=== PATIENT | male | born 1960 | race Caucasian/White ===

== ENCOUNTER 2022-10-29 22:42 | Inpatient (IN) | payer MEDICARE, OTHER ==
[2022-10-29] MEDS ORDERED: ACETAMINOPHEN TAB 325 MG TAB PO PRN (22:46)
[2022-10-29] MEDS ORDERED: NALOXONE 0.4 MG/ML 1 ML VIAL IV PRN (22:46)
--- NOTE | 2022-10-29 22:58 | ED ---
General Adult HPI - General Stated complaint: SOB Time Seen by Provider: 10/29/22 22:45 Source: patient, EMS, RN notes reviewed, old records reviewed Limitations: no limitations - History of Present Illness Initial comments: 62-year-old male presenting as transfer from [facility] for evaluation of weight loss, failure to thrive, suspected malignancy. The patient had initially presented for evaluation of weight loss and right-sided lower abdominal pain. He is a current smoker. He also was found to be hypoxic and required supplemental oxygen. Workup at outside hospital did reveal a large loculated right lower lobe effusion and atelectasis. The patient had a normal white blood cell count hemoglobin of 12. He had mild hyponatremia 132. Normal electrolytes otherwise. His albumin was 2.0. Normal kidney function. Patient states his pain is improved at the time my evaluation. He was sent with request for evaluation by both pulmonology and oncology. Vital signs stable during transport. Review of Systems ROS Statement: Those systems with pertinent positive or pertinent negative responses have been documented in the HPI. ROS Other: All systems not noted in ROS Statement are negative. General Exam General appearance: alert, cachectic Head exam: Present: atraumatic, normocephalic Eye exam: Present: normal appearance ENT exam: Present: mucous membranes dry Neck exam: Present: normal inspection Respiratory exam: Present: decreased breath sounds. Absent: respiratory distress Cardiovascular Exam: Present: regular rate, normal rhythm GI/Abdominal exam: Present: soft, tenderness (Mild right lower quadrant tenderness). Absent: distended Extremities exam: Present: normal inspection, normal capillary refill Neurological exam: Present: alert, oriented X3, CN II-XII intact. Absent: motor sensory deficit Skin exam: Present: warm Course - Reevaluation(s) Reevaluation #1: 10/29/22 22:54 CT imaging and chest x-ray will be loaded. Laboratory studies will be repeated including CBC, CMP and magnesium. Reevaluation #2: 10/29/22 22:54 Patient did state he had a PET scan performed, attempt will be made to obtain these results. Medical Decision Making - Medical Decision Making Was pt. sent in by a medical professional or institution (, PA, APPLIANCE FIXER, urgent care, hospital, or chcf...) When possible be specific @ -No Did you speak to anyone other than the patient for history (EMS, parent, family, police, friend...)? What history was obtained from this source @ -No Did you review nursing and triage notes (agree or disagree)? Why? @ -I reviewed and agree with nursing and triage notes Were old charts reviewed (outside hosp., previous admission, EMS record, old EKG, old radiological studies, urgent care reports/EKG's, chcf records)? Report findings @ -No old charts were reviewed Differential Diagnosis (chest pain, altered mental status, abdominal pain women, abdominal pain men, vaginal bleeding, weakness, fever, dyspnea, syncope, headache, dizziness, GI bleed, back pain, seizure, CVA, palpatations, mental health, musculoskeletal)? @ -Differential Weakness: Hypoglycemia, shock, sepsis, hyponatremia, anemia, infection, OH, ETOH, adverse medicine reaction, overdose, stroke, this is not meant to be an all- inclusive list. EKG interpreted by me (3pts min.). @ -As above X-rays interpreted by me (1pt min.). @ -Images will be loaded for chest x-ray. CT interpreted by me (1pt min.). @ Images will be loaded for CT chest and pelvis and attempts currently being made to obtain PET scan results U/S interpreted by me (1pt. min.). @ -None done What testing was considered but not performed or refused? (CT, X-rays, U/S, labs)? Why? @ -None What meds were considered but not given or refused? Why? @ -None Did you discuss the management of the patient with other professionals (professionals i.e. , PA, APPLIANCE FIXER, lab, RT, psych nurse, secondary social studies teacher, lead javascript developer, teacher, ordnance corps officer, case operator)? Give summary @ -No Was smoking cessation discussed for >3mins.? @ -No Was critical care preformed (if so, how long)? @ -No Were there social determinants of health that impacted care today? How? (Homel essness, low income, unemployed, alcoholism, drug addiction, transportation, low edu. Level, literacy, decrease access to med. care, chcf, rehab)? @ -No Was there de-escalation of care discussed even if they declined (Discuss DNR or withdrawal of care, Hospice)? DNR status @ -No What co-morbidities impacted this encounter? (DM, HTN, Smoking, COPD, CAD, Cancer, CVA, ARF, Chemo, Hep., AIDS, mental health diagnosis, sleep apnea, morbid obesity)? @ -Tobacco use, COPD Was patient admitted / discharged? Hospital course, mention meds given and route, prescriptions, significant lab abnormalities, going to OR and other pertinent info. @ 62-year-old male transferred from outside hospital for weight loss, pleural effusion, and failure to thrive. Patient will be admitted to internal medicine with consults placed to pulmonology and oncology. Undiagnosed new problem with uncertain prognosis? @ -No Drug Therapy requiring intensive monitoring for toxicity (Heparin, Nitro, Insulin, Cardizem)? @ -No Were any procedures done? @ -No Diagnosis/symptom? @ -[Failure to thrive, weight loss, hypoalbuminemia, pleural effusion Acute, or Chronic, or Acute on Chronic? @ -Acute Uncomplicated (without systemic symptoms) or Complicated (systemic symptoms)? @ -[Complicated Side effects of treatment? @ -No Exacerbation, Progression, or Severe Exacerbation? @ -No Poses a threat to life or bodily function? How? (Chest pain, [place], OH, pneumonia, PE, COPD, DKA, ARF, appy, cholecystitis, CVA, Diverticulitis, Homicidal, Suicidal, threat to staff... and all critical care pts) @ -[Yes, malignancy, pleural effusion Disposition Clinical Impression: Failure to thrive, Hypoalbuminemia, Pleural effusion, right, Weight loss, non- intentional Disposition: ADMITTED IP TO THIS [facility] Condition: Stable Is patient prescribed a controlled substance at d/c from ED?: No Referrals: Anushka Sabillon MD [Primary Care Provider] - 1-2 days Time of Disposition: 22:55
[2022-10-29 23:49] LABS: Anisocytosis Slight; Basophils % (A) 0 %; Eosinophils % (A) 0 %; HCT 34.7 % (39.0-53.0); Hypochromasia Slight; Lymphocytes # (A) 0.7 k/uL (1.0-4.8); Lymphocytes % (A) 8 %; MCHC 31.6 g/dL (31.0-37.0); MCV 82.3 fL (80.0-100.0); Mean Platelet Volume 7.2; Monocytes # (A) 0.5 k/uL (0-1.0); Monocytes % (A) 6 %; Neutrophils % (A) 84 %; Platelet Count 358 k/uL (150-450); RBC 4.21 m/uL (4.30-5.90); RDW 16.2 % (11.5-15.5); WBC 8.3 k/uL (3.8-10.6)
[2022-10-29] MEDS: SODIUM CHLORIDE 0.9% 1,000 ML IV SCH (23:53)
[2022-10-30 00:12] LABS: ALT 22 U/L (4-49); AST 22 U/L (17-59); African American GFR (CKD) >90 (>60 ml/min/1.73 sqM); Albumin 2.7 g/dL (3.5-5.0); Alkaline Phosphatase 118 U/L (38-126); Anion Gap 10 mmol/L; Blood Urea Nitrogen 13 mg/dL (9-20); Carbon Dioxide 23 mmol/L (22-30); Chloride 98 mmol/L (98-107); Glucose 104 mg/dL (74-99); Non-African American GFR(CKD) >90 (>60 ml/min/1.73 sqM); Potassium 3.7 mmol/L (3.5-5.1); Sodium 131 mmol/L (137-145); Total Bilirubin 0.9 mg/dL (0.2-1.3); Total Protein 5.9 g/dL (6.3-8.2)
--- NOTE | 2022-10-30 00:43 | P.HPIM ---
History of Present Illness H&P Date: 10/29/22 The patient is a 61-year-old male with a PMH of tobacco abuse who was transferred from [facility] where he had presented earlier today with complaints of weight loss and abdominal pain. The patient states that over the past several months, he has lost as much as 60 pounds of weight. He also r eports a right-sided abdominal discomfort, intermittent, 8 out of 10 on maximal intensity, occurring over the past few weeks, with no alleviating or exacerbating features. She reports experiencing nausea with vomiting during this time, which has led to a significant weight loss. He reports being unable to tolerate most foods. The patient reports that he quit smoking 5 days ago but was previously smoking a pack of cigarettes a day for most of his life. The documentation from [facility] was reviewed. CT chest/abdomen/pelvis revealed a large loculated right-sided pleural effusion with atelectasis with advanced COPD. There was also small pericardial effusion as well as a small amount of free pelvic fluid with splenomegaly. In [place] emergency room, the patient underwent an extensive evaluation with laboratory evaluation showing WBC count 8.3, hemoglobin 11.0, sodium 131, g lucose 104, lactic acid 1.3, calcium 8.0, with albumin 2.7. ED documentation reviewed and case discussed with ED provider. Review of systems: Pertinent positives and negatives as discussed in HPI, a complete review of systems was performed and all other systems are negative. Physical examination: Vital signs reviewed General: Somewhat ill-appearing frail male, no distress, appears at stated age Derm: no unusual rashes/lesions, warm Head: atraumatic, normocephalic, symmetric Eyes: EOMI, no lid lag, anicteric sclera, pupils equal round reactive to light ENT: Nose and ears atraumatic Neck: No cervical lymphadenopathy, trachea midline, supple Mouth: no lip lesion, mucus membranes moist Cardiovascular: S1S2 reg, no murmur, positive dorsalis pedis pulse bilateral, no edema Lungs: Decreased breath sounds at the right lung base, no rales, no accessory muscle use Abdominal: soft, nontender to palpation, no guarding Ext: muscle strength 4 out of 5 in all 4 extremities grossly, no gross muscle atrophy, no contractures, Neuro: CN II-XI grossly intact, no gross focal neuro deficits Psych: Alert, oriented, appropriate affect Assessment: Loculated right-sided pleural effusion with atelectasis, suspected malignancy Hyponatremia Plan: Pulmonary consult for thoracentesis and possible biopsy IV fluids with NS 75 mL/hr Pain control DVT prophylaxis: Lovenox The patient is admitted with an anticipated greater than 2 midnight stay for evaluation of malignancy CODE STATUS: Full Code Discussed with: Patient Anticipated discharge place: Home Past Medical History Past Medical History: Asthma, COPD, Hypertension History of Any Multi-Drug Resistant Organisms: None Reported Past Surgical History: Orthopedic Surgery Past Psychological History: No Psychological Hx Reported Smoking Status: Former smoker Past Alcohol Use History: None Reported Past Drug Use History: None Reported - Past Family History Father Family Medical History: COPD Medications and Allergies Allergies Allergy/AdvReac Type Severity Reaction Status Date / Time No Known Allergies Allergy Verified 10/29/22 23:27 Physical Exam Vitals: Vital Signs Pulse Resp BP Pulse Ox 10/29/22 23:22 67 22 126/71 91 L Intake and Output 10/29/22 10/29/22 10/30/22 14:59 22:59 06:59 Other: Weight 77.111 kg Results CBC & Chem 7: 10/29/22 23:30 10/29/22 23:30 Labs: Abnormal Lab Results - Last 24 Hours (Table) 10/29/22 10/29/22 Range/Units 23:30 23:30 RBC 4.21 L (4.30-5.90) m/uL Hgb 11.0 L (13.0-17.5) gm/dL Hct 34.7 L (39.0-53.0) % RDW 16.2 H (11.5-15.5) % Lymphocytes # 0.7 L (1.0-4.8) k/uL Sodium 131 L (137-145) mmol/L Creatinine 0.61 L (0.66-1.25) mg/dL Glucose 104 H (74-99) mg/dL Calcium 8.0 L (8.4-10.2) mg/dL Total Protein 5.9 L (6.3-8.2) g/dL Albumin 2.7 L (3.5-5.0) g/dL
[2022-10-30] MEDS: MORPHINE SULFATE 4 MG/ML SYRINGE IV PRN ×5 (01:27→22:45)
--- NOTE | 2022-10-30 06:44 | XR ---
EXAMINATION TYPE: XR chest 2V DATE OF EXAM: 10/30/2022 COMPARISON: Outside chest x-ray and CT from yesterday HISTORY: Pleural effusion. TECHNIQUE: Frontal and lateral views of the chest are obtained. FINDINGS: Background chronic emphysematous and parenchymal fibrotic changes redemonstrated with post erior opacity corresponding to nonsimple right-sided pleural fluid collection. The cardiac silhouett e size is upper limits of normal. The osseous structures are demineralized. IMPRESSION: As above. No significant change from one day earlier.
--- NOTE | 2022-10-30 08:51 | US ---
EXAMINATION TYPE: US chest DATE OF EXAM: 10/30/2022 COMPARISON: Chest x-ray earlier today CLINICAL INDICATION: Male, 62 years old with history of Right pleural effusion; rt pleural effusion TECHNIQUE: Targeted ultrasound of the posterior lower right hemithorax EXAM MEASUREMENTS: Right Pleural Effusion pocket size: 13.3 cm Right skin surface to fluid distance: 3.3 cm right fluid collection appears complex with internal debris Right side marked for possible thoracentesis outside the dept. Pulmonologists are able to review the images in the patient?s EMR. At least moderate size nonsimple right-sided pleural fluid collection correlates with recent x-ray an d CT. Possible empyema. IMPRESSIONS: As above.
[2022-10-30] MEDS ORDERED: RX INFO: IV CONTRAST WAS GIVEN 1 EACH MISC MISCELLANE PRN (08:57)
[2022-10-30] MEDS: ENOXAPARIN 40 MG/0.4 ML SYRINGE SQ SCH (08:58)
[2022-10-30 10:00] LABS: Appearance,Urine Clear (Clear); Bilirubin,Urine 1+ (Negative); Blood,Urine Negative (Negative); Color,Urine Yellow; Glucose,Urine (UA) Negative (Negative); Ketones,Urine Negative (Negative); Leukocyte Esterase,Urine Negative (Negative); Mucus,Urine Rare /hpf; Nitrite,Urine Negative (Negative); PH, Urine 6.5 (5.0-8.0); Protein,Urine 1+ (Negative); RBC,Urine 7 /hpf (0-5); Specific Gravity,Urine >1.050 (1.001-1.035); Urobilinogen,Urine >12.0 mg/dL (<2.0); WBC,Urine 1 /hpf (0-5)
[2022-10-30 10:19] LABS: INR 1.9 (<1.2); Prothrombin Time 18.9 sec (9.0-12.0)
[2022-10-30] MEDS: SODIUM CHLORIDE 0.9% 1,000 ML IV SCH (13:19)
[2022-10-30] MEDS ORDERED: VANCOMYCIN IV PER PHARMACY 1 EACH MISC MISCELLANE PRN (13:38)
[2022-10-30] MEDS ORDERED: VANCOMYCIN 1,000 MG in SODIUM CHLORIDE 0.9% 250 ML IVPB STA (13:40)
[2022-10-30] MEDS ORDERED: ALBUTEROL NEBULIZED 2.5 MG/3 ML INHALATION PRN (14:22)
--- NOTE | 2022-10-30 14:25 | P.PN ---
Subjective Progress Note Date: 10/30/22 Hospital Course: 61-year-old male with a PMH of tobacco abuse who was transferred from [facility] where he had presented earlier today with complaints of weight loss and abdominal pain. In [place] emergency room, the patient underwent an extensive evaluation with laboratory evaluation showing WBC count 8.3, hemoglobin 11.0, sodium 131, glucose 104, lactic acid 1.3, calcium 8.0, with albumin 2.7. Subjective: Seen and examined at bedside. No acute events overnight. He claims that abdominal pain is persistent. Denies any significant shortness of breath. Pertinent positives and negatives as discussed above, a complete review of systems was performed and all other systems are negative. Vitals Signs Reviewed. General: Somewhat ill-appearing frail male, no distress, appears at stated age Derm: no unusual rashes/lesions, warm Head: atraumatic, normocephalic, symmetric Eyes: EOMI, no lid lag, anicteric sclera, pupils equal round reactive to light ENT: Nose and ears atraumatic Neck: No cervical lymphadenopathy, trachea midline, supple Mouth: no lip lesion, mucus membranes moist Cardiovascular: S1S2 reg, no murmur, positive dorsalis pedis pulse bilateral, no edema Lungs: Decreased breath sounds at the right lung base, no rales, no accessory muscle use Abdominal: soft, nontender to palpation, no guarding Ext: muscle strength 4 out of 5 in all 4 extremities grossly, no gross muscle atrophy, no contractures, Neuro: CN II-XI grossly intact, no gross focal neuro deficits Psych: Alert, oriented, appropriate affect Data Reviewed Today: Pertinent Labs: INR 1.9, urinalysis shows negative nitrites and negative leukocyte esterase. Imaging: Chest ultrasound shows moderate side non-simple right-sided pleural effusion, possible empyema Assessment and Plan: Active: Loculated right-sided pleural effusion with atelectasis Hyponatremia -Pulmonology consulted, started on vancomycin and cefepime -Pending thoracentesis -Microbiology pending -CT chest with contrast pending -Patient appears euvolemic, repeat BMP tomorrow DVT ppx: Lovenox Code status: Full Code Anticipated discharge place: pending clinical course Anticipated discharge time: pending the course Objective - Vital Signs Vital signs: Vital Signs Temp 98.3 F 10/30/22 13:22 Pulse 84 10/30/22 13:22 Resp 18 10/30/22 13:22 BP 134/81 10/30/22 13:22 Pulse Ox 91 L 10/30/22 13:22 FiO2 Intake & Output 10/29/22 10/30/22 10/30/22 18:59 06:59 18:59 Intake Total 360 Balance 360 Weight 77.111 kg Intake: Intake, IV Titration 0 Amount Sodium Chloride 0.9% 1, 0 000 ml @ 75 mls/hr IV . [id number] [facility] Rx#:[id number] Oral 360 Other: # Voids 1 - Labs CBC & Chem 7: 10/29/22 23:30 10/29/22 23:30 Labs: Abnormal Lab Results - Last 24 Hours (Table) 10/29/22 10/29/22 10/30/22 Range/Units 23:30 23:30 09:46 RBC 4.21 L (4.30-5.90) m/uL Hgb 11.0 L (13.0-17.5) gm/dL Hct 34.7 L (39.0-53.0) % RDW 16.2 H (11.5-15.5) % Lymphocytes # 0.7 L (1.0-4.8) k/uL PT (9.0-12.0) sec INR (<1.2) Sodium 131 L (137-145) mmol/L Creatinine 0.61 L (0.66-1.25) mg/dL Glucose 104 H (74-99) mg/dL Calcium 8.0 L (8.4-10.2) mg/dL Total Protein 5.9 L (6.3-8.2) g/dL Albumin 2.7 L (3.5-5.0) g/dL Ur Specific [place] >1.050 H (1.001-1.035) Urine Protein 1+ H (Negative) Urine Bilirubin 1+ H (Negative) Urine RBC 7 H (0-5) /hpf Urine Mucus Rare H (None) /hpf 10/30/22 Range/Units 09:58 RBC (4.30-5.90) m/uL Hgb (13.0-17.5) gm/dL Hct (39.0-53.0) % RDW (11.5-15.5) % Lymphocytes # (1.0-4.8) k/uL PT 18.9 H (9.0-12.0) sec INR 1.9 H (<1.2) Sodium (137-145) mmol/L Creatinine (0.66-1.25) mg/dL Glucose (74-99) mg/dL Calcium (8.4-10.2) mg/dL Total Protein (6.3-8.2) g/dL Albumin (3.5-5.0) g/dL Ur Specific [place] (1.001-1.035) Urine Protein (Negative) Urine Bilirubin (Negative) Urine RBC (0-5) /hpf Urine Mucus (None) /hpf
--- NOTE | 2022-10-30 14:26 | P.CNPUL ---
History of Present Illness Consult date: 10/30/22 Requesting physician: Carlos Quijano Reason for consult: dyspnea, cough, COPD, pneumonia, pleural effusion, abnormal CXR/CT Chief complaint: Shortness of breath, failure to thrive, weight loss. History of present illness: Pulmonary consult dated 10/30/2022. 62-year-old male transferred from an outside hospital, with shortness of breath, a 65 pound weight loss recently, failure to thrive, and concerns about malignancy. The patient apparently presented to Hospital up in the [place] area. He was at the outside hospital for some time. The patient is not a particularly good historian. The patient really is not able to give any definitive history. The patient is a heavy smoker, and a chest x-ray, apparently showed a abnormal fluid collection and/or mass in the right chest. I asked him what he was diagnosed with the outside hospital, but he was unable to tell me. He apparently also has cough, some phlegm production. No fever or chills. No chest pain or chest discomfort. He likely has underlying COPD from heavy tobacco use. Currently, the patient's on 3 L of oxygen, but without any IV fluids. We will order the computed tomography scan of the chest, and we asked interventional radiology to consider doing a thoracentesis, and/or pigtail catheter placement. His chest x-ray showed a right-sided pleural effusion. The ultrasound was subsequently ordered. We will follow back from interventional radiology team, that the material removed from the chest, was purulent, and loo ked like pus. In addition, 1250 mL of fluid was removed from the right we added vancomycin and cefepime. White count 8.3, hemoglobin 11, hematocrit 34.7, and platelet count normal. INR was 1.9. Sodium 131, potassium 3.7, chlorides 98, CO2 23, normal anion gap, BUN 13, and the creatinine 0.61. Glucose 104. Albumin 2.7. Chest x-ray showed some chronic emphysematous changes, parenchymal fibrotic changes, and a non-simple right-sided pleural effusion. The ultrasound showed a relatively larger fluid pocket on the right side, measuring 13.3 cm. There was complex internal debris within the right chest. Hence, interventional radiology was asked to the procedure. Computed tomography scan is currently pending. Review of Systems REVIEW OF SYSTEMS: CONSTITUTIONAL: Decreased appetite, and 65 pound weight loss. NEUROLOGIC: [ Negative.] HEENT: [ Negative.] CARDIAC: [Negative.] PULMONARY: Shortness of breath, and cough. GI: Decreased appetite and weight loss. : [Negative.] RHEUMATOLOGIC: [ Negative.] IMMUNOLOGIC: [ Negative.] ENDOCRINE: [Negative. ] DERMATOLOGIC: [Negative.] Past Medical History Past Medical History: Asthma, COPD, Hypertension History of Any Multi-Drug Resistant Organisms: None Reported Past Surgical History: Orthopedic Surgery Past Anesthesia/Blood Transfusion Reactions: No Reported Reaction Past Psychological History: No Psychological Hx Reported Smoking Status: Former smoker Past Alcohol Use History: None Reported Past Drug Use History: None Reported - Past Family History Father Family Medical History: COPD Medications and Allergies Home Medications Medication Instructions Recorded Confirmed Type Albuterol Sulfate [Albuterol 2 puff PO RT-Q4H PRN 10/30/22 10/30/22 History Sulfate Hfa] Benztropine Mesylate [Cogentin] 0.5 mg PO BID 10/30/22 10/30/22 History Gabapentin 600 mg PO TID PRN 10/30/22 10/30/22 History HYDROcodone/APAP 10-325MG [Mcgill 1 tab PO Q6HR PRN 10/30/22 10/30/22 History 10-325] Ibuprofen [Motrin] 600 mg PO Q6HR PRN 10/30/22 10/30/22 History Labetalol [Trandate] 200 mg PO BID 10/30/22 10/30/22 History Ondansetron Odt [Zofran Odt] 4 mg PO Q8HR PRN 10/30/22 10/30/22 History Pantoprazole Sodium [Protonix] 40 mg PO BID 10/30/22 10/30/22 History Sertraline [Zoloft] 100 mg PO BID 10/30/22 10/30/22 History Tamsulosin [Flomax] 0.4 mg PO DAILY 10/30/22 10/30/22 History tiZANidine [Zanaflex] 2 mg PO DAILY 10/30/22 10/30/22 History Allergies Allergy/AdvReac Type Severity Reaction Status Date / Time No Known Allergies Allergy Verified 10/30/22 07:14 Physical Exam Osteopathic Statement: *. No significant issues noted on an osteopathic structural exam other than those noted in the History and Physical/Consult. Vitals: Vital Signs Temp Pulse Pulse Resp BP BP Pulse Ox 10/30/22 13:22 98.3 F 84 18 134/81 91 L 10/30/22 12:40 91 18 126/72 95 10/30/22 12:10 79 18 123/64 100 10/30/22 11:25 83 16 138/82 100 10/30/22 06:51 97.5 F L 84 18 105/66 99 10/30/22 02:00 98.4 F 65 20 122/61 98 10/30/22 01:09 62 20 116/81 96 10/29/22 23:22 67 22 126/71 91 L Intake and Output 10/29/22 10/30/22 10/30/22 22:59 06:59 14:59 Intake Total 360 Balance 360 Intake: Intake, IV Titration 0 Amount Sodium Chloride 0.9% 1, 0 000 ml @ 75 mls/hr IV . [id number] [facility] Rx#:[id number] Oral 360 Other: # Voids 1 Weight 77.111 kg No acute distress, oriented, but a poor historian, looks chronically ill, currently on 3 L of oxygen. HEENT examination is grossly unremarkable. Neck supple. Full range of motion. No adenopathy thyromegaly or neck vein distention. Cardiovascular examination reveals regular rhythm rate. S1-S2 normal. No S3 or S4. No discernible murmur noted. Heart rate 84 bpm. Lungs reveal mostly clear breath sounds. Scattered rhonchi. No wheezes or crackles. Saturations are 100% on 3 L. Room air saturation is 95%. Abdomen soft bowel sounds are heard. No masses or tenderness. Extremities are intact. No cyanosis clubbing or edema. Skin is without rash or lesion. Neurologic examination is brief but nonfocal. Results - Laboratory Findings CBC and BMP: 10/29/22 23:30 10/29/22 23:30 PT/INR, D-dimer PT 18.9 sec (9.0-12.0) H 10/30/22 09:58 INR 1.9 (<1.2) H 10/30/22 09:58 Abnormal lab findings: Abnormal Labs 10/29/22 10/29/22 10/30/22 23:30 23:30 09:46 RBC 4.21 L Hgb 11.0 L Hct 34.7 L RDW 16.2 H Lymphocytes # 0.7 L PT INR Sodium 131 L Creatinine 0.61 L Glucose 104 H Calcium 8.0 L Total Protein 5.9 L Albumin 2.7 L Ur Specific [place] >1.050 H Urine Protein 1+ H Urine Bilirubin 1+ H Urine RBC 7 H Urine Mucus Rare H 10/30/22 09:58 RBC Hgb Hct RDW Lymphocytes # PT 18.9 H INR 1.9 H Sodium Creatinine Glucose Calcium Total Protein Albumin Ur Specific [place] Urine Protein Urine Bilirubin Urine RBC Urine Mucus - Diagnostic Findings Chest x-ray: image reviewed CT scan - chest: image reviewed Assessment and Plan Assessment: Chronic shortness of breath, anorexia, significant 65 pound weight loss, and an abnormal chest x-ray, suggesting either chronic infection/lung abscess, with empyema, or malignancy. History of heavy tobacco use, with probable underlying COPD. History of hypertension. Vague history of asthma. Plan: Plan dated 10/30/2022. The patient had a thoracentesis performed by interventional radiology. Apparently the material removed, looked purulent, and we started the patient on vancomycin and cefepime. An ultrasound of the chest was ordered, as well as a CAT scan. The ultrasound showed a complex fluid collection on the right side, therefore interventional radiology did the procedure. The patient has had a significant weight loss, over the last couple of months of about 65 pounds we are concerned about chronic infection/empyema/lung abscess, versus malignancy additional recommendations and suggestions are forthcoming. We will check a pro-calcitonin level. Time with Patient: Greater than 30
[2022-10-30] MEDS ORDERED: IPRATROPIUM-ALBUTEROL 3 ML NEB INHALATION PRN (14:27)
--- NOTE | 2022-10-30 15:04 | CT ---
EXAMINATION TYPE: CT chest w con DATE OF EXAM: 10/30/2022 COMPARISON: Chest radiograph 10/30/[address] 10/29/2012 HISTORY: 62-year-old male right lung mass Right lung mass. TECHNIQUE: Contiguous axial scanning of the chest after the administration of 100ml mL of Isovue 300. Coronal/sagittal reconstructions performed. CT DLP: 542.6mGycm. Automatic exposure control utilized for a dose reduction. FINDINGS: Heart is normal size with small anterior pericardial effusion measuring 1.3 cm thick. Three-vessel co ronary artery calcifications are present. 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 Mild to moderate atherosclerotic arch calc ifications with bovine configuration to the aortic arch. Ectatic upper descending thoracic aorta 3.9 cm Large caliber to the main right and left pulmonary arteries measuring up to 3.5 cm suggesting underly ing pulmonary arterial hypertension. Moderate to advanced interlobular and paraseptal emphysema throughout the lungs. There is a residual moderate to large sized pleural fluid collection posteriorly and along the right base. It this extends anteriorly along the right middle lobe measuring up to 19.1 cm AP by 12.4 cm wi de by over 18 cm craniocaudal but the posterior costophrenic angle outside the field of view. (The co llection previously measured 20.1 cm x 13.8 cm by over 23 cm craniocaudal.) The collection shows per ipheral smooth thickened enhancing pleura. Some inflammatory fat stranding in the adjacent pericardia c fat. Small amount of air nondependently located within the pleural space inadvertently introduced d uring thoracentesis. There is a masslike area of consolidation with heterogeneous enhancement predominantly within the rig ht middle lobe measuring up to 6.9 cm. Pneumonia is suspected. Necrotic mass not entirely excluded at this time. Combination of volume loss and consolidation of the entire basilar right lower lobe. Trac e left pleural effusion is present now. The pleural fluid collection is mass effect depressing the right hemidiaphragm. Bones: Osseous destructive process. Mild multilevel degenerative disc disease. IMPRESSION: 1. Residual moderate to large pleural fluid collection on the right with thickened, smooth peripheral enhancement and some inflammatory fat stranding within the adjacent pericardiac fat. Empyema is favo red. A small amount of air is now present in the fluid collection inadvertently introduced during tho racentesis where 1,250 mL of red purulent appearing fluid was removed. 2. Masslike area of heterogeneous enhancement in the right middle lobe measuring 6.9 cm. Possible foc al pneumonia. Necrotic mass not entirely excluded at this time. 3. Combination of collapse and consolidation of the basilar right lower lobe. Mass effect causing lia nward deviation of the right hemidiaphragm. 4. Back drop of moderate to severe emphysema. Pulmonary arterial hypertension. 5. 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
--- NOTE | 2022-10-30 15:16 | US ---
EXAMINATION TYPE: US thoracentesis DATE OF EXAM: 10/30/2022 COMPARISON: Correlation CT 10/29/2022 HISTORY: 62-year-old male with right-sided mass, pleural effusion. [employer]ER: Dr. Bunch PROCEDURE: The procedure was discussed with the patient. The risks, complications, benefits, and alte rnatives were discussed and any questions were answered. Informed consent was obtained. Preprocedure preliminary imaging demonstrated a large right-sided pleural effusion. Maximal barrier technique was utilized. Ultrasound was utilized to determine the precise skin entry s ite; the skin overlying a suitable pocket of fluid of the posterior lower right chest was localized a nd the overlying skin prepped and draped. Lidocaine was used for local anesthesia. Utilizing trocar technique with sterile technique, a 5 Portuguese thoracentesis/paracentesis catheter was advanced into the pleural fluid. Aspiration yielded right tinged, purulent appearing fluid. After in itial aspiration of a couple 100 mL, the fluid became too thick for further aspiration. Due to concern for empyema, we attempted to convert to pigtail pleural drainage catheter placement bu t the patient refused. We replaced the 5 Portuguese catheter with a larger 8 Portuguese catheter and were able to remove a total of 1250 mL fluid. Fluid was labeled and sent for laboratory analysis. Catheter was withdrawn and hemostasis achieved. A sterile bandage was applied. Patient to have post p rocedure CT. IMPRESSION: 1. Status post ultrasound-guided right-sided thoracentesis of thick, red tinged purulent appearing fl uid raising concern for empyema. We attempted to convert to pigtail pleural drainage catheter placeme nt but the patient refused. We were only able to remove a total of 1250 mL after upsizing to an 8 Fr thoracentesis catheter. Significant residual fluid remains. 2. Follow-up CT pending.
[2022-10-30] MEDS: VANCOMYCIN 1,500 MG in SODIUM CHLORIDE 0.9% 500 ML 500 ML IVPB SCH ×2 (15:32→22:05)
[2022-10-30] MEDS: CEFEPIME 2 GM in SODIUM CHLORIDE 0.9% 100 ML IVPB SCH (15:49)
[2022-10-30] MEDS: IPRATROPIUM-ALBUTEROL 3 ML NEB INHALATION SCH ×2 (15:54→21:24)
[2022-10-30] MEDS ORDERED: PANTOPRAZOLE 40 MG TABLET PO STA (15:56)
[2022-10-30] MEDS: SYMBICORT 160-4.5 MCG INHALER INHALATION SCH (21:24)
[2022-10-30] MEDS: SERTRALINE 100 MG TAB PO SCH (22:04)
[2022-10-30] MEDS: PANTOPRAZOLE 40 MG TABLET PO SCH (22:04)
[2022-10-30] MEDS: LABETALOL 200 MG TAB PO SCH (22:05)
[2022-10-30] MEDS: BENZTROPINE MESYLATE 0.5 MG TAB PO SCH (22:05)
[2022-10-31] MEDS: CEFEPIME 2 GM in SODIUM CHLORIDE 0.9% 100 ML IVPB SCH ×4 (01:34→23:33)
[2022-10-31 02:19] LABS: T. Protein, Body Fluid Source Pleural Fluid; Total Protein, Body Fluid 2470 mg/dL
[2022-10-31 04:23] LABS: Appearance,BF Turbid
[2022-10-31 04:33] LABS: Amylase, Fluid Source Pleural Fluid; Amylase,Body Fluid <3 U/L; Glucose, BF Source Pleural Fluid; Glucose, Body Fluid <2 mg/dL; LDH, Body Fluid Source Pleural Fluid
[2022-10-31 06:15] LABS: African American GFR (CKD) >90 (>60 ml/min/1.73 sqM); Non-African American GFR(CKD) >90 (>60 ml/min/1.73 sqM)
[2022-10-31] MEDS: VANCOMYCIN 1,500 MG in SODIUM CHLORIDE 0.9% 500 ML 500 ML IVPB SCH ×3 (06:28→23:18)
[2022-10-31] MEDS: MORPHINE SULFATE 4 MG/ML SYRINGE IV PRN ×4 (07:45→21:37)
[2022-10-31] MEDS: SODIUM CHLORIDE 0.9% 1,000 ML IV SCH ×2 (07:47→15:58)
[2022-10-31] MEDS: SYMBICORT 160-4.5 MCG INHALER INHALATION SCH ×2 (08:06→20:46)
[2022-10-31] MEDS: IPRATROPIUM-ALBUTEROL 3 ML NEB INHALATION SCH ×4 (08:10→20:46)
[2022-10-31 08:53] LABS: African American GFR (CKD) >90 (>60 ml/min/1.73 sqM); Anion Gap 4 mmol/L; Blood Urea Nitrogen 11 mg/dL (9-20); Calcium 7.7 mg/dL (8.4-10.2); Carbon Dioxide 25 mmol/L (22-30); Chloride 104 mmol/L (98-107); Glucose 91 mg/dL (74-99); Non-African American GFR(CKD) >90 (>60 ml/min/1.73 sqM); Potassium 3.9 mmol/L (3.5-5.1); Sodium 133 mmol/L (137-145)
[2022-10-31] MEDS: LABETALOL 200 MG TAB PO SCH ×2 (09:15→20:31)
[2022-10-31] MEDS: ENOXAPARIN 40 MG/0.4 ML SYRINGE SQ SCH (09:15)
[2022-10-31] MEDS: BENZTROPINE MESYLATE 0.5 MG TAB PO SCH ×2 (09:16→20:31)
[2022-10-31] MEDS: PANTOPRAZOLE 40 MG TABLET PO SCH ×2 (09:16→20:31)
[2022-10-31] MEDS: TAMSULOSIN 0.4 MG CAP.ER.24H PO SCH (09:16)
[2022-10-31] MEDS: SERTRALINE 100 MG TAB PO SCH ×2 (09:16→20:31)
--- NOTE | 2022-10-31 11:52 | P.PN ---
Subjective Progress Note Date: 10/31/22 62-year-old male transferred from an outside hospital, with shortness of breath, a 65 pound weight loss recently, failure to thrive, and concerns about malignancy. The patient apparently presented to Hospital up in the [place] area. He was at the outside hospital for some time. The patient is not a pa rticularly good historian. The patient really is not able to give any definitive history. The patient is a heavy smoker, and a chest x-ray, apparently showed a abnormal fluid collection and/or mass in the right chest. I asked him what he was diagnosed with the outside hospital, but he was unable to tell me. He apparently also has cough, some phlegm production. No fever or chills. No chest pain or chest discomfort. He likely has underlying COPD from heavy tobacco use. Currently, the patient's on 3 L of oxygen, but without any IV fluids. We will order the computed tomography scan of the chest, and we asked interventional radiology to consider doing a thoracentesis, and/or pigtail catheter placement. His chest x-ray showed a right-sided pleural effusion. The ultrasound was subsequently ordered. We will follow back from interventional radiology team, that the material removed from the chest, was purulent, and looked like pus. In addition, 1250 mL of fluid was removed from the right we added vancomycin and cefepime. White count 8.3, hemoglobin 11, hematocrit 34.7, and platelet count normal. INR was 1.9. Sodium 131, potassium 3.7, chlorides 98, CO2 23, normal anion gap, BUN 13, and the creatinine 0.61. Glucose 104. Albumin 2.7. Chest x-ray showed some chronic emphysematous changes, parenchymal fibrotic changes, and a non-simple right-sided pleural effusion. The ultrasound showed a relatively larger fluid pocket on the right side, measuring 13.3 cm. There was complex internal debris within the right chest. Hence, interventional radiology was asked to the procedure. Computed tomography scan is currently pending. The patient is seen today 10/31/2022 in follow-up on the regular medical floor. He is currently resting comfortably in bed. Awake and alert in no acute distress. He did undergo a right-sided thoracentesis by interventional radiology yesterday. The fluid was significantly dyspneic and pertinent and suspicious for empyema. The were planning to place a pigtail catheter however the patient refused to have it done. A total of 1250 ML's was drained. Fluid analysis reveals turbid appearance with greater than 500,000 WBCs. Total protein 2.4. LDH greater than 2500. He was initiated on vancomycin and cefepime yesterday. Continued on DuoNeb inhalations, Symbicort. Sodium 133. Potassium 3.9. Bicarb 25. BUN 11. Creatinine 0.60. Objective - Vital Signs Vital signs: Vital Signs Temp 98.1 F 10/31/22 07:37 Pulse 80 10/31/22 11:41 Resp 18 10/31/22 07:37 BP 136/68 10/31/22 07:37 Pulse Ox 96 10/31/22 07:37 FiO2 Intake & Output 10/30/22 10/31/22 10/31/22 18:59 06:59 18:59 Other: # Voids 2 1 - Exam GENERAL EXAM: Alert, pleasant 62-year-old male, appears older than stated age, resting in bed, on room air, fairly comfortable in no apparent distress. HEAD: Normocephalic. EYES: Normal reaction of pupils, equal size. NOSE: Clear with pink turbinates. THROAT: No erythema or exudates. NECK: No masses, no JVD. CHEST: No chest wall deformity. LUNGS: Equal air entry with bilateral scattered rhonchi more so on the right, diminished in the bases. CVS: S1 and S2 normal with no audible murmur, regular rhythm. ABDOMEN: No hepatosplenomegaly, normal bowel sounds, no guarding or rigidity. SPINE: No scoliosis or deformity SKIN: No rashes CENTRAL NERVOUS SYSTEM: No focal deficits, tone is normal in all 4 extremities. EXTREMITIES: There is no peripheral edema. No clubbing, no cyanosis. Peripheral pulses are intact. - Labs CBC & Chem 7: 10/29/22 23:30 10/31/22 08:21 Labs: Abnormal Lab Results - Last 24 Hours (Table) 10/30/22 10/31/22 10/31/22 Range/Units 09:58 05:28 08:21 Sodium 133 L (137-145) mmol/L Creatinine 0.57 L 0.60 L (0.66-1.25) mg/dL Calcium 7.7 L (8.4-10.2) mg/dL Procalcitonin 0.16 H (0.02-0.09) ng/mL Assessment and Plan Assessment: Chronic shortness of breath, anorexia, significant 65 pound weight loss, and an abnormal chest x-ray. Status post right-sided thoracentesis by interventional radiology in the fluid was suspicious for empyema. Initiated on vancomycin and cefepime. The patient declined to have a pigtail catheter placed which would have benefited him History of heavy tobacco use, with probable underlying COPD History of hypertension Vague history of asthma Plan: The patient was seen and evaluated Pleural fluid analysis reviewed Initiated on vancomycin and cefepime yesterday Cytology pending The patient declined pigtail catheter placement Follow-up chest x-ray in a.m. Currently stable and on room air We will continue to follow I have personally seen and examined the patient, performed the documentation and the assessment and plan as written. Number of minutes spent on the visit: 10.
--- NOTE | 2022-10-31 12:48 | P.PN ---
Subjective Progress Note Date: 10/31/22 Hospital Course: 61-year-old male with a PMH of tobacco abuse who was transferred from [facility] where he had presented earlier today with complaints of weight loss and abdominal pain. In [place] emergency room, the patient underwent an extensive evaluation with laboratory evaluation showing WBC count 8.3, hemoglobin 11.0, sodium 131, glucose 104, lactic acid 1.3, calcium 8.0, with albumin 2.7. Patient evaluated by pulmonology. Thoracentesis done. Has significant empyema. Patient also started on vancomycin and cefepime. Pending culture, and cytology. Subjective: Seen and examined at bedside. No acute events overnight. Denies any significant shortness of breath or chest pain, or cough. Pertinent positives and negatives as discussed above, a complete review of syst ems was performed and all other systems are negative. Vitals Signs Reviewed. General: Somewhat ill-appearing frail male, no distress, appears at stated age Derm: no unusual rashes/lesions, warm Head: atraumatic, normocephalic, symmetric Eyes: EOMI, no lid lag, anicteric sclera, pupils equal round reactive to light ENT: Nose and ears atraumatic Neck: No cervical lymphadenopathy, trachea midline, supple Mouth: no lip lesion, mucus membranes moist Cardiovascular: S1S2 reg, no murmur, positive dorsalis pedis pulse bilateral, no edema Lungs: Decreased breath sounds at the right lung base, no rales, no accessory muscle use Abdominal: soft, nontender to palpation, no guarding Ext: muscle strength 4 out of 5 in all 4 extremities grossly, no gross muscle atrophy, no contractures, Neuro: CN II-XI grossly intact, no gross focal neuro deficits Psych: Alert, oriented, appropriate affect Data Reviewed Today: Pertinent Labs: Sodium 133, creatinine 0.6, pleural fluid with 500K WBCs Imaging: Chest CT shows large pleural fluid collection on the right, likely empyema masslike area of heterogenous enhancement in the right middle lobe measuring 6.9 cm, possible focal pneumonia or necrotic mass, severe emphysema, pulmonary arterial hypertension, 5.2 cm aneurysmal aortic root, 4.1 cm aneurysm al ascending aorta Assessment and Plan: Active: Empyema Masslike enhancement in the right middle lobe Emphysema Hyponatremia, improving Aneurysmal aortic root and ascending aorta -Pulmonology note reviewed, continue vancomycin and cefepime, monitor for renal toxicity, repeat BMP tomorrow -Microbiology and cytology pending -Continue bronchodilators -CT chest with contrast pending -Patient appears euvolemic -Outpatient follow-up for aneurysm aorta Chronic: Hypertension GERD DVT ppx: Lovenox Code status: Full Code Anticipated discharge place: pending clinical course Anticipated discharge time: pending the course Objective - Vital Signs Vital signs: Vital Signs Temp 98.1 F 10/31/22 07:37 Pulse 82 10/31/22 11:54 Resp 18 10/31/22 09:20 BP 136/68 10/31/22 07:37 Pulse Ox 96 10/31/22 07:37 FiO2 Intake & Output 10/30/22 10/31/22 10/31/22 18:59 06:59 18:59 Other: # Voids 2 1 - Labs CBC & Chem 7: 10/29/22 23:30 10/31/22 08:21 Labs: Abnormal Lab Results - Last 24 Hours (Table) 10/30/22 10/31/22 10/31/22 Range/Units 09:58 05:28 08:21 Sodium 133 L (137-145) mmol/L Creatinine 0.57 L 0.60 L (0.66-1.25) mg/dL Calcium 7.7 L (8.4-10.2) mg/dL Procalcitonin 0.16 H (0.02-0.09) ng/mL
[2022-10-31] MEDS ORDERED: VANCOMYCIN TROUGH DUE 1 EACH MISC MISCELLANE ONE (13:00)
[2022-10-31] MEDS: GABAPENTIN 300 MG CAP PO PRN (20:31)
[2022-11-01] MEDS: MORPHINE SULFATE 4 MG/ML SYRINGE IV PRN ×6 (03:31→23:42)
[2022-11-01] MEDS: SODIUM CHLORIDE 0.9% 1,000 ML IV SCH ×2 (04:12→20:10)
[2022-11-01 04:18] LABS: African American GFR (CKD) >90 (>60 ml/min/1.73 sqM); Anion Gap 6 mmol/L; Blood Urea Nitrogen 9 mg/dL (9-20); Calcium 7.6 mg/dL (8.4-10.2); Carbon Dioxide 21 mmol/L (22-30); Chloride 106 mmol/L (98-107); Glucose 89 mg/dL (74-99); Non-African American GFR(CKD) >90 (>60 ml/min/1.73 sqM); Potassium 3.2 mmol/L (3.5-5.1); Sodium 133 mmol/L (137-145)
[2022-11-01 04:33] LABS: Anisocytosis Slight; Basophils % (A) 0 %; Eosinophils # (A) 0.1 k/uL (0-0.7); Eosinophils % (A) 1 %; HCT 32.7 % (39.0-53.0); Hypochromasia Moderate; Lymphocytes # (A) 0.6 k/uL (1.0-4.8); Lymphocytes % (A) 13 %; MCH 25.4 pg (25.0-35.0); MCHC 30.4 g/dL (31.0-37.0); MCV 83.6 fL (80.0-100.0); Mean Platelet Volume 7.4; Monocytes # (A) 0.2 k/uL (0-1.0); Monocytes % (A) 5 %; Neutrophils # (A) 3.5 k/uL (1.3-7.7); Neutrophils % (A) 78 %; Platelet Count 287 k/uL (150-450); RBC 3.91 m/uL (4.30-5.90); RDW 16.3 % (11.5-15.5); WBC 4.5 k/uL (3.8-10.6)
[2022-11-01] MEDS: VANCOMYCIN 1,500 MG in SODIUM CHLORIDE 0.9% 500 ML 500 ML IVPB SCH ×3 (06:23→23:42)
--- NOTE | 2022-11-01 07:35 | XR ---
EXAMINATION TYPE: XR chest 1V portable DATE OF EXAM: 11/01/2022 5:59 AM COMPARISON: Chest radiographs from 10/30/2022, CT 10/30/2022 TECHNIQUE: XR chest 1V portable Frontal view of the chest. CLINICAL INDICATION:Male, 62 years old with history of Right lung infiltrate; FINDINGS: Lungs/Pleura: Similar right airspace opacities. No evidence of pneumothorax or pleural effusion. Para septal emphysema on the right giving a pseudopneumothorax appearance. Pulmonary vascularity: Unremarkable. Heart/mediastinum: Cardiomediastinal silhouette is unremarkable. Musculoskeletal: No acute osseous pathology. Other findings: None Lines/Tubes: IMPRESSION: Similar right airspace opacities. Superimposed paraseptal emphysema as seen on CT chest 10/30/2022
[2022-11-01] MEDS ORDERED: POTASSIUM CHLORIDE ER 20 MEQ TAB.ER PO STA (08:01)
[2022-11-01] MEDS: IPRATROPIUM-ALBUTEROL 3 ML NEB INHALATION SCH ×4 (08:04→20:22)
[2022-11-01] MEDS: SYMBICORT 160-4.5 MCG INHALER INHALATION SCH ×3 (08:05→20:22)
[2022-11-01] MEDS: LABETALOL 200 MG TAB PO SCH ×2 (08:34→20:13)
[2022-11-01] MEDS: ENOXAPARIN 40 MG/0.4 ML SYRINGE SQ SCH (08:34)
[2022-11-01] MEDS: TAMSULOSIN 0.4 MG CAP.ER.24H PO SCH (08:35)
[2022-11-01] MEDS: CEFEPIME 2 GM in SODIUM CHLORIDE 0.9% 100 ML IVPB SCH ×3 (08:35→23:42)
[2022-11-01] MEDS: SERTRALINE 100 MG TAB PO SCH ×2 (08:35→20:13)
[2022-11-01] MEDS: PANTOPRAZOLE 40 MG TABLET PO SCH ×2 (08:35→20:13)
[2022-11-01] MEDS: BENZTROPINE MESYLATE 0.5 MG TAB PO SCH ×2 (08:35→20:13)
--- NOTE | 2022-11-01 10:36 | P.PN ---
Subjective Progress Note Date: 11/01/22 62-year-old male transferred from an outside hospital, with shortness of breath, a 65 pound weight loss recently, failure to thrive, and concerns about malignancy. The patient apparently presented to Hospital up in the [place] area. He was at the outside hospital for some time. The patient is not a pa rticularly good historian. The patient really is not able to give any definitive history. The patient is a heavy smoker, and a chest x-ray, apparently showed a abnormal fluid collection and/or mass in the right chest. I asked him what he was diagnosed with the outside hospital, but he was unable to tell me. He apparently also has cough, some phlegm production. No fever or chills. No chest pain or chest discomfort. He likely has underlying COPD from heavy tobacco use. Currently, the patient's on 3 L of oxygen, but without any IV fluids. We will order the computed tomography scan of the chest, and we asked interventional radiology to consider doing a thoracentesis, and/or pigtail catheter placement. His chest x-ray showed a right-sided pleural effusion. The ultrasound was subsequently ordered. We will follow back from interventional radiology team, that the material removed from the chest, was purulent, and looked like pus. In addition, 1250 mL of fluid was removed from the right we added vancomycin and cefepime. White count 8.3, hemoglobin 11, hematocrit 34.7, and platelet count normal. INR was 1.9. Sodium 131, potassium 3.7, chlorides 98, CO2 23, normal anion gap, BUN 13, and the creatinine 0.61. Glucose 104. Albumin 2.7. Chest x-ray showed some chronic emphysematous changes, parenchymal fibrotic changes, and a non-simple right-sided pleural effusion. The ultrasound showed a relatively larger fluid pocket on the right side, measuring 13.3 cm. There was complex internal debris within the right chest. Hence, interventional radiology was asked to the procedure. Computed tomography scan is currently pending. The patient is seen today 10/31/2022 in follow-up on the regular medical floor. He is currently resting comfortably in bed. Awake and alert in no acute distress. He did undergo a right-sided thoracentesis by interventional radiology yesterday. The fluid was significantly dyspneic and pertinent and suspicious for empyema. The were planning to place a pigtail catheter however the patient refused to have it done. A total of 1250 ML's was drained. Fluid analysis reveals turbid appearance with greater than 500,000 WBCs. Total protein 2.4. LDH greater than 2500. He was initiated on vancomycin and cefepime yesterday. Continued on DuoNeb inhalations, Symbicort. Sodium 133. Potassium 3.9. Bicarb 25. BUN 11. Creatinine 0.60. The patient is seen today 11/01/2022 in follow-up on the regular medical floor. He is currently resting in bed. Awake and alert in no acute distress. Maintaining good O2 saturations in the 90s on room air. He is feeling weak and fatigued. He continues to decline the offer of a chest tube placement to help drain the suspected abscess in the right chest. He is continued on vancomycin and cefepime. Continue on Symbicort and DuoNeb inhalations. Lovenox for DVT prophylaxis. Chest x-ray shows similar right airspace opacities. Superimposed emphysema. Preliminary pleural fluid Gram stain showing alpha hemolytic streptococcus. White count 4.5. Hemoglobin 10.0. Platelets 287. Sodium 133. Potassium 3.2. Bicarb 21. BUN 9. Creatinine 0.58. Objective - Vital Signs Vital signs: Vital Signs Temp 98.3 F 11/01/22 07:00 Pulse 68 11/01/22 08:17 Resp 18 11/01/22 07:30 BP 118/59 11/01/22 07:00 Pulse Ox 94 L 11/01/22 08:18 FiO2 Intake & Output 10/31/22 11/01/22 11/01/22 18:59 06:59 18:59 Intake Total 1050 118 Output Total 750 700 Balance -750 350 118 Intake: Intake, IV Titration 1050 Amount Cefepime 2 gm In Sodium 100 Chloride 0.9% 100 ml @ 25 mls/hr IVPB Q8HR [facility] Rx# :[id number] Sodium Chloride 0.9% 1, 450 000 ml @ 75 mls/hr IV . [id number] [facility] Rx#:[id number] Vancomycin 1,500 mg In 500 Sodium Chloride 0.9% 500 ml 500 ml @ 167 mls/hr IVPB Q8H [facility] Rx#: [id number] Oral 118 Output: Urine 750 600 Emesis 100 Other: Voiding Method Urinal - Exam GENERAL EXAM: Alert, 62-year-old male, appears older than stated age, on room air, fairly comfortable in no apparent distress. HEAD: Normocephalic. EYES: Normal reaction of pupils, equal size. NOSE: Clear with pink turbinates. THROAT: No erythema or exudates. NECK: No masses, no JVD. CHEST: No chest wall deformity. LUNGS: Equal air entry with bilateral scattered rhonchi more so on the right, diminished in the bases. CVS: S1 and S2 normal with no audible murmur, regular rhythm. ABDOMEN: No hepatosplenomegaly, normal bowel sounds, no guarding or rigidity. SPINE: No scoliosis or deformity SKIN: No rashes CENTRAL NERVOUS SYSTEM: No focal deficits, tone is normal in all 4 extremities. EXTREMITIES: There is no peripheral edema. No clubbing, no cyanosis. Peripheral pulses are intact. - Labs CBC & Chem 7: 11/01/22 03:57 11/01/22 03:57 Labs: Abnormal Lab Results - Last 24 Hours (Table) 11/01/22 11/01/22 Range/Units 03:57 03:57 RBC 3.91 L (4.30-5.90) m/uL Hgb 10.0 L (13.0-17.5) gm/dL Hct 32.7 L (39.0-53.0) % MCHC 30.4 L (31.0-37.0) g/dL RDW 16.3 H (11.5-15.5) % Lymphocytes # 0.6 L (1.0-4.8) k/uL Sodium 133 L (137-145) mmol/L Potassium 3.2 L (3.5-5.1) mmol/L Carbon Dioxide 21 L (22-30) mmol/L Creatinine 0.58 L (0.66-1.25) mg/dL Calcium 7.6 L (8.4-10.2) mg/dL Microbiology - Last 24 Hours (Table) 10/30/22 12:30 Gram Stain - Preliminary Pleural Fluid Body Fluid Culture - Preliminary Alpha Hemolytic Streptococcus 10/30/22 12:30 Anaerobic Culture - Preliminary Pleural Fluid Assessment and Plan Assessment: Chronic shortness of breath, anorexia, significant 65 pound weight loss, and an abnormal chest x-ray. Status post right-sided thoracentesis by interventional radiology in the fluid was suspicious for empyema. Initiated on vancomycin and cefepime. The patient continues to decline to have a pigtail catheter placed which would benefit him. Preliminary pleural fluid findings revealing alphahemolytic streptococcus History of heavy tobacco use, with probable underlying COPD History of hypertension Vague history of asthma Plan: The patient was seen and evaluated Medications and labs reviewed, chest x-ray reviewed Pleural fluid analysis reviewed Continue vancomycin and cefepime The patient continues to decline pigtail catheter placement Currently stable and on room air We will continue to follow I have personally seen and examined the patient, performed the documentation and the assessment and plan as written. Number of minutes spent on the visit: 10.
--- NOTE | 2022-11-01 12:30 | P.PN ---
Subjective Progress Note Date: 11/01/22 Hospital Course: 61-year-old male with a PMH of tobacco abuse who was transferred from [facility] where he had presented earlier today with complaints of weight loss and abdominal pain. In [place] emergency room, the patient underwent an extensive evaluation with laboratory evaluation showing WBC count 8.3, hemoglobin 11.0, sodium 131, glucose 104, lactic acid 1.3, calcium 8.0, with albumin 2.7. Patient evaluated by pulmonology. Thoracentesis done. Has significant empyema. Patient also started on vancomycin and cefepime. Culture showing alphahemolytic streptococcus. ID consulted Subjective: Seen and examined at bedside. No acute events overnight. Denies any si gnificant shortness of breath or chest pain, or cough. Pertinent positives and negatives as discussed above, a complete review of systems was performed and all other systems are negative. Vitals Signs Reviewed. General: Somewhat ill-appearing frail male, no distress, appears at stated age Derm: no unusual rashes/lesions, warm Head: atraumatic, normocephalic, symmetric Eyes: EOMI, no lid lag, anicteric sclera, pupils equal round reactive to light ENT: Nose and ears atraumatic Neck: No cervical lymphadenopathy, trachea midline, supple Mouth: no lip lesion, mucus membranes moist Cardiovascular: S1S2 reg, no murmur, positive dorsalis pedis pulse bilateral, no edema Lungs: Decreased breath sounds at the right lung base, no rales, no accessory muscle use Abdominal: soft, nontender to palpation, no guarding Ext: muscle strength 4 out of 5 in all 4 extremities grossly, no gross muscle at rophy, no contractures, Neuro: CN II-XI grossly intact, no gross focal neuro deficits Psych: Alert, oriented, appropriate affect Data Reviewed Today: Pertinent Labs: WBC 4.5, hemoglobin 10, sodium 133, potassium 3.2, creatinine 0.58 Imaging: Chest x-ray independently interpreted, right sided airspace opacity Assessment and Plan: Active: Empyema Masslike enhancement in the right middle lobe Emphysema Hyponatremia, improving Hypokalemia Aneurysmal aortic root and ascending aorta -Pulmonology note reviewed, continue vancomycin and cefepime, monitor for renal toxicity, repeat BMP tomorrow -Growing alphahemolytic streptococcus -ID consulted -Patient is considering pigtail catheter -Continue bronchodilators -Patient appears euvolemic -Potassium chloride 40 mEq ordered -Outpatient follow-up for aneurysm aorta Chronic: Hypertension GERD DVT ppx: Lovenox Code status: Full Code Anticipated discharge place: pending clinical course Anticipated discharge time: pending clinical course Objective - Vital Signs Vital signs: Vital Signs Temp 98.3 F 11/01/22 07:00 Pulse 68 11/01/22 12:05 Resp 18 11/01/22 07:30 BP 118/59 11/01/22 07:00 Pulse Ox 94 L 11/01/22 08:18 FiO2 Intake & Output 10/31/22 11/01/22 11/01/22 18:59 06:59 18:59 Intake Total 1050 118 Output Total 750 700 Balance -750 350 118 Intake: Intake, IV Titration 1050 Amount Cefepime 2 gm In Sodium 100 Chloride 0.9% 100 ml @ 25 mls/hr IVPB Q8HR [facility] Rx# :[id number] Sodium Chloride 0.9% 1, 450 000 ml @ 75 mls/hr IV . [id number] [facility] Rx#:[id number] Vancomycin 1,500 mg In 500 Sodium Chloride 0.9% 500 ml 500 ml @ 167 mls/hr IVPB Q8H [facility] Rx#: [id number] Oral 118 Output: Urine 750 600 Emesis 100 Other: Voiding Method Urinal - Labs CBC & Chem 7: 11/01/22 03:57 11/01/22 03:57 Labs: Abnormal Lab Results - Last 24 Hours (Table) 11/01/22 11/01/22 Range/Units 03:57 03:57 RBC 3.91 L (4.30-5.90) m/uL Hgb 10.0 L (13.0-17.5) gm/dL Hct 32.7 L (39.0-53.0) % MCHC 30.4 L (31.0-37.0) g/dL RDW 16.3 H (11.5-15.5) % Lymphocytes # 0.6 L (1.0-4.8) k/uL Sodium 133 L (137-145) mmol/L Potassium 3.2 L (3.5-5.1) mmol/L Carbon Dioxide 21 L (22-30) mmol/L Creatinine 0.58 L (0.66-1.25) mg/dL Calcium 7.6 L (8.4-10.2) mg/dL Microbiology - Last 24 Hours (Table) 10/30/22 12:30 Gram Stain - Preliminary Pleural Fluid Body Fluid Culture - Preliminary Alpha Hemolytic Streptococcus 10/30/22 12:30 Anaerobic Culture - Preliminary Pleural Fluid
[2022-11-02] MEDS: MORPHINE SULFATE 4 MG/ML SYRINGE IV PRN ×4 (03:31→18:20)
[2022-11-02] MEDS: SODIUM CHLORIDE 0.9% 1,000 ML IV SCH ×2 (06:30→21:02)
[2022-11-02 06:57] LABS: African American GFR (CKD) >90 (>60 ml/min/1.73 sqM); Anion Gap 5 mmol/L; Blood Urea Nitrogen 6 mg/dL (9-20); Calcium 7.3 mg/dL (8.4-10.2); Carbon Dioxide 19 mmol/L (22-30); Chloride 108 mmol/L (98-107); Glucose 83 mg/dL (74-99); Magnesium 1.9 mg/dL (1.6-2.3); Non-African American GFR(CKD) >90 (>60 ml/min/1.73 sqM); Potassium 3.8 mmol/L (3.5-5.1); Sodium 132 mmol/L (137-145)
[2022-11-02] MEDS: PANTOPRAZOLE 40 MG TABLET PO SCH ×2 (08:02→20:27)
[2022-11-02] MEDS: CEFEPIME 2 GM in SODIUM CHLORIDE 0.9% 100 ML IVPB SCH (08:02)
[2022-11-02] MEDS: ENOXAPARIN 40 MG/0.4 ML SYRINGE SQ SCH (08:02)
[2022-11-02] MEDS: LABETALOL 200 MG TAB PO SCH ×2 (08:02→20:27)
[2022-11-02] MEDS: VANCOMYCIN 1,500 MG in SODIUM CHLORIDE 0.9% 500 ML 500 ML IVPB SCH (08:02)
[2022-11-02] MEDS: TAMSULOSIN 0.4 MG CAP.ER.24H PO SCH (08:02)
[2022-11-02] MEDS: BENZTROPINE MESYLATE 0.5 MG TAB PO SCH ×2 (08:03→20:27)
[2022-11-02] MEDS: SERTRALINE 100 MG TAB PO SCH ×2 (08:03→20:28)
[2022-11-02] MEDS: IPRATROPIUM-ALBUTEROL 3 ML NEB INHALATION SCH ×4 (08:40→21:54)
[2022-11-02] MEDS: SYMBICORT 160-4.5 MCG INHALER INHALATION SCH ×2 (08:40→21:54)
[2022-11-02 09:38] LABS: Basophils # (A) 0.02 X 10*3/uL (0.00-0.10); Basophils % (A) 0.3 %; Eosinophils # (A) 0.07 X 10*3/uL (0.04-0.35); Eosinophils % (A) 1.2 %; HGB 9.2 g/dL (13.0-17.0); Immature Grans, Automated 0.7 %; Lymphocytes # (A) 0.68 X 10*3/uL (0.90-5.00); Lymphocytes % (A) 11.7 %; MCH 25.9 pg (27.0-32.0); MCHC 30.7 g/dL (32.0-37.0); MCV 84.5 fL (80.0-97.0); Mean Platelet Volume 9.5 fL (9.5-12.2); Monocytes # (A) 0.57 X 10*3/uL (0.20-1.00); Monocytes % (A) 9.8 %; NRBC Per 100 WBC 0 /100 WBCS (0.0-0.0); Neutrophils # (A) 4.44 X 10*3/uL (1.80-7.70); Neutrophils % (A) 76.3 %; Platelet Count 285 X 10*3/uL (140-440); RBC 3.55 X 10*6/uL (4.40-5.60); RDW 16.4 % (11.5-14.5); WBC 5.82 X 10*3/uL (4.50-10.00)
--- NOTE | 2022-11-02 11:15 | P.PN ---
Subjective Progress Note Date: 11/02/22 Hospital Course: 61-year-old male with a PMH of tobacco abuse who was transferred from [facility] where he had presented earlier today with complaints of weight loss and abdominal pain. In [place] emergency room, the patient underwent an extensive evaluation with laboratory evaluation showing WBC count 8.3, hemoglobin 11.0, sodium 131, glucose 104, lactic acid 1.3, calcium 8.0, with albumin 2.7. Patient evaluated by pulmonology. Thoracentesis done. Has significant empyema. Patient also started on vancomycin and cefepime. Culture showing alphahemolytic streptococcus. ID consulted. Subjective: Seen and examined at bedside. No acute events overnight. Denies any significa nt shortness of breath or chest pain, or cough. Pertinent positives and negatives as discussed above, a complete review of systems was performed and all other systems are negative. Vitals Signs Reviewed. General: Somewhat ill-appearing frail male, no distress, appears at stated age Derm: no unusual rashes/lesions, warm Head: atraumatic, normocephalic, symmetric Eyes: EOMI, no lid lag, anicteric sclera, pupils equal round reactive to light ENT: Nose and ears atraumatic Neck: No cervical lymphadenopathy, trachea midline, supple Mouth: no lip lesion, mucus membranes moist Cardiovascular: S1S2 reg, no murmur, positive dorsalis pedis pulse bilateral, no edema Lungs: Decreased breath sounds at the right lung base, no rales, no accessory muscle use Abdominal: soft, nontender to palpation, no guarding Ext: muscle strength 4 out of 5 in all 4 extremities grossly, no gross muscle atrophy, no contractures, Neuro: CN II-XI grossly intact, no gross focal neuro deficits Psych: Alert, oriented, appropriate affect Data Reviewed Today: Pertinent Labs: WBC 5.82, hemoglobin 9.2, sodium 132, potassium 3.8, creatinine 0.51, magnesium 1.9 Imaging: No new imaging today Assessment and Plan: Active: Empyema Masslike enhancement in the right middle lobe Emphysema Hyponatremia, euvolemic, stable Hypokalemia, resolved Normocytic anemia Aneurysmal aortic root and ascending aorta -Pulmonology following, continue vancomycin and cefepime, monitor for renal toxicity, repeat BMP tomorrow -Growing alphahemolytic streptococcus -ID consulted -Patient is considering pigtail catheter -Continue bronchodilators -Patient appears euvolemic -No active bleeding, repeat CBC tomorrow -Outpatient follow-up for aneurysm aorta Chronic: Hypertension GERD DVT ppx: Lovenox Code status: Full Code Anticipated discharge place: pending clinical course Anticipated discharge time: pending clinical course Objective - Vital Signs Vital signs: Vital Signs Temp 98.4 F 11/02/22 06:58 Pulse 57 L 11/02/22 06:58 Resp 18 11/02/22 06:58 BP 162/82 11/02/22 06:58 Pulse Ox 96 11/02/22 06:58 FiO2 Intake & Output 11/01/22 11/02/22 11/02/22 18:59 06:59 18:59 Intake Total 118 1680 Output Total 500 490 Balance -382 1190 Intake: Intake, IV Titration 1200 Amount Cefepime 2 gm In Sodium 100 Chloride 0.9% 100 ml @ 25 mls/hr IVPB Q8HR [facility] Rx# :[id number] Sodium Chloride 0.9% 1, 600 000 ml @ 75 mls/hr IV . [id number] [facility] Rx#:[id number] Vancomycin 1,500 mg In 500 Sodium Chloride 0.9% 500 ml 500 ml @ 167 mls/hr IVPB Q8HR [facility] Rx#: [id number] Oral 118 480 Output: Urine 500 490 Other: Voiding Method Urinal # Voids 3 # Bowel Movements 1 - Labs CBC & Chem 7: 11/02/22 05:53 11/02/22 05:53 Labs: Abnormal Lab Results - Last 24 Hours (Table) 11/02/22 11/02/22 Range/Units 05:53 05:53 RBC 3.55 L (4.40-5.60) X 10*6/uL Hgb 9.2 L (13.0-17.0) g/dL Hct 30.0 L (39.6-50.0) % MCH 25.9 L (27.0-32.0) pg MCHC 30.7 L (32.0-37.0) g/dL RDW 16.4 H (11.5-14.5) % Lymphocytes # 0.68 L (0.90-5.00) X 10*3/uL Sodium 132 L (137-145) mmol/L Chloride 108 H (98-107) mmol/L Carbon Dioxide 19 L (22-30) mmol/L BUN 6 L (9-20) mg/dL Creatinine 0.51 L (0.66-1.25) mg/dL Calcium 7.3 L (8.4-10.2) mg/dL Microbiology - Last 24 Hours (Table) 10/30/22 12:30 Gram Stain - Preliminary Pleural Fluid Body Fluid Culture - Preliminary Alpha Hemolytic Streptococcus
--- NOTE | 2022-11-02 12:11 | P.PN ---
Subjective Progress Note Date: 11/02/22 62-year-old male transferred from an outside hospital, with shortness of breath, a 65 pound weight loss recently, failure to thrive, and concerns about malignancy. The patient apparently presented to Hospital up in the [place] area. He was at the outside hospital for some time. The patient is not a pa rticularly good historian. The patient really is not able to give any definitive history. The patient is a heavy smoker, and a chest x-ray, apparently showed a abnormal fluid collection and/or mass in the right chest. I asked him what he was diagnosed with the outside hospital, but he was unable to tell me. He apparently also has cough, some phlegm production. No fever or chills. No chest pain or chest discomfort. He likely has underlying COPD from heavy tobacco use. Currently, the patient's on 3 L of oxygen, but without any IV fluids. We will order the computed tomography scan of the chest, and we asked interventional radiology to consider doing a thoracentesis, and/or pigtail catheter placement. His chest x-ray showed a right-sided pleural effusion. The ultrasound was subsequently ordered. We will follow back from interventional radiology team, that the material removed from the chest, was purulent, and looked like pus. In addition, 1250 mL of fluid was removed from the right we added vancomycin and cefepime. White count 8.3, hemoglobin 11, hematocrit 34.7, and platelet count normal. INR was 1.9. Sodium 131, potassium 3.7, chlorides 98, CO2 23, normal anion gap, BUN 13, and the creatinine 0.61. Glucose 104. Albumin 2.7. Chest x-ray showed some chronic emphysematous changes, parenchymal fibrotic changes, and a non-simple right-sided pleural effusion. The ultrasound showed a relatively larger fluid pocket on the right side, measuring 13.3 cm. There was complex internal debris within the right chest. Hence, interventional radiology was asked to the procedure. Computed tomography scan is currently pending. The patient is seen today 10/31/2022 in follow-up on the regular medical floor. He is currently resting comfortably in bed. Awake and alert in no acute distress. He did undergo a right-sided thoracentesis by interventional radiology yesterday. The fluid was significantly dyspneic and pertinent and suspicious for empyema. The were planning to place a pigtail catheter however the patient refused to have it done. A total of 1250 ML's was drained. Fluid analysis reveals turbid appearance with greater than 500,000 WBCs. Total protein 2.4. LDH greater than 2500. He was initiated on vancomycin and cefepime yesterday. Continued on DuoNeb inhalations, Symbicort. Sodium 133. Potassium 3.9. Bicarb 25. BUN 11. Creatinine 0.60. The patient is seen today 11/01/2022 in follow-up on the regular medical floor. He is currently resting in bed. Awake and alert in no acute distress. Maintaining good O2 saturations in the 90s on room air. He is feeling weak and fatigued. He continues to decline the offer of a chest tube placement to help drain the suspected abscess in the right chest. He is continued on vancomycin and cefepime. Continue on Symbicort and DuoNeb inhalations. Lovenox for DVT prophylaxis. Chest x-ray shows similar right airspace opacities. Superimposed emphysema. Preliminary pleural fluid Gram stain showing alpha hemolytic streptococcus. White count 4.5. Hemoglobin 10.0. Platelets 287. Sodium 133. Potassium 3.2. Bicarb 21. BUN 9. Creatinine 0.58. The patient is seen today 11/02/2022 in follow-up on the regular medical floor. He is awake and alert in no acute distress. Still not feeling much better today compared to yesterday. Still weak and fatigued. Maintaining good O2 saturations in the 90s on room air. He is continued on vancomycin and cefepime. Pleural fluid culture is positive for alphahemolytic streptococcus. White count 5.8. Hemoglobin 9.2. Platelets 285. Sodium 132. Potassium 3.8. Bicarb 19. BUN 6. Creatinine 0.51. Glucose 83. Objective - Vital Signs Vital signs: Vital Signs Temp 98.4 F 11/02/22 06:58 Pulse 57 L 11/02/22 08:01 Resp 18 11/02/22 08:01 BP 162/82 11/02/22 06:58 Pulse Ox 96 11/02/22 06:58 FiO2 Intake & Output 11/01/22 11/02/22 11/02/22 18:59 06:59 18:59 Intake Total 118 1680 Output Total 500 490 Balance -382 1190 Intake: Intake, IV Titration 1200 Amount Cefepime 2 gm In Sodium 100 Chloride 0.9% 100 ml @ 25 mls/hr IVPB Q8HR [facility] Rx# :[id number] Sodium Chloride 0.9% 1, 600 000 ml @ 75 mls/hr IV . [id number] [facility] Rx#:[id number] Vancomycin 1,500 mg In 500 Sodium Chloride 0.9% 500 ml 500 ml @ 167 mls/hr IVPB Q8HR [facility] Rx#: [id number] Oral 118 480 Output: Urine 500 490 Other: Voiding Method Urinal Urinal # Voids 3 # Bowel Movements 1 - Exam GENERAL EXAM: Alert, pleasant 62-year-old male, on room air, fairly comfortable in no apparent distress. HEAD: Normocephalic. EYES: Normal reaction of pupils, equal size. NOSE: Clear with pink turbinates. THROAT: No erythema or exudates. NECK: No masses, no JVD. CHEST: No chest wall deformity. LUNGS: Equal air entry with bilateral scattered rhonchi more so on the right, diminished in the bases. CVS: S1 and S2 normal with no audible murmur, regular rhythm. ABDOMEN: No hepatosplenomegaly, normal bowel sounds, no guarding or rigidity. SPINE: No scoliosis or deformity SKIN: No rashes CENTRAL NERVOUS SYSTEM: No focal deficits, tone is normal in all 4 extremities. EXTREMITIES: There is no peripheral edema. No clubbing, no cyanosis. Peripheral pulses are intact. - Labs CBC & Chem 7: 11/02/22 05:53 11/02/22 05:53 Labs: Abnormal Lab Results - Last 24 Hours (Table) 11/02/22 11/02/22 Range/Units 05:53 05:53 RBC 3.55 L (4.40-5.60) X 10*6/uL Hgb 9.2 L (13.0-17.0) g/dL Hct 30.0 L (39.6-50.0) % MCH 25.9 L (27.0-32.0) pg MCHC 30.7 L (32.0-37.0) g/dL RDW 16.4 H (11.5-14.5) % Lymphocytes # 0.68 L (0.90-5.00) X 10*3/uL Sodium 132 L (137-145) mmol/L Chloride 108 H (98-107) mmol/L Carbon Dioxide 19 L (22-30) mmol/L BUN 6 L (9-20) mg/dL Creatinine 0.51 L (0.66-1.25) mg/dL Calcium 7.3 L (8.4-10.2) mg/dL Microbiology - Last 24 Hours (Table) 10/30/22 12:30 Gram Stain - Preliminary Pleural Fluid Body Fluid Culture - Preliminary Alpha Hemolytic Streptococcus Assessment and Plan Assessment: Chronic shortness of breath, anorexia, significant 65 pound weight loss, and an abnormal chest x-ray. Status post right-sided thoracentesis by interventional radiology in the fluid was suspicious for empyema. Initiated on vancomycin and cefepime. Preliminary pleural fluid findings revealing alphahemolytic streptococcus. The patient initially declined to have a pigtail catheter placed which would benefit him. Today he is agreeable. Consult to IR placed. History of heavy tobacco use, with probable underlying COPD History of hypertension Vague history of asthma Plan: The patient was seen and evaluated Medications and labs reviewed Pleural fluid analysis reviewed Continue vancomycin and cefepime The patient is now willing to have pigtail catheter placement Consult placed to interventional radiology PICC line has been ordered as well We will continue to follow I have personally seen and examined the patient, performed the documentation and the assessment and plan as written. Number of minutes spent on the visit: 10.
[2022-11-02] MEDS: KETOROLAC 15 MG/ML 1 ML VIAL IVP PRN (16:53)
[2022-11-02] MEDS: AMPICILLIN-SULBACTAM 3 GM in SODIUM CHLORIDE 0.9% 100 ML IVPB SCH ×2 (18:20→23:57)
--- NOTE | 2022-11-02 19:54 | P.CONS ---
History of Present Illness - Reason for Consult Consult date: 11/02/22 Empyema Requesting physician: Douglas Olivarez - Chief Complaint Shortness of breath and cough x days - History of Present Illness Patient is a 62-year-old male presenting to the hospital 4 days ago on 10/29/2022 for evaluation of weight loss failure to thrive and suspected malignancy patient also complaining of some right lower chest pain in this patient's symptom has been going on for few days before presentation to hospital patient apparently did have work-up in the outside facility with the patient was noted to have large loculated right lower lobe effusion and atelectasis for the patient was transferred to [facility] for further evaluation and treatment on presentation to the hospital the patient has been afebrile and no fever has been recorded subsequently patient did have a normal white count creatinine has been normal procalcitonin 0.16 urine was negative patient did have a thoracocentesis 10/30/2022 with a white count of [id number] cultures currently growing alphahemolytic Streptococcus patient did have a chest x-ray background chronic emphysematous and parenchymal fibrotic changes right-sided effusion CT of the chest residual moderate to large sized effusion patient has been offered a chest tube with the patient seem to have been refusing culture today, infectious was consulted for further management of antibiotic therapy/empyema Review of Systems Positive point and negatives has been mentioned in the HPI, complete review of systems was performed and all other systems are negative Past Medical History Past Medical History: Asthma, COPD, Hypertension History of Any Multi-Drug Resistant Organisms: None Reported Past Surgical History: Orthopedic Surgery Past Anesthesia/Blood Transfusion Reactions: No Reported Reaction Past Psychological History: No Psychological Hx Reported Smoking Status: Former smoker Past Alcohol Use History: None Reported Past Drug Use History: None Reported - Past Family History Father Family Medical History: COPD Medications and Allergies Home Medications Medication Instructions Recorded Confirmed Type Albuterol Sulfate [Albuterol 2 puff PO RT-Q4H PRN 10/30/22 10/30/22 History Sulfate Hfa] Benztropine Mesylate [Cogentin] 0.5 mg PO BID 10/30/22 10/30/22 History Labetalol [Trandate] 200 mg PO BID 10/30/22 10/30/22 History Pantoprazole Sodium [Protonix] 40 mg PO BID 10/30/22 10/30/22 History Sertraline [Zoloft] 100 mg PO BID 10/30/22 10/30/22 History Tamsulosin [Flomax] 0.4 mg PO DAILY 10/30/22 10/30/22 History tiZANidine [Zanaflex] 2 mg PO DAILY 10/30/22 10/30/22 History Ampicillin-Sulbactam [Unasyn 3 gm 3 gm IVPB Q6HR 14 Days #14 each 11/18/22 Rx vial] Benzonatate [Tessalon Perles] 200 mg PO TID PRN cap 11/18/22 Rx Budesonide-Formot 160-4.5 Mcg 2 puff INHALATION RT-BID each 11/18/22 Rx [Symbicort 160-4.5 Mcg Inhaler] Gabapentin 600 mg PO TID #0 11/18/22 10/30/22 Rx Loperamide [Imodium] 2 mg PO QID PRN cap 11/18/22 Rx traMADol HCl [Ultram] 50 mg PO TID PRN tab 11/18/22 Rx Allergies Allergy/AdvReac Type Severity Reaction Status Date / Time No Known Allergies Allergy Verified 10/30/22 07:14 Physical Exam Vitals: Vital Signs Temp Pulse Pulse Resp BP Pulse Ox 11/02/22 08:01 57 L 18 11/02/22 06:58 98.4 F 57 L 18 162/82 96 11/02/22 02:00 97.9 F 74 114/66 91 L 11/01/22 19:02 97.8 F 73 18 99/54 94 L 11/01/22 16:00 64 11/01/22 15:50 64 11/01/22 12:23 98.1 F 65 19 134/74 99 11/01/22 12:05 68 11/01/22 11:57 68 Intake and Output 11/01/22 11/02/22 11/02/22 22:59 06:59 14:59 Intake Total 1680 Output Total 500 490 Balance -500 1190 Intake: Intake, IV Titration 1200 Amount Cefepime 2 gm In Sodium 100 Chloride 0.9% 100 ml @ 25 mls/hr IVPB Q8HR [facility] Rx# :[id number] Sodium Chloride 0.9% 1, 600 000 ml @ 75 mls/hr IV . [id number] [facility] Rx#:[id number] Vancomycin 1,500 mg In 500 Sodium Chloride 0.9% 500 ml 500 ml @ 167 mls/hr IVPB Q8HR [facility] Rx#: [id number] Oral 480 Output: Urine 500 490 Other: Voiding Method Urinal # Voids 3 # Bowel Movements 1 GENERAL DESCRIPTION: Middle-aged male lying in bed, no distress. No tachypnea or accessory muscle of respiration use. HEENT: Shows Pallor , no scleral icterus. Oral mucous membrane is dry. No pharyngeal erythema or thrush NECK: Trachea central, no thyromegaly. LUNGS: Unlabored breathing. Decreased breath sound at the base HEART: S1, S2, regular rate and rhythm. No loud murmur ABDOMEN: Soft, no tenderness , guarding or rigidity, no organomegaly EXTREMITIES: No edema of feet. SKIN: No rash, no masses palpable. NEUROLOGICAL: The patient is awake, alert, oriented x3, mood and affect normal. Results CBC & Chem 7: 11/16/22 08:04 11/16/22 08:04 Labs: Abnormal Lab Results - Last 24 Hours (Table) 11/02/22 11/02/22 Range/Units 05:53 05:53 RBC 3.55 L (4.40-5.60) X 10*6/uL Hgb 9.2 L (13.0-17.0) g/dL Hct 30.0 L (39.6-50.0) % MCH 25.9 L (27.0-32.0) pg MCHC 30.7 L (32.0-37.0) g/dL RDW 16.4 H (11.5-14.5) % Lymphocytes # 0.68 L (0.90-5.00) X 10*3/uL Sodium 132 L (137-145) mmol/L Chloride 108 H (98-107) mmol/L Carbon Dioxide 19 L (22-30) mmol/L BUN 6 L (9-20) mg/dL Creatinine 0.51 L (0.66-1.25) mg/dL Calcium 7.3 L (8.4-10.2) mg/dL Microbiology - Last 24 Hours (Table) 10/30/22 12:30 Gram Stain - Preliminary Pleural Fluid Body Fluid Culture - Preliminary Alpha Hemolytic Streptococcus Assessment and Plan (1) Empyema Status: Acute Code(s): J86.9 - PYOTHORAX WITHOUT FISTULA SNOMED Code(s): 127566855 Plan: 1patient presented hospital with right-sided chest pain shortness of breath and cough in this patient with evidence of large right-sided effusion status post thoracocentesis with significant normality of the fluid culture growing alphah emolytic Streptococcus concerning for empyema with underlying malignancy not entirely excluded in view of his overall clinical condition 2-patient initially refused chest tube placement seem to have agreed to it now and will help the patient to clear up this infection 3-discontinue vancomycin and cefepime 4-start the patient on Unasyn 3 g every 6 hours 5-we will likely need PICC line and outpatient antibiotics were discussed with the family service caseworker We will follow on clinical condition and cultures to further adjust medication if needed Thank you for this consultation we will follow the patient along with you Time with Patient: Greater than 30
[2022-11-03] MEDS: ONDANSETRON 4 MG/2 ML VIAL IVP PRN ×2 (00:05→10:01)
[2022-11-03] MEDS: MORPHINE SULFATE 4 MG/ML SYRINGE IV PRN ×4 (01:03→18:10)
[2022-11-03] MEDS: AMPICILLIN-SULBACTAM 3 GM in SODIUM CHLORIDE 0.9% 100 ML IVPB SCH ×4 (05:10→23:25)
[2022-11-03] MEDS ORDERED: VANCOMYCIN TROUGH DUE 1 EACH MISC MISCELLANE ONE (07:00)
[2022-11-03] MEDS: IPRATROPIUM-ALBUTEROL 3 ML NEB INHALATION SCH ×4 (07:36→20:05)
[2022-11-03] MEDS: SYMBICORT 160-4.5 MCG INHALER INHALATION SCH ×2 (07:39→20:05)
[2022-11-03] MEDS: KETOROLAC 15 MG/ML 1 ML VIAL IVP PRN ×2 (07:50→20:53)
[2022-11-03] MEDS: LABETALOL 200 MG TAB PO SCH ×2 (08:00→20:53)
[2022-11-03] MEDS: TAMSULOSIN 0.4 MG CAP.ER.24H PO SCH (08:00)
[2022-11-03] MEDS: BENZTROPINE MESYLATE 0.5 MG TAB PO SCH ×2 (08:00→20:53)
[2022-11-03] MEDS: SERTRALINE 100 MG TAB PO SCH ×2 (08:00→20:53)
[2022-11-03] MEDS: PANTOPRAZOLE 40 MG TABLET PO SCH ×2 (08:00→20:53)
[2022-11-03] MEDS: SODIUM CHLORIDE 0.9% 1,000 ML IV SCH ×2 (08:01→23:25)
[2022-11-03] MEDS: ENOXAPARIN 40 MG/0.4 ML SYRINGE SQ SCH (08:01)
--- NOTE | 2022-11-03 10:40 | P.PN ---
Subjective Progress Note Date: 11/03/22 No new copmlaints today. Pt is anxious regarding his chest tube tomorrow, but is amenable. Gen: awake, alert HEENT: normocephalic, atraumatic, good hearing acuity, moist mucous membranes Resp: good air exchange, breathing comfortably with no accessory muscle use CVS: good distal perfusion x 4, GI: soft, NTTP, ND : no SPT, no CVAT, schultz catheter not present MSK: no pitting edema, no clubbing Neuro: non-focal, moving all extremities Psych: cooperative, euthymic mood Hospital course: 61-year-old male with a PMH of tobacco abuse who was transferred from [facility] where he had presented earlier today with complaints of weight loss and abdominal pain. In [place] emergency room, the patient underwent an extensive evaluation with laboratory evaluation showing WBC count 8.3, hemoglobin 11.0, sodium 131, glucose 104, lactic acid 1.3, calcium 8.0, with albumin 2.7. Patient evaluated by pulmonology. Thoracentesis done. Has significant empyema. Patient also started on vancomycin and cefepime. Culture showing alphahemolytic streptococcus. ID consulted. Assessment: Empyema Masslike enhancement in the right middle lobe COPD with Emphysema without exacerbation Hyponatremia, euvolemic, stable Hypokalemia, resolved Normocytic anemia Aneurysmal aortic root and ascending aorta Plan: Today, patient is afebrile, 154/81, heart rate 69, 96% on 2 L of nasal cannula Ordered CBC, basic metabolic panel, magnesium for tomorrow Continue Unasyn 3 g every 6 hours Continue Symbicort twice a day Continue scheduled DuoNeb's every 6 hours Patient is full code Objective - Vital Signs Vital signs: Vital Signs Temp 97.9 F 11/03/22 07:40 Pulse 80 11/03/22 07:58 Resp 17 11/03/22 07:40 BP 154/81 11/03/22 07:40 Pulse Ox 96 11/03/22 07:40 FiO2 21 11/03/22 07:39 Intake & Output 11/02/22 11/03/22 11/03/22 18:59 06:59 18:59 Intake Total 1600 950 Output Total 700 Balance 1600 250 Intake: Intake, IV Titration 1600 950 Amount Ampicillin-Sulbactam 3 gm 100 200 In Sodium Chloride 0.9% 100 ml @ 200 mls/hr IVPB Q6HR ON LICENSE OF [facility] Rx#:[id number] Cefepime 2 gm In Sodium 100 Chloride 0.9% 100 ml @ 25 mls/hr IVPB Q8HR ON LICENSE OF [facility] Rx# :[id number] Sodium Chloride 0.9% 1, 900 750 000 ml @ 75 mls/hr IV . [id number] ON LICENSE OF [facility] Rx#:[id number] Vancomycin 1,500 mg In 500 Sodium Chloride 0.9% 500 ml 500 ml @ 167 mls/hr IVPB Q8HR ON LICENSE OF [facility] Rx#: [id number] Output: Urine 700 Other: Voiding Method Urinal - Labs CBC & Chem 7: 11/02/22 05:53 11/02/22 05:53 Labs: Microbiology - Last 24 Hours (Table) 10/30/22 12:30 Anaerobic Culture - Preliminary Pleural Fluid
[2022-11-03 10:53] LABS: Basophils # (A) 0.02 X 10*3/uL (0.00-0.10); Basophils % (A) 0.3 %; Eosinophils # (A) 0.03 X 10*3/uL (0.04-0.35); Eosinophils % (A) 0.5 %; HCT 34.3 % (39.6-50.0); HGB 10.3 g/dL (13.0-17.0); Immature Grans, Automated 0.8 %; Lymphocytes # (A) 0.44 X 10*3/uL (0.90-5.00); Lymphocytes % (A) 6.9 %; MCH 25.6 pg (27.0-32.0); MCV 85.3 fL (80.0-97.0); Monocytes # (A) 0.36 X 10*3/uL (0.20-1.00); Monocytes % (A) 5.6 %; NRBC Per 100 WBC 0 /100 WBCS (0.0-0.0); Neutrophils # (A) 5.52 X 10*3/uL (1.80-7.70); Neutrophils % (A) 85.9 %; Platelet Count 316 X 10*3/uL (140-440); RBC 4.02 X 10*6/uL (4.40-5.60); RDW 16.4 % (11.5-14.5); WBC 6.42 X 10*3/uL (4.50-10.00)
[2022-11-03 11:13] LABS: African American GFR (CKD) 133.7 (60.0-200.0); Anion Gap 10.4 mmol/L (10.00-18.00); BUN/Creat Ratio 10.4 Ratio (12.00-20.00); Blood Urea Nitrogen 5.2 mg/dL (9.0-27.0); Calcium 7.8 mg/dL (8.7-10.3); Carbon Dioxide 20.6 mmol/L (20.0-27.5); Non-African American GFR(CKD) 115.3 (60.0-200.0); Potassium 3.7 mmol/L (3.5-5.5)
[2022-11-03 12:58] LABS: INR 1.9 (<1.2); Prothrombin Time 19.2 sec (9.0-12.0)
--- NOTE | 2022-11-03 13:02 | P.PN ---
Subjective Progress Note Date: 11/03/22 Principal diagnosis: empyema Patient is a 62-year-old male presenting to the hospital 4 days ago on 10/29/2022 for evaluation of weight loss failure to thrive and suspected malignancy patient also complaining of some right lower chest pain , patient was noticed to have a right-sided effusion status post thoracocentesis significantly positive culture did grew Streptococcus patient initially refused pigtail catheter placement however seemed to have agreed to it though. On today's evaluation that is 11/03/2022, the patient remains to be afebrile, the patient is breathing comfortably on room air, the patient seemed to be slightly anxious about the chest tube placement denies any nausea no vomiting no abdominal pain and no diarrhea Objective - Vital Signs Vital signs: Vital Signs Temp 97.9 F 11/03/22 07:40 Pulse 76 11/03/22 11:12 Resp 17 11/03/22 07:40 BP 154/81 11/03/22 07:40 Pulse Ox 96 11/03/22 07:40 FiO2 21 11/03/22 07:39 Intake & Output 11/02/22 11/03/22 11/03/22 18:59 06:59 18:59 Intake Total 1600 950 Output Total 700 Balance 1600 250 Intake: Intake, IV Titration 1600 950 Amount Ampicillin-Sulbactam 3 gm 100 200 In Sodium Chloride 0.9% 100 ml @ 200 mls/hr IVPB Q6HR [facility] Rx#:[id number] Cefepime 2 gm In Sodium 100 Chloride 0.9% 100 ml @ 25 mls/hr IVPB Q8HR [facility] Rx# :[id number] Sodium Chloride 0.9% 1, 900 750 000 ml @ 75 mls/hr IV . [id number] [facility] Rx#:[id number] Vancomycin 1,500 mg In 500 Sodium Chloride 0.9% 500 ml 500 ml @ 167 mls/hr IVPB Q8HR [facility] Rx#: [id number] Output: Urine 700 Other: Voiding Method Urinal - Exam GENERAL DESCRIPTION: Middle-aged male lying in bed in no distress RESPIRATORY SYSTEM: Unlabored breathing , decreased breath sounds at bases HEART: S1 S2 regular rate and rhythm , ABDOMEN: Soft , no tenderness EXTREMITIES: No edema feet - Labs CBC & Chem 7: 11/03/22 07:11 11/03/22 07:11 Labs: Abnormal Lab Results - Last 24 Hours (Table) 11/03/22 11/03/22 Range/Units 07:11 07:11 RBC 4.02 L (4.40-5.60) X 10*6/uL Hgb 10.3 L (13.0-17.0) g/dL Hct 34.3 L (39.6-50.0) % MCH 25.6 L (27.0-32.0) pg MCHC 30.0 L (32.0-37.0) g/dL RDW 16.4 H (11.5-14.5) % Immature Gran # 0.05 H (0.00-0.04) X 10*3/uL Lymphocytes # 0.44 L (0.90-5.00) X 10*3/uL Eosinophils # 0.03 L (0.04-0.35) X 10*3/uL Sodium 134 L (135-145) mmol/L BUN 5.2 L (9.0-27.0) mg/dL Creatinine 0.5 L (0.6-1.5) mg/dL BUN/Creatinine Ratio 10.40 L (12.00-20.00) Ratio Calcium 7.8 L (8.7-10.3) mg/dL Microbiology - Last 24 Hours (Table) 10/30/22 12:30 Gram Stain - Final Pleural Fluid Body Fluid Culture - Final Alpha Hemolytic Streptococcus 10/30/22 12:30 Anaerobic Culture - Preliminary Pleural Fluid Assessment and Plan (1) Empyema Current Visit: Yes Status: Acute Code(s): J86.9 - PYOTHORAX WITHOUT FISTULA SNOMED Code(s): 943671170 Plan: 1patient presented hospital with right-sided chest pain shortness of breath and cough in this patient with evidence of large right-sided effusion status post thoracocentesis with significant normality of the fluid culture growing alphahemolytic Streptococcus concerning for empyema with underlying malignancy not entirely excluded in view of his overall clinical condition 2-patient initially refused chest tube placement seem to have agreed to it now and will help the patient to clear up this infection 3Patient to continue with Unasyn 3 g every 6 hours and monitor clinical course closely Time with Patient: Less than 30
--- NOTE | 2022-11-03 13:44 | P.PN ---
Subjective Progress Note Date: 11/03/22 62-year-old male transferred from an outside hospital, with shortness of breath, a 65 pound weight loss recently, failure to thrive, and concerns about malignancy. The patient apparently presented to Hospital up in the [place] area. He was at the outside hospital for some time. The patient is not a p articularly good historian. The patient really is not able to give any definitive history. The patient is a heavy smoker, and a chest x-ray, apparently showed a abnormal fluid collection and/or mass in the right chest. I asked him what he was diagnosed with the outside hospital, but he was unable to tell me. He apparently also has cough, some phlegm production. No fever or chills. No chest pain or chest discomfort. He likely has underlying COPD from heavy tobacco use. Currently, the patient's on 3 L of oxygen, but without any IV fluids. We will order the computed tomography scan of the chest, and we asked interventional radiology to consider doing a thoracentesis, and/or pigtail catheter placement. His chest x-ray showed a right-sided pleural effusion. The ultrasound was subsequently ordered. We will follow back from interventional radiology team, that the material removed from the chest, was purulent, and looked like pus. In addition, 1250 mL of fluid was removed from the right we added vancomycin and cefepime. White count 8.3, hemoglobin 11, hematocrit 34.7, and platelet count normal. INR was 1.9. Sodium 131, potassium 3.7, chlorides 98, CO2 23, normal anion gap, BUN 13, and the creatinine 0.61. Glucose 104. Albumin 2.7. Chest x-ray showed some chronic emphysematous changes, parenchymal fibrotic changes, and a non-simple right-sided pleural effusion. The ultrasound showed a relatively larger fluid pocket on the right side, measuring 13.3 cm. There was complex internal debris within the right chest. Hence, interventional radiology was asked to the procedure. Computed tomography scan is currently pending. The patient is seen today 10/31/2022 in follow-up on the regular medical floor. He is currently resting comfortably in bed. Awake and alert in no acute distress. He did undergo a right-sided thoracentesis by interventional radiology yesterday. The fluid was significantly dyspneic and pertinent and suspicious for empyema. The were planning to place a pigtail catheter however the patient refused to have it done. A total of 1250 ML's was drained. Fluid analysis reveals turbid appearance with greater than 500,000 WBCs. Total protein 2.4. LDH greater than 2500. He was initiated on vancomycin and cefepime yesterday. Continued on DuoNeb inhalations, Symbicort. Sodium 133. Potassium 3.9. Bicarb 25. BUN 11. Creatinine 0.60. The patient is seen today 11/01/2022 in follow-up on the regular medical floor. He is currently resting in bed. Awake and alert in no acute distress. Maintaining good O2 saturations in the 90s on room air. He is feeling weak and fatigued. He continues to decline the offer of a chest tube placement to help drain the suspected abscess in the right chest. He is continued on vancomycin and cefepime. Continue on Symbicort and DuoNeb inhalations. Lovenox for DVT prophylaxis. Chest x-ray shows similar right airspace opacities. Superimposed emphysema. Preliminary pleural fluid Gram stain showing alpha hemolytic streptococcus. White count 4.5. Hemoglobin 10.0. Platelets 287. Sodium 133. Potassium 3.2. Bicarb 21. BUN 9. Creatinine 0.58. The patient is seen today 11/02/2022 in follow-up on the regular medical floor. He is awake and alert in no acute distress. Still not feeling much better today compared to yesterday. Still weak and fatigued. Maintaining good O2 saturations in the 90s on room air. He is continued on vancomycin and cefepime. Pleural fluid culture is positive for alphahemolytic streptococcus. White count 5.8. Hemoglobin 9.2. Platelets 285. Sodium 132. Potassium 3.8. Bicarb 19. BUN 6. Creatinine 0.51. Glucose 83. On today's evaluation of 11/03/2022, the patient has no specific complaints. The patient will have a pigtail catheter insertion today for an underlying empyema. Noted the patient underwent a thoracentesis and the fluid cultures came back positive for alpha hemolytic strep. The patient will have a pigtail catheter inserted today. He does have a masslike consolidation of the right middle lobe in addition to right-sided pleural effusion that was drained earlier. He is known to have COPD. He is currently on 2 L of Oxymizer nasal cannula with a pulse ox of 96%. Hemodynamically stable. He remains on accommodation of cefepime and vancomycin. Also, vancomycin, clinically hemoglobin of 10.3 and a platelet count of 316. The BUN is at 5.2 with a creatinine of 0.5 and a sodium level is at 134. The vancomycin trough is at 19.6. The most recent chest x-rays from 11/01/2022 that showed a air space disease involving the right lung, and the CAT scan of the chest that was done on 10/30/2022 showed a moderate to large pleural fluid collection involving the right lung with thickening borders and a small peripheral enhancement and some inflammatory fat stranding within the adjacent pericolic fat. This is consistent with empyema. There is also a some atelectatic changes in the right lung base. There is back on moderate to severe emphysema. The patient's aortic root was measuring 5.2 cm in size and the ascending aorta was measuring 4.1 cm. Objective - Vital Signs Vital signs: Vital Signs Temp 97.9 F 11/03/22 07:40 Pulse 76 11/03/22 11:12 Resp 17 11/03/22 07:40 BP 154/81 11/03/22 07:40 Pulse Ox 96 11/03/22 07:40 FiO2 21 11/03/22 07:39 Intake & Output 11/02/22 11/03/22 11/03/22 18:59 06:59 18:59 Intake Total 1600 950 Output Total 700 Balance 1600 250 Intake: Intake, IV Titration 1600 950 Amount Ampicillin-Sulbactam 3 gm 100 200 In Sodium Chloride 0.9% 100 ml @ 200 mls/hr IVPB Q6HR [facility] Rx#:[id number] Cefepime 2 gm In Sodium 100 Chloride 0.9% 100 ml @ 25 mls/hr IVPB Q8HR [facility] Rx# :[id number] Sodium Chloride 0.9% 1, 900 750 000 ml @ 75 mls/hr IV . [id number] [facility] Rx#:[id number] Vancomycin 1,500 mg In 500 Sodium Chloride 0.9% 500 ml 500 ml @ 167 mls/hr IVPB Q8HR [facility] Rx#: [id number] Output: Urine 700 Other: Voiding Method Urinal - Exam GENERAL EXAM: Alert, pleasant 62-year-old male, on room air, fairly comfortable in no apparent distress. The patient is currently on 2 L of oxygen by nasal cannula HEAD: Normocephalic. EYES: Normal reaction of pupils, equal size. NOSE: Clear with pink turbinates. THROAT: No erythema or exudates. NECK: No masses, no JVD. CHEST: No chest wall deformity. LUNGS: Equal air entry with bilateral scattered rhonchi more so on the right, diminished in the bases. CVS: S1 and S2 normal with no audible murmur, regular rhythm. ABDOMEN: No hepatosplenomegaly, normal bowel sounds, no guarding or rigidity. SPINE: No scoliosis or deformity SKIN: No rashes CENTRAL NERVOUS SYSTEM: No focal deficits, tone is normal in all 4 extremities. EXTREMITIES: There is no peripheral edema. No clubbing, no cyanosis. Peripheral pulses are intact. - Labs CBC & Chem 7: 11/03/22 07:11 11/03/22 07:11 Labs: Abnormal Lab Results - Last 24 Hours (Table) 11/03/22 11/03/22 Range/Units 07:11 07:11 RBC 4.02 L (4.40-5.60) X 10*6/uL Hgb 10.3 L (13.0-17.0) g/dL Hct 34.3 L (39.6-50.0) % MCH 25.6 L (27.0-32.0) pg MCHC 30.0 L (32.0-37.0) g/dL RDW 16.4 H (11.5-14.5) % Immature Gran # 0.05 H (0.00-0.04) X 10*3/uL Lymphocytes # 0.44 L (0.90-5.00) X 10*3/uL Eosinophils # 0.03 L (0.04-0.35) X 10*3/uL Sodium 134 L (135-145) mmol/L BUN 5.2 L (9.0-27.0) mg/dL Creatinine 0.5 L (0.6-1.5) mg/dL BUN/Creatinine Ratio 10.40 L (12.00-20.00) Ratio Calcium 7.8 L (8.7-10.3) mg/dL Microbiology - Last 24 Hours (Table) 10/30/22 12:30 Gram Stain - Final Pleural Fluid Body Fluid Culture - Final Alpha Hemolytic Streptococcus 10/30/22 12:30 Anaerobic Culture - Preliminary Pleural Fluid Assessment and Plan Plan: Right lung empyema with antibiotic strep. The patient has a moderate to large pleural fluid collection on the right side posteriorly with previous thoracentesis showing fluid consistent with possible/empyema. Cultures positive for a vitamin intake strep. Chronic shortness of breath, anorexia, significant 65 pound weight loss, and an abnormal chest x-ray. Status post right-sided thoracentesis by interventional radiology in the fluid was suspicious for empyema. Currently on vancomycin and cefepime. History of heavy tobacco use, with probable underlying COPD History of hypertension Vague history of asthma Plan: A catheterization for empyema Cardiothoracic surgery consultation Continue vancomycin and cefepime We will continue to follow
--- NOTE | 2022-11-03 15:11 | US ---
Ultrasound-guided right chest tube insertion. DATE OF EXAM: 11/03/2022 CLINICAL HISTORY: Right lung empyema The procedure was discussed with the patient. The risks, complications, benefits, and alternatives we re discussed and any questions were answered. Informed consent was obtained. The patient was placed supine on the ultrasound table and prepped and draped in the usual sterile fas hion. All elements of maximal barrier and sterile technique were utilized. Under ultrasound guidance, access into the right pleural space was obtained, via the thoracentesis ca theter system and direct ultrasound guidance. An 8.5 Syriac drainage catheter was inserted into the r ight pleural space. Approximately 25 cc of pus was immediately aspirated. Repeat ultrasound demonstra ciara ideal placement of the drainage catheter. The patient was stable throughout the procedure and remained stable upon discharge from Department of Radiology. All elements of maximal barrier and sterile technique were utilized. IMPRESSION: 1. Successful ultrasound-guided right chest tube insertion.
[2022-11-03] MEDS: GABAPENTIN 300 MG CAP PO PRN (20:53)
[2022-11-04] MEDS: MORPHINE SULFATE 4 MG/ML SYRINGE IV PRN ×4 (02:18→17:38)
[2022-11-04] MEDS: KETOROLAC 15 MG/ML 1 ML VIAL IVP PRN ×2 (05:55→20:04)
[2022-11-04] MEDS: AMPICILLIN-SULBACTAM 3 GM in SODIUM CHLORIDE 0.9% 100 ML IVPB SCH ×4 (05:55→23:33)
[2022-11-04] MEDS: IPRATROPIUM-ALBUTEROL 3 ML NEB INHALATION SCH ×4 (07:24→20:00)
[2022-11-04] MEDS: SYMBICORT 160-4.5 MCG INHALER INHALATION SCH ×2 (07:24→20:00)
[2022-11-04] MEDS: PANTOPRAZOLE 40 MG TABLET PO SCH ×2 (08:16→19:55)
[2022-11-04] MEDS: TAMSULOSIN 0.4 MG CAP.ER.24H PO SCH (08:16)
[2022-11-04] MEDS: SERTRALINE 100 MG TAB PO SCH ×2 (08:16→19:55)
[2022-11-04] MEDS: LABETALOL 200 MG TAB PO SCH ×2 (08:17→19:55)
[2022-11-04] MEDS: ENOXAPARIN 40 MG/0.4 ML SYRINGE SQ SCH (08:17)
[2022-11-04] MEDS: BENZTROPINE MESYLATE 0.5 MG TAB PO SCH ×2 (08:17→19:55)
[2022-11-04] MEDS: SODIUM CHLORIDE 0.9% 1,000 ML IV SCH (08:21)
--- NOTE | 2022-11-04 10:15 | P.PN ---
Subjective Progress Note Date: 11/04/22 Patient reports feeling generally weak today, but feels he is overall improving. Had chest tube placed, appears to have pustular output Gen: awake, alert HEENT: normocephalic, atraumatic, good hearing acuity, moist mucous membranes Resp: good air exchange, breathing comfortably with no accessory muscle use CVS: good distal perfusion x 4, GI: soft, NTTP, ND : no SPT, no CVAT, schultz catheter not present MSK: no pitting edema, no clubbing Neuro: non-focal, moving all extremities Psych: cooperative, euthymic mood Hospital course: 61-year-old male with a PMH of tobacco abuse who was transferred from [facility] where he had presented earlier today with complaints of weight loss and abdominal pain. In [place] emergency room, the patient underwent an extensive evaluation with laboratory evaluation showing WBC count 8.3, hemoglobin 11.0, sodium 131, glucose 104, lactic acid 1.3, calcium 8.0, with albumin 2.7. Patient evaluated by pulmonology. Thoracentesis done. Has significant empyema. Patient also started on vancomycin and cefepime. Culture showing alphahemolytic streptococcus. ID consulted. Assessment: Empyema Masslike enhancement in the right middle lobe COPD with Emphysema without exacerbation Hyponatremia, euvolemic, stable Hypokalemia, resolved Normocytic anemia Aneurysmal aortic root and ascending aorta Plan: Today, patient is afebrile, 138/74, heart rate 55, 100% on 2 L nasal cannula Ordered CBC, basic metabolic panel, magnesium for tomorrow Continue Unasyn 3 g every 6 hours Continue Symbicort twice a day Continue scheduled DuoNeb's every 6 hours Patient is full code Objective - Vital Signs Vital signs: Vital Signs Temp 97.6 F 11/04/22 07:35 Pulse 72 11/04/22 07:38 Resp 18 11/04/22 07:35 BP 138/74 11/04/22 07:35 Pulse Ox 100 11/04/22 07:35 FiO2 2 11/04/22 07:24 Intake & Output 11/03/22 11/04/22 11/04/22 18:59 06:59 18:59 Output Total 560 730 Balance -560 -730 Output: Chest Tube Drainage 210 30 Thora-Vent Right Lower 210 30 Posterior Chest Urine 350 700 Other: Voiding Method Urinal # Bowel Movements 0 - Labs CBC & Chem 7: 11/03/22 07:11 11/03/22 07:11 Labs: Abnormal Lab Results - Last 24 Hours (Table) 11/03/22 11/03/22 11/03/22 Range/Units 07:11 07:11 12:39 RBC 4.02 L (4.40-5.60) X 10*6/uL Hgb 10.3 L (13.0-17.0) g/dL Hct 34.3 L (39.6-50.0) % MCH 25.6 L (27.0-32.0) pg MCHC 30.0 L (32.0-37.0) g/dL RDW 16.4 H (11.5-14.5) % Immature Gran # 0.05 H (0.00-0.04) X 10*3/uL Lymphocytes # 0.44 L (0.90-5.00) X 10*3/uL Eosinophils # 0.03 L (0.04-0.35) X 10*3/uL PT 19.2 H (9.0-12.0) sec INR 1.9 H (<1.2) Sodium 134 L (135-145) mmol/L BUN 5.2 L (9.0-27.0) mg/dL Creatinine 0.5 L (0.6-1.5) mg/dL BUN/Creatinine Ratio 10.40 L (12.00-20.00) Ratio Calcium 7.8 L (8.7-10.3) mg/dL Microbiology - Last 24 Hours (Table) 10/30/22 12:30 Gram Stain - Final Pleural Fluid Body Fluid Culture - Final Alpha Hemolytic Streptococcus
--- NOTE | 2022-11-04 12:20 | XR ---
EXAMINATION TYPE: XR chest 2V DATE OF EXAM: 11/04/2022 COMPARISON: 11/01/2022 HISTORY: 62-year-old male with chest tube TECHNIQUE: Frontal and lateral views FINDINGS: Right-sided basilar pigtail pleural catheter is present. Moderate right pleural effusion remains with patchy right mid and lower lung opacity. Background COPD. Right heart margin is obscured. There smal l amount of fluid may be a small amount of air within the right pleural space at the periphery of the base. IMPRESSION: Moderate right pleural effusion remains with adjacent atelectasis and/or consolidation. Minimally imp roved from 10/24/2022. Basilar right-sided pleural catheter demonstrated.
--- NOTE | 2022-11-04 12:47 | P.GSCN ---
History of Present Illness Consult date: 11/04/22 Reason for Consult: Empyema Requesting physician: Alberto Lopez History of present illness: This is a 62-year-old gentleman who follows outpatient with Dr. Anushka Sabillon for primary care. He has a previous medical history of long-term heavy tobacco use with recent cessation, COPD, asthma, hypertension. He presented to [facility] emergency room from an outside hospital with complaints of shortness of breath, 65 pound weight loss, cough with phlegm production, and concern for malignancy. Apparently he was found to be hypoxic, CT of the chest completed at outside facility demonstrated pleural effusion with possible mass in the right chest. He was initiated on IV antibiotics and transferred to [facility], he was admitted with consultation placed to pulmonology. Ultrasound the chest demonstrated 13.3 cm right-sided pleural effusion which was marked with thoracentesis, right sided thoracentesis was completed by interventional radiology removal of 1250 mL thick purulent drainage which was sent for culture and cytology. At the time interventional radiology did want to place a pigtail catheter, however the patient refused. Pleural fluid culture grew alpha hemolytic strep and infectious disease was consulted, patient was placed on Unasyn IV. CT of the chest revealed moderate to large right-sided pleural fluid collection consistent with empyema as well as moderate to severe emphysema, masslike area of heterogeneous enhancement in the right middle lobe measuring 6.9 cm, as well as combination of collapse and consolidation of the basilar right lower lobe. The patient consented to right-sided pigtail catheter placement which was completed yesterday, and consultation was placed to cardiothoracic surgery for recommendations. Review of Systems Review of systems was completed and was negative except as noted - Constitutional Reports weight loss - Respiratory Reports cough with sputum, Reports dyspnea Past Medical History Past Medical History: Asthma, COPD, Hypertension History of Any Multi-Drug Resistant Organisms: None Reported Past Surgical History: Orthopedic Surgery Past Anesthesia/Blood Transfusion Reactions: No Reported Reaction Past Psychological History: No Psychological Hx Reported Smoking Status: Former smoker Past Alcohol Use History: None Reported Past Drug Use History: None Reported - Past Family History Father Family Medical History: COPD Medications and Allergies Home Medications Medication Instructions Recorded Confirmed Type Albuterol Sulfate [Albuterol 2 puff PO RT-Q4H PRN 10/30/22 10/30/22 History Sulfate Hfa] Benztropine Mesylate [Cogentin] 0.5 mg PO BID 10/30/22 10/30/22 History Gabapentin 600 mg PO TID PRN 10/30/22 10/30/22 History HYDROcodone/APAP 10-325MG [[place] 1 tab PO Q6HR PRN 10/30/22 10/30/22 History 10-325] Ibuprofen [Motrin] 600 mg PO Q6HR PRN 10/30/22 10/30/22 History Labetalol [Trandate] 200 mg PO BID 10/30/22 10/30/22 History Ondansetron Odt [Zofran Odt] 4 mg PO Q8HR PRN 10/30/22 10/30/22 History Pantoprazole Sodium [Protonix] 40 mg PO BID 10/30/22 10/30/22 History Sertraline [Zoloft] 100 mg PO BID 10/30/22 10/30/22 History Tamsulosin [Flomax] 0.4 mg PO DAILY 10/30/22 10/30/22 History tiZANidine [Zanaflex] 2 mg PO DAILY 10/30/22 10/30/22 History Allergies Allergy/AdvReac Type Severity Reaction Status Date / Time No Known Allergies Allergy Verified 10/30/22 07:14 Surgical - Exam Vital Signs Pulse Resp BP Pulse Ox 67 22 126/71 91 L 10/29/22 23:22 10/29/22 23:22 10/29/22 23:22 10/29/22 23:22 CONSTITUTIONAL: Awake and alert, appears comfortable, cooperative, no pain, no acute distress EYES: Pupils equal, round, reactive to light, normal ocular movement ENT: Moist mucous membranes without oral lesions present NECK: No masses, no bruits, trachea midline RESPIRATORY: Lungs sounds diminished bilaterally, right greater than left. Respirations even, nonlabored. Currently on room air with oxygen saturation 100%. Strong cough. CARDIOVASCULAR: S1, S2 present. Regular rate and rhythm. Palpable peripheral pulses bilaterally. No edema present. No calf pain or tenderness noted. GASTROINTESTINAL: Abdomen soft, nontender, nondistended without masses or org anomegaly noted. There is no rebound or guarding present. Active bowel sounds present 4 quadrants. GENITOURINARY: Deferred INTEGUMENTARY: Skin is warm and dry NEUROLOGIC: Cranial nerves II through XII intact, normal coordination, no obvious motor or sensory deficits, speech is normal MUSKULOSKELETAL: Able to move all extremities, strength equal bilaterally, normal posture PSYCHIATRIC: Alert and oriented to person and place, appropriate affect Results - Labs 11/05/22 06:26 11/05/22 06:26 Abnormal Lab Results - Last 24 Hours (Table) 11/03/22 Range/Units 12:39 PT 19.2 H (9.0-12.0) sec INR 1.9 H (<1.2) Microbiology - Last 24 Hours (Table) 10/30/22 12:30 Gram Stain - Final Pleural Fluid Body Fluid Culture - Final Alpha Hemolytic Streptococcus - Imaging Chest x-ray: report reviewed, image reviewed CT scan - chest: report reviewed, image reviewed Assessment and Plan Assessment: Right-sided effusion, empyema with pleural fluid positive for alpha hemolytic strep, status post right-sided thoracentesis with subsequent pigtail catheter placement Masslike area of heterogeneous enhancement in the right middle lobe measuring 6.9 cm Combination of collapse and consolidation of the basilar right lower lobe Acute hypoxic respiratory failure Progressive shortness of breath, cough with sputum production Recent 65 pound weight loss Long-term heavy tobacco use with recent cessation COPD Asthma Hypertension Plan: The patient was seen and examined with Dr. Frederick. Chart/diagnostics were reviewed. There is already 750 mL thick purulent drainage in the patient's right-sided pleural atrium. Patient remains afebrile, breathing stable on room air, WBC normal. Our recommendation is to continue to allow to drain from the 24 hours, may start to instill lytics tomorrow if necessary. Continue ant ibiotics per infectious disease recommendations. No surgical intervention currently, however if patient does not continue to improve may consider surgical thoracoscopy with washout. Medical management of other comorbidities per internal medicine, pulmonology, infectious disease. More recommendations to follow. I have personally seen and examined the patient, performed the documentation and the assessment and plan as written. Number of minutes spent on the visit: 30. SUJATHA Spencer Attending addendum: Pt seen and evaluated with CURRENCY COUNTER above. Agree with her assessment and plan. This is a 62 y/o M with severe COPD who presents with R sided empyema s/p IR pigtail placement. We will begin lytic therapy and repeat CT in a few days. Unfortunately he is not really a surgical candidate for decortication given severe emphysema. I spent 35 minutes reviewing the data and discussing findings with the patient. Time with Patient: Greater than 30
[2022-11-04] MEDS: GABAPENTIN 300 MG CAP PO PRN (12:49)
[2022-11-04 13:59] LABS: Basophils # (A) 0.02 X 10*3/uL (0.00-0.10); Basophils % (A) 0.2 %; Eosinophils # (A) 0.05 X 10*3/uL (0.04-0.35); Eosinophils % (A) 0.6 %; HCT 33.6 % (39.6-50.0); HGB 10.3 g/dL (13.0-17.0); Immature Grans, Automated 0.9 %; Lymphocytes # (A) 0.72 X 10*3/uL (0.90-5.00); Lymphocytes % (A) 8.8 %; MCH 26.2 pg (27.0-32.0); MCHC 30.7 g/dL (32.0-37.0); MCV 85.5 fL (80.0-97.0); Mean Platelet Volume 9.1 fL (9.5-12.2); Monocytes # (A) 0.56 X 10*3/uL (0.20-1.00); Monocytes % (A) 6.8 %; NRBC Per 100 WBC 0 /100 WBCS (0.0-0.0); Neutrophils % (A) 82.7 %; Platelet Count 258 X 10*3/uL (140-440); RBC 3.93 X 10*6/uL (4.40-5.60); RDW 16.5 % (11.5-14.5); WBC 8.22 X 10*3/uL (4.50-10.00)
--- NOTE | 2022-11-04 14:25 | P.PN ---
Subjective Progress Note Date: 11/04/22 Principal diagnosis: empyema Patient is a 62-year-old male presenting to the hospital 4 days ago on 10/29/2022 for evaluation of weight loss failure to thrive and suspected malignancy patient also complaining of some right lower chest pain , patient was noticed to have a right-sided effusion status post thoracocentesis significantly positive culture did grew Streptococcus patient initially refused pigtail catheter placement however seemed to have agreed to it though. Patient is status post left-sided chest tube placement by interventional radiology on 11/03/2022 On today's evaluation that is 11/04/2022, the patient continues to be afebrile, the patient is breathing comfortably on room air, the patient left-sided chest pain is currently controlled denies any nausea no vomiting no abdominal pain and no diarrhea Objective - Vital Signs Vital signs: Vital Signs Temp 97.6 F 11/04/22 07:35 Pulse 68 11/04/22 11:23 Resp 18 11/04/22 07:35 BP 138/74 11/04/22 07:35 Pulse Ox 100 11/04/22 07:35 FiO2 2 11/04/22 07:24 Intake & Output 11/03/22 11/04/22 11/04/22 18:59 06:59 18:59 Output Total 560 730 Balance -560 -730 Output: Chest Tube Drainage 210 30 Thora-Vent Right Lower 210 30 Posterior Chest Urine 350 700 Other: Voiding Method Urinal Urinal # Bowel Movements 0 - Exam GENERAL DESCRIPTION: Middle-aged male lying in bed in no distress RESPIRATORY SYSTEM: Unlabored breathing , decreased breath sounds at bases HEART: S1 S2 regular rate and rhythm , ABDOMEN: Soft , no tenderness EXTREMITIES: No edema feet - Labs CBC & Chem 7: 11/04/22 07:06 11/03/22 07:11 Labs: Abnormal Lab Results - Last 24 Hours (Table) 11/03/22 Range/Units 12:39 PT 19.2 H (9.0-12.0) sec INR 1.9 H (<1.2) Microbiology - Last 24 Hours (Table) 10/30/22 12:30 Anaerobic Culture - Final Pleural Fluid 10/30/22 12:30 Gram Stain - Final Pleural Fluid Body Fluid Culture - Final Alpha Hemolytic Streptococcus Assessment and Plan (1) Empyema Current Visit: Yes Status: Acute Code(s): J86.9 - PYOTHORAX WITHOUT FISTULA SNOMED Code(s): 417470613 Plan: 1patient presented hospital with right-sided chest pain shortness of breath and cough in this patient with evidence of large right-sided effusion status post thoracocentesis with significant normality of the fluid culture growing alphahemolytic Streptococcus concerning for empyema with underlying malignancy not entirely excluded in view of his overall clinical condition 2-patient is status post chest tube placement on the left side draining some purulent fluid 3Patient to continue with Unasyn 3 g every 6 hours and monitor clinical course closely
--- NOTE | 2022-11-04 14:30 | P.PN ---
Subjective Progress Note Date: 11/04/22 62-year-old male transferred from an outside hospital, with shortness of breath, a 65 pound weight loss recently, failure to thrive, and concerns about malignancy. The patient apparently presented to Hospital up in the [place] area. He was at the outside hospital for some time. The patient is not a p articularly good historian. The patient really is not able to give any definitive history. The patient is a heavy smoker, and a chest x-ray, apparently showed a abnormal fluid collection and/or mass in the right chest. I asked him what he was diagnosed with the outside hospital, but he was unable to tell me. He apparently also has cough, some phlegm production. No fever or chills. No chest pain or chest discomfort. He likely has underlying COPD from heavy tobacco use. Currently, the patient's on 3 L of oxygen, but without any IV fluids. We will order the computed tomography scan of the chest, and we asked interventional radiology to consider doing a thoracentesis, and/or pigtail catheter placement. His chest x-ray showed a right-sided pleural effusion. The ultrasound was subsequently ordered. We will follow back from interventional radiology team, that the material removed from the chest, was purulent, and looked like pus. In addition, 1250 mL of fluid was removed from the right we added vancomycin and cefepime. White count 8.3, hemoglobin 11, hematocrit 34.7, and platelet count normal. INR was 1.9. Sodium 131, potassium 3.7, chlorides 98, CO2 23, normal anion gap, BUN 13, and the creatinine 0.61. Glucose 104. Albumin 2.7. Chest x-ray showed some chronic emphysematous changes, parenchymal fibrotic changes, and a non-simple right-sided pleural effusion. The ultrasound showed a relatively larger fluid pocket on the right side, measuring 13.3 cm. There was complex internal debris within the right chest. Hence, interventional radiology was asked to the procedure. Computed tomography scan is currently pending. The patient is seen today 10/31/2022 in follow-up on the regular medical floor. He is currently resting comfortably in bed. Awake and alert in no acute distress. He did undergo a right-sided thoracentesis by interventional radiology yesterday. The fluid was significantly dyspneic and pertinent and suspicious for empyema. The were planning to place a pigtail catheter however the patient refused to have it done. A total of 1250 ML's was drained. Fluid analysis reveals turbid appearance with greater than 500,000 WBCs. Total protein 2.4. LDH greater than 2500. He was initiated on vancomycin and cefepime yesterday. Continued on DuoNeb inhalations, Symbicort. Sodium 133. Potassium 3.9. Bicarb 25. BUN 11. Creatinine 0.60. The patient is seen today 11/01/2022 in follow-up on the regular medical floor. He is currently resting in bed. Awake and alert in no acute distress. Maintaining good O2 saturations in the 90s on room air. He is feeling weak and fatigued. He continues to decline the offer of a chest tube placement to help drain the suspected abscess in the right chest. He is continued on vancomycin and cefepime. Continue on Symbicort and DuoNeb inhalations. Lovenox for DVT prophylaxis. Chest x-ray shows similar right airspace opacities. Superimposed emphysema. Preliminary pleural fluid Gram stain showing alpha hemolytic streptococcus. White count 4.5. Hemoglobin 10.0. Platelets 287. Sodium 133. Potassium 3.2. Bicarb 21. BUN 9. Creatinine 0.58. The patient is seen today 11/02/2022 in follow-up on the regular medical floor. He is awake and alert in no acute distress. Still not feeling much better today compared to yesterday. Still weak and fatigued. Maintaining good O2 saturations in the 90s on room air. He is continued on vancomycin and cefepime. Pleural fluid culture is positive for alphahemolytic streptococcus. White count 5.8. Hemoglobin 9.2. Platelets 285. Sodium 132. Potassium 3.8. Bicarb 19. BUN 6. Creatinine 0.51. Glucose 83. On today's evaluation of 11/03/2022, the patient has no specific complaints. The patient will have a pigtail catheter insertion today for an underlying empyema. Noted the patient underwent a thoracentesis and the fluid cultures came back positive for alpha hemolytic strep. The patient will have a pigtail catheter inserted today. He does have a masslike consolidation of the right middle lobe in addition to right-sided pleural effusion that was drained earlier. He is known to have COPD. He is currently on 2 L of Oxymizer nasal cannula with a pulse ox of 96%. Hemodynamically stable. He remains on accommodation of cefepime and vancomycin. Also, vancomycin, clinically hemoglobin of 10.3 and a platelet count of 316. The BUN is at 5.2 with a creatinine of 0.5 and a sodium level is at 134. The vancomycin trough is at 19.6. The most recent chest x-rays from 11/01/2022 that showed a air space disease involving the right lung, and the CAT scan of the chest that was done on 10/30/2022 showed a moderate to large pleural fluid collection involving the right lung with thickening borders and a small peripheral enhancement and some inflammatory fat stranding within the adjacent pericolic fat. This is consistent with empyema. There is also a some atelectatic changes in the right lung base. There is back on moderate to severe emphysema. The patient's aortic root was measuring 5.2 cm in size and the ascending aorta was measuring 4.1 cm. On 11/04/2022, the patient is being seen for a follow-up. The patient is an empyema of the right lung. The pigtail catheter was inserted yesterday and a total of 600 mL of purulent material was aspirated from the right lung and the [facility] is collecting in the pleural VAC. The repeat chest x-ray shows no major improvement and there is significant opacification of the right lower lobe. Based on that, the patient is going to receive an alteplase treatment to enhance drainage of the empyema. The patient remains hemodynamically stable. He remains on2 L of oxygen by nasal cannula with a pulse ox of 97%. The blood work today shows a WBC count of 8.2 with a hemoglobin of 10.3. Electrolytes from yesterday were all within normal limits. The patient also had has been on IV Unasyn. The patient on DuoNeb about treatments [id number]. He is on Lovenox portably prophylaxis. Objective - Vital Signs Vital signs: Vital Signs Temp 99.1 F 11/04/22 12:40 Pulse 68 11/04/22 12:40 Resp 18 11/04/22 12:40 BP 139/69 11/04/22 12:40 Pulse Ox 97 11/04/22 12:40 FiO2 2 11/04/22 07:24 Intake & Output 11/03/22 11/04/22 11/04/22 18:59 06:59 18:59 Output Total 560 730 Balance -560 -730 Output: Chest Tube Drainage 210 30 Thora-Vent Right Lower 210 30 Posterior Chest Urine 350 700 Other: Voiding Method Urinal Urinal # Voids 2 # Bowel Movements 0 - Exam GENERAL EXAM: Alert, pleasant 62-year-old male, on room air, fairly comfortable in no apparent distress. The patient is currently on 2 L of oxygen by nasal cannula HEAD: Normocephalic. EYES: Normal reaction of pupils, equal size. NOSE: Clear with pink turbinates. THROAT: No erythema or exudates. NECK: No masses, no JVD. CHEST: No chest wall deformity. LUNGS: Equal air entry with bilateral scattered rhonchi more so on the right, diminished in the bases. The patient is a pigtail catheter going into the right hemithorax posteriorly. The pigtail catheter attached the pleural VAC. CVS: S1 and S2 normal with no audible murmur, regular rhythm. ABDOMEN: No hepatosplenomegaly, normal bowel sounds, no guarding or rigidity. SPINE: No scoliosis or deformity SKIN: No rashes CENTRAL NERVOUS SYSTEM: No focal deficits, tone is normal in all 4 extremities. EXTREMITIES: There is no peripheral edema. No clubbing, no cyanosis. Peripheral pulses are intact. - Labs CBC & Chem 7: 11/04/22 07:06 11/03/22 07:11 Labs: Abnormal Lab Results - Last 24 Hours (Table) 11/04/22 Range/Units 07:06 RBC 3.93 L (4.40-5.60) X 10*6/uL Hgb 10.3 L (13.0-17.0) g/dL Hct 33.6 L (39.6-50.0) % MCH 26.2 L (27.0-32.0) pg MCHC 30.7 L (32.0-37.0) g/dL RDW 16.5 H (11.5-14.5) % MPV 9.1 L (9.5-12.2) fL Immature Gran # 0.07 H (0.00-0.04) X 10*3/uL Lymphocytes # 0.72 L (0.90-5.00) X 10*3/uL Microbiology - Last 24 Hours (Table) 10/30/22 12:30 Anaerobic Culture - Final Pleural Fluid 10/30/22 12:30 Gram Stain - Final Pleural Fluid Body Fluid Culture - Final Alpha Hemolytic Streptococcus Assessment and Plan Plan: Right lung empyema with alphahemolytic strep. The patient has a moderate to large pleural fluid collection on the right side posteriorly with previous thoracentesis showing fluid consistent with empyema. Cultures positive Streptococcus and the patient was given a pigtail catheter for further drainage. 600cc of purulent material was aspirated from the right lung since catheter insertion. The patient is going to receive alteplase. The patient is currently on IV Unasyn. Chronic shortness of breath, anorexia, significant 65 pound weight loss, and an abnormal chest x-ray. Status post right-sided thoracentesis by interventional radiology in the fluid was suspicious for empyema. Currently IV Unasyn Acute hypoxic respiratory failure currently on 2 L of Oxymizer nasal cannula History of heavy tobacco use, with probable underlying COPD History of hypertension Vague history of asthma Plan: Pigtail catheter was inserted We'll proceed with alteplase administrations of the right hemithorax to enhance drainage Keep the IV Unasyn for now Cardiothoracic surgery consultation has been obtained Incentive spirometer Daily chest x-rays We will continue to follow
[2022-11-04 14:49] LABS: Anion Gap 14.7 mmol/L (10.00-18.00); BUN/Creat Ratio 7.67 Ratio (12.00-20.00); Blood Urea Nitrogen 4.6 mg/dL (9.0-27.0); Carbon Dioxide 19.3 mmol/L (20.0-27.5); Magnesium 2.1 mg/dL (1.5-2.4)
[2022-11-04 15:19] VITALS: BMI 21.2
[2022-11-05] MEDS: MORPHINE SULFATE 4 MG/ML SYRINGE IV PRN ×5 (02:11→22:58)
[2022-11-05] MEDS: SODIUM CHLORIDE 0.9% 1,000 ML IV SCH ×4 (05:44→22:58)
[2022-11-05] MEDS: AMPICILLIN-SULBACTAM 3 GM in SODIUM CHLORIDE 0.9% 100 ML IVPB SCH ×4 (05:48→22:57)
--- NOTE | 2022-11-05 07:13 | XR ---
EXAMINATION TYPE: XR chest 1V portable DATE OF EXAM: 11/05/2022 6:44 AM COMPARISON: Chest radiograph from one day prior. TECHNIQUE: XR chest 1V portable Frontal view of the chest. CLINICAL INDICATION:Male, 62 years old with history of empyema; FINDINGS: Lungs/Pleura: Blunting of right costophrenic angle with thoracotomy tube in place. Basilar atelectasi s. There is no evidence of focal consolidation, or pneumothorax. Pulmonary vascularity: Unremarkable. Heart/mediastinum: Cardiomediastinal silhouette is partially obscured due to overlying and adjacent o pacities. Musculoskeletal: No acute osseous pathology. Other findings: None Lines/Tubes: Right thoracotomy tube is present without evidence of pneumothorax. There remains small right pleural effusion. IMPRESSION: Right thoracotomy tube with persistent right effusion and associated atelectasis. No evidence of pneu mothorax.
[2022-11-05] MEDS: IPRATROPIUM-ALBUTEROL 3 ML NEB INHALATION SCH ×4 (07:55→19:53)
[2022-11-05] MEDS: SYMBICORT 160-4.5 MCG INHALER INHALATION SCH ×2 (07:55→19:53)
[2022-11-05] MEDS: ENOXAPARIN 40 MG/0.4 ML SYRINGE SQ SCH (08:07)
[2022-11-05] MEDS: GABAPENTIN 300 MG CAP PO PRN ×2 (08:09→20:24)
[2022-11-05] MEDS: SERTRALINE 100 MG TAB PO SCH ×2 (08:10→20:21)
[2022-11-05] MEDS: BENZTROPINE MESYLATE 0.5 MG TAB PO SCH ×2 (08:10→20:24)
[2022-11-05] MEDS: LABETALOL 200 MG TAB PO SCH ×2 (08:10→20:24)
[2022-11-05] MEDS: PANTOPRAZOLE 40 MG TABLET PO SCH ×2 (08:10→20:21)
[2022-11-05] MEDS: TAMSULOSIN 0.4 MG CAP.ER.24H PO SCH (08:10)
--- NOTE | 2022-11-05 08:27 | P.PN ---
Subjective Progress Note Date: 11/05/22 Principal diagnosis: Right-sided effusion, empyema with pleural fluid positive for alpha hemolytic strep, status post right-sided thoracentesis with subsequent pigtail catheter placement, masslike area of heterogeneous enhancement in the right middle lobe, combination of collapse and consolidation of the basilar right lower lobe, acute hypoxic respiratory failure, progressive shortness of breath, cough with sputum production. History of recent 65 pound weight loss, long-term heavy tobacco use with recent cessation, COPD, asthma, hypertension The patient was seen and examined sitting up in bed on the medical oncology unit in no acute distress. He denies pain but does continue to complain of some shortness of breath as well as generalized weakness. Right pigtail catheter remains present with total 1 L purulent fluid in his atrium. Remains on 2 L nasal cannula, remains afebrile, remains on IV Unasyn per infectious disease. Pleural fluid cytology negative for malignant cells. No other new concerns. Objective - Vital Signs Vital signs: Vital Signs Temp 98.3 F 11/05/22 07:20 Pulse 64 11/05/22 08:11 Resp 18 11/05/22 07:20 BP 146/74 11/05/22 07:20 Pulse Ox 96 11/05/22 07:57 FiO2 2 11/04/22 07:24 Intake & Output 11/04/22 11/05/22 11/05/22 18:59 06:59 18:59 Intake Total 200 1100 Output Total 850 810 Balance -650 290 Weight 77.111 kg Intake: Intake, IV Titration 200 1100 Amount Ampicillin-Sulbactam 3 gm 200 200 In Sodium Chloride 0.9% 100 ml @ 200 mls/hr IVPB Q6HR [facility] Rx#:[id number] Sodium Chloride 0.9% 1, 900 000 ml @ 75 mls/hr IV . [id number] [facility] Rx#:[id number] Output: Drainage 150 210 Right Chest 150 210 Urine 700 600 Other: Voiding Method Urinal Urinal # Voids 2 - Exam CONSTITUTIONAL: Appears comfortable, cooperative, no acute distress RESPIRATORY: Lungs sounds diminished bilaterally. Respirations even, nonlabored. Currently on 2 L nasal cannula with oxygen saturation 92%. Strong cough. CARDIOVASCULAR: S1, S2 present. Regular rate and rhythm. Palpable peripheral pulses bilaterally. No edema present. No calf pain or tenderness noted. SCDs present. GASTROINTESTINAL: Abdomen soft, nontender, nondistended. Active bowel sounds present 4 quadrants. Tolerating minimal diet GENITOURINARY: Continues to void INTEGUMENTARY: Skin is warm and dry NEUROLOGIC: Cranial nerves II through XII intact MUSKULOSKELETAL: Able to move all extremities, strength equal bilaterally, gait normal PSYCHIATRIC: Alert and oriented to person place and time, flat affect INVASIVE LINES AND TUBES: Right-sided pigtail catheter present, 30 mL purulent drainage overnight, 300 mL since consultation yesterday, total 1 L in atrium - Allied health notes Allied health notes reviewed: nursing - Labs CBC & Chem 7: 11/04/22 07:06 11/04/22 07:06 Labs: Abnormal Lab Results - Last 24 Hours (Table) 11/04/22 11/04/22 Range/Units 07:06 07:06 RBC 3.93 L (4.40-5.60) X 10*6/uL Hgb 10.3 L (13.0-17.0) g/dL Hct 33.6 L (39.6-50.0) % MCH 26.2 L (27.0-32.0) pg MCHC 30.7 L (32.0-37.0) g/dL RDW 16.5 H (11.5-14.5) % MPV 9.1 L (9.5-12.2) fL Immature Gran # 0.07 H (0.00-0.04) X 10*3/uL Lymphocytes # 0.72 L (0.90-5.00) X 10*3/uL Carbon Dioxide 19.3 L (20.0-27.5) mmol/L BUN 4.6 L (9.0-27.0) mg/dL BUN/Creatinine Ratio 7.67 L (12.00-20.00) Ratio Calcium 8.0 L (8.7-10.3) mg/dL Microbiology - Last 24 Hours (Table) 10/30/22 12:30 Anaerobic Culture - Final Pleural Fluid - Imaging and Cardiology Chest x-ray: image reviewed Assessment and Plan Assessment: Right-sided effusion, empyema with pleural fluid positive for alpha hemolytic strep, status post right-sided thoracentesis with subsequent pigtail catheter placement Masslike area of heterogeneous enhancement in the right middle lobe measuring 6.9 cm, right pleural fluid cytology negative for malignant cells Combination of collapse and consolidation of the basilar right lower lobe Acute hypoxic respiratory failure Progressive shortness of breath, cough with sputum production Recent 65 pound weight loss Long-term heavy tobacco use with recent cessation COPD Asthma Hypertension Plan: We will instill lytics today Monitor drainage from pigtail catheter Continue antibiotics per infectious disease recommendations No surgical intervention currently, however if patient does not improve may c onsider surgical thoracoscopy with washout Medical management of other comorbidities per internal medicine, pulmonology, infectious disease More recommendations to follow
[2022-11-05] MEDS: KETOROLAC 15 MG/ML 1 ML VIAL IVP PRN ×2 (09:32→16:07)
[2022-11-05] MEDS ORDERED: DORNASE ALFA 5 MG in SODIUM CHLORIDE 0.9% 50 ML IRRIGATION ONE (10:00)
[2022-11-05] MEDS ORDERED: ALTEPLASE 10 MG in SODIUM CHLORIDE 0.9% 50 ML IRRIGATION ONE (10:00)
[2022-11-05 10:51] LABS: Basophils # (A) 0.01 X 10*3/uL (0.00-0.10); Basophils % (A) 0.2 %; Eosinophils # (A) 0.08 X 10*3/uL (0.04-0.35); Eosinophils % (A) 1.4 %; HCT 30.9 % (39.6-50.0); HGB 9.3 g/dL (13.0-17.0); Immature Grans, Automated 1.1 %; Lymphocytes # (A) 0.69 X 10*3/uL (0.90-5.00); Lymphocytes % (A) 12.5 %; MCH 25.8 pg (27.0-32.0); MCHC 30.1 g/dL (32.0-37.0); MCV 85.6 fL (80.0-97.0); Mean Platelet Volume 10.4 fL (9.5-12.2); Monocytes # (A) 0.39 X 10*3/uL (0.20-1.00); Monocytes % (A) 7.1 %; NRBC Per 100 WBC 0 /100 WBCS (0.0-0.0); Neutrophils % (A) 77.7 %; Platelet Count 250 X 10*3/uL (140-440); RBC 3.61 X 10*6/uL (4.40-5.60); RDW 16.9 % (11.5-14.5); WBC 5.53 X 10*3/uL (4.50-10.00)
[2022-11-05 11:09] LABS: Anion Gap 9.8 mmol/L (10.00-18.00); BUN/Creat Ratio 6.83 Ratio (12.00-20.00); Blood Urea Nitrogen 4.1 mg/dL (9.0-27.0); Calcium 7.8 mg/dL (8.7-10.3); Carbon Dioxide 25.2 mmol/L (20.0-27.5); Magnesium 1.8 mg/dL (1.5-2.4); Potassium 3.4 mmol/L (3.5-5.5)
--- NOTE | 2022-11-05 14:30 | P.PN ---
Subjective Progress Note Date: 11/05/22 Principal diagnosis: empyema Patient is a 62-year-old male presenting to the hospital 4 days ago on 10/29/2022 for evaluation of weight loss failure to thrive and suspected malignancy patient also complaining of some right lower chest pain , patient was noticed to have a right-sided effusion status post thoracocentesis significantly positive culture did grew Streptococcus patient initially refused pigtail catheter placement however seemed to have agreed to it though. Patient is status post left-sided chest tube placement by interventional radiology on 11/03/2022 On today's evaluation that is 11/05/2022, the patient remains to be afebrile, the patient is breathing comfortably on room air, the patient right chest pain has decreased in intensity, the patient denies any nausea no vomiting no abdominal pain and no diarrhea Objective - Vital Signs Vital signs: Vital Signs Temp 98.2 F 11/05/22 11:47 Pulse 64 11/05/22 11:47 Resp 18 11/05/22 11:47 BP 139/76 11/05/22 11:47 Pulse Ox 93 L 11/05/22 11:47 FiO2 2 11/04/22 07:24 Intake & Output 11/04/22 11/05/22 11/05/22 18:59 06:59 18:59 Intake Total 200 1100 Output Total 850 810 Balance -650 290 Weight 77.111 kg Intake: Intake, IV Titration 200 1100 Amount Ampicillin-Sulbactam 3 gm 200 200 In Sodium Chloride 0.9% 100 ml @ 200 mls/hr IVPB Q6HR [facility] Rx#:[id number] Sodium Chloride 0.9% 1, 900 000 ml @ 75 mls/hr IV . [id number] [facility] Rx#:[id number] Output: Drainage 150 210 Right Chest 150 210 Urine 700 600 Other: Voiding Method Urinal Urinal Urinal # Voids 2 1 # Bowel Movements 1 - Exam GENERAL DESCRIPTION: Middle-aged male lying in bed in no distress RESPIRATORY SYSTEM: Unlabored breathing , decreased breath sounds at bases HEART: S1 S2 regular rate and rhythm , ABDOMEN: Soft , no tenderness EXTREMITIES: No edema feet - Labs CBC & Chem 7: 11/05/22 06:26 11/05/22 06:26 Labs: Abnormal Lab Results - Last 24 Hours (Table) 11/04/22 11/04/22 11/05/22 Range/Units 07:06 07:06 06:26 RBC 3.93 L 3.61 L (4.40-5.60) X 10*6/uL Hgb 10.3 L 9.3 L (13.0-17.0) g/dL Hct 33.6 L 30.9 L (39.6-50.0) % MCH 26.2 L 25.8 L (27.0-32.0) pg MCHC 30.7 L 30.1 L (32.0-37.0) g/dL RDW 16.5 H 16.9 H (11.5-14.5) % MPV 9.1 L (9.5-12.2) fL Immature Gran # 0.07 H 0.06 H (0.00-0.04) X 10*3/uL Lymphocytes # 0.72 L 0.69 L (0.90-5.00) X 10*3/uL Potassium (3.5-5.5) mmol/L Carbon Dioxide 19.3 L (20.0-27.5) mmol/L Anion Gap (10.00-18.00) mmol/L BUN 4.6 L (9.0-27.0) mg/dL BUN/Creatinine Ratio 7.67 L (12.00-20.00) Ratio Calcium 8.0 L (8.7-10.3) mg/dL 11/05/22 Range/Units 06:26 RBC (4.40-5.60) X 10*6/uL Hgb (13.0-17.0) g/dL Hct (39.6-50.0) % MCH (27.0-32.0) pg MCHC (32.0-37.0) g/dL RDW (11.5-14.5) % MPV (9.5-12.2) fL Immature Gran # (0.00-0.04) X 10*3/uL Lymphocytes # (0.90-5.00) X 10*3/uL Potassium 3.4 L (3.5-5.5) mmol/L Carbon Dioxide (20.0-27.5) mmol/L Anion Gap 9.80 L (10.00-18.00) mmol/L BUN 4.1 L (9.0-27.0) mg/dL BUN/Creatinine Ratio 6.83 L (12.00-20.00) Ratio Calcium 7.8 L (8.7-10.3) mg/dL Microbiology - Last 24 Hours (Table) 10/30/22 12:30 Anaerobic Culture - Final Pleural Fluid Assessment and Plan (1) Empyema Current Visit: Yes Status: Acute Code(s): J86.9 - PYOTHORAX WITHOUT FISTULA SNOMED Code(s): 676858737 Plan: 1patient presented hospital with right-sided chest pain shortness of breath and cough in this patient with evidence of large right-sided effusion status post thoracocentesis with significant normality of the fluid culture growing alphahemolytic Streptococcus concerning for empyema with underlying malignancy not entirely excluded in view of his overall clinical condition 2-patient is status post chest tube placement on the right side draining purulent fluid 3Patient slowly clinically improving and will continue with Unasyn 3 g every 6 hours and monitor clinical course closely Time with Patient: Less than 30
--- NOTE | 2022-11-05 15:59 | P.PN ---
Subjective Progress Note Date: 11/05/22 62-year-old male transferred from an outside hospital, with shortness of breath, a 65 pound weight loss recently, failure to thrive, and concerns about malignancy. The patient apparently presented to Hospital up in the [place] area. He was at the outside hospital for some time. The patient is not a p articularly good historian. The patient really is not able to give any definitive history. The patient is a heavy smoker, and a chest x-ray, apparently showed a abnormal fluid collection and/or mass in the right chest. I asked him what he was diagnosed with the outside hospital, but he was unable to tell me. He apparently also has cough, some phlegm production. No fever or chills. No chest pain or chest discomfort. He likely has underlying COPD from heavy tobacco use. Currently, the patient's on 3 L of oxygen, but without any IV fluids. We will order the computed tomography scan of the chest, and we asked interventional radiology to consider doing a thoracentesis, and/or pigtail catheter placement. His chest x-ray showed a right-sided pleural effusion. The ultrasound was subsequently ordered. We will follow back from interventional radiology team, that the material removed from the chest, was purulent, and looked like pus. In addition, 1250 mL of fluid was removed from the right we added vancomycin and cefepime. White count 8.3, hemoglobin 11, hematocrit 34.7, and platelet count normal. INR was 1.9. Sodium 131, potassium 3.7, chlorides 98, CO2 23, normal anion gap, BUN 13, and the creatinine 0.61. Glucose 104. Albumin 2.7. Chest x-ray showed some chronic emphysematous changes, parenchymal fibrotic changes, and a non-simple right-sided pleural effusion. The ultrasound showed a relatively larger fluid pocket on the right side, measuring 13.3 cm. There was complex internal debris within the right chest. Hence, interventional radiology was asked to the procedure. Computed tomography scan is currently pending. The patient is seen today 10/31/2022 in follow-up on the regular medical floor. He is currently resting comfortably in bed. Awake and alert in no acute distress. He did undergo a right-sided thoracentesis by interventional radiology yesterday. The fluid was significantly dyspneic and pertinent and suspicious for empyema. The were planning to place a pigtail catheter however the patient refused to have it done. A total of 1250 ML's was drained. Fluid analysis reveals turbid appearance with greater than 500,000 WBCs. Total protein 2.4. LDH greater than 2500. He was initiated on vancomycin and cefepime yesterday. Continued on DuoNeb inhalations, Symbicort. Sodium 133. Potassium 3.9. Bicarb 25. BUN 11. Creatinine 0.60. The patient is seen today 11/01/2022 in follow-up on the regular medical floor. He is currently resting in bed. Awake and alert in no acute distress. Maintaining good O2 saturations in the 90s on room air. He is feeling weak and fatigued. He continues to decline the offer of a chest tube placement to help drain the suspected abscess in the right chest. He is continued on vancomycin and cefepime. Continue on Symbicort and DuoNeb inhalations. Lovenox for DVT prophylaxis. Chest x-ray shows similar right airspace opacities. Superimposed emphysema. Preliminary pleural fluid Gram stain showing alpha hemolytic streptococcus. White count 4.5. Hemoglobin 10.0. Platelets 287. Sodium 133. Potassium 3.2. Bicarb 21. BUN 9. Creatinine 0.58. The patient is seen today 11/02/2022 in follow-up on the regular medical floor. He is awake and alert in no acute distress. Still not feeling much better today compared to yesterday. Still weak and fatigued. Maintaining good O2 saturations in the 90s on room air. He is continued on vancomycin and cefepime. Pleural fluid culture is positive for alphahemolytic streptococcus. White count 5.8. Hemoglobin 9.2. Platelets 285. Sodium 132. Potassium 3.8. Bicarb 19. BUN 6. Creatinine 0.51. Glucose 83. On today's evaluation of 11/03/2022, the patient has no specific complaints. The patient will have a pigtail catheter insertion today for an underlying empyema. Noted the patient underwent a thoracentesis and the fluid cultures came back positive for alpha hemolytic strep. The patient will have a pigtail catheter inserted today. He does have a masslike consolidation of the right middle lobe in addition to right-sided pleural effusion that was drained earlier. He is known to have COPD. He is currently on 2 L of Oxymizer nasal cannula with a pulse ox of 96%. Hemodynamically stable. He remains on accommodation of cefepime and vancomycin. Also, vancomycin, clinically hemoglobin of 10.3 and a platelet count of 316. The BUN is at 5.2 with a creatinine of 0.5 and a sodium level is at 134. The vancomycin trough is at 19.6. The most recent chest x-rays from 11/01/2022 that showed a air space disease involving the right lung, and the CAT scan of the chest that was done on 10/30/2022 showed a moderate to large pleural fluid collection involving the right lung with thickening borders and a small peripheral enhancement and some inflammatory fat stranding within the adjacent pericolic fat. This is consistent with empyema. There is also a some atelectatic changes in the right lung base. There is back on moderate to severe emphysema. The patient's aortic root was measuring 5.2 cm in size and the ascending aorta was measuring 4.1 cm. On 11/04/2022, the patient is being seen for a follow-up. The patient is an empyema of the right lung. The pigtail catheter was inserted yesterday and a total of 600 mL of purulent material was aspirated from the right lung and the [facility] is collecting in the pleural VAC. The repeat chest x-ray shows no major improvement and there is significant opacification of the right lower lobe. Based on that, the patient is going to receive an alteplase treatment to enhance drainage of the empyema. The patient remains hemodynamically stable. He remains on2 L of oxygen by nasal cannula with a pulse ox of 97%. The blood work today shows a WBC count of 8.2 with a hemoglobin of 10.3. Electrolytes from yesterday were all within normal limits. The patient also had has been on IV Unasyn. The patient on DuoNeb about treatments [id number]. He is on Lovenox portably prophylaxis. On today's evaluation of 11/05/2022, the patient has an thrombolytic adminis tration to the pigtail catheter into the right lung as the patient has a right lung empyema. A total of 1.4 L of pleural fluid has been aspirated or drained in the atrium since the insertion of the catheter. Clinically the patient is doing well. Chest x-ray shows some limited improvement elevation of the right lung. The patient remains on IV Unasyn. Is currently comfortable. No pleurisy. No hemoptysis. The patient's echoes of 5.5 with a hemoglobin 9.3 and a BUN of 4 with a creatinine of 0.6 and a sodium level is 140. No other issues for now and the patient is being followed up with us and cardiothoracic team. Objective - Vital Signs Vital signs: Vital Signs Temp 98.2 F 11/05/22 11:47 Pulse 60 11/05/22 15:54 Resp 18 11/05/22 11:47 BP 139/76 11/05/22 11:47 Pulse Ox 93 L 11/05/22 11:47 FiO2 2 11/04/22 07:24 Intake & Output 11/04/22 11/05/22 11/05/22 18:59 06:59 18:59 Intake Total 200 1100 Output Total 850 810 Balance -650 290 Weight 77.111 kg Intake: Intake, IV Titration 200 1100 Amount Ampicillin-Sulbactam 3 gm 200 200 In Sodium Chloride 0.9% 100 ml @ 200 mls/hr IVPB Q6HR [facility] Rx#:[id number] Sodium Chloride 0.9% 1, 900 000 ml @ 75 mls/hr IV . [id number] [facility] Rx#:[id number] Output: Drainage 150 210 Right Chest 150 210 Urine 700 600 Other: Voiding Method Urinal Urinal Urinal # Voids 2 1 # Bowel Movements 1 - Exam GENERAL EXAM: Alert, pleasant 62-year-old male, on room air, fairly comfortable in no apparent distress. The patient is currently on 2 L of oxygen by nasal cannula HEAD: Normocephalic. EYES: Normal reaction of pupils, equal size. NOSE: Clear with pink turbinates. THROAT: No erythema or exudates. NECK: No masses, no JVD. CHEST: No chest wall deformity. LUNGS: Equal air entry with bilateral scattered rhonchi more so on the right, diminished in the bases. The patient is a pigtail catheter going into the right hemithorax posteriorly. The pigtail catheter attached the pleural VAC. CVS: S1 and S2 normal with no audible murmur, regular rhythm. ABDOMEN: No hepatosplenomegaly, normal bowel sounds, no guarding or rigidity. SPINE: No scoliosis or deformity SKIN: No rashes CENTRAL NERVOUS SYSTEM: No focal deficits, tone is normal in all 4 extremities. EXTREMITIES: There is no peripheral edema. No clubbing, no cyanosis. Peripheral pulses are intact. - Labs CBC & Chem 7: 11/05/22 06:26 11/05/22 06:26 Labs: Abnormal Lab Results - Last 24 Hours (Table) 11/05/22 11/05/22 Range/Units 06:26 06:26 RBC 3.61 L (4.40-5.60) X 10*6/uL Hgb 9.3 L (13.0-17.0) g/dL Hct 30.9 L (39.6-50.0) % MCH 25.8 L (27.0-32.0) pg MCHC 30.1 L (32.0-37.0) g/dL RDW 16.9 H (11.5-14.5) % Immature Gran # 0.06 H (0.00-0.04) X 10*3/uL Lymphocytes # 0.69 L (0.90-5.00) X 10*3/uL Potassium 3.4 L (3.5-5.5) mmol/L Anion Gap 9.80 L (10.00-18.00) mmol/L BUN 4.1 L (9.0-27.0) mg/dL BUN/Creatinine Ratio 6.83 L (12.00-20.00) Ratio Calcium 7.8 L (8.7-10.3) mg/dL Microbiology - Last 24 Hours (Table) 10/30/22 12:30 Anaerobic Culture - Final Pleural Fluid Assessment and Plan Plan: Right lung empyema with alphahemolytic strep. The patient has a moderate to large pleural fluid collection on the right side posteriorly with previous thoracentesis showing fluid consistent with empyema. Cultures positive Streptococcus and the patient was given a pigtail catheter for further drainage. The patient received alteplase today. The patient's x-ray shows limited impr ovement elevation of the right lung base. Chronic shortness of breath, anorexia, significant 65 pound weight loss, and an abnormal chest x-ray. Status post right-sided thoracentesis by interventional radiology in the fluid was suspicious for empyema. Currently IV Unasyn Acute hypoxic respiratory failure currently on 2 L of Oxymizer nasal cannula History of heavy tobacco use, with probable underlying COPD History of hypertension Vague history of asthma Plan: A total of 1.4 L of pus was aspirated from the right pigtail catheter since insertion Continue monitoring the output Alteplase was given today Daily chest x-rays Keep the IV Unasyn for now Cardiothoracic surgery consultation has been obtained Incentive spirometer Daily chest x-rays We will continue to follow
--- NOTE | 2022-11-05 16:30 | P.PN ---
Subjective Progress Note Date: 11/05/22 Pt feels improved in terms of breathing but is c/o some additinoal pain in the chest Gen: awake, alert HEENT: normocephalic, atraumatic, good hearing acuity, moist mucous membranes Resp: good air exchange, breathing comfortably with no accessory muscle use CVS: good distal perfusion x 4, GI: soft, NTTP, ND : no SPT, no CVAT, schultz catheter not present MSK: no pitting edema, no clubbing Neuro: non-focal, moving all extremities Psych: cooperative, euthymic mood Hospital course: 61-year-old male with a PMH of tobacco abuse who was transferred from [facility] where he had presented earlier today with complaints of weight loss and abdominal pain. In [place] emergency room, the patient underwent an extensive evaluation with laboratory evaluation showing WBC count 8.3, hemoglobin 11.0, sodium 131, glucose 104, lactic acid 1.3, calcium 8.0, with albumin 2.7. Patient evaluated by pulmonology. Thoracentesis done. Has significant empyema. Patient also started on vancomycin and cefepime. Culture showing alphahemolytic streptococcus. ID consulted. Assessment: Empyema Masslike enhancement in the right middle lobe COPD with Emphysema without exacerbation Hyponatremia, euvolemic, stable Hypokalemia, resolved Normocytic anemia Aneurysmal aortic root and ascending aorta Plan: Today, patient is afebrile, 138/74, heart rate 55, 100% on 2 L nasal cannula Ordered CBC, basic metabolic panel, magnesium for tomorrow Discussed with CT surgery, will instill lytics today into chest tube Continue Unasyn 3 g every 6 hours Continue Symbicort twice a day Continue scheduled DuoNeb's every 6 hours Patient is full code Objective - Vital Signs Vital signs: Vital Signs Temp 98.2 F 11/05/22 11:47 Pulse 60 11/05/22 15:54 Resp 18 11/05/22 11:47 BP 139/76 11/05/22 11:47 Pulse Ox 93 L 11/05/22 11:47 FiO2 2 11/04/22 07:24 Intake & Output 11/04/22 11/05/22 11/05/22 18:59 06:59 18:59 Intake Total 200 1100 Output Total 850 810 Balance -650 290 Weight 77.111 kg Intake: Intake, IV Titration 200 1100 Amount Ampicillin-Sulbactam 3 gm 200 200 In Sodium Chloride 0.9% 100 ml @ 200 mls/hr IVPB Q6HR [facility] Rx#:[id number] Sodium Chloride 0.9% 1, 900 000 ml @ 75 mls/hr IV . [id number] [facility] Rx#:[id number] Output: Drainage 150 210 Right Chest 150 210 Urine 700 600 Other: Voiding Method Urinal Urinal Urinal # Voids 2 1 # Bowel Movements 1 - Labs CBC & Chem 7: 11/05/22 06:26 11/05/22 06:26 Labs: Abnormal Lab Results - Last 24 Hours (Table) 11/05/22 11/05/22 Range/Units 06:26 06:26 RBC 3.61 L (4.40-5.60) X 10*6/uL Hgb 9.3 L (13.0-17.0) g/dL Hct 30.9 L (39.6-50.0) % MCH 25.8 L (27.0-32.0) pg MCHC 30.1 L (32.0-37.0) g/dL RDW 16.9 H (11.5-14.5) % Immature Gran # 0.06 H (0.00-0.04) X 10*3/uL Lymphocytes # 0.69 L (0.90-5.00) X 10*3/uL Potassium 3.4 L (3.5-5.5) mmol/L Anion Gap 9.80 L (10.00-18.00) mmol/L BUN 4.1 L (9.0-27.0) mg/dL BUN/Creatinine Ratio 6.83 L (12.00-20.00) Ratio Calcium 7.8 L (8.7-10.3) mg/dL
[2022-11-05] MEDS: BENZONATATE 100 MG CAP PO PRN (20:24)
[2022-11-06] MEDS: AMPICILLIN-SULBACTAM 3 GM in SODIUM CHLORIDE 0.9% 100 ML IVPB SCH ×3 (05:26→17:43)
--- NOTE | 2022-11-06 06:35 | XR ---
EXAMINATION TYPE: XR chest 1V portable DATE OF EXAM: 11/06/2022 CLINICAL HISTORY: Difficulty breathing and empyema. TECHNIQUE: Single AP portable upright view of the chest is obtained. COMPARISON: Chest x-ray from one day earlier and older studies FINDINGS: Background chronic emphysematous and pulmonary fibrotic changes redemonstrated. Persistent right basilar opacity with pigtail pleural drainage catheter. New left basilar opacity on current st udy. Cardiac silhouette size is stable and upper limits of normal. Osseous structures remain deminera lized. IMPRESSION: Right basilar pleural drainage catheter with persistent right-sided pleural fluid collect ion and associated right lung atelectasis and/or infiltrate. New small left pleural effusion and left basilar atelectasis and/or developing acute infiltrate noted.
[2022-11-06] MEDS: MORPHINE SULFATE 4 MG/ML SYRINGE IV PRN ×4 (07:40→20:18)
--- NOTE | 2022-11-06 08:06 | P.PN ---
Subjective Progress Note Date: 11/06/22 Principal diagnosis: Right-sided effusion, empyema with pleural fluid positive for alpha hemolytic strep, status post right-sided thoracentesis with subsequent pigtail catheter placement, masslike area of heterogeneous enhancement in the right middle lobe, combination of collapse and consolidation of the basilar right lower lobe, acute hypoxic respiratory failure, progressive shortness of breath, cough with sputum production. History of recent 65 pound weight loss, long-term heavy tobacco use with recent cessation, COPD, asthma, hypertension The patient was seen and examined sitting up in bed on the medical oncology unit in no acute distress. He denies pain but does continue to complain of some shortness of breath as well as generalized weakness. Right pigtail catheter remains present, first dose lytics given yesterday with 700 mL thick mccarthy purulent fluid removal since. Remains on 2 L nasal cannula, remains afebrile, remains on IV Unasyn per infectious disease. Pleural fluid cytology negative for malignant cells. No other new concerns. Objective - Vital Signs Vital signs: Vital Signs Temp 97.8 F 11/06/22 07:22 Pulse 64 11/06/22 07:22 Resp 20 11/06/22 07:22 BP 160/88 11/06/22 07:22 Pulse Ox 95 11/06/22 07:22 FiO2 2 11/04/22 07:24 Intake & Output 11/05/22 11/06/22 11/06/22 18:59 06:59 18:59 Intake Total 1100 Output Total 470 240 Balance -470 860 Intake: Intake, IV Titration 1100 Amount Ampicillin-Sulbactam 3 gm 200 In Sodium Chloride 0.9% 100 ml @ 200 mls/hr IVPB Q6HR [facility] Rx#:[id number] Sodium Chloride 0.9% 1, 900 000 ml @ 75 mls/hr IV . [id number] [facility] Rx#:[id number] Output: Drainage 470 240 Right Chest 470 240 Other: Voiding Method Urinal Urinal # Voids 1 # Bowel Movements 1 1 - Exam CONSTITUTIONAL: Appears comfortable, cooperative, no acute distress RESPIRATORY: Lungs sounds diminished bilaterally. Respirations even, nonlabored. Currently on 2 L nasal cannula with oxygen saturation 95%. Strong cough. CARDIOVASCULAR: S1, S2 present. Regular rate and rhythm. Palpable peripheral pulses bilaterally. No edema present. No calf pain or tenderness noted. SCDs present. GASTROINTESTINAL: Abdomen soft, nontender, nondistended. Active bowel sounds present 4 quadrants. Tolerating minimal diet GENITOURINARY: Continues to void INTEGUMENTARY: Skin is warm and dry NEUROLOGIC: Cranial nerves II through XII intact MUSKULOSKELETAL: Able to move all extremities, strength equal bilaterally, gait normal PSYCHIATRIC: Alert and oriented to person place and time, flat affect INVASIVE LINES AND TUBES: Right-sided pigtail catheter present, 700 mL purulent drainage since instillation of lytics yesterday, total 1700 mL in atrium - Allied health notes Allied health notes reviewed: nursing - Labs CBC & Chem 7: 11/05/22 06:26 11/05/22 06:26 Labs: Abnormal Lab Results - Last 24 Hours (Table) 11/05/22 11/05/22 Range/Units 06:26 06:26 RBC 3.61 L (4.40-5.60) X 10*6/uL Hgb 9.3 L (13.0-17.0) g/dL Hct 30.9 L (39.6-50.0) % MCH 25.8 L (27.0-32.0) pg MCHC 30.1 L (32.0-37.0) g/dL RDW 16.9 H (11.5-14.5) % Immature Gran # 0.06 H (0.00-0.04) X 10*3/uL Lymphocytes # 0.69 L (0.90-5.00) X 10*3/uL Potassium 3.4 L (3.5-5.5) mmol/L Anion Gap 9.80 L (10.00-18.00) mmol/L BUN 4.1 L (9.0-27.0) mg/dL BUN/Creatinine Ratio 6.83 L (12.00-20.00) Ratio Calcium 7.8 L (8.7-10.3) mg/dL - Imaging and Cardiology Chest x-ray: report reviewed, image reviewed Assessment and Plan Assessment: Right-sided effusion, empyema with pleural fluid positive for alpha hemolytic strep, status post right-sided thoracentesis with subsequent pigtail catheter placement Masslike area of heterogeneous enhancement in the right middle lobe measuring 6.9 cm, right pleural fluid cytology negative for malignant cells Combination of collapse and consolidation of the basilar right lower lobe Acute hypoxic respiratory failure Progressive shortness of breath, cough with sputum production Recent 65 pound weight loss Long-term heavy tobacco use with recent cessation COPD Asthma Hypertension Plan: We will instill second dose lytics today Monitor drainage from pigtail catheter Continue antibiotics per infectious disease recommendations No surgical intervention currently, however if patient does not improve may consider surgical thoracoscopy with washout Medical management of other comorbidities per internal medicine, pulmonology, infectious disease More recommendations to follow
[2022-11-06] MEDS ORDERED: ALTEPLASE 10 MG in SODIUM CHLORIDE 0.9% 50 ML IRRIGATION ONE (08:30)
[2022-11-06] MEDS ORDERED: DORNASE ALFA 5 MG in SODIUM CHLORIDE 0.9% 50 ML IRRIGATION ONE (08:30)
[2022-11-06] MEDS: IPRATROPIUM-ALBUTEROL 3 ML NEB INHALATION SCH ×4 (08:42→20:02)
[2022-11-06] MEDS: SYMBICORT 160-4.5 MCG INHALER INHALATION SCH ×2 (08:46→20:02)
[2022-11-06] MEDS: SERTRALINE 100 MG TAB PO SCH ×2 (09:05→20:17)
[2022-11-06] MEDS: PANTOPRAZOLE 40 MG TABLET PO SCH ×2 (09:05→20:18)
[2022-11-06] MEDS: TAMSULOSIN 0.4 MG CAP.ER.24H PO SCH (09:05)
[2022-11-06] MEDS: BENZTROPINE MESYLATE 0.5 MG TAB PO SCH ×2 (09:06→20:18)
[2022-11-06] MEDS: ENOXAPARIN 40 MG/0.4 ML SYRINGE SQ SCH (09:06)
[2022-11-06] MEDS: LABETALOL 200 MG TAB PO SCH ×2 (09:06→20:18)
--- NOTE | 2022-11-06 11:07 | P.PN ---
Subjective Progress Note Date: 11/06/22 Pt feels about the same as yesterday. Ongoing pustular drainage. Gen: awake, alert HEENT: normocephalic, atraumatic, good hearing acuity, moist mucous membranes Resp: good air exchange, breathing comfortably with no accessory muscle use CVS: good distal perfusion x 4, GI: soft, NTTP, ND : no SPT, no CVAT, schultz catheter not present MSK: no pitting edema, no clubbing Neuro: non-focal, moving all extremities Psych: cooperative, euthymic mood Hospital course: 61-year-old male with a PMH of tobacco abuse who was transferred from [facility] where he had presented earlier today with complaints of weight loss and abdominal pain. In [facility] emergency room, the patient underwent an extensive evaluation with laboratory evaluation showing WBC count 8.3, hemoglobin 11.0, sodium 131, glucose 104, lactic acid 1.3, calcium 8.0, with albumin 2.7. Patient evaluated by pulmonology. Thoracentesis done. Has significant empyema. Patient also started on vancomycin and cefepime. Culture showing alphahemolytic streptococcus. ID consulted. Assessment: Empyema Masslike enhancement in the right middle lobe COPD with Emphysema without exacerbation Hyponatremia, euvolemic, stable Hypokalemia, resolved Normocytic anemia Aneurysmal aortic root and ascending aorta Plan: Today, patient is afebrile, 160/88, heart rate 64, 95% on 2 L nasal cannula Ordered CBC, basic metabolic panel, magnesium for tomorrow Discussed with CT surgery, will instill lytics today into chest tube Continue Unasyn 3 g every 6 hours Continue Symbicort twice a day Continue scheduled DuoNeb's every 6 hours Patient is full code Objective - Vital Signs Vital signs: Vital Signs Temp 97.8 F 11/06/22 07:22 Pulse 84 11/06/22 08:57 Resp 20 11/06/22 07:22 BP 160/88 11/06/22 07:22 Pulse Ox 95 11/06/22 08:46 FiO2 2 11/04/22 07:24 Intake & Output 11/05/22 11/06/22 11/06/22 18:59 06:59 18:59 Intake Total 1100 Output Total 470 690 Balance -470 410 Intake: Intake, IV Titration 1100 Amount Ampicillin-Sulbactam 3 gm 200 In Sodium Chloride 0.9% 100 ml @ 200 mls/hr IVPB Q6HR [facility] Rx#:[id number] Sodium Chloride 0.9% 1, 900 000 ml @ 75 mls/hr IV . [id number] [facility] Rx#:[id number] Output: Drainage 470 240 Right Chest 470 240 Urine 450 Other: Voiding Method Urinal Urinal # Voids 1 1 # Bowel Movements 1 1 1 - Labs CBC & Chem 7: 11/05/22 06:26 11/05/22 06:26 Labs: Abnormal Lab Results - Last 24 Hours (Table) 11/05/22 Range/Units 06:26 Potassium 3.4 L (3.5-5.5) mmol/L Anion Gap 9.80 L (10.00-18.00) mmol/L BUN 4.1 L (9.0-27.0) mg/dL BUN/Creatinine Ratio 6.83 L (12.00-20.00) Ratio Calcium 7.8 L (8.7-10.3) mg/dL
--- NOTE | 2022-11-06 14:34 | P.PN ---
Subjective Progress Note Date: 11/06/22 Principal diagnosis: empyema Patient is a 62-year-old male presenting to the hospital 4 days ago on 10/29/2022 for evaluation of weight loss failure to thrive and suspected malignancy patient also complaining of some right lower chest pain , patient was noticed to have a right-sided effusion status post thoracocentesis significantly positive culture did grew Streptococcus patient initially refused pigtail catheter placement however seemed to have agreed to it though. Patient is status post left-sided chest tube placement by interventional radiology on 11/03/2022 On today's evaluation that is 11/06/2022, the patient continues to be afebrile, the patient is breathing comfortably on 2 L nasal cannula oxygen, the patient right chest pain controlled with current pain medication denies any worsening, the patient denies any nausea no vomiting no abdominal pain and no diarrhea Objective - Vital Signs Vital signs: Vital Signs Temp 98.6 F 11/06/22 12:00 Pulse 82 11/06/22 12:27 Resp 20 11/06/22 12:00 BP 141/77 11/06/22 12:00 Pulse Ox 96 11/06/22 12:00 FiO2 2 11/04/22 07:24 Intake & Output 11/05/22 11/06/22 11/06/22 18:59 06:59 18:59 Intake Total 1100 Output Total 470 690 Balance -470 410 Weight 77.111 kg Intake: Intake, IV Titration 1100 Amount Ampicillin-Sulbactam 3 gm 200 In Sodium Chloride 0.9% 100 ml @ 200 mls/hr IVPB Q6HR [facility] Rx#:[id number] Sodium Chloride 0.9% 1, 900 000 ml @ 75 mls/hr IV . [id number] [facility] Rx#:[id number] Output: Drainage 470 240 Right Chest 470 240 Urine 450 Other: Voiding Method Urinal Urinal # Voids 1 1 # Bowel Movements 1 1 1 - Exam GENERAL DESCRIPTION: Middle-aged male lying in bed in no distress RESPIRATORY SYSTEM: Unlabored breathing , decreased breath sounds at bases HEART: S1 S2 regular rate and rhythm , ABDOMEN: Soft , no tenderness EXTREMITIES: No edema feet - Labs CBC & Chem 7: 11/05/22 06:26 11/05/22 06:26 Assessment and Plan (1) Empyema Current Visit: Yes Status: Acute Code(s): J86.9 - PYOTHORAX WITHOUT FISTULA SNOMED Code(s): 740076714 Plan: 1patient presented hospital with right-sided chest pain shortness of breath and cough in this patient with evidence of large right-sided effusion status post thoracocentesis with significant normality of the fluid culture growing alphahemolytic Streptococcus concerning for empyema with underlying malignancy not entirely excluded in view of his overall clinical condition 2-patient is status post chest tube placement on the right side, CT surgery is following the patient closely 3Patient is afebrile the patient white count is normal 4-patient will continue with Unasyn 3 g every 6 hours and monitor clinical course closely
--- NOTE | 2022-11-06 14:35 | P.PN ---
Subjective Progress Note Date: 11/06/22 62-year-old male transferred from an outside hospital, with shortness of breath, a 65 pound weight loss recently, failure to thrive, and concerns about malignancy. The patient apparently presented to Hospital up in the [place] area. He was at the outside hospital for some time. The patient is not a p articularly good historian. The patient really is not able to give any definitive history. The patient is a heavy smoker, and a chest x-ray, apparently showed a abnormal fluid collection and/or mass in the right chest. I asked him what he was diagnosed with the outside hospital, but he was unable to tell me. He apparently also has cough, some phlegm production. No fever or chills. No chest pain or chest discomfort. He likely has underlying COPD from heavy tobacco use. Currently, the patient's on 3 L of oxygen, but without any IV fluids. We will order the computed tomography scan of the chest, and we asked interventional radiology to consider doing a thoracentesis, and/or pigtail catheter placement. His chest x-ray showed a right-sided pleural effusion. The ultrasound was subsequently ordered. We will follow back from interventional radiology team, that the material removed from the chest, was purulent, and looked like pus. In addition, 1250 mL of fluid was removed from the right we added vancomycin and cefepime. White count 8.3, hemoglobin 11, hematocrit 34.7, and platelet count normal. INR was 1.9. Sodium 131, potassium 3.7, chlorides 98, CO2 23, normal anion gap, BUN 13, and the creatinine 0.61. Glucose 104. Albumin 2.7. Chest x-ray showed some chronic emphysematous changes, parenchymal fibrotic changes, and a non-simple right-sided pleural effusion. The ultrasound showed a relatively larger fluid pocket on the right side, measuring 13.3 cm. There was complex internal debris within the right chest. Hence, interventional radiology was asked to the procedure. Computed tomography scan is currently pending. The patient is seen today 10/31/2022 in follow-up on the regular medical floor. He is currently resting comfortably in bed. Awake and alert in no acute distress. He did undergo a right-sided thoracentesis by interventional radiology yesterday. The fluid was significantly dyspneic and pertinent and suspicious for empyema. The were planning to place a pigtail catheter however the patient refused to have it done. A total of 1250 ML's was drained. Fluid analysis reveals turbid appearance with greater than 500,000 WBCs. Total protein 2.4. LDH greater than 2500. He was initiated on vancomycin and cefepime yesterday. Continued on DuoNeb inhalations, Symbicort. Sodium 133. Potassium 3.9. Bicarb 25. BUN 11. Creatinine 0.60. The patient is seen today 11/01/2022 in follow-up on the regular medical floor. He is currently resting in bed. Awake and alert in no acute distress. Maintaining good O2 saturations in the 90s on room air. He is feeling weak and fatigued. He continues to decline the offer of a chest tube placement to help drain the suspected abscess in the right chest. He is continued on vancomycin and cefepime. Continue on Symbicort and DuoNeb inhalations. Lovenox for DVT prophylaxis. Chest x-ray shows similar right airspace opacities. Superimposed emphysema. Preliminary pleural fluid Gram stain showing alpha hemolytic streptococcus. White count 4.5. Hemoglobin 10.0. Platelets 287. Sodium 133. Potassium 3.2. Bicarb 21. BUN 9. Creatinine 0.58. The patient is seen today 11/02/2022 in follow-up on the regular medical floor. He is awake and alert in no acute distress. Still not feeling much better today compared to yesterday. Still weak and fatigued. Maintaining good O2 saturations in the 90s on room air. He is continued on vancomycin and cefepime. Pleural fluid culture is positive for alphahemolytic streptococcus. White count 5.8. Hemoglobin 9.2. Platelets 285. Sodium 132. Potassium 3.8. Bicarb 19. BUN 6. Creatinine 0.51. Glucose 83. On today's evaluation of 11/03/2022, the patient has no specific complaints. The patient will have a pigtail catheter insertion today for an underlying empyema. Noted the patient underwent a thoracentesis and the fluid cultures came back positive for alpha hemolytic strep. The patient will have a pigtail catheter inserted today. He does have a masslike consolidation of the right middle lobe in addition to right-sided pleural effusion that was drained earlier. He is known to have COPD. He is currently on 2 L of Oxymizer nasal cannula with a pulse ox of 96%. Hemodynamically stable. He remains on accommodation of cefepime and vancomycin. Also, vancomycin, clinically hemoglobin of 10.3 and a platelet count of 316. The BUN is at 5.2 with a creatinine of 0.5 and a sodium level is at 134. The vancomycin trough is at 19.6. The most recent chest x-rays from 11/01/2022 that showed a air space disease involving the right lung, and the CAT scan of the chest that was done on 10/30/2022 showed a moderate to large pleural fluid collection involving the right lung with thickening borders and a small peripheral enhancement and some inflammatory fat stranding within the adjacent pericolic fat. This is consistent with empyema. There is also a some atelectatic changes in the right lung base. There is back on moderate to severe emphysema. The patient's aortic root was measuring 5.2 cm in size and the ascending aorta was measuring 4.1 cm. On 11/04/2022, the patient is being seen for a follow-up. The patient is an empyema of the right lung. The pigtail catheter was inserted yesterday and a total of 600 mL of purulent material was aspirated from the right lung and the [facility] is collecting in the pleural VAC. The repeat chest x-ray shows no major improvement and there is significant opacification of the right lower lobe. Based on that, the patient is going to receive an alteplase treatment to enhance drainage of the empyema. The patient remains hemodynamically stable. He remains on2 L of oxygen by nasal cannula with a pulse ox of 97%. The blood work today shows a WBC count of 8.2 with a hemoglobin of 10.3. Electrolytes from yesterday were all within normal limits. The patient also had has been on IV Unasyn. The patient on DuoNeb about treatments [id number]. He is on Lovenox portably prophylaxis. On today's evaluation of 11/05/2022, the patient has an thrombolytic adminis tration to the pigtail catheter into the right lung as the patient has a right lung empyema. A total of 1.4 L of pleural fluid has been aspirated or drained in the atrium since the insertion of the catheter. Clinically the patient is doing well. Chest x-ray shows some limited improvement elevation of the right lung. The patient remains on IV Unasyn. Is currently comfortable. No pleurisy. No hemoptysis. The patient's echoes of 5.5 with a hemoglobin 9.3 and a BUN of 4 with a creatinine of 0.6 and a sodium level is 140. No other issues for now and the patient is being followed up with us and cardiothoracic team. On today's evaluation of 2022, the patient is being seen for a follow-up. The patient underwent his second dose of alteplase administration today. The patient continues to have adequate amount of output. Note that following the first alteplase treatment, the patient produced approximately 700 mL of purulent material and he continues to drain. He remains on oxygen at 2 L/m nasal cannula. He remains on IV Unasyn. The chest x-ray from today is showing still opacification of the right base and there is a right-sided pigtail catheter which is in a good location. There is a persistent right-sided pleural effusion/collection along with right lung atelectasis. There is a small left- sided pleural effusion also noted on today's chest x-ray. Clinically however the patient is doing well. His tolerating his diet. No nausea or vomiting or diarrhea. No other significant issues otherwise. Objective - Vital Signs Vital signs: Vital Signs Temp 98.6 F 11/06/22 12:00 Pulse 82 11/06/22 12:27 Resp 20 11/06/22 12:00 BP 141/77 11/06/22 12:00 Pulse Ox 96 11/06/22 12:00 FiO2 2 11/04/22 07:24 Intake & Output 11/05/22 11/06/22 11/06/22 18:59 06:59 18:59 Intake Total 1100 Output Total 470 690 Balance -470 410 Weight 77.111 kg Intake: Intake, IV Titration 1100 Amount Ampicillin-Sulbactam 3 gm 200 In Sodium Chloride 0.9% 100 ml @ 200 mls/hr IVPB Q6HR [facility] Rx#:[id number] Sodium Chloride 0.9% 1, 900 000 ml @ 75 mls/hr IV . [id number] [facility] Rx#:[id number] Output: Drainage 470 240 Right Chest 470 240 Urine 450 Other: Voiding Method Urinal Urinal # Voids 1 1 # Bowel Movements 1 1 1 - Exam GENERAL EXAM: Alert, pleasant 62-year-old male, on room air, fairly comfortable in no apparent distress. The patient is currently on 2 L of oxygen by nasal cannula HEAD: Normocephalic. EYES: Normal reaction of pupils, equal size. NOSE: Clear with pink turbinates. THROAT: No erythema or exudates. NECK: No masses, no JVD. CHEST: No chest wall deformity. LUNGS: Equal air entry with bilateral scattered rhonchi more so on the right, diminished in the bases. The patient is a pigtail catheter going into the right hemithorax posteriorly. The pigtail catheter attached the pleural VAC. CVS: S1 and S2 normal with no audible murmur, regular rhythm. ABDOMEN: No hepatosplenomegaly, normal bowel sounds, no guarding or rigidity. SPINE: No scoliosis or deformity SKIN: No rashes CENTRAL NERVOUS SYSTEM: No focal deficits, tone is normal in all 4 extremities. EXTREMITIES: There is no peripheral edema. No clubbing, no cyanosis. Peripheral pulses are intact. - Labs CBC & Chem 7: 11/05/22 06:26 11/05/22 06:26 Assessment and Plan Plan: Right lung empyema with alphahemolytic strep. The patient has a moderate to large pleural fluid collection on the right side posteriorly with previous thoracentesis showing fluid consistent with empyema. Cultures positive Streptococcus and the patient was given a pigtail catheter for further drainage. The patient received alteplase today and this will be his second dose. The patient continues to have adequate purulent drainage. The patient's x-ray shows limited improvement elevation of the right lung base. There is still persistent opacification improved fluid collection. We'll continue to administer alteplase and monitor the output. Chronic shortness of breath, anorexia, significant 65 pound weight loss, and an abnormal chest x-ray. Status post right-sided thoracentesis by interventional radiology in the fluid was suspicious for empyema. Currently IV Unasyn Acute hypoxic respiratory failure currently on 2 L of Oxymizer nasal cannula History of heavy tobacco use, with probable underlying COPD History of hypertension Vague history of asthma Plan: The patient will have a second dose of alteplase administered today Continue monitoring the output Monitor the output from the pigtail Daily chest x-rays Keep the IV Unasyn for now Cardiothoracic surgery consultation has been obtained Incentive spirometer Daily chest x-rays We will continue to follow
[2022-11-06] MEDS: SODIUM CHLORIDE 0.9% 1,000 ML IV SCH (16:10)
[2022-11-06] MEDS: ONDANSETRON 4 MG/2 ML VIAL IVP PRN (17:43)
[2022-11-06] MEDS: BENZONATATE 100 MG CAP PO PRN (20:17)
[2022-11-07] MEDS: MORPHINE SULFATE 4 MG/ML SYRINGE IV PRN ×6 (00:09→23:53)
[2022-11-07] MEDS: AMPICILLIN-SULBACTAM 3 GM in SODIUM CHLORIDE 0.9% 100 ML IVPB SCH ×5 (00:10→23:53)
[2022-11-07] MEDS: SODIUM CHLORIDE 0.9% 1,000 ML IV SCH ×2 (04:01→18:28)
--- NOTE | 2022-11-07 07:23 | XR ---
EXAMINATION TYPE: XR chest 1V portable DATE OF EXAM: 11/07/2022 HISTORY: Shortness of breath. COMPARISON: 11/06/2022 TECHNIQUE: Single view of the chest is submitted. FINDINGS: Demonstrated are scattered senescent parenchymal change. Right basilar pleural drain remains in place. Right basilar collection with associated airspace disea se is unchanged. Chronic interstitial prominence throughout both lung bell. No evidence for pneumot horax. The heart is stable. Hilar and mediastinal structures are within normal limits. Degenerative changes are seen of the dorsal spine. IMPRESSION: 1. Right basilar pleural drain remains in place. Right basilar collection with associated airspace d isease is unchanged.
--- NOTE | 2022-11-07 08:26 | P.PN ---
Subjective Progress Note Date: 11/07/22 Principal diagnosis: Right-sided effusion, empyema with pleural fluid positive for alpha hemolytic strep, status post right-sided thoracentesis with subsequent pigtail catheter placement, masslike area of heterogeneous enhancement in the right middle lobe, combination of collapse and consolidation of the basilar right lower lobe, acute hypoxic respiratory failure, progressive shortness of breath, cough with sputum production. History of recent 65 pound weight loss, long-term heavy tobacco use with recent cessation, COPD, asthma, hypertension The patient was seen and examined sitting up in bed on the medical oncology unit in no acute distress. States he feels about the same as yesterday. Right pigtail catheter remains present, second dose lytics given yesterday with 400 mL thick mccarthy purulent fluid removal since. Remains on 2 L nasal cannula with oxygen saturation in the high 90s, remains afebrile, remains on IV Unasyn per infectious disease. Pleural fluid cytology negative for malignant cells. No other new concerns. Objective - Vital Signs Vital signs: Vital Signs Temp 97.9 F 11/07/22 07:33 Pulse 61 11/07/22 07:33 Resp 20 11/07/22 07:33 BP 131/72 11/07/22 07:33 Pulse Ox 94 L 11/07/22 07:33 FiO2 2 11/04/22 07:24 Intake & Output 11/06/22 11/07/22 11/07/22 18:59 06:59 18:59 Intake Total 1100 1400 Output Total 940 2090 Balance 160 -690 Weight 77.111 kg Intake: Intake, IV Titration 1100 1100 Amount Ampicillin-Sulbactam 3 gm 200 200 In Sodium Chloride 0.9% 100 ml @ 200 mls/hr IVPB Q6HR [facility] Rx#:[id number] Sodium Chloride 0.9% 1, 900 900 000 ml @ 75 mls/hr IV . [id number] [facility] Rx#:[id number] Oral 300 Output: Drainage 490 90 Right Chest 490 90 Urine 450 2000 Other: Voiding Method Urinal # Voids 3 # Bowel Movements 1 - Exam CONSTITUTIONAL: Appears comfortable, cooperative, no acute distress RESPIRATORY: Lungs sounds diminished bilaterally. Respirations even, nonlabored. Currently on 2 L nasal cannula with oxygen saturation 98%. Strong cough. CARDIOVASCULAR: S1, S2 present. Regular rate and rhythm. Palpable peripheral pulses bilaterally. No edema present. No calf pain or tenderness noted. SCDs present. GASTROINTESTINAL: Abdomen soft, nontender, nondistended. Active bowel sounds present 4 quadrants. Tolerating minimal diet. Positive bowel movement 11/06/22 GENITOURINARY: Continues to void INTEGUMENTARY: Skin is warm and dry NEUROLOGIC: Cranial nerves II through XII intact MUSKULOSKELETAL: Able to move all extremities, strength equal bilaterally, gait normal PSYCHIATRIC: Alert and oriented to person place and time, flat affect INVASIVE LINES AND TUBES: Right-sided pigtail catheter present, 90 mL purulent drainage overnight, 400 mL in the last 24 hours - Allied health notes Allied health notes reviewed: nursing - Labs CBC & Chem 7: 11/05/22 06:26 11/05/22 06:26 - Imaging and Cardiology Chest x-ray: report reviewed, image reviewed Assessment and Plan Assessment: Right-sided effusion, empyema with pleural fluid positive for alpha hemolytic strep, status post right-sided thoracentesis with subsequent pigtail catheter placement Masslike area of heterogeneous enhancement in the right middle lobe measuring 6.9 cm, right pleural fluid cytology negative for malignant cells Combination of collapse and consolidation of the basilar right lower lobe Acute hypoxic respiratory failure Progressive shortness of breath, cough with sputum production Recent 65 pound weight loss Long-term heavy tobacco use with recent cessation COPD Asthma Hypertension Plan: We will instill third dose lytics today Monitor drainage from pigtail catheter Continue antibiotics per infectious disease recommendations No surgical intervention currently, however if patient does not improve may consider surgical thoracoscopy with washout Medical management of other comorbidities per internal medicine, pulmonology, infectious disease More recommendations to follow
[2022-11-07] MEDS: SYMBICORT 160-4.5 MCG INHALER INHALATION SCH ×2 (08:29→19:52)
[2022-11-07] MEDS: IPRATROPIUM-ALBUTEROL 3 ML NEB INHALATION SCH ×4 (08:29→19:53)
[2022-11-07] MEDS ORDERED: ALTEPLASE 10 MG in SODIUM CHLORIDE 0.9% 50 ML IRRIGATION ONE (09:00)
[2022-11-07] MEDS ORDERED: DORNASE ALFA 5 MG in SODIUM CHLORIDE 0.9% 50 ML IRRIGATION ONE (09:00)
[2022-11-07] MEDS: SERTRALINE 100 MG TAB PO SCH ×2 (09:24→19:54)
[2022-11-07] MEDS: LABETALOL 200 MG TAB PO SCH ×2 (09:24→19:54)
[2022-11-07] MEDS: BENZTROPINE MESYLATE 0.5 MG TAB PO SCH ×2 (09:24→19:54)
[2022-11-07] MEDS: TAMSULOSIN 0.4 MG CAP.ER.24H PO SCH (09:24)
[2022-11-07] MEDS: PANTOPRAZOLE 40 MG TABLET PO SCH ×2 (09:24→19:54)
[2022-11-07] MEDS: ENOXAPARIN 40 MG/0.4 ML SYRINGE SQ SCH (09:25)
--- NOTE | 2022-11-07 10:21 | P.PN ---
Subjective Progress Note Date: 11/07/22 Pt feels about the same as yesterday. Ongoing pustular drainage. Gen: awake, alert HEENT: normocephalic, atraumatic, good hearing acuity, moist mucous membranes Resp: good air exchange, breathing comfortably with no accessory muscle use CVS: good distal perfusion x 4, GI: soft, NTTP, ND : no SPT, no CVAT, schultz catheter not present MSK: no pitting edema, no clubbing Neuro: non-focal, moving all extremities Psych: cooperative, euthymic mood Hospital course: 61-year-old male with a PMH of tobacco abuse who was transferred from [facility] where he had presented earlier today with complaints of weight loss and abdominal pain. In [place] emergency room, the patient underwent an extensive evaluation with laboratory evaluation showing WBC count 8.3, hemoglobin 11.0, sodium 131, glucose 104, lactic acid 1.3, calcium 8.0, with albumin 2.7. Patient evaluated by pulmonology. Thoracentesis done. Has significant empyema. Patient also started on vancomycin and cefepime. Culture showing alphahemolytic streptococcus. ID consulted. Assessment: Empyema Masslike enhancement in the right middle lobe COPD with Emphysema without exacerbation Hyponatremia, euvolemic, stable Hypokalemia, resolved Normocytic anemia Aneurysmal aortic root and ascending aorta Plan: Today, patient is afebrile, 131/72, heart rate 61, 94% on 2 L nasal cannula Ordered CBC, basic metabolic panel, magnesium for tomorrow Discussed with CT surgery, will instill lytics today into chest tube Continue Unasyn 3 g every 6 hours Continue Symbicort twice a day Continue scheduled DuoNeb's every 6 hours Patient is full code Objective - Vital Signs Vital signs: Vital Signs Temp 97.9 F 11/07/22 07:33 Pulse 78 11/07/22 08:41 Resp 20 11/07/22 07:33 BP 131/72 11/07/22 07:33 Pulse Ox 94 L 11/07/22 08:30 FiO2 2 11/04/22 07:24 Intake & Output 11/06/22 11/07/22 11/07/22 18:59 06:59 18:59 Intake Total 1100 1400 Output Total 940 2090 700 Balance 160 -690 -700 Weight 77.111 kg Intake: Intake, IV Titration 1100 1100 Amount Ampicillin-Sulbactam 3 gm 200 200 In Sodium Chloride 0.9% 100 ml @ 200 mls/hr IVPB Q6HR [facility] Rx#:[id number] Sodium Chloride 0.9% 1, 900 900 000 ml @ 75 mls/hr IV . [id number] [facility] Rx#:[id number] Oral 300 Output: Drainage 490 90 Right Chest 490 90 Urine 450 2000 700 Other: Voiding Method Urinal # Voids 3 # Bowel Movements 1 - Labs CBC & Chem 7: 11/05/22 06:26 11/05/22 06:26
--- NOTE | 2022-11-07 12:33 | P.PN ---
Subjective Progress Note Date: 11/07/22 62-year-old male transferred from an outside hospital, with shortness of breath, a 65 pound weight loss recently, failure to thrive, and concerns about malignancy. The patient apparently presented to Hospital up in the [place] area. He was at the outside hospital for some time. The patient is not a p articularly good historian. The patient really is not able to give any definitive history. The patient is a heavy smoker, and a chest x-ray, apparently showed a abnormal fluid collection and/or mass in the right chest. I asked him what he was diagnosed with the outside hospital, but he was unable to tell me. He apparently also has cough, some phlegm production. No fever or chills. No chest pain or chest discomfort. He likely has underlying COPD from heavy tobacco use. Currently, the patient's on 3 L of oxygen, but without any IV fluids. We will order the computed tomography scan of the chest, and we asked interventional radiology to consider doing a thoracentesis, and/or pigtail catheter placement. His chest x-ray showed a right-sided pleural effusion. The ultrasound was subsequently ordered. We will follow back from interventional radiology team, that the material removed from the chest, was purulent, and looked like pus. In addition, 1250 mL of fluid was removed from the right we added vancomycin and cefepime. White count 8.3, hemoglobin 11, hematocrit 34.7, and platelet count normal. INR was 1.9. Sodium 131, potassium 3.7, chlorides 98, CO2 23, normal anion gap, BUN 13, and the creatinine 0.61. Glucose 104. Albumin 2.7. Chest x-ray showed some chronic emphysematous changes, parenchymal fibrotic changes, and a non-simple right-sided pleural effusion. The ultrasound showed a relatively larger fluid pocket on the right side, measuring 13.3 cm. There was complex internal debris within the right chest. Hence, interventional radiology was asked to the procedure. Computed tomography scan is currently pending. The patient is seen today 10/31/2022 in follow-up on the regular medical floor. He is currently resting comfortably in bed. Awake and alert in no acute distress. He did undergo a right-sided thoracentesis by interventional radiology yesterday. The fluid was significantly dyspneic and pertinent and suspicious for empyema. The were planning to place a pigtail catheter however the patient refused to have it done. A total of 1250 ML's was drained. Fluid analysis reveals turbid appearance with greater than 500,000 WBCs. Total protein 2.4. LDH greater than 2500. He was initiated on vancomycin and cefepime yesterday. Continued on DuoNeb inhalations, Symbicort. Sodium 133. Potassium 3.9. Bicarb 25. BUN 11. Creatinine 0.60. The patient is seen today 11/01/2022 in follow-up on the regular medical floor. He is currently resting in bed. Awake and alert in no acute distress. Maintaining good O2 saturations in the 90s on room air. He is feeling weak and fatigued. He continues to decline the offer of a chest tube placement to help drain the suspected abscess in the right chest. He is continued on vancomycin and cefepime. Continue on Symbicort and DuoNeb inhalations. Lovenox for DVT prophylaxis. Chest x-ray shows similar right airspace opacities. Superimposed emphysema. Preliminary pleural fluid Gram stain showing alpha hemolytic streptococcus. White count 4.5. Hemoglobin 10.0. Platelets 287. Sodium 133. Potassium 3.2. Bicarb 21. BUN 9. Creatinine 0.58. The patient is seen today 11/02/2022 in follow-up on the regular medical floor. He is awake and alert in no acute distress. Still not feeling much better today compared to yesterday. Still weak and fatigued. Maintaining good O2 saturations in the 90s on room air. He is continued on vancomycin and cefepime. Pleural fluid culture is positive for alphahemolytic streptococcus. White count 5.8. Hemoglobin 9.2. Platelets 285. Sodium 132. Potassium 3.8. Bicarb 19. BUN 6. Creatinine 0.51. Glucose 83. On today's evaluation of 11/03/2022, the patient has no specific complaints. The patient will have a pigtail catheter insertion today for an underlying empyema. Noted the patient underwent a thoracentesis and the fluid cultures came back positive for alpha hemolytic strep. The patient will have a pigtail catheter inserted today. He does have a masslike consolidation of the right middle lobe in addition to right-sided pleural effusion that was drained earlier. He is known to have COPD. He is currently on 2 L of Oxymizer nasal cannula with a pulse ox of 96%. Hemodynamically stable. He remains on accommodation of cefepime and vancomycin. Also, vancomycin, clinically hemoglobin of 10.3 and a platelet count of 316. The BUN is at 5.2 with a creatinine of 0.5 and a sodium level is at 134. The vancomycin trough is at 19.6. The most recent chest x-rays from 11/01/2022 that showed a air space disease involving the right lung, and the CAT scan of the chest that was done on 10/30/2022 showed a moderate to large pleural fluid collection involving the right lung with thickening borders and a small peripheral enhancement and some inflammatory fat stranding within the adjacent pericolic fat. This is consistent with empyema. There is also a some atelectatic changes in the right lung base. There is back on moderate to severe emphysema. The patient's aortic root was measuring 5.2 cm in size and the ascending aorta was measuring 4.1 cm. On 11/04/2022, the patient is being seen for a follow-up. The patient is an empyema of the right lung. The pigtail catheter was inserted yesterday and a total of 600 mL of purulent material was aspirated from the right lung and the [facility] is collecting in the pleural VAC. The repeat chest x-ray shows no major improvement and there is significant opacification of the right lower lobe. Based on that, the patient is going to receive an alteplase treatment to enhance drainage of the empyema. The patient remains hemodynamically stable. He remains on2 L of oxygen by nasal cannula with a pulse ox of 97%. The blood work today shows a WBC count of 8.2 with a hemoglobin of 10.3. Electrolytes from yesterday were all within normal limits. The patient also had has been on IV Unasyn. The patient on DuoNeb about treatments [id number]. He is on Lovenox portably prophylaxis. On today's evaluation of 11/05/2022, the patient has an thrombolytic adminis tration to the pigtail catheter into the right lung as the patient has a right lung empyema. A total of 1.4 L of pleural fluid has been aspirated or drained in the atrium since the insertion of the catheter. Clinically the patient is doing well. Chest x-ray shows some limited improvement elevation of the right lung. The patient remains on IV Unasyn. Is currently comfortable. No pleurisy. No hemoptysis. The patient's echoes of 5.5 with a hemoglobin 9.3 and a BUN of 4 with a creatinine of 0.6 and a sodium level is 140. No other issues for now and the patient is being followed up with us and cardiothoracic team. On today's evaluation of 2022, the patient is being seen for a follow-up. The patient underwent his second dose of alteplase administration today. The patient continues to have adequate amount of output. Note that following the first alteplase treatment, the patient produced approximately 700 mL of purulent material and he continues to drain. He remains on oxygen at 2 L/m nasal cannula. He remains on IV Unasyn. The chest x-ray from today is showing still opacification of the right base and there is a right-sided pigtail catheter which is in a good location. There is a persistent right-sided pleural effusion/collection along with right lung atelectasis. There is a small left- sided pleural effusion also noted on today's chest x-ray. Clinically however the patient is doing well. His tolerating his diet. No nausea or vomiting or diarrhea. No other significant issues otherwise. On 11/07/2022, the patient is clinically stable and hemodynamically stable. The patient is undergoing his third dose of alteplase today. Following his second dose yesterday, the patient produced another 400 mL of purulent material. Chest x-ray findings are unchanged. Patient remains on IV Unasyn. The patient also has a white cell count of 5.5 with a hemoglobin 9.3. Sodium is at 140, the BUN is at 9 with a creatinine of 0.6. No chest pain. No fever or chest and altered mentation. Using the incentive spirometer. Using DuoNeb nebulized treatments [id number]. Using Symbicort. Objective - Vital Signs Vital signs: Vital Signs Temp 97.9 F 11/07/22 07:33 Pulse 78 11/07/22 08:41 Resp 20 11/07/22 07:33 BP 131/72 11/07/22 07:33 Pulse Ox 94 L 11/07/22 08:30 FiO2 2 11/04/22 07:24 Intake & Output 11/06/22 11/07/22 11/07/22 18:59 06:59 18:59 Intake Total 1100 1400 Output Total 940 2090 700 Balance 160 -690 -700 Weight 77.111 kg Intake: Intake, IV Titration 1100 1100 Amount Ampicillin-Sulbactam 3 gm 200 200 In Sodium Chloride 0.9% 100 ml @ 200 mls/hr IVPB Q6HR [facility] Rx#:[id number] Sodium Chloride 0.9% 1, 900 900 000 ml @ 75 mls/hr IV . [id number] [facility] Rx#:[id number] Oral 300 Output: Drainage 490 90 Right Chest 490 90 Urine 450 2000 700 Other: Voiding Method Urinal # Voids 3 # Bowel Movements 1 - Exam GENERAL EXAM: Alert, pleasant 62-year-old male, on room air, fairly comfortable in no apparent distress. The patient is currently on 2 L of oxygen by nasal cannula HEAD: Normocephalic. EYES: Normal reaction of pupils, equal size. NOSE: Clear with pink turbinates. THROAT: No erythema or exudates. NECK: No masses, no JVD. CHEST: No chest wall deformity. LUNGS: Equal air entry with bilateral scattered rhonchi more so on the right, diminished in the bases. The patient is a pigtail catheter going into the right hemithorax posteriorly. The pigtail catheter attached the pleural VAC. CVS: S1 and S2 normal with no audible murmur, regular rhythm. ABDOMEN: No hepatosplenomegaly, normal bowel sounds, no guarding or rigidity. SPINE: No scoliosis or deformity SKIN: No rashes CENTRAL NERVOUS SYSTEM: No focal deficits, tone is normal in all 4 extremities. EXTREMITIES: There is no peripheral edema. No clubbing, no cyanosis. Peripheral pulses are intact. - Labs CBC & Chem 7: 11/05/22 06:26 11/05/22 06:26 Assessment and Plan Plan: Right lung empyema with alphahemolytic strep. The patient has a moderate to large pleural fluid collection on the right side posteriorly with previous thoracentesis showing fluid consistent with empyema. Cultures positive Streptococcus and the patient was given a pigtail catheter for further drainage. The patient received alteplase a total of 2 doses with some improvement in the chest x-ray findings although the right base still opacified. The patient is undergoing his third treatment. There is positive with falling alteplase administration. Chronic shortness of breath, anorexia, significant 65 pound weight loss, and an abnormal chest x-ray. Status post right-sided thoracentesis by interventional radiology in the fluid was suspicious for empyema. Currently IV Unasyn Acute hypoxic respiratory failure currently on 2 L of Oxymizer nasal cannula History of heavy tobacco use, with probable underlying COPD History of hypertension Vague history of asthma Plan: The patient will have a third dose of alteplase administered today Continue monitoring the output Monitor the output from the pigtail Daily chest x-rays Keep the IV Unasyn for now Cardiothoracic surgery consultation has been obtained Incentive spirometer Daily chest x-rays We will continue to follow
[2022-11-07] MEDS: BENZONATATE 100 MG CAP PO PRN (19:54)
--- NOTE | 2022-11-07 20:01 | P.PN ---
Subjective Progress Note Date: 11/07/22 Principal diagnosis: empyema Patient is a 62-year-old male presenting to the hospital 4 days ago on 10/29/2022 for evaluation of weight loss failure to thrive and suspected malignancy patient also complaining of some right lower chest pain , patient was noticed to have a right-sided effusion status post thoracocentesis significantly positive culture did grew Streptococcus patient initially refused pigtail catheter placement however seemed to have agreed to it though. Patient is status post left-sided chest tube placement by interventional radiology on 11/03/2022 On today's evaluation that is 11/07/2022, the patient is afebrile, the patient is breathing comfortably on 2 L nasal cannula oxygen, the patient right chest pain about the same per pt , the patient denies any nausea no vomiting no abdominal pain and no diarrhea Objective - Vital Signs Vital signs: Vital Signs Temp 97.9 F 11/07/22 07:33 Pulse 78 11/07/22 08:41 Resp 20 11/07/22 07:33 BP 131/72 11/07/22 07:33 Pulse Ox 94 L 11/07/22 08:30 FiO2 2 11/04/22 07:24 Intake & Output 11/06/22 11/07/22 11/07/22 18:59 06:59 18:59 Intake Total 1100 1400 Output Total 940 2090 700 Balance 160 -690 -700 Weight 77.111 kg Intake: Intake, IV Titration 1100 1100 Amount Ampicillin-Sulbactam 3 gm 200 200 In Sodium Chloride 0.9% 100 ml @ 200 mls/hr IVPB Q6HR [facility] Rx#:[id number] Sodium Chloride 0.9% 1, 900 900 000 ml @ 75 mls/hr IV . [id number] [facility] Rx#:[id number] Oral 300 Output: Drainage 490 90 Right Chest 490 90 Urine 450 2000 700 Other: Voiding Method Urinal # Voids 3 # Bowel Movements 1 - Exam GENERAL DESCRIPTION: Middle-aged male lying in bed in no distress RESPIRATORY SYSTEM: Unlabored breathing , decreased breath sounds at bases HEART: S1 S2 regular rate and rhythm , ABDOMEN: Soft , no tenderness EXTREMITIES: No edema feet - Labs CBC & Chem 7: 11/05/22 06:26 11/05/22 06:26 Assessment and Plan (1) Empyema Current Visit: Yes Status: Acute Code(s): J86.9 - PYOTHORAX WITHOUT FISTULA SNOMED Code(s): 119469856 Plan: 1patient presented hospital with right-sided chest pain shortness of breath and cough in this patient with evidence of large right-sided effusion status post thoracocentesis with significant normality of the fluid culture growing alphahemolytic Streptococcus concerning for empyema with underlying malignancy not entirely excluded in view of his overall clinical condition 2-patient is status post chest tube placement on the right side, CT surgery is following the patient closely 3Patient is afebrile the patient white count has been normal 4-patient currently been treated with Unasyn 3 g every 6 hours , will need outpatient IV antibiotics Time with Patient: Less than 30
[2022-11-07] MEDS: ONDANSETRON 4 MG/2 ML VIAL IVP PRN (22:47)
[2022-11-08] MEDS: MORPHINE SULFATE 4 MG/ML SYRINGE IV PRN ×5 (04:30→20:42)
[2022-11-08] MEDS: AMPICILLIN-SULBACTAM 3 GM in SODIUM CHLORIDE 0.9% 100 ML IVPB SCH ×4 (06:28→23:23)
[2022-11-08 07:32] LABS: Anisocytosis Slight; Basophils % (A) 0 %; Eosinophils # (A) 0.1 k/uL (0-0.7); Eosinophils % (A) 1 %; HCT 30.9 % (39.0-53.0); HGB 9.7 gm/dL (13.0-17.5); Hypochromasia Moderate; Lymphocytes # (A) 0.6 k/uL (1.0-4.8); Lymphocytes % (A) 17 %; MCH 26.5 pg (25.0-35.0); MCHC 31.4 g/dL (31.0-37.0); MCV 84.4 fL (80.0-100.0); Mean Platelet Volume 7.1; Monocytes # (A) 0.2 k/uL (0-1.0); Monocytes % (A) 4 %; Neutrophils # (A) 2.5 k/uL (1.3-7.7); Neutrophils % (A) 75 %; Platelet Count 189 k/uL (150-450); RBC 3.66 m/uL (4.30-5.90); RDW 17.3 % (11.5-15.5); WBC 3.4 k/uL (3.8-10.6)
[2022-11-08] MEDS: IPRATROPIUM-ALBUTEROL 3 ML NEB INHALATION SCH ×4 (07:34→19:59)
[2022-11-08] MEDS: SYMBICORT 160-4.5 MCG INHALER INHALATION SCH ×2 (07:34→19:59)
--- NOTE | 2022-11-08 07:37 | XR ---
EXAMINATION TYPE: XR chest 1V portable DATE OF EXAM: 11/08/2022 HISTORY: empyema COMPARISON: 11/07/2022 TECHNIQUE: Single view of the chest is submitted. FINDINGS: Demonstrated are scattered senescent parenchymal change. Hyperinflation compatible with COPD. Right basilar pleural-parenchymal opacity with pleural catheter in place compatible with the provided history of empyema. Overall appearance is stable. No evidence for pneumothorax. The heart is stable. Hilar and mediastinal structures are within normal limits. Degenerative changes are seen of the dorsal spine. IMPRESSION: 1. Right basilar pleural-parenchymal opacity with pleural catheter in place compatible with the prov ided history of empyema. Overall appearance is stable.
[2022-11-08 08:06] LABS: African American GFR (CKD) >90 (>60 ml/min/1.73 sqM); Anion Gap 1 mmol/L; Blood Urea Nitrogen 6 mg/dL (9-20); Calcium 7.4 mg/dL (8.4-10.2); Carbon Dioxide 30 mmol/L (22-30); Chloride 102 mmol/L (98-107); Glucose 85 mg/dL (74-99); Magnesium 1.9 mg/dL (1.6-2.3); Non-African American GFR(CKD) >90 (>60 ml/min/1.73 sqM); Potassium 3.4 mmol/L (3.5-5.1); Sodium 133 mmol/L (137-145)
[2022-11-08] MEDS ORDERED: ALTEPLASE 10 MG in SODIUM CHLORIDE 0.9% 50 ML IRRIGATION ONE (08:54)
[2022-11-08] MEDS ORDERED: DORNASE ALFA 5 MG in SODIUM CHLORIDE 0.9% 50 ML IRRIGATION ONE (08:54)
[2022-11-08] MEDS: SODIUM CHLORIDE 0.9% 1,000 ML IV SCH ×2 (09:17→23:23)
--- NOTE | 2022-11-08 10:02 | P.PN ---
Subjective Progress Note Date: 11/08/22 Principal diagnosis: Right-sided effusion, empyema with pleural fluid positive for alpha hemolytic strep, status post right-sided thoracentesis with subsequent pigtail catheter placement, masslike area of heterogeneous enhancement in the right middle lobe, combination of collapse and consolidation of the basilar right lower lobe, acute hypoxic respiratory failure, progressive shortness of breath, cough with sputum production. History of recent 65 pound weight loss, long-term heavy tobacco use with recent cessation, COPD, asthma, hypertension The patient was seen and examined sitting up in bed on the medical oncology unit in no acute distress. Continues to feel the same. Right pigtail catheter remains present, third dose lytics given yesterday with 350 mL thick mccarthy p urulent fluid removal since. Remains on 2 L nasal cannula with oxygen saturation in the high 90s, remains afebrile, remains on IV Unasyn per infectious disease. Pleural fluid cytology negative for malignant cells. CXR reviewed. No other new concerns. Objective - Vital Signs Vital signs: Vital Signs Temp 97.7 F 11/08/22 07:45 Pulse 64 11/08/22 07:45 Resp 16 11/08/22 07:45 BP 147/79 11/08/22 07:45 Pulse Ox 98 11/08/22 07:45 FiO2 2 11/04/22 07:24 Intake & Output 11/07/22 11/08/22 11/08/22 18:59 06:59 18:59 Intake Total 1600 Output Total 1000 1700 Balance -1000 -100 Intake: Intake, IV Titration 1100 Amount Ampicillin-Sulbactam 3 gm 200 In Sodium Chloride 0.9% 100 ml @ 200 mls/hr IVPB Q6HR [facility] Rx#:[id number] Sodium Chloride 0.9% 1, 900 000 ml @ 75 mls/hr IV . [id number] [facility] Rx#:[id number] Oral 500 Output: Drainage 300 100 Right Chest 300 100 Urine 700 1600 Other: Voiding Method Urinal - Exam CONSTITUTIONAL: Appears comfortable, cooperative, no acute distress RESPIRATORY: Lungs sounds diminished bilaterally. Respirations even, nonlabored. Currently on 2 L nasal cannula with oxygen saturation 98%. Strong cough. CARDIOVASCULAR: S1, S2 present. Regular rate and rhythm. Palpable peripheral pulses bilaterally. No edema present. No calf pain or tenderness noted. SCDs present. GASTROINTESTINAL: Abdomen soft, nontender, nondistended. Active bowel sounds present 4 quadrants. Tolerating minimal diet. Positive bowel movement 11/06/22 GENITOURINARY: Continues to void INTEGUMENTARY: Skin is warm and dry NEUROLOGIC: Cranial nerves II through XII intact MUSKULOSKELETAL: Able to move all extremities, strength equal bilaterally, gait normal PSYCHIATRIC: Alert and oriented to person place and time, flat affect INVASIVE LINES AND TUBES: Right-sided pigtail catheter present, 350 mL purulent drainage in the last 24 hours - Labs CBC & Chem 7: 11/08/22 06:52 11/08/22 06:52 Labs: Abnormal Lab Results - Last 24 Hours (Table) 11/08/22 11/08/22 Range/Units 06:52 06:52 WBC 3.4 L (3.8-10.6) k/uL RBC 3.66 L (4.30-5.90) m/uL Hgb 9.7 L (13.0-17.5) gm/dL Hct 30.9 L (39.0-53.0) % RDW 17.3 H (11.5-15.5) % Lymphocytes # 0.6 L (1.0-4.8) k/uL Sodium 133 L (137-145) mmol/L Potassium 3.4 L (3.5-5.1) mmol/L BUN 6 L (9-20) mg/dL Creatinine 0.48 L (0.66-1.25) mg/dL Calcium 7.4 L (8.4-10.2) mg/dL Assessment and Plan Assessment: Right-sided effusion, empyema with pleural fluid positive for alpha hemolytic strep, status post right-sided thoracentesis with subsequent pigtail catheter placement Masslike area of heterogeneous enhancement in the right middle lobe measuring 6.9 cm, right pleural fluid cytology negative for malignant cells Combination of collapse and consolidation of the basilar right lower lobe Acute hypoxic respiratory failure Progressive shortness of breath, cough with sputum production Recent 65 pound weight loss Long-term heavy tobacco use with recent cessation COPD Asthma Hypertension Plan: We will instill fourth dose lytics today, fifth dose tomorrow then repeat CT scan Monitor drainage from pigtail catheter Continue antibiotics per infectious disease recommendations No surgical intervention Medical management of other comorbidities per internal medicine, pulmonology, infectious disease More recommendations to follow
[2022-11-08] MEDS: ENOXAPARIN 40 MG/0.4 ML SYRINGE SQ SCH (10:24)
[2022-11-08] MEDS: TAMSULOSIN 0.4 MG CAP.ER.24H PO SCH (10:25)
[2022-11-08] MEDS: PANTOPRAZOLE 40 MG TABLET PO SCH ×2 (10:25→20:42)
[2022-11-08] MEDS: SERTRALINE 100 MG TAB PO SCH ×2 (10:25→20:42)
[2022-11-08] MEDS: LABETALOL 200 MG TAB PO SCH ×2 (10:25→20:42)
[2022-11-08] MEDS: BENZTROPINE MESYLATE 0.5 MG TAB PO SCH ×2 (10:26→20:42)
--- NOTE | 2022-11-08 11:00 | P.PN ---
Subjective Progress Note Date: 11/08/22 Pt feels about the same as yesterday. Ongoing pustular drainage. Gen: awake, alert HEENT: normocephalic, atraumatic, good hearing acuity, moist mucous membranes Resp: good air exchange, breathing comfortably with no accessory muscle use CVS: good distal perfusion x 4, GI: soft, NTTP, ND : no SPT, no CVAT, schultz catheter not present MSK: no pitting edema, no clubbing Neuro: non-focal, moving all extremities Psych: cooperative, euthymic mood Hospital course: 61-year-old male with a PMH of tobacco abuse who was transferred from [facility] where he had presented earlier today with complaints of weight loss and abdominal pain. In [place] emergency room, the patient underwent an extensive evaluation with laboratory evaluation showing WBC count 8.3, hemoglobin 11.0, sodium 131, glucose 104, lactic acid 1.3, calcium 8.0, with albumin 2.7. Patient evaluated by pulmonology. Thoracentesis done. Has significant empyema. Patient also started on vancomycin and cefepime. Culture showing alphahemolytic streptococcus. ID consulted. Assessment: Empyema Masslike enhancement in the right middle lobe COPD with Emphysema without exacerbation Hyponatremia, euvolemic, stable Hypokalemia, resolved Normocytic anemia Aneurysmal aortic root and ascending aorta Plan: Today, patient is afebrile, 147/79, heart rate 64, 98% on 2 L nasal cannula Ordered CBC, basic metabolic panel, magnesium for tomorrow Discussed with pulmonology, will repeat computed tomography scan today CT surgery note reviewed, low repeat dose of with externa Continue Unasyn 3 g every 6 hours Continue Symbicort twice a day Continue scheduled DuoNeb's every 6 hours Patient is full code Objective - Vital Signs Vital signs: Vital Signs Temp 97.7 F 11/08/22 07:45 Pulse 64 11/08/22 07:45 Resp 16 11/08/22 07:45 BP 147/79 11/08/22 07:45 Pulse Ox 98 11/08/22 07:45 FiO2 2 11/04/22 07:24 Intake & Output 11/07/22 11/08/22 11/08/22 18:59 06:59 18:59 Intake Total 1600 Output Total 1000 1700 Balance -1000 -100 Intake: Intake, IV Titration 1100 Amount Ampicillin-Sulbactam 3 gm 200 In Sodium Chloride 0.9% 100 ml @ 200 mls/hr IVPB Q6HR [facility] Rx#:[id number] Sodium Chloride 0.9% 1, 900 000 ml @ 75 mls/hr IV . [id number] [facility] Rx#:[id number] Oral 500 Output: Drainage 300 100 Right Chest 300 100 Urine 700 1600 Other: Voiding Method Urinal Toilet - Labs CBC & Chem 7: 11/08/22 06:52 11/08/22 06:52 Labs: Abnormal Lab Results - Last 24 Hours (Table) 11/08/22 11/08/22 Range/Units 06:52 06:52 WBC 3.4 L (3.8-10.6) k/uL RBC 3.66 L (4.30-5.90) m/uL Hgb 9.7 L (13.0-17.5) gm/dL Hct 30.9 L (39.0-53.0) % RDW 17.3 H (11.5-15.5) % Lymphocytes # 0.6 L (1.0-4.8) k/uL Sodium 133 L (137-145) mmol/L Potassium 3.4 L (3.5-5.1) mmol/L BUN 6 L (9-20) mg/dL Creatinine 0.48 L (0.66-1.25) mg/dL Calcium 7.4 L (8.4-10.2) mg/dL
[2022-11-08] MEDS: GABAPENTIN 300 MG CAP PO PRN ×2 (11:08→20:42)
--- NOTE | 2022-11-08 12:26 | P.PN ---
Subjective Progress Note Date: 11/08/22 62-year-old male transferred from an outside hospital, with shortness of breath, a 65 pound weight loss recently, failure to thrive, and concerns about malignancy. The patient apparently presented to Hospital up in the [place] area. He was at the outside hospital for some time. The patient is not a p articularly good historian. The patient really is not able to give any definitive history. The patient is a heavy smoker, and a chest x-ray, apparently showed a abnormal fluid collection and/or mass in the right chest. I asked him what he was diagnosed with the outside hospital, but he was unable to tell me. He apparently also has cough, some phlegm production. No fever or chills. No chest pain or chest discomfort. He likely has underlying COPD from heavy tobacco use. Currently, the patient's on 3 L of oxygen, but without any IV fluids. We will order the computed tomography scan of the chest, and we asked interventional radiology to consider doing a thoracentesis, and/or pigtail catheter placement. His chest x-ray showed a right-sided pleural effusion. The ultrasound was subsequently ordered. We will follow back from interventional radiology team, that the material removed from the chest, was purulent, and looked like pus. In addition, 1250 mL of fluid was removed from the right we added vancomycin and cefepime. White count 8.3, hemoglobin 11, hematocrit 34.7, and platelet count normal. INR was 1.9. Sodium 131, potassium 3.7, chlorides 98, CO2 23, normal anion gap, BUN 13, and the creatinine 0.61. Glucose 104. Albumin 2.7. Chest x-ray showed some chronic emphysematous changes, parenchymal fibrotic changes, and a non-simple right-sided pleural effusion. The ultrasound showed a relatively larger fluid pocket on the right side, measuring 13.3 cm. There was complex internal debris within the right chest. Hence, interventional radiology was asked to the procedure. Computed tomography scan is currently pending. The patient is seen today 10/31/2022 in follow-up on the regular medical floor. He is currently resting comfortably in bed. Awake and alert in no acute distress. He did undergo a right-sided thoracentesis by interventional radiology yesterday. The fluid was significantly dyspneic and pertinent and suspicious for empyema. The were planning to place a pigtail catheter however the patient refused to have it done. A total of 1250 ML's was drained. Fluid analysis reveals turbid appearance with greater than 500,000 WBCs. Total protein 2.4. LDH greater than 2500. He was initiated on vancomycin and cefepime yesterday. Continued on DuoNeb inhalations, Symbicort. Sodium 133. Potassium 3.9. Bicarb 25. BUN 11. Creatinine 0.60. The patient is seen today 11/01/2022 in follow-up on the regular medical floor. He is currently resting in bed. Awake and alert in no acute distress. Maintaining good O2 saturations in the 90s on room air. He is feeling weak and fatigued. He continues to decline the offer of a chest tube placement to help drain the suspected abscess in the right chest. He is continued on vancomycin and cefepime. Continue on Symbicort and DuoNeb inhalations. Lovenox for DVT prophylaxis. Chest x-ray shows similar right airspace opacities. Superimposed emphysema. Preliminary pleural fluid Gram stain showing alpha hemolytic streptococcus. White count 4.5. Hemoglobin 10.0. Platelets 287. Sodium 133. Potassium 3.2. Bicarb 21. BUN 9. Creatinine 0.58. The patient is seen today 11/02/2022 in follow-up on the regular medical floor. He is awake and alert in no acute distress. Still not feeling much better today compared to yesterday. Still weak and fatigued. Maintaining good O2 saturations in the 90s on room air. He is continued on vancomycin and cefepime. Pleural fluid culture is positive for alphahemolytic streptococcus. White count 5.8. Hemoglobin 9.2. Platelets 285. Sodium 132. Potassium 3.8. Bicarb 19. BUN 6. Creatinine 0.51. Glucose 83. On today's evaluation of 11/03/2022, the patient has no specific complaints. The patient will have a pigtail catheter insertion today for an underlying empyema. Noted the patient underwent a thoracentesis and the fluid cultures came back positive for alpha hemolytic strep. The patient will have a pigtail catheter inserted today. He does have a masslike consolidation of the right middle lobe in addition to right-sided pleural effusion that was drained earlier. He is known to have COPD. He is currently on 2 L of Oxymizer nasal cannula with a pulse ox of 96%. Hemodynamically stable. He remains on accommodation of cefepime and vancomycin. Also, vancomycin, clinically hemoglobin of 10.3 and a platelet count of 316. The BUN is at 5.2 with a creatinine of 0.5 and a sodium level is at 134. The vancomycin trough is at 19.6. The most recent chest x-rays from 11/01/2022 that showed a air space disease involving the right lung, and the CAT scan of the chest that was done on 10/30/2022 showed a moderate to large pleural fluid collection involving the right lung with thickening borders and a small peripheral enhancement and some inflammatory fat stranding within the adjacent pericolic fat. This is consistent with empyema. There is also a some atelectatic changes in the right lung base. There is back on moderate to severe emphysema. The patient's aortic root was measuring 5.2 cm in size and the ascending aorta was measuring 4.1 cm. On 11/04/2022, the patient is being seen for a follow-up. The patient is an empyema of the right lung. The pigtail catheter was inserted yesterday and a total of 600 mL of purulent material was aspirated from the right lung and the [facility] is collecting in the pleural VAC. The repeat chest x-ray shows no major improvement and there is significant opacification of the right lower lobe. Based on that, the patient is going to receive an alteplase treatment to enhance drainage of the empyema. The patient remains hemodynamically stable. He remains on2 L of oxygen by nasal cannula with a pulse ox of 97%. The blood work today shows a WBC count of 8.2 with a hemoglobin of 10.3. Electrolytes from yesterday were all within normal limits. The patient also had has been on IV Unasyn. The patient on DuoNeb about treatments [id number]. He is on Lovenox portably prophylaxis. On today's evaluation of 11/05/2022, the patient has an thrombolytic adminis tration to the pigtail catheter into the right lung as the patient has a right lung empyema. A total of 1.4 L of pleural fluid has been aspirated or drained in the atrium since the insertion of the catheter. Clinically the patient is doing well. Chest x-ray shows some limited improvement elevation of the right lung. The patient remains on IV Unasyn. Is currently comfortable. No pleurisy. No hemoptysis. The patient's echoes of 5.5 with a hemoglobin 9.3 and a BUN of 4 with a creatinine of 0.6 and a sodium level is 140. No other issues for now and the patient is being followed up with us and cardiothoracic team. On today's evaluation of 2022, the patient is being seen for a follow-up. The patient underwent his second dose of alteplase administration today. The patient continues to have adequate amount of output. Note that following the first alteplase treatment, the patient produced approximately 700 mL of purulent material and he continues to drain. He remains on oxygen at 2 L/m nasal cannula. He remains on IV Unasyn. The chest x-ray from today is showing still opacification of the right base and there is a right-sided pigtail catheter which is in a good location. There is a persistent right-sided pleural effusion/collection along with right lung atelectasis. There is a small left- sided pleural effusion also noted on today's chest x-ray. Clinically however the patient is doing well. His tolerating his diet. No nausea or vomiting or diarrhea. No other significant issues otherwise. On 11/07/2022, the patient is clinically stable and hemodynamically stable. The patient is undergoing his third dose of alteplase today. Following his second dose yesterday, the patient produced another 400 mL of purulent material. Chest x-ray findings are unchanged. Patient remains on IV Unasyn. The patient also has a white cell count of 5.5 with a hemoglobin 9.3. Sodium is at 140, the BUN is at 9 with a creatinine of 0.6. No chest pain. No fever or chest and altered mentation. Using the incentive spirometer. Using DuoNeb nebulized treatments [id number]. Using Symbicort. . On today's evaluation of 11/08/2022, the patient's right-sided pigtail catheter remains in place. Third dose of thrombolytic was given yesterday and the patient produced another 400 mL of purulent material. He remains on oxygen 2 L/m nasal cannula. He remains on antibiotics. There is a persistent pocket on chest x-ray today and for that reason a CAT scan of the chest will be obtained to evaluate the progression of this right-sided empyema. I would say, overall, there is improvement in the findings and the chest x-ray. No significant leukocytosis with white cell cause of 3.4. Hemoglobin is at 9.7. Sodium is at 133 with a potassium level of 3.4. Serum bicarb is at 30 with a BUN of 6 and a creatinine of 0.48. Objective - Vital Signs Vital signs: Vital Signs Temp 97.7 F 11/08/22 07:45 Pulse 68 11/08/22 11:20 Resp 16 11/08/22 07:45 BP 147/79 11/08/22 07:45 Pulse Ox 98 11/08/22 07:45 FiO2 2 11/04/22 07:24 Intake & Output 11/07/22 11/08/22 11/08/22 18:59 06:59 18:59 Intake Total 1600 Output Total 1000 1700 Balance -1000 -100 Intake: Intake, IV Titration 1100 Amount Ampicillin-Sulbactam 3 gm 200 In Sodium Chloride 0.9% 100 ml @ 200 mls/hr IVPB Q6HR [facility] Rx#:[id number] Sodium Chloride 0.9% 1, 900 000 ml @ 75 mls/hr IV . [id number] [facility] Rx#:[id number] Oral 500 Output: Drainage 300 100 Right Chest 300 100 Urine 700 1600 Other: Voiding Method Urinal Toilet - Exam GENERAL EXAM: Alert, pleasant 62-year-old male, on room air, fairly comfortable in no apparent distress. The patient is currently on 2 L of oxygen by nasal cannula HEAD: Normocephalic. EYES: Normal reaction of pupils, equal size. NOSE: Clear with pink turbinates. THROAT: No erythema or exudates. NECK: No masses, no JVD. CHEST: No chest wall deformity. LUNGS: Equal air entry with bilateral scattered rhonchi more so on the right, diminished in the bases. The patient is a pigtail catheter going into the right hemithorax posteriorly. The pigtail catheter attached the pleural VAC. CVS: S1 and S2 normal with no audible murmur, regular rhythm. ABDOMEN: No hepatosplenomegaly, normal bowel sounds, no guarding or rigidity. SPINE: No scoliosis or deformity SKIN: No rashes CENTRAL NERVOUS SYSTEM: No focal deficits, tone is normal in all 4 extremities. EXTREMITIES: There is no peripheral edema. No clubbing, no cyanosis. Peripheral pulses are intact. - Labs CBC & Chem 7: 11/08/22 06:52 11/08/22 06:52 Labs: Abnormal Lab Results - Last 24 Hours (Table) 11/08/22 11/08/22 Range/Units 06:52 06:52 WBC 3.4 L (3.8-10.6) k/uL RBC 3.66 L (4.30-5.90) m/uL Hgb 9.7 L (13.0-17.5) gm/dL Hct 30.9 L (39.0-53.0) % RDW 17.3 H (11.5-15.5) % Lymphocytes # 0.6 L (1.0-4.8) k/uL Sodium 133 L (137-145) mmol/L Potassium 3.4 L (3.5-5.1) mmol/L BUN 6 L (9-20) mg/dL Creatinine 0.48 L (0.66-1.25) mg/dL Calcium 7.4 L (8.4-10.2) mg/dL Assessment and Plan Plan: Right lung empyema with alphahemolytic strep. The patient has a moderate to large pleural fluid collection on the right side posteriorly with previous thoracentesis showing fluid consistent with empyema. Cultures positive Streptococcus and the patient was given a pigtail catheter for further drainage. The patient received alteplase a total of 3 doses with some improvement in the chest x-ray findings although the right base still opacified. The patient is u ndergoing his third treatment. There is positive response. Chronic shortness of breath, anorexia, significant 65 pound weight loss, and an abnormal chest x-ray. Status post right-sided thoracentesis by interventional radiology in the fluid was suspicious for empyema. Currently IV Unasyn Acute hypoxic respiratory failure currently on 2 L of Oxymizer nasal cannula History of heavy tobacco use, with probable underlying COPD History of hypertension Vague history of asthma Plan: Obtain a follow-up CAT scan of the chest The patient will have fourth dose of alteplase administered today Continue monitoring the output Monitor the output from the pigtail Daily chest x-rays Keep the IV Unasyn for now Cardiothoracic surgery consultation has been obtained Incentive spirometer Daily chest x-rays We will continue to follow
--- NOTE | 2022-11-08 12:52 | CT ---
EXAMINATION TYPE: CT chest wo con DATE OF EXAM: 11/08/2022 COMPARISON: 10/30/2022 HISTORY: Empyema Follow-up CT DLP: 295.[address] of the chest was performed with lung and mediastinal window settings submitted. The la ck of contrast limits evaluation of the vascular, mediastinal and parenchymal structures including th e upper abdomen. LUNGS: Thick-walled collection right lower lobe compatible with empyema is redemonstrated which curre ntly measures 9.3 cm craniocaudal dimension versus 18 cm previously by 15.8 cm transverse dimension v ersus 19 cm previously by 6.1 cm AP dimension versus 12.4 cm previously. Right basilar pleural cathet er is noted. Small amount of air is seen within the empyema. There is associated pleural parenchymal opacity at the right lung base which is felt to reflect a combination of infiltrate as well as additi onal areas of effusion. Small left basilar effusion is noted. Moderate to severe paraseptal emphysema tous changes noted bilaterally. MEDIASTINUM/MARCOS: Thoracic aorta is of normal caliber with limited evaluation given lack of contrast . The heart is enlarged with small pericardial effusion with maximal thickness of 1.5 cm. No evidence for mediastinal mass. No lymph nodes greater than 1cm. UPPER ABDOMEN: Splenomegaly measuring 14.6 cm craniocaudal dimension. OTHER: No significant other abnormality. IMPRESSION: 1. Persistent right basilar empyema with drainage catheter noted. Empyema is smaller in size as noted above. 2. Patchy basilar infiltrates and pleural parenchymal opacity right lung base with additional small e ffusions. 1.
--- NOTE | 2022-11-08 22:46 | P.PN ---
Subjective Progress Note Date: 11/08/22 Principal diagnosis: empyema Patient is a 62-year-old male presenting to the hospital 4 days ago on 10/29/2022 for evaluation of weight loss failure to thrive and suspected malignancy patient also complaining of some right lower chest pain , patient was noticed to have a right-sided effusion status post thoracocentesis significantly positive culture did grew Streptococcus patient initially refused pigtail catheter placement however seemed to have agreed to it though. Patient is status post right-sided chest tube placement by interventional radiology on 11/03/2022 On today's evaluation that is 11/08/2022, the patient remains to be afebrile, the patient is breathing comfortably on 2 L nasal cannula oxygen, the patient right chest pain controlled with pain meds , the patient denies any nausea no vomiting no abdominal pain however c/o diarrhea Objective - Vital Signs Vital signs: Vital Signs Temp 98.9 F 11/08/22 13:51 Pulse 66 11/08/22 13:51 Resp 18 11/08/22 13:51 BP 152/85 11/08/22 13:51 Pulse Ox 97 11/08/22 13:51 FiO2 2 11/04/22 07:24 Intake & Output 11/07/22 11/08/22 11/08/22 18:59 06:59 18:59 Intake Total 1600 Output Total 1000 1700 Balance -1000 -100 Intake: Intake, IV Titration 1100 Amount Ampicillin-Sulbactam 3 gm 200 In Sodium Chloride 0.9% 100 ml @ 200 mls/hr IVPB Q6HR [facility] Rx#:[id number] Sodium Chloride 0.9% 1, 900 000 ml @ 75 mls/hr IV . [id number] [facility] Rx#:[id number] Oral 500 Output: Drainage 300 100 Right Chest 300 100 Urine 700 1600 Other: Voiding Method Urinal Toilet - Exam GENERAL DESCRIPTION: Middle-aged male lying in bed in no distress RESPIRATORY SYSTEM: Unlabored breathing , decreased breath sounds at bases HEART: S1 S2 regular rate and rhythm , ABDOMEN: Soft , no tenderness EXTREMITIES: No edema feet - Labs CBC & Chem 7: 11/08/22 06:52 11/08/22 06:52 Labs: Abnormal Lab Results - Last 24 Hours (Table) 11/08/22 11/08/22 Range/Units 06:52 06:52 WBC 3.4 L (3.8-10.6) k/uL RBC 3.66 L (4.30-5.90) m/uL Hgb 9.7 L (13.0-17.5) gm/dL Hct 30.9 L (39.0-53.0) % RDW 17.3 H (11.5-15.5) % Lymphocytes # 0.6 L (1.0-4.8) k/uL Sodium 133 L (137-145) mmol/L Potassium 3.4 L (3.5-5.1) mmol/L BUN 6 L (9-20) mg/dL Creatinine 0.48 L (0.66-1.25) mg/dL Calcium 7.4 L (8.4-10.2) mg/dL Assessment and Plan (1) Empyema Current Visit: Yes Status: Acute Code(s): J86.9 - PYOTHORAX WITHOUT FISTULA SNOMED Code(s): 247583231 Plan: 1patient presented hospital with right-sided chest pain shortness of breath and cough in this patient with evidence of large right-sided effusion status post thoracocentesis with significant normality of the fluid culture growing alphahemolytic Streptococcus concerning for empyema with underlying malignancy not entirely excluded in view of his overall clinical condition 2-patient is status post chest tube placement on the right side, CT surgery is following the patient closely 3Patient is afebrile the patient white count has been normal 4-patient to continue with Unasyn 3 g every 6 hours , advised to increase yougart and probiotics intake for diarrhea Time with Patient: Less than 30
[2022-11-09] MEDS: MORPHINE SULFATE 4 MG/ML SYRINGE IV PRN ×4 (05:16→18:09)
[2022-11-09] MEDS: AMPICILLIN-SULBACTAM 3 GM in SODIUM CHLORIDE 0.9% 100 ML IVPB SCH ×4 (05:17→23:07)
[2022-11-09 07:12] LABS: African American GFR (CKD) >90 (>60 ml/min/1.73 sqM); Anion Gap 5 mmol/L; Blood Urea Nitrogen 7 mg/dL (9-20); Calcium 7.6 mg/dL (8.4-10.2); Carbon Dioxide 26 mmol/L (22-30); Chloride 106 mmol/L (98-107); Glucose 90 mg/dL (74-99); Non-African American GFR(CKD) >90 (>60 ml/min/1.73 sqM); Sodium 137 mmol/L (137-145)
[2022-11-09 07:19] LABS: Anisocytosis Slight; Basophils % (A) 0 %; Eosinophils # (A) 0.1 k/uL (0-0.7); Eosinophils % (A) 2 %; HCT 34.9 % (39.0-53.0); HGB 10.9 gm/dL (13.0-17.5); Hypochromasia Moderate; Lymphocytes # (A) 0.4 k/uL (1.0-4.8); Lymphocytes % (A) 11 %; MCH 26.4 pg (25.0-35.0); MCHC 31.2 g/dL (31.0-37.0); MCV 84.4 fL (80.0-100.0); Mean Platelet Volume 8.6; Monocytes # (A) 0.2 k/uL (0-1.0); Monocytes % (A) 5 %; Neutrophils # (A) 3.1 k/uL (1.3-7.7); Neutrophils % (A) 80 %; Platelet Count 127 k/uL (150-450); RBC 4.14 m/uL (4.30-5.90); RDW 17.3 % (11.5-15.5); WBC 3.9 k/uL (3.8-10.6)
[2022-11-09] MEDS: PANTOPRAZOLE 40 MG TABLET PO SCH ×2 (08:02→20:51)
[2022-11-09] MEDS: SERTRALINE 100 MG TAB PO SCH ×2 (08:02→20:51)
[2022-11-09] MEDS: LABETALOL 200 MG TAB PO SCH ×2 (08:02→20:51)
[2022-11-09] MEDS: TAMSULOSIN 0.4 MG CAP.ER.24H PO SCH (08:02)
[2022-11-09] MEDS: BENZTROPINE MESYLATE 0.5 MG TAB PO SCH ×2 (08:02→20:51)
[2022-11-09] MEDS: ENOXAPARIN 40 MG/0.4 ML SYRINGE SQ SCH (08:02)
--- NOTE | 2022-11-09 08:19 | P.PN ---
Subjective Progress Note Date: 11/09/22 Principal diagnosis: Right-sided effusion, empyema with pleural fluid positive for alpha hemolytic strep, status post right-sided thoracentesis with subsequent pigtail catheter placement, masslike area of heterogeneous enhancement in the right middle lobe, combination of collapse and consolidation of the basilar right lower lobe, acute hypoxic respiratory failure, progressive shortness of breath, cough with sputum production. History of recent 65 pound weight loss, long-term heavy tobacco use with recent cessation, COPD, asthma, hypertension The patient was seen and examined sitting up in bed on the medical oncology unit in no acute distress. Continues to feel the same. Right pigtail catheter remains present, fourth dose lytics given yesterday with only 70 mL drainage in the last [address] of chest was completed yesterday per pulmonology, appears improved but not completely resolved. Remains on 2 L nasal cannula with oxygen saturation in the high 90s, remains afebrile, remains on IV Unasyn per infectious disease. Pleural fluid cytology negative for malignant cells. CXR reviewed. No other new concerns. Objective - Vital Signs Vital signs: Vital Signs Temp 97.9 F 11/09/22 07:30 Pulse 57 L 11/09/22 07:30 Resp 15 11/09/22 07:30 BP 139/72 11/09/22 07:30 Pulse Ox 97 11/09/22 07:30 FiO2 2 11/04/22 07:24 Intake & Output 11/08/22 11/09/22 11/09/22 18:59 06:59 18:59 Intake Total 500 Output Total 140 1800 Balance -140 -1300 Intake: Oral 500 Output: Chest Tube Drainage 70 0 Thora-Vent Right Lower 70 0 Posterior Chest Drainage 70 Right Chest 70 Urine 1800 Other: Voiding Method Toilet Toilet Urinal # Voids 2 0 # Bowel Movements 1 - Exam CONSTITUTIONAL: Appears comfortable, cooperative, no acute distress RESPIRATORY: Lungs sounds diminished bilaterally. Respirations even, nonlabored. Currently on 2 L nasal cannula with oxygen saturation 97%. Strong cough. CARDIOVASCULAR: S1, S2 present. Regular rate and rhythm. Palpable peripheral pulses bilaterally. No edema present. No calf pain or tenderness noted. SCDs present. GASTROINTESTINAL: Abdomen soft, nontender, nondistended. Active bowel sounds present 4 quadrants. Tolerating minimal diet. Positive bowel movement 11/08/22 GENITOURINARY: Continues to void INTEGUMENTARY: Skin is warm and dry NEUROLOGIC: Cranial nerves II through XII intact MUSKULOSKELETAL: Able to move all extremities, strength equal bilaterally, gait normal PSYCHIATRIC: Alert and oriented to person place and time, flat affect INVASIVE LINES AND TUBES: Right-sided pigtail catheter present, 70 mL purulent drainage in the last 24 hours - Labs CBC & Chem 7: 11/09/22 06:30 11/09/22 06:30 Labs: Abnormal Lab Results - Last 24 Hours (Table) 11/09/22 11/09/22 Range/Units 06:30 06:30 RBC 4.14 L (4.30-5.90) m/uL Hgb 10.9 L (13.0-17.5) gm/dL Hct 34.9 L (39.0-53.0) % RDW 17.3 H (11.5-15.5) % Plt Count 127 L (150-450) k/uL Lymphocytes # 0.4 L (1.0-4.8) k/uL BUN 7 L (9-20) mg/dL Creatinine 0.46 L (0.66-1.25) mg/dL Calcium 7.6 L (8.4-10.2) mg/dL Assessment and Plan Assessment: Right-sided effusion, empyema with pleural fluid positive for alpha hemolytic strep, status post right-sided thoracentesis with subsequent pigtail catheter placement Masslike area of heterogeneous enhancement in the right middle lobe measuring 6.9 cm, right pleural fluid cytology negative for malignant cells Combination of collapse and consolidation of the basilar right lower lobe Acute hypoxic respiratory failure Progressive shortness of breath, cough with sputum production Recent 65 pound weight loss Long-term heavy tobacco use with recent cessation COPD Asthma Hypertension Plan: We will instill fifth and likely final dose lytics today Monitor drainage from pigtail catheter Continue antibiotics per infectious disease recommendations No surgical intervention recommended, patient too high risk Medical management of other comorbidities per internal medicine, pulmonology, infectious disease More recommendations to follow
[2022-11-09] MEDS: IPRATROPIUM-ALBUTEROL 3 ML NEB INHALATION SCH ×4 (08:39→19:56)
[2022-11-09] MEDS: SYMBICORT 160-4.5 MCG INHALER INHALATION SCH ×2 (08:39→19:56)
--- NOTE | 2022-11-09 09:37 | P.PN ---
Subjective Progress Note Date: 11/09/22 Pt feels more pain about the site of chest tube today Gen: awake, alert HEENT: normocephalic, atraumatic, good hearing acuity, moist mucous membranes Resp: good air exchange, breathing comfortably with no accessory muscle use CVS: good distal perfusion x 4, GI: soft, NTTP, ND : no SPT, no CVAT, schultz catheter not present MSK: no pitting edema, no clubbing Neuro: non-focal, moving all extremities Psych: cooperative, euthymic mood Hospital course: 61-year-old male with a PMH of tobacco abuse who was transferred from [facility] where he had presented earlier today with complaints of weight loss and abdominal pain. In [place] emergency room, the patient underwent an extensive evaluation with laboratory evaluation showing WBC count 8.3, hemoglobin 11.0, sodium 131, glucose 104, lactic acid 1.3, calcium 8.0, with albumin 2.7. Patient evaluated by pulmonology. Thoracentesis done. Has significant empyema. Patient also started on vancomycin and cefepime. Culture showing alphahemolyt ic streptococcus. ID consulted. Patient was transitioned to Unasyn. Patient was seen in consultation with CT surgery as well, required multiple doses of lytics to improve chest tube output. Assessment: Empyema Masslike enhancement in the right middle lobe COPD with Emphysema without exacerbation Hyponatremia, euvolemic, stable Hypokalemia, resolved Normocytic anemia Aneurysmal aortic root and ascending aorta Plan: Today, patient is afebrile, 139/72, heart rate 57, 97% on 2 L nasal cannula Ordered CBC, basic metabolic panel, magnesium for tomorrow Computed tomography scan showed improvement of empyema, still present CT surgery note reviewed, low repeat dose of TPA, likely final dose, no surgical plan due to high risk patient and improving computed tomography scan Continue Unasyn 3 g every 6 hours Continue Symbicort twice a day Continue scheduled DuoNeb's every 6 hours Continue morphine 4 mg every 4 hours IV when necessary Patient is full code Objective - Vital Signs Vital signs: Vital Signs Temp 97.9 F 11/09/22 07:30 Pulse 64 11/09/22 08:48 Resp 15 11/09/22 07:30 BP 139/72 11/09/22 07:30 Pulse Ox 97 11/09/22 08:41 FiO2 2 11/04/22 07:24 Intake & Output 11/08/22 11/09/22 11/09/22 18:59 06:59 18:59 Intake Total 500 Output Total 140 1800 Balance -140 -1300 Intake: Oral 500 Output: Chest Tube Drainage 70 0 Thora-Vent Right Lower 70 0 Posterior Chest Drainage 70 Right Chest 70 Urine 1800 Other: Voiding Method Toilet Toilet Urinal # Voids 2 0 # Bowel Movements 1 - Labs CBC & Chem 7: 11/09/22 06:30 11/09/22 06:30 Labs: Abnormal Lab Results - Last 24 Hours (Table) 11/09/22 11/09/22 Range/Units 06:30 06:30 RBC 4.14 L (4.30-5.90) m/uL Hgb 10.9 L (13.0-17.5) gm/dL Hct 34.9 L (39.0-53.0) % RDW 17.3 H (11.5-15.5) % Plt Count 127 L (150-450) k/uL Lymphocytes # 0.4 L (1.0-4.8) k/uL BUN 7 L (9-20) mg/dL Creatinine 0.46 L (0.66-1.25) mg/dL Calcium 7.6 L (8.4-10.2) mg/dL
[2022-11-09] MEDS ORDERED: DORNASE ALFA 5 MG in SODIUM CHLORIDE 0.9% 50 ML IRRIGATION ONE (10:35)
[2022-11-09] MEDS ORDERED: ALTEPLASE 10 MG in SODIUM CHLORIDE 0.9% 50 ML IRRIGATION ONE (10:35)
--- NOTE | 2022-11-09 12:48 | P.PN ---
Subjective Progress Note Date: 11/09/22 62-year-old male transferred from an outside hospital, with shortness of breath, a 65 pound weight loss recently, failure to thrive, and concerns about malignancy. The patient apparently presented to Hospital up in the [place] area. He was at the outside hospital for some time. The patient is not a pa rticularly good historian. The patient really is not able to give any definitive history. The patient is a heavy smoker, and a chest x-ray, apparently showed a abnormal fluid collection and/or mass in the right chest. I asked him what he was diagnosed with the outside hospital, but he was unable to tell me. He apparently also has cough, some phlegm production. No fever or chills. No chest pain or chest discomfort. He likely has underlying COPD from heavy tobacco use. Currently, the patient's on 3 L of oxygen, but without any IV fluids. We will order the computed tomography scan of the chest, and we asked interventional radiology to consider doing a thoracentesis, and/or pigtail catheter placement. His chest x-ray showed a right-sided pleural effusion. The ultrasound was subsequently ordered. We will follow back from interventional radiology team, that the material removed from the chest, was purulent, and looked like pus. In addition, 1250 mL of fluid was removed from the right we added vancomycin and cefepime. White count 8.3, hemoglobin 11, hematocrit 34.7, and platelet count normal. INR was 1.9. Sodium 131, potassium 3.7, chlorides 98, CO2 23, normal anion gap, BUN 13, and the creatinine 0.61. Glucose 104. Albumin 2.7. Chest x-ray showed some chronic emphysematous changes, parenchymal fibrotic changes, and a non-simple right-sided pleural effusion. The ultrasound showed a relatively larger fluid pocket on the right side, measuring 13.3 cm. There was complex internal debris within the right chest. Hence, interventional radiology was asked to the procedure. Computed tomography scan is currently pending. The patient is seen today 10/31/2022 in follow-up on the regular medical floor. He is currently resting comfortably in bed. Awake and alert in no acute distress. He did undergo a right-sided thoracentesis by interventional radiology yesterday. The fluid was significantly dyspneic and pertinent and suspicious for empyema. The were planning to place a pigtail catheter however the patient refused to have it done. A total of 1250 ML's was drained. Fluid analysis reveals turbid appearance with greater than 500,000 WBCs. Total protein 2.4. LDH greater than 2500. He was initiated on vancomycin and cefepime yesterday. Continued on DuoNeb inhalations, Symbicort. Sodium 133. Potassium 3.9. Bicarb 25. BUN 11. Creatinine 0.60. The patient is seen today 11/01/2022 in follow-up on the regular medical floor. He is currently resting in bed. Awake and alert in no acute distress. Maintaining good O2 saturations in the 90s on room air. He is feeling weak and fatigued. He continues to decline the offer of a chest tube placement to help drain the suspected abscess in the right chest. He is continued on vancomycin and cefepime. Continue on Symbicort and DuoNeb inhalations. Lovenox for DVT prophylaxis. Chest x-ray shows similar right airspace opacities. Superimposed emphysema. Preliminary pleural fluid Gram stain showing alpha hemolytic streptococcus. White count 4.5. Hemoglobin 10.0. Platelets 287. Sodium 133. Potassium 3.2. Bicarb 21. BUN 9. Creatinine 0.58. The patient is seen today 11/02/2022 in follow-up on the regular medical floor. He is awake and alert in no acute distress. Still not feeling much better today compared to yesterday. Still weak and fatigued. Maintaining good O2 saturations in the 90s on room air. He is continued on vancomycin and cefepime. Pleural fluid culture is positive for alphahemolytic streptococcus. White count 5.8. Hemoglobin 9.2. Platelets 285. Sodium 132. Potassium 3.8. Bicarb 19. BUN 6. Creatinine 0.51. Glucose 83. On today's evaluation of 11/03/2022, the patient has no specific complaints. The patient will have a pigtail catheter insertion today for an underlying empyema. Noted the patient underwent a thoracentesis and the fluid cultures c tarik back positive for alpha hemolytic strep. The patient will have a pigtail catheter inserted today. He does have a masslike consolidation of the right middle lobe in addition to right-sided pleural effusion that was drained earlier. He is known to have COPD. He is currently on 2 L of Oxymizer nasal cannula with a pulse ox of 96%. Hemodynamically stable. He remains on accommodation of cefepime and vancomycin. Also, vancomycin, clinically hemoglobin of 10.3 and a platelet count of 316. The BUN is at 5.2 with a creatinine of 0.5 and a sodium level is at 134. The vancomycin trough is at 19.6. The most recent chest x-rays from 11/01/2022 that showed a air space disease involving the right lung, and the CAT scan of the chest that was done on 10/30/2022 showed a moderate to large pleural fluid collection involving the right lung with thickening borders and a small peripheral enhancement and some inflammatory fat stranding within the adjacent pericolic fat. This is consistent with empyema. There is also a some atelectatic changes in the right lung base. There is back on moderate to severe emphysema. The patient's aortic root was measuring 5.2 cm in size and the ascending aorta was measuring 4.1 cm. On 11/04/2022, the patient is being seen for a follow-up. The patient is an empyema of the right lung. The pigtail catheter was inserted yesterday and a total of 600 mL of purulent material was aspirated from the right lung and the [facility] is collecting in the pleural VAC. The repeat chest x-ray shows no major improvement and there is significant opacification of the right lower lobe. Based on that, the patient is going to receive an alteplase treatment to enhance drainage of the empyema. The patient remains hemodynamically stable. He remains on2 L of oxygen by nasal cannula with a pulse ox of 97%. The blood work today shows a WBC count of 8.2 with a hemoglobin of 10.3. Electrolytes from yesterday were all within normal limits. The patient also had has been on IV Unasyn. The patient on DuoNeb about treatments [id number]. He is on Lovenox portably prophylaxis. On today's evaluation of 11/05/2022, the patient has an thrombolytic administr ation to the pigtail catheter into the right lung as the patient has a right lung empyema. A total of 1.4 L of pleural fluid has been aspirated or drained in the atrium since the insertion of the catheter. Clinically the patient is doing well. Chest x-ray shows some limited improvement elevation of the right lung. The patient remains on IV Unasyn. Is currently comfortable. No pleurisy. No hemoptysis. The patient's echoes of 5.5 with a hemoglobin 9.3 and a BUN of 4 with a creatinine of 0.6 and a sodium level is 140. No other issues for now and the patient is being followed up with us and cardiothoracic team. On today's evaluation of 2022, the patient is being seen for a follow-up. The patient underwent his second dose of alteplase administration today. The patient continues to have adequate amount of output. Note that following the first alteplase treatment, the patient produced approximately 700 mL of purulent material and he continues to drain. He remains on oxygen at 2 L/m nasal cannula. He remains on IV Unasyn. The chest x-ray from today is showing still opacification of the right base and there is a right-sided pigtail catheter which is in a good location. There is a persistent right-sided pleural effusion/collection along with right lung atelectasis. There is a small left- sided pleural effusion also noted on today's chest x-ray. Clinically however the patient is doing well. His tolerating his diet. No nausea or vomiting or diarrhea. No other significant issues otherwise. On 11/07/2022, the patient is clinically stable and hemodynamically stable. The patient is undergoing his third dose of alteplase today. Following his second dose yesterday, the patient produced another 400 mL of purulent material. Chest x-ray findings are unchanged. Patient remains on IV Unasyn. The patient also has a white cell count of 5.5 with a hemoglobin 9.3. Sodium is at 140, the BUN is at 9 with a creatinine of 0.6. No chest pain. No fever or chest and altered mentation. Using the incentive spirometer. Using DuoNeb nebulized treatments [id number]. Using Symbicort. . On today's evaluation of 11/08/2022, the patient's right-sided pigtail catheter remains in place. Third dose of thrombolytic was given yesterday and the patient produced another 400 mL of purulent material. He remains on oxygen 2 L/m nasal cannula. He remains on antibiotics. There is a persistent pocket on chest x-ray today and for that reason a CAT scan of the chest will be obtained to evaluate the progression of this right-sided empyema. I would say, overall, there is improvement in the findings and the chest x-ray. No significant leukocytosis with white cell cause of 3.4. Hemoglobin is at 9.7. Sodium is at 133 with a potassium level of 3.4. Serum bicarb is at 30 with a BUN of 6 and a creatinine of 0.48. The patient is seen today 11/09/2022 in follow-up on the regular medical floor. He is currently sitting up in bed. Awake and alert in no acute distress. He is maintaining good O2 saturations in the upper 90s on 2 L/m per nasal cannula. He's receive 4 doses of alteplase/dornase infusions to the right-sided chest tube. 70 ML's returned in the past 24 hours. Follow-up computed tomography scan of the chest from yesterday revealed persistent right basilar empyema with drainage catheter in place. Empyema smaller in size as compared to previous on 10/30/2022. The remains patchy basilar infiltrates and pleural parenchymal opacity in the right lung base with additional small effusions. Fluid cultures have been positive for alphahemolytic streptococcus. White count 3.9. Hemoglobin 10.9. Platelets 127. Sodium 137. Potassium 4.0. Bicarb 26. BUN 7. Creatinine 0.46. He is continued on DuoNeb inhalations, Symbicort. Lovenox for DVT prophylaxis. Antibiotics in the form of Unasyn. Objective - Vital Signs Vital signs: Vital Signs Temp 97.9 F 11/09/22 07:30 Pulse 72 11/09/22 11:37 Resp 15 11/09/22 07:30 BP 139/72 11/09/22 07:30 Pulse Ox 97 11/09/22 08:41 FiO2 2 11/04/22 07:24 Intake & Output 11/08/22 11/09/22 11/09/22 18:59 06:59 18:59 Intake Total 500 Output Total 140 1800 Balance -140 -1300 Intake: Oral 500 Output: Chest Tube Drainage 70 0 Thora-Vent Right Lower 70 0 Posterior Chest Drainage 70 Right Chest 70 Urine 1800 Other: Voiding Method Toilet Toilet Urinal # Voids 2 0 # Bowel Movements 1 - Exam GENERAL EXAM: Alert, pleasant 62-year-old male, on room air, fairly comfortable in no apparent distress. HEAD: Normocephalic. EYES: Normal reaction of pupils, equal size. NOSE: Clear with pink turbinates. THROAT: No erythema or exudates. NECK: No masses, no JVD. CHEST: No chest wall deformity. Right-sided pigtail catheter in place. LUNGS: Equal air entry with bilateral scattered rhonchi more so on the right, diminished in the bases. CVS: S1 and S2 normal with no audible murmur, regular rhythm. ABDOMEN: No hepatosplenomegaly, normal bowel sounds, no guarding or rigidity. SPINE: No scoliosis or deformity SKIN: No rashes CENTRAL NERVOUS SYSTEM: No focal deficits, tone is normal in all 4 extremities. EXTREMITIES: There is no peripheral edema. No clubbing, no cyanosis. Aleena pheral pulses are intact. - Labs CBC & Chem 7: 11/09/22 06:30 11/09/22 06:30 Labs: Abnormal Lab Results - Last 24 Hours (Table) 11/09/22 11/09/22 Range/Units 06:30 06:30 RBC 4.14 L (4.30-5.90) m/uL Hgb 10.9 L (13.0-17.5) gm/dL Hct 34.9 L (39.0-53.0) % RDW 17.3 H (11.5-15.5) % Plt Count 127 L (150-450) k/uL Lymphocytes # 0.4 L (1.0-4.8) k/uL BUN 7 L (9-20) mg/dL Creatinine 0.46 L (0.66-1.25) mg/dL Calcium 7.6 L (8.4-10.2) mg/dL Assessment and Plan Assessment: Right lung empyema with alphahemolytic strep. The patient has a moderate to large pleural fluid collection on the right side posteriorly with previous thoracentesis showing fluid consistent with empyema. Cultures positive Streptococcus and the patient was given a pigtail catheter for further drainage. The patient received alteplase a total of 4 doses with some improvement in the chest x-ray findings although the right base still opacified. Follow-up computed tomography scan of the chest from yesterday revealed persistent right basilar empyema with drainage catheter in place. Empyema smaller in size as compared to previous on 10/30/2022. The remains patchy basilar infiltrates and pleural parenchymal opacity in the right lung base with additional small effusions. Lantus her fifth dose of alteplase/dornase today Chronic shortness of breath, anorexia, significant 65 pound weight loss, and an abnormal chest x-ray. Status post right-sided thoracentesis by interventional radiology in the fluid was suspicious for empyema. Currently on Unasyn. History of heavy tobacco use, with probable underlying COPD History of hypertension Vague history of asthma Plan: The patient was seen and evaluated Computed tomography scan of the chest, medications and labs reviewed To receive his fifth dose of alteplase/dornase today Currently on Unasyn Continue bronchodilators Lovenox for DVT prophylaxis Titrate the FiO2 as tolerated We will continue to follow I have personally seen and examined the patient, performed the documentation and the assessment and plan as written. Number of minutes spent on the visit: 10.
[2022-11-09] MEDS: SODIUM CHLORIDE 0.9% 1,000 ML IV SCH (15:04)
[2022-11-09] MEDS: GABAPENTIN 300 MG CAP PO PRN (16:53)
[2022-11-10] MEDS: MORPHINE SULFATE 4 MG/ML SYRINGE IV PRN ×6 (00:21→21:23)
[2022-11-10] MEDS: SODIUM CHLORIDE 0.9% 1,000 ML IV SCH ×2 (04:38→05:06)
[2022-11-10] MEDS: AMPICILLIN-SULBACTAM 3 GM in SODIUM CHLORIDE 0.9% 100 ML IVPB SCH ×3 (05:06→18:38)
[2022-11-10 06:43] LABS: Anisocytosis Slight; Basophils % (A) 0 %; Eosinophils # (A) 0.1 k/uL (0-0.7); Eosinophils % (A) 2 %; HCT 29.1 % (39.0-53.0); Hypochromasia Moderate; Lymphocytes # (A) 0.6 k/uL (1.0-4.8); Lymphocytes % (A) 15 %; MCH 26.7 pg (25.0-35.0); MCHC 31.5 g/dL (31.0-37.0); MCV 84.7 fL (80.0-100.0); Monocytes # (A) 0.2 k/uL (0-1.0); Monocytes % (A) 5 %; Neutrophils # (A) 2.8 k/uL (1.3-7.7); Neutrophils % (A) 76 %; Platelet Count 147 k/uL (150-450); RBC 3.43 m/uL (4.30-5.90); RDW 17.5 % (11.5-15.5); WBC 3.7 k/uL (3.8-10.6)
[2022-11-10 06:45] LABS: HGB 9.2 gm/dL (13.0-17.5)
[2022-11-10 06:46] LABS: African American GFR (CKD) >90 (>60 ml/min/1.73 sqM); Anion Gap 3 mmol/L; Blood Urea Nitrogen 8 mg/dL (9-20); Calcium 7.3 mg/dL (8.4-10.2); Carbon Dioxide 31 mmol/L (22-30); Chloride 102 mmol/L (98-107); Glucose 85 mg/dL (74-99); Magnesium 1.9 mg/dL (1.6-2.3); Non-African American GFR(CKD) >90 (>60 ml/min/1.73 sqM); Potassium 3.1 mmol/L (3.5-5.1); Sodium 136 mmol/L (137-145)
--- NOTE | 2022-11-10 08:31 | XR ---
EXAMINATION TYPE: XR chest 1V portable DATE OF EXAM: 11/10/2022 Comparison: 11/08/2022 Clinical History: 62-year-old male empyema Findings: A right basilar pleural catheter is in place. Prominent right lower lung opacity persists. Underlying bullous emphysema. Prominent skin folds along the periphery of the left lung. Heart borderline enlar ged. Trace left pleural effusion. IMPRESSION: 1. Ongoing pleural-parenchymal opacities of the right lower lung with right basilar pleural catheter in place. Findings compatible with underlying empyema and likely adjacent pneumonia. Follow-up to ens ure resolution given the masslike appearance of some portions. 2. Advanced bullous emphysema. Trace effusion on the left.
[2022-11-10] MEDS ORDERED: ALTEPLASE 10 MG in SODIUM CHLORIDE 0.9% 50 ML IRRIGATION ONE (08:41)
[2022-11-10] MEDS ORDERED: DORNASE ALFA 5 MG in SODIUM CHLORIDE 0.9% 50 ML IRRIGATION ONE (08:41)
--- NOTE | 2022-11-10 08:41 | P.PN ---
Subjective Progress Note Date: 11/10/22 Principal diagnosis: Right-sided effusion, empyema with pleural fluid positive for alpha hemolytic strep, status post right-sided thoracentesis with subsequent pigtail catheter placement, masslike area of heterogeneous enhancement in the right middle lobe, combination of collapse and consolidation of the basilar right lower lobe, acute hypoxic respiratory failure, progressive shortness of breath, cough with sputum production. History of recent 65 pound weight loss, long-term heavy tobacco use with recent cessation, COPD, asthma, hypertension The patient was seen and examined sitting up in bed on the medical oncology unit in no acute distress. Continues to feel the same. Right pigtail catheter remains present, fifth dose lytics given yesterday with 450 mL drainage in the last 24 hours. Remains on 2 L nasal cannula with oxygen saturation in the high 90s, remains afebrile, remains on IV Unasyn per infectious disease. Pleural fluid cytology negative for malignant cells. CXR reviewed. No other new concerns. Objective - Vital Signs Vital signs: Vital Signs Temp 98.1 F 11/10/22 01:04 Pulse 64 11/10/22 01:04 Resp 15 11/10/22 01:04 BP 151/74 11/10/22 01:04 Pulse Ox 98 11/10/22 01:04 FiO2 2 11/04/22 07:24 Intake & Output 11/09/22 11/10/22 11/10/22 18:59 06:59 18:59 Intake Total 1100 1100 Output Total 1740 2320 Balance -640 -1220 Intake: Intake, IV Titration 1100 1100 Amount Ampicillin-Sulbactam 3 gm 200 200 In Sodium Chloride 0.9% 100 ml @ 200 mls/hr IVPB Q6HR [facility] Rx#:[id number] Sodium Chloride 0.9% 1, 900 900 000 ml @ 75 mls/hr IV . [id number] [facility] Rx#:[id number] Output: Chest Tube Drainage 120 Thora-Vent Right Lower 120 Posterior Chest Drainage 190 Right Chest 190 Urine 1550 2200 Other: Voiding Method Toilet Urinal - Exam CONSTITUTIONAL: Appears comfortable, cooperative, no acute distress RESPIRATORY: Lungs sounds diminished bilaterally. Respirations even, nonlabo red. Currently on 2 L nasal cannula with oxygen saturation 97%. Able to achieve 1750 mL on incentive spirometry. Strong cough. CARDIOVASCULAR: S1, S2 present. Regular rate and rhythm. Palpable peripheral pulses bilaterally. No edema present. No calf pain or tenderness noted. SCDs present. GASTROINTESTINAL: Abdomen soft, nontender, nondistended. Active bowel sounds present 4 quadrants. Tolerating minimal diet. Positive bowel movement 11/08/22 GENITOURINARY: Continues to void INTEGUMENTARY: Skin is warm and dry NEUROLOGIC: Cranial nerves II through XII intact MUSKULOSKELETAL: Able to move all extremities, strength equal bilaterally, gait normal PSYCHIATRIC: Alert and oriented to person place and time, flat affect INVASIVE LINES AND TUBES: Right-sided pigtail catheter present, 450 mL thick mccarthy drainage in the last 24 hours - Allied health notes Allied health notes reviewed: nursing - Labs CBC & Chem 7: 11/10/22 06:12 11/10/22 06:12 Labs: Abnormal Lab Results - Last 24 Hours (Table) 11/10/22 11/10/22 Range/Units 06:12 06:12 WBC 3.7 L (3.8-10.6) k/uL RBC 3.43 L (4.30-5.90) m/uL Hgb 9.2 L D (13.0-17.5) gm/dL Hct 29.1 L (39.0-53.0) % RDW 17.5 H (11.5-15.5) % Plt Count 147 L (150-450) k/uL Lymphocytes # 0.6 L (1.0-4.8) k/uL Sodium 136 L (137-145) mmol/L Potassium 3.1 L (3.5-5.1) mmol/L Carbon Dioxide 31 H (22-30) mmol/L BUN 8 L (9-20) mg/dL Creatinine 0.47 L (0.66-1.25) mg/dL Calcium 7.3 L (8.4-10.2) mg/dL - Imaging and Cardiology Chest x-ray: image reviewed Assessment and Plan Assessment: Right-sided effusion, empyema with pleural fluid positive for alpha hemolytic s trep, status post right-sided thoracentesis with subsequent pigtail catheter placement Masslike area of heterogeneous enhancement in the right middle lobe measuring 6.9 cm, right pleural fluid cytology negative for malignant cells Combination of collapse and consolidation of the basilar right lower lobe Acute hypoxic respiratory failure Progressive shortness of breath, cough with sputum production Recent 65 pound weight loss Long-term heavy tobacco use with recent cessation COPD Asthma Hypertension Plan: We will instill sixth dose lytics today Monitor drainage from pigtail catheter Continue antibiotics per infectious disease recommendations No surgical intervention recommended, patient too high risk Medical management of other comorbidities per internal medicine, pulmonology, infectious disease More recommendations to follow
[2022-11-10] MEDS: SYMBICORT 160-4.5 MCG INHALER INHALATION SCH ×2 (09:37→20:24)
[2022-11-10] MEDS: IPRATROPIUM-ALBUTEROL 3 ML NEB INHALATION SCH ×4 (09:37→20:24)
[2022-11-10] MEDS: TAMSULOSIN 0.4 MG CAP.ER.24H PO SCH (09:56)
[2022-11-10] MEDS: SERTRALINE 100 MG TAB PO SCH ×2 (09:56→21:11)
[2022-11-10] MEDS: PANTOPRAZOLE 40 MG TABLET PO SCH ×2 (09:56→21:11)
[2022-11-10] MEDS: ENOXAPARIN 40 MG/0.4 ML SYRINGE SQ SCH (09:56)
[2022-11-10] MEDS: BENZTROPINE MESYLATE 0.5 MG TAB PO SCH ×2 (09:56→21:11)
[2022-11-10] MEDS: LABETALOL 200 MG TAB PO SCH ×2 (09:56→21:11)
[2022-11-10] MEDS: POTASSIUM CHLORIDE 10 MEQ in WATER FOR INJECTION 1 100ML.BAG IVPB SCH ×4 (10:02→15:12)
--- NOTE | 2022-11-10 13:12 | P.PN ---
Subjective Progress Note Date: 11/10/22 62-year-old male transferred from an outside hospital, with shortness of breath, a 65 pound weight loss recently, failure to thrive, and concerns about malignancy. The patient apparently presented to Hospital up in the [place] area. He was at the outside hospital for some time. The patient is not a pa rticularly good historian. The patient really is not able to give any definitive history. The patient is a heavy smoker, and a chest x-ray, apparently showed a abnormal fluid collection and/or mass in the right chest. I asked him what he was diagnosed with the outside hospital, but he was unable to tell me. He apparently also has cough, some phlegm production. No fever or chills. No chest pain or chest discomfort. He likely has underlying COPD from heavy tobacco use. Currently, the patient's on 3 L of oxygen, but without any IV fluids. We will order the computed tomography scan of the chest, and we asked interventional radiology to consider doing a thoracentesis, and/or pigtail catheter placement. His chest x-ray showed a right-sided pleural effusion. The ultrasound was subsequently ordered. We will follow back from interventional radiology team, that the material removed from the chest, was purulent, and looked like pus. In addition, 1250 mL of fluid was removed from the right we added vancomycin and cefepime. White count 8.3, hemoglobin 11, hematocrit 34.7, and platelet count normal. INR was 1.9. Sodium 131, potassium 3.7, chlorides 98, CO2 23, normal anion gap, BUN 13, and the creatinine 0.61. Glucose 104. Albumin 2.7. Chest x-ray showed some chronic emphysematous changes, parenchymal fibrotic changes, and a non-simple right-sided pleural effusion. The ultrasound showed a relatively larger fluid pocket on the right side, measuring 13.3 cm. There was complex internal debris within the right chest. Hence, interventional radiology was asked to the procedure. Computed tomography scan is currently pending. The patient is seen today 10/31/2022 in follow-up on the regular medical floor. He is currently resting comfortably in bed. Awake and alert in no acute distress. He did undergo a right-sided thoracentesis by interventional radiology yesterday. The fluid was significantly dyspneic and pertinent and suspicious for empyema. The were planning to place a pigtail catheter however the patient refused to have it done. A total of 1250 ML's was drained. Fluid analysis reveals turbid appearance with greater than 500,000 WBCs. Total protein 2.4. LDH greater than 2500. He was initiated on vancomycin and cefepime yesterday. Continued on DuoNeb inhalations, Symbicort. Sodium 133. Potassium 3.9. Bicarb 25. BUN 11. Creatinine 0.60. The patient is seen today 11/01/2022 in follow-up on the regular medical floor. He is currently resting in bed. Awake and alert in no acute distress. Maintaining good O2 saturations in the 90s on room air. He is feeling weak and fatigued. He continues to decline the offer of a chest tube placement to help drain the suspected abscess in the right chest. He is continued on vancomycin and cefepime. Continue on Symbicort and DuoNeb inhalations. Lovenox for DVT prophylaxis. Chest x-ray shows similar right airspace opacities. Superimposed emphysema. Preliminary pleural fluid Gram stain showing alpha hemolytic streptococcus. White count 4.5. Hemoglobin 10.0. Platelets 287. Sodium 133. Potassium 3.2. Bicarb 21. BUN 9. Creatinine 0.58. The patient is seen today 11/02/2022 in follow-up on the regular medical floor. He is awake and alert in no acute distress. Still not feeling much better today compared to yesterday. Still weak and fatigued. Maintaining good O2 saturations in the 90s on room air. He is continued on vancomycin and cefepime. Pleural fluid culture is positive for alphahemolytic streptococcus. White count 5.8. Hemoglobin 9.2. Platelets 285. Sodium 132. Potassium 3.8. Bicarb 19. BUN 6. Creatinine 0.51. Glucose 83. On today's evaluation of 11/03/2022, the patient has no specific complaints. The patient will have a pigtail catheter insertion today for an underlying empyema. Noted the patient underwent a thoracentesis and the fluid cultures c tarik back positive for alpha hemolytic strep. The patient will have a pigtail catheter inserted today. He does have a masslike consolidation of the right middle lobe in addition to right-sided pleural effusion that was drained earlier. He is known to have COPD. He is currently on 2 L of Oxymizer nasal cannula with a pulse ox of 96%. Hemodynamically stable. He remains on accommodation of cefepime and vancomycin. Also, vancomycin, clinically hemoglobin of 10.3 and a platelet count of 316. The BUN is at 5.2 with a creatinine of 0.5 and a sodium level is at 134. The vancomycin trough is at 19.6. The most recent chest x-rays from 11/01/2022 that showed a air space disease involving the right lung, and the CAT scan of the chest that was done on 10/30/2022 showed a moderate to large pleural fluid collection involving the right lung with thickening borders and a small peripheral enhancement and some inflammatory fat stranding within the adjacent pericolic fat. This is consistent with empyema. There is also a some atelectatic changes in the right lung base. There is back on moderate to severe emphysema. The patient's aortic root was measuring 5.2 cm in size and the ascending aorta was measuring 4.1 cm. On 11/04/2022, the patient is being seen for a follow-up. The patient is an empyema of the right lung. The pigtail catheter was inserted yesterday and a total of 600 mL of purulent material was aspirated from the right lung and the [facility] is collecting in the pleural VAC. The repeat chest x-ray shows no major improvement and there is significant opacification of the right lower lobe. Based on that, the patient is going to receive an alteplase treatment to enhance drainage of the empyema. The patient remains hemodynamically stable. He remains on2 L of oxygen by nasal cannula with a pulse ox of 97%. The blood work today shows a WBC count of 8.2 with a hemoglobin of 10.3. Electrolytes from yesterday were all within normal limits. The patient also had has been on IV Unasyn. The patient on DuoNeb about treatments [id number]. He is on Lovenox portably prophylaxis. On today's evaluation of 11/05/2022, the patient has an thrombolytic administr ation to the pigtail catheter into the right lung as the patient has a right lung empyema. A total of 1.4 L of pleural fluid has been aspirated or drained in the atrium since the insertion of the catheter. Clinically the patient is doing well. Chest x-ray shows some limited improvement elevation of the right lung. The patient remains on IV Unasyn. Is currently comfortable. No pleurisy. No hemoptysis. The patient's echoes of 5.5 with a hemoglobin 9.3 and a BUN of 4 with a creatinine of 0.6 and a sodium level is 140. No other issues for now and the patient is being followed up with us and cardiothoracic team. On today's evaluation of 2022, the patient is being seen for a follow-up. The patient underwent his second dose of alteplase administration today. The patient continues to have adequate amount of output. Note that following the first alteplase treatment, the patient produced approximately 700 mL of purulent material and he continues to drain. He remains on oxygen at 2 L/m nasal cannula. He remains on IV Unasyn. The chest x-ray from today is showing still opacification of the right base and there is a right-sided pigtail catheter which is in a good location. There is a persistent right-sided pleural effusion/collection along with right lung atelectasis. There is a small left- sided pleural effusion also noted on today's chest x-ray. Clinically however the patient is doing well. His tolerating his diet. No nausea or vomiting or diarrhea. No other significant issues otherwise. On 11/07/2022, the patient is clinically stable and hemodynamically stable. The patient is undergoing his third dose of alteplase today. Following his second dose yesterday, the patient produced another 400 mL of purulent material. Chest x-ray findings are unchanged. Patient remains on IV Unasyn. The patient also has a white cell count of 5.5 with a hemoglobin 9.3. Sodium is at 140, the BUN is at 9 with a creatinine of 0.6. No chest pain. No fever or chest and altered mentation. Using the incentive spirometer. Using DuoNeb nebulized treatments [id number]. Using Symbicort. . On today's evaluation of 11/08/2022, the patient's right-sided pigtail catheter remains in place. Third dose of thrombolytic was given yesterday and the patient produced another 400 mL of purulent material. He remains on oxygen 2 L/m nasal cannula. He remains on antibiotics. There is a persistent pocket on chest x-ray today and for that reason a CAT scan of the chest will be obtained to evaluate the progression of this right-sided empyema. I would say, overall, there is improvement in the findings and the chest x-ray. No significant leukocytosis with white cell cause of 3.4. Hemoglobin is at 9.7. Sodium is at 133 with a potassium level of 3.4. Serum bicarb is at 30 with a BUN of 6 and a creatinine of 0.48. The patient is seen today 11/09/2022 in follow-up on the regular medical floor. He is currently sitting up in bed. Awake and alert in no acute distress. He is maintaining good O2 saturations in the upper 90s on 2 L/m per nasal cannula. He's receive 4 doses of alteplase/dornase infusions to the right-sided chest tube. 70 ML's returned in the past 24 hours. Follow-up computed tomography scan of the chest from yesterday revealed persistent right basilar empyema with drainage catheter in place. Empyema smaller in size as compared to previous on 10/30/2022. The remains patchy basilar infiltrates and pleural parenchymal opacity in the right lung base with additional small effusions. Fluid cultures have been positive for alphahemolytic streptococcus. White count 3.9. Hemoglobin 10.9. Platelets 127. Sodium 137. Potassium 4.0. Bicarb 26. BUN 7. Creatinine 0.46. He is continued on DuoNeb inhalations, Symbicort. Lovenox for DVT prophylaxis. Antibiotics in the form of Unasyn. The patient is seen today 11/10/2022 and follow-up on the regular medical floor. He remains awake and alert in no acute distress. Continue good O2 saturations in the 90s on room air. He's afebrile. Hemodynamically stable. Chest x-ray r eveals ongoing pleuralparenchymal opacities of the right lower lung with right basilar pleural catheter in place. Findings compatible with underlying emphysema and likely adjacent pneumonia. Advanced bullous emphysema. Trace left-sided pleural effusion. Pleural fluid cultures were positive for alpha hemolytic streptococcus. Remains on Unasyn. He is continued on DuoNeb inhalations, Symbicort. Lovenox for DVT prophylaxis. White count 3.7. Hemoglobin 9.2. Platelets 147. Sodium 136. Potassium 3.1. Bicarb 31. BUN 8. Creatinine 0.47. Objective - Vital Signs Vital signs: Vital Signs Temp 98.2 F 11/10/22 12:20 Pulse 69 11/10/22 12:20 Resp 15 11/10/22 12:20 BP 132/77 11/10/22 12:20 Pulse Ox 97 11/10/22 12:20 FiO2 2 11/04/22 07:24 Intake & Output 11/09/22 11/10/22 11/10/22 18:59 06:59 18:59 Intake Total 1100 1100 Output Total 1740 2320 Balance -640 -1220 Intake: Intake, IV Titration 1100 1100 Amount Ampicillin-Sulbactam 3 gm 200 200 In Sodium Chloride 0.9% 100 ml @ 200 mls/hr IVPB Q6HR [facility] Rx#:[id number] Sodium Chloride 0.9% 1, 900 900 000 ml @ 75 mls/hr IV . [id number] [facility] Rx#:[id number] Output: Chest Tube Drainage 120 Thora-Vent Right Lower 120 Posterior Chest Drainage 190 Right Chest 190 Urine 1550 2200 Other: Voiding Method Toilet Urinal - Exam GENERAL EXAM: Alert, thin 62-year-old male, on room air, comfortable in no apparent distress. HEAD: Normocephalic. EYES: Normal reaction of pupils, equal size. NOSE: Clear with pink turbinates. THROAT: No erythema or exudates. NECK: No masses, no JVD. CHEST: No chest wall deformity. Right-sided pigtail catheter in place. LUNGS: Equal air entry with bilateral scattered rhonchi more so on the right, diminished in the bases. CVS: S1 and S2 normal with no audible murmur, regular rhythm. ABDOMEN: No hepatosplenomegaly, normal bowel sounds, no guarding or rigidity. SPINE: No scoliosis or deformity SKIN: No rashes CENTRAL NERVOUS SYSTEM: No focal deficits, tone is normal in all 4 extremities. EXTREMITIES: There is no peripheral edema. No clubbing, no cyanosis. Peripheral pulses are intact. - Labs CBC & Chem 7: 11/10/22 06:12 11/10/22 06:12 Labs: Abnormal Lab Results - Last 24 Hours (Table) 11/10/22 11/10/22 Range/Units 06:12 06:12 WBC 3.7 L (3.8-10.6) k/uL RBC 3.43 L (4.30-5.90) m/uL Hgb 9.2 L D (13.0-17.5) gm/dL Hct 29.1 L (39.0-53.0) % RDW 17.5 H (11.5-15.5) % Plt Count 147 L (150-450) k/uL Lymphocytes # 0.6 L (1.0-4.8) k/uL Sodium 136 L (137-145) mmol/L Potassium 3.1 L (3.5-5.1) mmol/L Carbon Dioxide 31 H (22-30) mmol/L BUN 8 L (9-20) mg/dL Creatinine 0.47 L (0.66-1.25) mg/dL Calcium 7.3 L (8.4-10.2) mg/dL Assessment and Plan Assessment: Right lung empyema with alphahemolytic strep. The patient has a moderate to large pleural fluid collection on the right side posteriorly with previous thoracentesis showing fluid consistent with empyema. Cultures positive Streptococcus and the patient was given a pigtail catheter for further drainage. The patient received alteplase a total of 4 doses with some improvement in the chest x-ray findings although the right base still opacified. Follow-up computed tomography scan of the chest from yesterday revealed persistent right basilar empyema with drainage catheter in place. Empyema smaller in size as compared to previous on 10/30/2022. The remains patchy basilar infiltrates and pleural parenchymal opacity in the right lung base with additional small effusions. Fifth dose of alteplase/dornase given on 11/09/2022 with an additional 450 MLS output. Chronic shortness of breath, anorexia, significant 65 pound weight loss, and an abnormal chest x-ray. Status post right-sided thoracentesis by interventional radiology in the fluid was suspicious for empyema. Currently on Unasyn. History of heavy tobacco use, with probable underlying COPD History of hypertension Vague history of asthma Plan: The patient was seen and evaluated Chest x-ray, medications and labs reviewed Currently on Unasyn, ID on the case Continue bronchodilators Lovenox for DVT prophylaxis Stable and on room air Plan is for a 6th dose of lytics today No plans for surgical intervention We will continue to follow I have personally seen and examined the patient, performed the documentation and the assessment and plan as written. Number of minutes spent on the visit: 10.
--- NOTE | 2022-11-10 16:23 | P.PN ---
Subjective Progress Note Date: 11/10/22 Patient reports no changes in his breathing. Continues to complain of chest pain at the site of chest tube. Gen: awake, alert HEENT: normocephalic, atraumatic, good hearing acuity, moist mucous membranes Resp: good air exchange, breathing comfortably with no accessory muscle use, CTA bl CVS: good distal perfusion x 4 : no SPT, no CVAT, schultz catheter not present MSK: no pitting edema, no clubbing Neuro: non-focal, moving all extremities Psych: cooperative, euthymic mood Hospital course: 61-year-old male with a PMH of tobacco abuse who was transferred from [facility] where he had presented earlier today with complaints of weight loss and abdominal pain. In [place] emergency room, the patient underwent an extensive evaluation with laboratory evaluation showing WBC count 8.3, hemoglobin 11.0, sodium 131, glucose 104, lactic acid 1.3, calcium 8.0, with albumin 2.7. Patient evaluated by pulmonology. Thoracentesis done. Has significant empyema. Patient also started on vancomycin and cefepime. Culture showing alphahemolytic streptococcus. ID consulted. Patient was transitioned to Unasyn. Patient was seen in consultation with CT surgery as well, required multiple doses of lytics to improve chest tube output. Assessment: Empyema Masslike enhancement in the right middle lobe COPD with Emphysema without exacerbation Hyponatremia, euvolemic, stable Hypokalemia, resolved Normocytic anemia Aneurysmal aortic root and ascending aorta Plan: CBC shows WBC count of 3.7, hemoglobin 9.2 and platelet count 147. BMP shows sodium 136, potassium of 3.1, bicarb 31, BUN of 8, creatinine is 0.47 and calcium is 7.3. Magnesium is 1.9. CT surgery note reviewed, repeat dose of TPA today Continue Unasyn 3 g every 6 hours Replace potassium Continue Symbicort twice a day Continue scheduled DuoNeb's every 6 hours Continue morphine 4 mg every 4 hours IV when necessary Patient is full code Objective - Vital Signs Vital signs: Vital Signs Temp 98.2 F 11/10/22 12:20 Pulse 69 11/10/22 12:20 Resp 15 11/10/22 12:20 BP 132/77 11/10/22 12:20 Pulse Ox 97 11/10/22 12:20 FiO2 2 11/04/22 07:24 Intake & Output 11/09/22 11/10/22 11/10/22 18:59 06:59 18:59 Intake Total 1100 1100 Output Total 1740 2320 Balance -640 -1220 Weight 77.111 kg Intake: Intake, IV Titration 1100 1100 Amount Ampicillin-Sulbactam 3 gm 200 200 In Sodium Chloride 0.9% 100 ml @ 200 mls/hr IVPB Q6HR [facility] Rx#:[id number] Sodium Chloride 0.9% 1, 900 900 000 ml @ 75 mls/hr IV . [id number] [facility] Rx#:[id number] Output: Chest Tube Drainage 120 Thora-Vent Right Lower 120 Posterior Chest Drainage 190 Right Chest 190 Urine 1550 2200 Other: Voiding Method Toilet Urinal - Labs CBC & Chem 7: 11/10/22 06:12 11/10/22 06:12 Labs: Abnormal Lab Results - Last 24 Hours (Table) 11/10/22 11/10/22 Range/Units 06:12 06:12 WBC 3.7 L (3.8-10.6) k/uL RBC 3.43 L (4.30-5.90) m/uL Hgb 9.2 L D (13.0-17.5) gm/dL Hct 29.1 L (39.0-53.0) % RDW 17.5 H (11.5-15.5) % Plt Count 147 L (150-450) k/uL Lymphocytes # 0.6 L (1.0-4.8) k/uL Sodium 136 L (137-145) mmol/L Potassium 3.1 L (3.5-5.1) mmol/L Carbon Dioxide 31 H (22-30) mmol/L BUN 8 L (9-20) mg/dL Creatinine 0.47 L (0.66-1.25) mg/dL Calcium 7.3 L (8.4-10.2) mg/dL
[2022-11-10] MEDS: GABAPENTIN 300 MG CAP PO PRN (21:23)
--- NOTE | 2022-11-10 22:21 | P.PN ---
Subjective Progress Note Date: 11/09/22 Principal diagnosis: empyema Patient is a 62-year-old male presenting to the hospital 4 days ago on 10/29/2022 for evaluation of weight loss failure to thrive and suspected malignancy patient also complaining of some right lower chest pain , patient was noticed to have a right-sided effusion status post thoracocentesis significantly positive culture did grew Streptococcus patient initially refused pigtail catheter placement however seemed to have agreed to it though. Patient is status post right-sided chest tube placement by interventional radiology on 11/03/2022 On today's evaluation that is 11/09/2022, the patient continues to be afebrile, the patient is breathing comfortably on 2 L nasal cannula oxygen, the patient right chest pain controlled with current pain meds , the patient denies any nausea no vomiting no abdominal pain and no worsening diarrhea Objective - Vital Signs Vital signs: Vital Signs Temp 97.9 F 11/09/22 07:30 Pulse 72 11/09/22 11:37 Resp 15 11/09/22 07:30 BP 139/72 11/09/22 07:30 Pulse Ox 97 11/09/22 08:41 FiO2 2 11/04/22 07:24 Intake & Output 11/08/22 11/09/22 11/09/22 18:59 06:59 18:59 Intake Total 500 Output Total 140 1800 Balance -140 -1300 Intake: Oral 500 Output: Chest Tube Drainage 70 0 Thora-Vent Right Lower 70 0 Posterior Chest Drainage 70 Right Chest 70 Urine 1800 Other: Voiding Method Toilet Toilet Urinal # Voids 2 0 # Bowel Movements 1 - Exam GENERAL DESCRIPTION: Middle-aged male lying in bed in no distress RESPIRATORY SYSTEM: Unlabored breathing , decreased breath sounds at bases HEART: S1 S2 regular rate and rhythm , ABDOMEN: Soft , no tenderness EXTREMITIES: No edema feet - Labs CBC & Chem 7: 11/10/22 06:12 11/10/22 06:12 Labs: Abnormal Lab Results - Last 24 Hours (Table) 11/09/22 11/09/22 Range/Units 06:30 06:30 RBC 4.14 L (4.30-5.90) m/uL Hgb 10.9 L (13.0-17.5) gm/dL Hct 34.9 L (39.0-53.0) % RDW 17.3 H (11.5-15.5) % Plt Count 127 L (150-450) k/uL Lymphocytes # 0.4 L (1.0-4.8) k/uL BUN 7 L (9-20) mg/dL Creatinine 0.46 L (0.66-1.25) mg/dL Calcium 7.6 L (8.4-10.2) mg/dL Assessment and Plan (1) Empyema Current Visit: Yes Status: Acute Code(s): J86.9 - PYOTHORAX WITHOUT FISTULA SNOMED Code(s): 936639710 Plan: 1patient presented hospital with right-sided chest pain shortness of breath and cough in this patient with evidence of large right-sided effusion status post thoracocentesis with significant normality of the fluid culture growing alphahemolytic Streptococcus concerning for empyema with underlying malignancy not entirely excluded in view of his overall clinical condition 2-patient is status post chest tube placement on the right side, CT surgery is following the patient closely 3Patient is afebrile the patient white count has been normal 4-patient is slowly clinical improvement and will continue with Unasyn 3 g every 6 hours Time with Patient: Less than 30
--- NOTE | 2022-11-10 22:23 | P.PN ---
Subjective Progress Note Date: 11/10/22 Principal diagnosis: empyema Patient is a 62-year-old male presenting to the hospital 4 days ago on 10/29/2022 for evaluation of weight loss failure to thrive and suspected malignancy patient also complaining of some right lower chest pain , patient was noticed to have a right-sided effusion status post thoracocentesis significantly positive culture did grew Streptococcus patient initially refused pigtail catheter placement however seemed to have agreed to it though. Patient is status post right-sided chest tube placement by interventional radiology on 11/03/2022 On today's evaluation that is 11/10/2022, the patient remains to be afebrile, the patient is breathing comfortably on 2 L nasal cannula oxygen, the patient is complaining of more right chest pain today , the patient denies any nausea no vomiting no abdominal pain and no diarrhea Objective - Vital Signs Vital signs: Vital Signs Temp 98.4 F 11/10/22 19:13 Pulse 69 11/10/22 19:13 Resp 15 11/10/22 19:13 BP 150/78 11/10/22 19:13 Pulse Ox 94 L 11/10/22 19:13 FiO2 2 11/04/22 07:24 Intake & Output 11/10/22 11/10/22 11/11/22 06:59 18:59 06:59 Intake Total 1100 118 Output Total 2320 300 Balance -1220 -300 118 Weight 77.111 kg Intake: Intake, IV Titration 1100 Amount Ampicillin-Sulbactam 3 gm 200 In Sodium Chloride 0.9% 100 ml @ 200 mls/hr IVPB Q6HR [facility] Rx#:[id number] Sodium Chloride 0.9% 1, 900 000 ml @ 75 mls/hr IV . [id number] [facility] Rx#:[id number] Oral 118 Output: Chest Tube Drainage 120 Thora-Vent Right Lower 120 Posterior Chest Drainage 300 Right Chest 300 Urine 2200 Other: Voiding Method Toilet Urinal - Exam GENERAL DESCRIPTION: Middle-aged male lying in bed in no distress RESPIRATORY SYSTEM: Unlabored breathing , decreased breath sounds at bases right-sided chest tube with purulent drainage HEART: S1 S2 regular rate and rhythm , ABDOMEN: Soft , no tenderness EXTREMITIES: No edema feet - Labs CBC & Chem 7: 11/10/22 06:12 11/10/22 06:12 Labs: Abnormal Lab Results - Last 24 Hours (Table) 11/10/22 11/10/22 Range/Units 06:12 06:12 WBC 3.7 L (3.8-10.6) k/uL RBC 3.43 L (4.30-5.90) m/uL Hgb 9.2 L D (13.0-17.5) gm/dL Hct 29.1 L (39.0-53.0) % RDW 17.5 H (11.5-15.5) % Plt Count 147 L (150-450) k/uL Lymphocytes # 0.6 L (1.0-4.8) k/uL Sodium 136 L (137-145) mmol/L Potassium 3.1 L (3.5-5.1) mmol/L Carbon Dioxide 31 H (22-30) mmol/L BUN 8 L (9-20) mg/dL Creatinine 0.47 L (0.66-1.25) mg/dL Calcium 7.3 L (8.4-10.2) mg/dL Assessment and Plan (1) Empyema Current Visit: Yes Status: Acute Code(s): J86.9 - PYOTHORAX WITHOUT FISTULA SNOMED Code(s): 621453834 Plan: 1patient presented hospital with right-sided chest pain shortness of breath and cough in this patient with evidence of large right-sided effusion status post thoracocentesis with significant normality of the fluid culture growing alphahemolytic Streptococcus concerning for empyema with underlying malignancy not entirely excluded in view of his overall clinical condition 2-patient is status post chest tube placement on the right side, CT surgery is following the patient closely, with no plan for any surgical intervention 3Patient is afebrile the patient white count has been normal 4-patient to continue with Unasyn 3 g every 6 hours, plan is for IV antibiotic on discharge
[2022-11-11] MEDS: SODIUM CHLORIDE 0.9% 1,000 ML IV SCH ×2 (00:59→18:06)
[2022-11-11] MEDS: AMPICILLIN-SULBACTAM 3 GM in SODIUM CHLORIDE 0.9% 100 ML IVPB SCH ×5 (01:00→23:36)
[2022-11-11] MEDS: MORPHINE SULFATE 4 MG/ML SYRINGE IV PRN ×6 (01:04→23:35)
--- NOTE | 2022-11-11 06:57 | XR ---
EXAMINATION TYPE: XR chest 1V portable DATE OF EXAM: 11/11/2022 6:37 AM COMPARISON: Chest radiographs from 11/10/2022 TECHNIQUE: XR chest 1V portable Portable AP radiograph of the chest. CLINICAL INDICATION:Male, 62 years old with history of empyema; FINDINGS: Lungs/Pleura: Persistent right mid and lower lung airspace opacities with consolidation. Blunting of both costophrenic angles with right greater than left. Emphysematous changes. No sizable pneumothorax . Pulmonary vascularity: Unremarkable. Heart/mediastinum: Cardiomediastinal silhouette is prominent in size. Musculoskeletal: No acute osseous pathology. Other findings: None Lines/Tubes: Right basilar pleural catheter is in stable position. IMPRESSION: 1. Persistent pleural-parenchymal opacities in the right lower lung with right basilar pleural jennifer ter in place. Findings again compatible with underlying emphysema and adjacent likely pneumonia. Cont inued follow-up is recommended. 2. Background COPD changes with trace left pleural effusion.
--- NOTE | 2022-11-11 07:58 | P.PN ---
Subjective Progress Note Date: 11/11/22 Principal diagnosis: Right-sided effusion, empyema with pleural fluid positive for alpha hemolytic strep, status post right-sided thoracentesis with subsequent pigtail catheter placement, masslike area of heterogeneous enhancement in the right middle lobe, combination of collapse and consolidation of the basilar right lower lobe, acute hypoxic respiratory failure, progressive shortness of breath, cough with sputum production. History of recent 65 pound weight loss, long-term heavy tobacco use with recent cessation, COPD, asthma, hypertension The patient was seen and examined sitting up in bed on the medical oncology unit in no acute distress. Continues to feel the same. Right pigtail catheter remains present, sixth dose lytics given yesterday with 300 mL drainage in the last 24 hours. Remains on 2 L nasal cannula with oxygen saturation in the high 90s, remains afebrile, remains on IV Unasyn per infectious disease. Pleural fluid cytology negative for malignant cells. CXR reviewed, continues to appear better. No other new concerns. Objective - Vital Signs Vital signs: Vital Signs Temp 97.8 F 11/11/22 07:20 Pulse 55 L 11/11/22 07:20 Resp 16 11/11/22 07:20 BP 138/61 11/11/22 07:20 Pulse Ox 98 11/11/22 07:20 FiO2 2 11/04/22 07:24 Intake & Output 11/10/22 11/11/22 11/11/22 18:59 06:59 18:59 Intake Total 118 Output Total 300 600 Balance -300 -482 Weight 77.111 kg Intake: Oral 118 Output: Drainage 300 Right Chest 300 Urine 600 Other: Voiding Method Toilet Urinal # Voids 0 - Exam CONSTITUTIONAL: Appears comfortable, cooperative, no acute distress RESPIRATORY: Lungs sounds diminished bilaterally. Respirations even, nonlabored. Currently on 2 L nasal cannula with oxygen saturation 91%. Able to achieve 1500 mL on incentive spirometry. Strong cough. CARDIOVASCULAR: S1, S2 present. Regular rate and rhythm. Palpable peripheral pulses bilaterally. No edema present. No calf pain or tenderness noted. SCDs present. GASTROINTESTINAL: Abdomen soft, nontender, nondistended. Active bowel sounds present 4 quadrants. Tolerating minimal diet. Positive bowel movement 11/08/22 GENITOURINARY: Continues to void INTEGUMENTARY: Skin is warm and dry NEUROLOGIC: Cranial nerves II through XII intact MUSKULOSKELETAL: Able to move all extremities, strength equal bilaterally, gait normal PSYCHIATRIC: Alert and oriented to person place and time, flat affect INVASIVE LINES AND TUBES: Right-sided pigtail catheter present, 300 mL thick mccarthy drainage in the last 24 hours - Allied health notes Allied health notes reviewed: nursing - Labs CBC & Chem 7: 11/10/22 06:12 11/10/22 06:12 - Imaging and Cardiology Chest x-ray: report reviewed, image reviewed Assessment and Plan Assessment: Right-sided effusion, empyema with pleural fluid positive for alpha hemolytic strep, status post right-sided thoracentesis with subsequent pigtail catheter placement Masslike area of heterogeneous enhancement in the right middle lobe measuring 6.9 cm, right pleural fluid cytology negative for malignant cells Combination of collapse and consolidation of the basilar right lower lobe Acute hypoxic respiratory failure Progressive shortness of breath, cough with sputum production Recent 65 pound weight loss Long-term heavy tobacco use with recent cessation COPD Asthma Hypertension Plan: We will instill seventh dose lytics today, will continue to instill as long as patient continues to drain Monitor drainage from pigtail catheter Continue antibiotics per infectious disease recommendations No surgical intervention recommended, patient too high risk Medical management of other comorbidities per internal medicine, pulmonology, infectious disease More recommendations to follow
[2022-11-11] MEDS ORDERED: ALTEPLASE 10 MG in SODIUM CHLORIDE 0.9% 50 ML IRRIGATION ONE (08:00)
[2022-11-11] MEDS ORDERED: DORNASE ALFA 5 MG in SODIUM CHLORIDE 0.9% 50 ML IRRIGATION ONE (08:00)
[2022-11-11] MEDS: LABETALOL 200 MG TAB PO SCH ×2 (08:26→20:10)
[2022-11-11] MEDS: BENZTROPINE MESYLATE 0.5 MG TAB PO SCH ×2 (08:26→20:10)
[2022-11-11] MEDS: PANTOPRAZOLE 40 MG TABLET PO SCH ×2 (08:26→20:10)
[2022-11-11] MEDS: TAMSULOSIN 0.4 MG CAP.ER.24H PO SCH (08:26)
[2022-11-11] MEDS: SERTRALINE 100 MG TAB PO SCH ×2 (08:26→20:10)
[2022-11-11] MEDS: ENOXAPARIN 40 MG/0.4 ML SYRINGE SQ SCH (08:26)
[2022-11-11] MEDS: IPRATROPIUM-ALBUTEROL 3 ML NEB INHALATION SCH ×4 (08:39→20:27)
[2022-11-11] MEDS: SYMBICORT 160-4.5 MCG INHALER INHALATION SCH ×2 (08:39→20:27)
--- NOTE | 2022-11-11 09:54 | P.PN ---
Subjective Progress Note Date: 11/11/22 Pt feels generally weak, but pain has improved. Gen: awake, alert HEENT: normocephalic, atraumatic, good hearing acuity, moist mucous membranes Resp: good air exchange, breathing comfortably with no accessory muscle use CVS: good distal perfusion x 4, GI: soft, NTTP, ND : no SPT, no CVAT, schultz catheter not present MSK: no pitting edema, no clubbing Neuro: non-focal, moving all extremities Psych: cooperative, euthymic mood Hospital course: 61-year-old male with a PMH of tobacco abuse who was transferred from [facility] where he had presented earlier today with complaints of weight loss and abdominal pain. In [place] emergency room, the patient underwent an extensive evaluation with laboratory evaluation showing WBC count 8.3, hemoglobin 11.0, sodium 131, glucose 104, lactic acid 1.3, calcium 8.0, with albumin 2.7. Patient evaluated by pulmonology. Thoracentesis done. Has significant empyema. Patient also started on vancomycin and cefepime. Culture showing alphahemolytic streptococcus. ID consulted. Patient was transitioned to Unasyn. Patient was seen in consultation with CT surgery as well, required multiple doses of lytics to improve chest tube output. Assessment: Empyema Masslike enhancement in the right middle lobe COPD with Emphysema without exacerbation Hyponatremia, euvolemic, stable Hypokalemia, resolved Normocytic anemia Aneurysmal aortic root and ascending aorta Plan: Today, patient is afebrile, 138/61, heart rate 55, 98% on 2 L nasal cannula Ordered CBC, basic metabolic panel, magnesium for tomorrow Chest x-ray reviewed today, still has air fluid level, improving overall empyema Continue Unasyn 3 g every 6 hours Continue Symbicort twice a day Continue scheduled DuoNeb's every 6 hours Continue morphine 4 mg every 4 hours IV when necessary Patient is full code Objective - Vital Signs Vital signs: Vital Signs Temp 97.8 F 11/11/22 07:20 Pulse 60 11/11/22 08:50 Resp 16 11/11/22 07:20 BP 138/61 11/11/22 07:20 Pulse Ox 98 11/11/22 08:39 FiO2 2 11/04/22 07:24 Intake & Output 11/10/22 11/11/2223 18:59 06:59 18:59 Intake Total 118 Output Total 300 600 Balance -300 -482 Weight 77.111 kg Intake: Oral 118 Output: Drainage 300 Right Chest 300 Urine 600 Other: Voiding Method Toilet Urinal # Voids 0 - Labs CBC & Chem 7: 11/10/22 06:12 11/10/22 06:12
--- NOTE | 2022-11-11 14:31 | P.PN ---
Subjective Progress Note Date: 11/11/22 62-year-old male transferred from an outside hospital, with shortness of breath, a 65 pound weight loss recently, failure to thrive, and concerns about malignancy. The patient apparently presented to Hospital up in the [place] area. He was at the outside hospital for some time. The patient is not a pa rticularly good historian. The patient really is not able to give any definitive history. The patient is a heavy smoker, and a chest x-ray, apparently showed a abnormal fluid collection and/or mass in the right chest. I asked him what he was diagnosed with the outside hospital, but he was unable to tell me. He apparently also has cough, some phlegm production. No fever or chills. No chest pain or chest discomfort. He likely has underlying COPD from heavy tobacco use. Currently, the patient's on 3 L of oxygen, but without any IV fluids. We will order the computed tomography scan of the chest, and we asked interventional radiology to consider doing a thoracentesis, and/or pigtail catheter placement. His chest x-ray showed a right-sided pleural effusion. The ultrasound was subsequently ordered. We will follow back from interventional radiology team, that the material removed from the chest, was purulent, and looked like pus. In addition, 1250 mL of fluid was removed from the right we added vancomycin and cefepime. White count 8.3, hemoglobin 11, hematocrit 34.7, and platelet count normal. INR was 1.9. Sodium 131, potassium 3.7, chlorides 98, CO2 23, normal anion gap, BUN 13, and the creatinine 0.61. Glucose 104. Albumin 2.7. Chest x-ray showed some chronic emphysematous changes, parenchymal fibrotic changes, and a non-simple right-sided pleural effusion. The ultrasound showed a relatively larger fluid pocket on the right side, measuring 13.3 cm. There was complex internal debris within the right chest. Hence, interventional radiology was asked to the procedure. Computed tomography scan is currently pending. The patient is seen today 10/31/2022 in follow-up on the regular medical floor. He is currently resting comfortably in bed. Awake and alert in no acute distress. He did undergo a right-sided thoracentesis by interventional radiology yesterday. The fluid was significantly dyspneic and pertinent and suspicious for empyema. The were planning to place a pigtail catheter however the patient refused to have it done. A total of 1250 ML's was drained. Fluid analysis reveals turbid appearance with greater than 500,000 WBCs. Total protein 2.4. LDH greater than 2500. He was initiated on vancomycin and cefepime yesterday. Continued on DuoNeb inhalations, Symbicort. Sodium 133. Potassium 3.9. Bicarb 25. BUN 11. Creatinine 0.60. The patient is seen today 11/01/2022 in follow-up on the regular medical floor. He is currently resting in bed. Awake and alert in no acute distress. Maintaining good O2 saturations in the 90s on room air. He is feeling weak and fatigued. He continues to decline the offer of a chest tube placement to help drain the suspected abscess in the right chest. He is continued on vancomycin and cefepime. Continue on Symbicort and DuoNeb inhalations. Lovenox for DVT prophylaxis. Chest x-ray shows similar right airspace opacities. Superimposed emphysema. Preliminary pleural fluid Gram stain showing alpha hemolytic streptococcus. White count 4.5. Hemoglobin 10.0. Platelets 287. Sodium 133. Potassium 3.2. Bicarb 21. BUN 9. Creatinine 0.58. The patient is seen today 11/02/2022 in follow-up on the regular medical floor. He is awake and alert in no acute distress. Still not feeling much better today compared to yesterday. Still weak and fatigued. Maintaining good O2 saturations in the 90s on room air. He is continued on vancomycin and cefepime. Pleural fluid culture is positive for alphahemolytic streptococcus. White count 5.8. Hemoglobin 9.2. Platelets 285. Sodium 132. Potassium 3.8. Bicarb 19. BUN 6. Creatinine 0.51. Glucose 83. On today's evaluation of 11/03/2022, the patient has no specific complaints. The patient will have a pigtail catheter insertion today for an underlying empyema. Noted the patient underwent a thoracentesis and the fluid cultures c tarik back positive for alpha hemolytic strep. The patient will have a pigtail catheter inserted today. He does have a masslike consolidation of the right middle lobe in addition to right-sided pleural effusion that was drained earlier. He is known to have COPD. He is currently on 2 L of Oxymizer nasal cannula with a pulse ox of 96%. Hemodynamically stable. He remains on accommodation of cefepime and vancomycin. Also, vancomycin, clinically hemoglobin of 10.3 and a platelet count of 316. The BUN is at 5.2 with a creatinine of 0.5 and a sodium level is at 134. The vancomycin trough is at 19.6. The most recent chest x-rays from 11/01/2022 that showed a air space disease involving the right lung, and the CAT scan of the chest that was done on 10/30/2022 showed a moderate to large pleural fluid collection involving the right lung with thickening borders and a small peripheral enhancement and some inflammatory fat stranding within the adjacent pericolic fat. This is consistent with empyema. There is also a some atelectatic changes in the right lung base. There is back on moderate to severe emphysema. The patient's aortic root was measuring 5.2 cm in size and the ascending aorta was measuring 4.1 cm. On 11/04/2022, the patient is being seen for a follow-up. The patient is an empyema of the right lung. The pigtail catheter was inserted yesterday and a total of 600 mL of purulent material was aspirated from the right lung and the [facility] is collecting in the pleural VAC. The repeat chest x-ray shows no major improvement and there is significant opacification of the right lower lobe. Based on that, the patient is going to receive an alteplase treatment to enhance drainage of the empyema. The patient remains hemodynamically stable. He remains on2 L of oxygen by nasal cannula with a pulse ox of 97%. The blood work today shows a WBC count of 8.2 with a hemoglobin of 10.3. Electrolytes from yesterday were all within normal limits. The patient also had has been on IV Unasyn. The patient on DuoNeb about treatments [id number]. He is on Lovenox portably prophylaxis. On today's evaluation of 11/05/2022, the patient has an thrombolytic administr ation to the pigtail catheter into the right lung as the patient has a right lung empyema. A total of 1.4 L of pleural fluid has been aspirated or drained in the atrium since the insertion of the catheter. Clinically the patient is doing well. Chest x-ray shows some limited improvement elevation of the right lung. The patient remains on IV Unasyn. Is currently comfortable. No pleurisy. No hemoptysis. The patient's echoes of 5.5 with a hemoglobin 9.3 and a BUN of 4 with a creatinine of 0.6 and a sodium level is 140. No other issues for now and the patient is being followed up with us and cardiothoracic team. On today's evaluation of 2022, the patient is being seen for a follow-up. The patient underwent his second dose of alteplase administration today. The patient continues to have adequate amount of output. Note that following the first alteplase treatment, the patient produced approximately 700 mL of purulent material and he continues to drain. He remains on oxygen at 2 L/m nasal cannula. He remains on IV Unasyn. The chest x-ray from today is showing still opacification of the right base and there is a right-sided pigtail catheter which is in a good location. There is a persistent right-sided pleural effusion/collection along with right lung atelectasis. There is a small left- sided pleural effusion also noted on today's chest x-ray. Clinically however the patient is doing well. His tolerating his diet. No nausea or vomiting or diarrhea. No other significant issues otherwise. On 11/07/2022, the patient is clinically stable and hemodynamically stable. The patient is undergoing his third dose of alteplase today. Following his second dose yesterday, the patient produced another 400 mL of purulent material. Chest x-ray findings are unchanged. Patient remains on IV Unasyn. The patient also has a white cell count of 5.5 with a hemoglobin 9.3. Sodium is at 140, the BUN is at 9 with a creatinine of 0.6. No chest pain. No fever or chest and altered mentation. Using the incentive spirometer. Using DuoNeb nebulized treatments [id number]. Using Symbicort. . On today's evaluation of 11/08/2022, the patient's right-sided pigtail catheter remains in place. Third dose of thrombolytic was given yesterday and the patient produced another 400 mL of purulent material. He remains on oxygen 2 L/m nasal cannula. He remains on antibiotics. There is a persistent pocket on chest x-ray today and for that reason a CAT scan of the chest will be obtained to evaluate the progression of this right-sided empyema. I would say, overall, there is improvement in the findings and the chest x-ray. No significant leukocytosis with white cell cause of 3.4. Hemoglobin is at 9.7. Sodium is at 133 with a potassium level of 3.4. Serum bicarb is at 30 with a BUN of 6 and a creatinine of 0.48. The patient is seen today 11/09/2022 in follow-up on the regular medical floor. He is currently sitting up in bed. Awake and alert in no acute distress. He is maintaining good O2 saturations in the upper 90s on 2 L/m per nasal cannula. He's receive 4 doses of alteplase/dornase infusions to the right-sided chest tube. 70 ML's returned in the past 24 hours. Follow-up computed tomography scan of the chest from yesterday revealed persistent right basilar empyema with drainage catheter in place. Empyema smaller in size as compared to previous on 10/30/2022. The remains patchy basilar infiltrates and pleural parenchymal opacity in the right lung base with additional small effusions. Fluid cultures have been positive for alphahemolytic streptococcus. White count 3.9. Hemoglobin 10.9. Platelets 127. Sodium 137. Potassium 4.0. Bicarb 26. BUN 7. Creatinine 0.46. He is continued on DuoNeb inhalations, Symbicort. Lovenox for DVT prophylaxis. Antibiotics in the form of Unasyn. The patient is seen today 11/10/2022 and follow-up on the regular medical floor. He remains awake and alert in no acute distress. Continue good O2 saturations in the 90s on room air. He's afebrile. Hemodynamically stable. Chest x-ray r eveals ongoing pleuralparenchymal opacities of the right lower lung with right basilar pleural catheter in place. Findings compatible with underlying emphysema and likely adjacent pneumonia. Advanced bullous emphysema. Trace left-sided pleural effusion. Pleural fluid cultures were positive for alpha hemolytic streptococcus. Remains on Unasyn. He is continued on DuoNeb inhalations, Symbicort. Lovenox for DVT prophylaxis. White count 3.7. Hemoglobin 9.2. Platelets 147. Sodium 136. Potassium 3.1. Bicarb 31. BUN 8. Creatinine 0.47. The patient is seen today 11/11/2022 in follow-up on the regular medical floor. He sitting up in bed. Awake and alert in no acute distress. Maintaining good O2 saturations in the upper 90s on 2 L/m per nasal cannula. He's been afebrile. Hemodynamically stable. He is still having some ongoing issues with right- sided chest discomfort. Pigtail catheter remains in place. Additional 300 ML's drained in the past 24 hours. He's receive 6 doses of lytic infusion. Plan is for her seventh dose today. Chest x-ray continues to show improvement. He is continued on Unasyn. He remains on DuoNeb inhalations, Symbicort. Lovenox for DVT prophylaxis. Objective - Vital Signs Vital signs: Vital Signs Temp 98.5 F 11/11/22 11:27 Pulse 64 11/11/22 12:09 Resp 16 11/11/22 11:27 BP 147/68 11/11/22 11:27 Pulse Ox 97 11/11/22 11:27 FiO2 2 11/04/22 07:24 Intake & Output 11/10/22 11/11/22 11/11/22 18:59 06:59 18:59 Intake Total 118 Output Total 300 600 Balance -300 -482 Weight 77.111 kg Intake: Oral 118 Output: Drainage 300 Right Chest 300 Urine 600 Other: Voiding Method Toilet Urinal # Voids 0 - Exam GENERAL EXAM: Alert, thin 62-year-old male, sitting up in bed, on 2 L nasal cannula, fairly comfortable in no apparent distress. HEAD: Normocephalic. EYES: Normal reaction of pupils, equal size. NOSE: Clear with pink turbinates. THROAT: No erythema or exudates. NECK: No masses, no JVD. CHEST: No chest wall deformity. Right-sided pigtail catheter in place. LUNGS: Equal air entry with bilateral scattered rhonchi more so on the right, diminished in the bases. CVS: S1 and S2 normal with no audible murmur, regular rhythm. ABDOMEN: No hepatosplenomegaly, normal bowel sounds, no guarding or rigidity. SPINE: No scoliosis or deformity SKIN: No rashes CENTRAL NERVOUS SYSTEM: No focal deficits, tone is normal in all 4 extremities. EXTREMITIES: There is no peripheral edema. No clubbing, no cyanosis. Peripheral pulses are intact. - Labs CBC & Chem 7: 11/10/22 06:12 11/10/22 06:12 Assessment and Plan Assessment: Right lung empyema with alphahemolytic strep. The patient has a moderate to large pleural fluid collection on the right side posteriorly with previous thoracentesis showing fluid consistent with empyema. Cultures positive Streptococcus and the patient was given a pigtail catheter for further drainage. The patient received alteplase a total of 4 doses with some improvement in the chest x-ray findings although the right base still opacified. Follow-up computed tomography scan of the chest from yesterday revealed persistent right b asilar empyema with drainage catheter in place. Empyema smaller in size as compared to previous on 10/30/2022. The remains patchy basilar infiltrates and pleural parenchymal opacity in the right lung base with additional small effusions. Sixth dose of alteplase/dornase given on 11/10/2022 with an additional 300 MLS output. Chronic shortness of breath, anorexia, significant 65 pound weight loss, and an abnormal chest x-ray. Status post right-sided thoracentesis by interventional radiology in the fluid was suspicious for empyema. Currently on Unasyn. History of heavy tobacco use, with probable underlying COPD History of hypertension Vague history of asthma Plan: The patient was seen and evaluated Chest x-ray, medications and labs reviewed Currently on Unasyn Continue bronchodilators Lovenox for DVT prophylaxis Plan is for a 7th dose of lytics today No plans for surgical intervention We will continue to follow I have personally seen and examined the patient, performed the documentation and the assessment and plan as written. Number of minutes spent on the visit: 10.
--- NOTE | 2022-11-11 14:37 | P.PN ---
Subjective Progress Note Date: 11/11/22 Principal diagnosis: empyema Patient is a 62-year-old male presenting to the hospital 4 days ago on 10/29/2022 for evaluation of weight loss failure to thrive and suspected malignancy patient also complaining of some right lower chest pain , patient was noticed to have a right-sided effusion status post thoracocentesis significantly positive culture did grew Streptococcus patient initially refused pigtail catheter placement however seemed to have agreed to it though. Patient is status post right-sided chest tube placement by interventional radiology on 11/03/2022 On today's evaluation that is 11/11/2022, the patient continues to be afebrile, the patient is breathing comfortably on 2 L nasal cannula oxygen, the patient has been complaining of more right chest pain and wants more pain medication, the patient denies any nausea no vomiting no abdominal pain and no diarrhea Objective - Vital Signs Vital signs: Vital Signs Temp 98.5 F 11/11/22 11:27 Pulse 64 11/11/22 12:09 Resp 16 11/11/22 11:27 BP 147/68 11/11/22 11:27 Pulse Ox 97 11/11/22 11:27 FiO2 2 11/04/22 07:24 Intake & Output 11/10/22 11/11/22 11/11/22 18:59 06:59 18:59 Intake Total 118 Output Total 300 600 Balance -300 -482 Weight 77.111 kg Intake: Oral 118 Output: Drainage 300 Right Chest 300 Urine 600 Other: Voiding Method Toilet Urinal # Voids 0 - Exam GENERAL DESCRIPTION: Middle-aged male lying in bed in no distress RESPIRATORY SYSTEM: Unlabored breathing , decreased breath sounds at bases right-sided chest tube with mostly bloody secretions HEART: S1 S2 regular rate and rhythm , ABDOMEN: Soft , no tenderness EXTREMITIES: No edema feet - Labs CBC & Chem 7: 11/10/22 06:12 11/10/22 06:12 Assessment and Plan (1) Empyema Current Visit: Yes Status: Acute Code(s): J86.9 - PYOTHORAX WITHOUT FISTULA SNOMED Code(s): 959008267 Plan: 1patient presented hospital with right-sided chest pain shortness of breath and cough in this patient with evidence of large right-sided effusion status post thoracocentesis with significant normality of the fluid culture growing alphahe molytic Streptococcus concerning for empyema with underlying malignancy not entirely excluded in view of his overall clinical condition 2-patient is status post chest tube placement on the right side, CT surgery is following the patient closely, with no plan for any surgical intervention 3Patient is afebrile the patient white count has been normal 4-patient is slowly clinically improving and plan is to continue with Unasyn 3 g every 6 hours and monitor clinical course closely Time with Patient: Less than 30
[2022-11-11] MEDS: GABAPENTIN 300 MG CAP PO PRN (20:06)
[2022-11-12] MEDS: MORPHINE SULFATE 4 MG/ML SYRINGE IV PRN ×5 (04:54→20:49)
[2022-11-12] MEDS: AMPICILLIN-SULBACTAM 3 GM in SODIUM CHLORIDE 0.9% 100 ML IVPB SCH ×4 (05:36→23:56)
[2022-11-12 06:19] LABS: Anisocytosis Slight; Basophils % (A) 0 %; Eosinophils # (A) 0.1 k/uL (0-0.7); Eosinophils % (A) 3 %; HCT 31.1 % (39.0-53.0); HGB 9.8 gm/dL (13.0-17.5); Hypochromasia Moderate; Lymphocytes # (A) 0.7 k/uL (1.0-4.8); Lymphocytes % (A) 21 %; MCH 26.8 pg (25.0-35.0); MCHC 31.4 g/dL (31.0-37.0); MCV 85.5 fL (80.0-100.0); Mean Platelet Volume 7.7; Monocytes # (A) 0.2 k/uL (0-1.0); Monocytes % (A) 6 %; Neutrophils # (A) 2.3 k/uL (1.3-7.7); Neutrophils % (A) 68 %; Platelet Count 145 k/uL (150-450); RBC 3.63 m/uL (4.30-5.90); WBC 3.4 k/uL (3.8-10.6)
[2022-11-12 06:35] LABS: African American GFR (CKD) >90 (>60 ml/min/1.73 sqM); Anion Gap 3 mmol/L; Blood Urea Nitrogen 8 mg/dL (9-20); Calcium 7.8 mg/dL (8.4-10.2); Carbon Dioxide 30 mmol/L (22-30); Chloride 103 mmol/L (98-107); Glucose 81 mg/dL (74-99); Non-African American GFR(CKD) >90 (>60 ml/min/1.73 sqM); Potassium 3.9 mmol/L (3.5-5.1); Sodium 136 mmol/L (137-145)
--- NOTE | 2022-11-12 07:15 | XR ---
EXAMINATION TYPE: XR chest 1V portable DATE OF EXAM: 11/12/2022 Comparison: 11/11/2022 Clinical History: 62-year-old male empyema Findings: Heart normal size. Mildly tortuous/ectatic thoracic aorta. Mild patchy interstitial changes left mid and lower lung have increased in the interval. Similar focal right basilar opacities comprised of bot h pleural effusion and areas of consolidation. Trace left pleural effusion. Right basilar pleural ca theter in place. Some air in the pleural space now noted along the periphery of the right lower nj g measuring 7 mm thick. Impression: 1. Right-sided basilar pleural catheter in place. Ongoing extensive pleural effusion/empyema and area s of airspace disease throughout the right lower lung. Some air is now noted in the pleural space antonio ng the periphery of the right mid to lower lung measuring 7 mm thick, probably located within some of the empyema cavity. 2. Trace left pleural effusion. Mild patchy interstitial densities are increasing in the left mid and lower lung.
[2022-11-12] MEDS: ENOXAPARIN 40 MG/0.4 ML SYRINGE SQ SCH (09:04)
[2022-11-12] MEDS: TAMSULOSIN 0.4 MG CAP.ER.24H PO SCH (09:04)
[2022-11-12] MEDS: SERTRALINE 100 MG TAB PO SCH ×2 (09:04→20:49)
[2022-11-12] MEDS: PANTOPRAZOLE 40 MG TABLET PO SCH ×2 (09:04→20:49)
[2022-11-12] MEDS: BENZTROPINE MESYLATE 0.5 MG TAB PO SCH ×2 (09:05→20:49)
[2022-11-12] MEDS: LABETALOL 200 MG TAB PO SCH ×2 (09:05→20:49)
[2022-11-12] MEDS: SODIUM CHLORIDE 0.9% 1,000 ML IV SCH ×2 (09:09→20:51)
[2022-11-12] MEDS: SYMBICORT 160-4.5 MCG INHALER INHALATION SCH ×2 (09:28→20:10)
[2022-11-12] MEDS: IPRATROPIUM-ALBUTEROL 3 ML NEB INHALATION SCH ×4 (09:28→20:10)
[2022-11-12] MEDS: ONDANSETRON 4 MG/2 ML VIAL IVP PRN (09:57)
[2022-11-12] MEDS ORDERED: DORNASE ALFA 5 MG in SODIUM CHLORIDE 0.9% 50 ML IRRIGATION ONE (10:16)
[2022-11-12] MEDS ORDERED: ALTEPLASE 10 MG in SODIUM CHLORIDE 0.9% 50 ML IRRIGATION ONE (10:16)
--- NOTE | 2022-11-12 10:24 | P.PN ---
Subjective Progress Note Date: 11/12/22 Principal diagnosis: Right-sided pleural effusion, empyema with pleural fluid positive for alpha hemolytic strep, status post right-sided thoracentesis with subsequent pigtail catheter placement, masslike area of heterogeneous enhancement in the right middle lobe, combination of collapse and consolidation of the basilar right lower lobe, acute hypoxic respiratory failure, progressive shortness of breath, cough with sputum production. History of recent 65 pound weight loss, long-term heavy tobacco use with recent cessation, COPD, asthma, hypertension Patient was seen and examined today 11/12/2022 at his bedside on the fifth floor medical surgical unit. He currently sitting up in bed, is awake, alert, oriented 3 and is in no acute distress. Denies any complaints of shortness of breath at this time, although is complaining of some right-sided chest pain which is radiating through his abdomen. At this time he is rating his pain 3-4 out of 10 on the pain scale. Oxygen saturations are 98% on 2 L nasal cannula and he is achieving 6817-6829 mL on his incentive spirometry with encouragement. Right pleural pigtail catheter remains in place to low continuous wall suction -20 cm H2O. No air leak is present. Draining thick serosanguineous/mccarthy drainage with 125 mL output in the last 8 hours and 300 mL output in the last 24 hours. He has received 7 doses of alteplase/dornase through the right pigtail catheter. Infectious disease is following and the patient remains on IV Unasyn per infectious disease recommendations, as his pleural fluid culture showed pos itive for alpha hemolytic streptococcus. Pleural fluid cytology is negative for malignant cells. Chest x-ray was reviewed. The patient has been afebrile the last 24 hours. Objective - Vital Signs Vital signs: Vital Signs Temp 98.2 F 11/12/22 07:13 Pulse 74 11/12/22 09:40 Resp 17 11/12/22 07:13 BP 133/72 11/12/22 07:13 Pulse Ox 98 11/12/22 09:31 FiO2 2 11/04/22 07:24 Intake & Output 11/11/22 11/12/22 11/12/22 18:59 06:59 18:59 Intake Total 825 Output Total 75 1150 750 Balance -75 -325 -750 Intake: Intake, IV Titration 825 Amount Sodium Chloride 0.9% 1, 825 000 ml @ 75 mls/hr IV . [id number] [facility] Rx#:[id number] Output: Chest Tube Drainage 125 Thora-Vent Right Lower 125 Posterior Chest Drainage 75 125 Right Chest 75 125 Urine 900 750 Other: Voiding Method Toilet Urinal # Voids 0 # Bowel Movements 0 - Exam CONSTITUTIONAL: Appears comfortable, cooperative, no acute distress RESPIRATORY: Lungs sounds diminished bilaterally. Respirations even, nonlabored. Currently on 2 L nasal cannula with oxygen saturation 98%. Able to achieve 1902-0420 mL on incentive spirometry. Strong cough. CARDIOVASCULAR: S1, S2 present. Regular rate and rhythm. Palpable peripheral pulses bilaterally. No edema present. No calf pain or tenderness noted. SCDs present. GASTROINTESTINAL: Abdomen soft, nontender, nondistended. Active bowel sounds present 4 quadrants. Tolerating minimal diet. GENITOURINARY: Continues to void. INTEGUMENTARY: Skin is warm and dry, no evidence of clubbing or cyanosis. Right pleural pigtail catheter dressing is clean, dry and intact. NEUROLOGIC: Cranial nerves II through XII intact. No focal deficits. MUSKULOSKELETAL: Able to move all extremities, strength equal bilaterally, gait normal. PSYCHIATRIC: Alert and oriented to person place and time, flat affect. INVASIVE LINES AND TUBES: Right-sided pigtail catheter present, 300 mL thick serosanguineous/mccarthy drainage in the last 24 hours - Allied health notes Allied health notes reviewed: nursing - Labs CBC & Chem 7: 11/12/22 05:35 11/12/22 05:35 Labs: Abnormal Lab Results - Last 24 Hours (Table) 11/12/22 11/12/22 Range/Units 05:35 05:35 WBC 3.4 L (3.8-10.6) k/uL RBC 3.63 L (4.30-5.90) m/uL Hgb 9.8 L (13.0-17.5) gm/dL Hct 31.1 L (39.0-53.0) % RDW 18.0 H (11.5-15.5) % Plt Count 145 L (150-450) k/uL Lymphocytes # 0.7 L (1.0-4.8) k/uL Sodium 136 L (137-145) mmol/L BUN 8 L (9-20) mg/dL Creatinine 0.51 L (0.66-1.25) mg/dL Calcium 7.8 L (8.4-10.2) mg/dL - Imaging and Cardiology Chest x-ray: report reviewed, image reviewed Assessment and Plan Assessment: Right-sided pleural effusion, empyema with pleural fluid positive for alpha hemolytic streptococcus, status post right-sided thoracentesis with subsequent pigtail catheter placement Masslike area of heterogeneous enhancement in the right middle lobe measuring 6.9 cm, right pleural fluid cytology negative for malignant cells Combination of collapse and consolidation of the basilar right lower lobe Acute hypoxic respiratory failure Progressive shortness of breath, cough with sputum production Recent 65 pound weight loss Long-term heavy tobacco use with recent cessation COPD Asthma Hypertension Plan: We will instill eighth dose lytics today, will continue to instill as long as patient continues to drain. Monitor drainage from pigtail catheter. Continue antibiotics per infectious disease recommendations, currently on Unasyn as the patient's pleural fluid culture showed positive for alpha hemolytic streptococcus. No surgical intervention recommended, patient too high risk. Medical management of other comorbidities per internal medicine, pulmonology, and infectious disease. More recommendations to follow based on patient's clinical course. Time with Patient: Greater than 30
--- NOTE | 2022-11-12 12:36 | P.PN ---
Subjective Progress Note Date: 11/12/22 62-year-old male transferred from an outside hospital, with shortness of breath, a 65 pound weight loss recently, failure to thrive, and concerns about malignancy. The patient apparently presented to Hospital up in the [place] area. He was at the outside hospital for some time. The patient is not a pa rticularly good historian. The patient really is not able to give any definitive history. The patient is a heavy smoker, and a chest x-ray, apparently showed a abnormal fluid collection and/or mass in the right chest. I asked him what he was diagnosed with the outside hospital, but he was unable to tell me. He apparently also has cough, some phlegm production. No fever or chills. No chest pain or chest discomfort. He likely has underlying COPD from heavy tobacco use. Currently, the patient's on 3 L of oxygen, but without any IV fluids. We will order the computed tomography scan of the chest, and we asked interventional radiology to consider doing a thoracentesis, and/or pigtail catheter placement. His chest x-ray showed a right-sided pleural effusion. The ultrasound was subsequently ordered. We will follow back from interventional radiology team, that the material removed from the chest, was purulent, and looked like pus. In addition, 1250 mL of fluid was removed from the right we added vancomycin and cefepime. White count 8.3, hemoglobin 11, hematocrit 34.7, and platelet count normal. INR was 1.9. Sodium 131, potassium 3.7, chlorides 98, CO2 23, normal anion gap, BUN 13, and the creatinine 0.61. Glucose 104. Albumin 2.7. Chest x-ray showed some chronic emphysematous changes, parenchymal fibrotic changes, and a non-simple right-sided pleural effusion. The ultrasound showed a relatively larger fluid pocket on the right side, measuring 13.3 cm. There was complex internal debris within the right chest. Hence, interventional radiology was asked to the procedure. Computed tomography scan is currently pending. The patient is seen today 10/31/2022 in follow-up on the regular medical floor. He is currently resting comfortably in bed. Awake and alert in no acute distress. He did undergo a right-sided thoracentesis by interventional radiology yesterday. The fluid was significantly dyspneic and pertinent and suspicious for empyema. The were planning to place a pigtail catheter however the patient refused to have it done. A total of 1250 ML's was drained. Fluid analysis reveals turbid appearance with greater than 500,000 WBCs. Total protein 2.4. LDH greater than 2500. He was initiated on vancomycin and cefepime yesterday. Continued on DuoNeb inhalations, Symbicort. Sodium 133. Potassium 3.9. Bicarb 25. BUN 11. Creatinine 0.60. The patient is seen today 11/01/2022 in follow-up on the regular medical floor. He is currently resting in bed. Awake and alert in no acute distress. Maintaining good O2 saturations in the 90s on room air. He is feeling weak and fatigued. He continues to decline the offer of a chest tube placement to help drain the suspected abscess in the right chest. He is continued on vancomycin and cefepime. Continue on Symbicort and DuoNeb inhalations. Lovenox for DVT prophylaxis. Chest x-ray shows similar right airspace opacities. Superimposed emphysema. Preliminary pleural fluid Gram stain showing alpha hemolytic streptococcus. White count 4.5. Hemoglobin 10.0. Platelets 287. Sodium 133. Potassium 3.2. Bicarb 21. BUN 9. Creatinine 0.58. The patient is seen today 11/02/2022 in follow-up on the regular medical floor. He is awake and alert in no acute distress. Still not feeling much better today compared to yesterday. Still weak and fatigued. Maintaining good O2 saturations in the 90s on room air. He is continued on vancomycin and cefepime. Pleural fluid culture is positive for alphahemolytic streptococcus. White count 5.8. Hemoglobin 9.2. Platelets 285. Sodium 132. Potassium 3.8. Bicarb 19. BUN 6. Creatinine 0.51. Glucose 83. On today's evaluation of 11/03/2022, the patient has no specific complaints. The patient will have a pigtail catheter insertion today for an underlying empyema. Noted the patient underwent a thoracentesis and the fluid cultures c tarik back positive for alpha hemolytic strep. The patient will have a pigtail catheter inserted today. He does have a masslike consolidation of the right middle lobe in addition to right-sided pleural effusion that was drained earlier. He is known to have COPD. He is currently on 2 L of Oxymizer nasal cannula with a pulse ox of 96%. Hemodynamically stable. He remains on accommodation of cefepime and vancomycin. Also, vancomycin, clinically hemoglobin of 10.3 and a platelet count of 316. The BUN is at 5.2 with a creatinine of 0.5 and a sodium level is at 134. The vancomycin trough is at 19.6. The most recent chest x-rays from 11/01/2022 that showed a air space disease involving the right lung, and the CAT scan of the chest that was done on 10/30/2022 showed a moderate to large pleural fluid collection involving the right lung with thickening borders and a small peripheral enhancement and some inflammatory fat stranding within the adjacent pericolic fat. This is consistent with empyema. There is also a some atelectatic changes in the right lung base. There is back on moderate to severe emphysema. The patient's aortic root was measuring 5.2 cm in size and the ascending aorta was measuring 4.1 cm. On 11/04/2022, the patient is being seen for a follow-up. The patient is an empyema of the right lung. The pigtail catheter was inserted yesterday and a total of 600 mL of purulent material was aspirated from the right lung and the [facility] is collecting in the pleural VAC. The repeat chest x-ray shows no major improvement and there is significant opacification of the right lower lobe. Based on that, the patient is going to receive an alteplase treatment to enhance drainage of the empyema. The patient remains hemodynamically stable. He remains on2 L of oxygen by nasal cannula with a pulse ox of 97%. The blood work today shows a WBC count of 8.2 with a hemoglobin of 10.3. Electrolytes from yesterday were all within normal limits. The patient also had has been on IV Unasyn. The patient on DuoNeb about treatments [id number]. He is on Lovenox portably prophylaxis. On today's evaluation of 11/05/2022, the patient has an thrombolytic administr ation to the pigtail catheter into the right lung as the patient has a right lung empyema. A total of 1.4 L of pleural fluid has been aspirated or drained in the atrium since the insertion of the catheter. Clinically the patient is doing well. Chest x-ray shows some limited improvement elevation of the right lung. The patient remains on IV Unasyn. Is currently comfortable. No pleurisy. No hemoptysis. The patient's echoes of 5.5 with a hemoglobin 9.3 and a BUN of 4 with a creatinine of 0.6 and a sodium level is 140. No other issues for now and the patient is being followed up with us and cardiothoracic team. On today's evaluation of 2022, the patient is being seen for a follow-up. The patient underwent his second dose of alteplase administration today. The patient continues to have adequate amount of output. Note that following the first alteplase treatment, the patient produced approximately 700 mL of purulent material and he continues to drain. He remains on oxygen at 2 L/m nasal cannula. He remains on IV Unasyn. The chest x-ray from today is showing still opacification of the right base and there is a right-sided pigtail catheter which is in a good location. There is a persistent right-sided pleural effusion/collection along with right lung atelectasis. There is a small left- sided pleural effusion also noted on today's chest x-ray. Clinically however the patient is doing well. His tolerating his diet. No nausea or vomiting or diarrhea. No other significant issues otherwise. On 11/07/2022, the patient is clinically stable and hemodynamically stable. The patient is undergoing his third dose of alteplase today. Following his second dose yesterday, the patient produced another 400 mL of purulent material. Chest x-ray findings are unchanged. Patient remains on IV Unasyn. The patient also has a white cell count of 5.5 with a hemoglobin 9.3. Sodium is at 140, the BUN is at 9 with a creatinine of 0.6. No chest pain. No fever or chest and altered mentation. Using the incentive spirometer. Using DuoNeb nebulized treatments [id number]. Using Symbicort. . On today's evaluation of 11/08/2022, the patient's right-sided pigtail catheter remains in place. Third dose of thrombolytic was given yesterday and the patient produced another 400 mL of purulent material. He remains on oxygen 2 L/m nasal cannula. He remains on antibiotics. There is a persistent pocket on chest x-ray today and for that reason a CAT scan of the chest will be obtained to evaluate the progression of this right-sided empyema. I would say, overall, there is improvement in the findings and the chest x-ray. No significant leukocytosis with white cell cause of 3.4. Hemoglobin is at 9.7. Sodium is at 133 with a potassium level of 3.4. Serum bicarb is at 30 with a BUN of 6 and a creatinine of 0.48. The patient is seen today 11/09/2022 in follow-up on the regular medical floor. He is currently sitting up in bed. Awake and alert in no acute distress. He is maintaining good O2 saturations in the upper 90s on 2 L/m per nasal cannula. He's receive 4 doses of alteplase/dornase infusions to the right-sided chest tube. 70 ML's returned in the past 24 hours. Follow-up computed tomography scan of the chest from yesterday revealed persistent right basilar empyema with drainage catheter in place. Empyema smaller in size as compared to previous on 10/30/2022. The remains patchy basilar infiltrates and pleural parenchymal opacity in the right lung base with additional small effusions. Fluid cultures have been positive for alphahemolytic streptococcus. White count 3.9. Hemoglobin 10.9. Platelets 127. Sodium 137. Potassium 4.0. Bicarb 26. BUN 7. Creatinine 0.46. He is continued on DuoNeb inhalations, Symbicort. Lovenox for DVT prophylaxis. Antibiotics in the form of Unasyn. The patient is seen today 11/10/2022 and follow-up on the regular medical floor. He remains awake and alert in no acute distress. Continue good O2 saturations in the 90s on room air. He's afebrile. Hemodynamically stable. Chest x-ray r eveals ongoing pleuralparenchymal opacities of the right lower lung with right basilar pleural catheter in place. Findings compatible with underlying emphysema and likely adjacent pneumonia. Advanced bullous emphysema. Trace left-sided pleural effusion. Pleural fluid cultures were positive for alpha hemolytic streptococcus. Remains on Unasyn. He is continued on DuoNeb inhalations, Symbicort. Lovenox for DVT prophylaxis. White count 3.7. Hemoglobin 9.2. Platelets 147. Sodium 136. Potassium 3.1. Bicarb 31. BUN 8. Creatinine 0.47. The patient is seen today 11/11/2022 in follow-up on the regular medical floor. He sitting up in bed. Awake and alert in no acute distress. Maintaining good O2 saturations in the upper 90s on 2 L/m per nasal cannula. He's been afebrile. Hemodynamically stable. He is still having some ongoing issues with right- sided chest discomfort. Pigtail catheter remains in place. Additional 300 ML's drained in the past 24 hours. He's receive 6 doses of lytic infusion. Plan is for her seventh dose today. Chest x-ray continues to show improvement. He is continued on Unasyn. He remains on DuoNeb inhalations, Symbicort. Lovenox for DVT prophylaxis. Patient is seen today 11/13/19992017 in follow-up on the regular medical floor. He is awake and alert in no acute distress. Currently sitting up in bed. Having breakfast. Denies any worsening shortness of breath, cough or congestion. No hemoptysis. He is continued on DuoNeb inhalations, Symbicort. Remains on Unasyn. Lovenox for DVT prophylaxis. Normal saline at 75 ML's per hour. Chest x-ray shows right-sided basilar pleural catheter in place. Ongoing extensive pleural effusion/empyema and areas of airspace disease involving the right lower lobe. Suspect some loculated air within the empyema cavity. Trace left pleural effusion. Catheter remains to low continuous wall suction. No leak noted. He is receiving his seventh dose of lytic infusion. Approximately 220 ML's drained in the past 24 hours. He does continue to work well with the incentive spirometer pulling approximately 1500 ML's. White count 2.4. Hemoglobin 9.8. Platelets 145. Sodium 136. Potassium 3.9. Bicarb 30. BUN 8. Creatinine 0.51. Objective - Vital Signs Vital signs: Vital Signs Temp 97.8 F 11/12/22 11:43 Pulse 55 L 11/12/22 11:43 Resp 18 11/12/22 11:43 BP 161/84 11/12/22 11:43 Pulse Ox 98 11/12/22 11:43 FiO2 2 11/04/22 07:24 Intake & Output 11/11/22 11/12/22 11/12/22 18:59 06:59 18:59 Intake Total 825 Output Total 75 1150 750 Balance -75 -325 -750 Intake: Intake, IV Titration 825 Amount Sodium Chloride 0.9% 1, 825 000 ml @ 75 mls/hr IV . [id number] [facility] Rx#:[id number] Output: Chest Tube Drainage 125 Thora-Vent Right Lower 125 Posterior Chest Drainage 75 125 Right Chest 75 125 Urine 900 750 Other: Voiding Method Toilet Toilet Urinal Urinal # Voids 0 # Bowel Movements 0 - Exam GENERAL EXAM: Alert, thin 62-year-old male, on 2 L nasal cannula, comfortable in no apparent distress. HEAD: Normocephalic. EYES: Normal reaction of pupils, equal size. NOSE: Clear with pink turbinates. THROAT: No erythema or exudates. NECK: No masses, no JVD. CHEST: No chest wall deformity. Right-sided pigtail catheter in place to low continuous wall suction. No air leak noted. LUNGS: Equal air entry with bilateral scattered rhonchi more so on the right, diminished in the bases. CVS: S1 and S2 normal with no audible murmur, regular rhythm. ABDOMEN: No hepatosplenomegaly, normal bowel sounds, no guarding or rigidity. SPINE: No scoliosis or deformity SKIN: No rashes CENTRAL NERVOUS SYSTEM: No focal deficits, tone is normal in all 4 extremities. EXTREMITIES: There is no peripheral edema. No clubbing, no cyanosis. Peripheral pulses are intact. - Labs CBC & Chem 7: 11/12/22 05:35 11/12/22 05:35 Labs: Abnormal Lab Results - Last 24 Hours (Table) 11/12/22 11/12/22 Range/Units 05:35 05:35 WBC 3.4 L (3.8-10.6) k/uL RBC 3.63 L (4.30-5.90) m/uL Hgb 9.8 L (13.0-17.5) gm/dL Hct 31.1 L (39.0-53.0) % RDW 18.0 H (11.5-15.5) % Plt Count 145 L (150-450) k/uL Lymphocytes # 0.7 L (1.0-4.8) k/uL Sodium 136 L (137-145) mmol/L BUN 8 L (9-20) mg/dL Creatinine 0.51 L (0.66-1.25) mg/dL Calcium 7.8 L (8.4-10.2) mg/dL Assessment and Plan Assessment: Right lung empyema with alphahemolytic strep. The patient has a moderate to large pleural fluid collection on the right side posteriorly with previous thoracentesis showing fluid consistent with empyema. Cultures positive Streptococcus and the patient was given a pigtail catheter for further drainage. The patient received alteplase a total of 4 doses with some improvement in the chest x-ray findings although the right base still opacified. Follow-up computed tomography scan of the chest from yesterday revealed persistent right basilar empyema with drainage catheter in place. Empyema smaller in size as compared to previous on 10/30/2022. The remains patchy basilar infiltrates and pleural parenchymal opacity in the right lung base with additional small effusions. Seventh dose of alteplase/dornase given on 11/11/2022 with an additional 220 MLS output. Chronic shortness of breath, anorexia, significant 65 pound weight loss, and an abnormal chest x-ray. Status post right-sided thoracentesis by interventional radiology in the fluid was suspicious for empyema. Currently on Unasyn. History of heavy tobacco use, with probable underlying COPD History of hypertension Vague history of asthma Plan: The patient was seen and evaluated Chest x-ray, medications and labs reviewed Continue the current treatment plan Plan is for a 8th dose of lytics today No plans for surgical intervention We will continue to follow I have personally seen and examined the patient, performed the documentation and the assessment and plan as written. Number of minutes spent on the visit: 10.
--- NOTE | 2022-11-12 15:38 | P.PN ---
Subjective Progress Note Date: 11/12/22 Patient reports no changes in his breathing. Continues to complain of chest pain at the site of chest tube. Currently on 2L NC saturating 98%. 8th dose of thrombolytics today. Gen: awake, alert HEENT: normocephalic, atraumatic, good hearing acuity, moist mucous membranes Resp: good air exchange, breathing comfortably with no accessory muscle use, CTA bl CVS: good distal perfusion x 4 : no SPT, no CVAT, schultz catheter not present MSK: no pitting edema, no clubbing Neuro: non-focal, moving all extremities Psych: cooperative, euthymic mood Hospital course: 61-year-old male with a PMH of tobacco abuse who was transferred from [facility] where he had presented earlier today with complaints of weight loss and abdominal pain. In [facility] emergency room, the patient underwent an extensive evaluation with laboratory evaluation showing WBC count 8.3, hemoglobin 11.0, sodium 131, glucose 104, lactic acid 1.3, calcium 8.0, with albumin 2.7. Patient evaluated by pulmonology. Thoracentesis done. Has significant empyema. Patient also started on vancomycin and cefepime. Culture showing al phahemolytic streptococcus. ID consulted. Patient was transitioned to Unasyn. Patient was seen in consultation with CT surgery as well, required multiple doses of lytics to improve chest tube output. Assessment: Empyema Masslike enhancement in the right middle lobe COPD with Emphysema without exacerbation Hyponatremia, euvolemic, stable Hypokalemia, resolved Normocytic anemia Aneurysmal aortic root and ascending aorta Plan: CBC shows WBC count of 3.4, hemoglobin 9.8 and platelet count 145. BMP shows sodium 136, BUN of 8, creatinine is 0.51 and calcium is 7.8. Magnesium is 2. CT surgery note reviewed, repeat dose of TPA today Continue Unasyn 3 g every 6 hours Continue Symbicort twice a day Continue scheduled DuoNeb's every 6 hours Continue morphine 4 mg every 4 hours IV when necessary Pulmonology and Cardiothoracic surgery note reviewed. Patient is full code Objective - Vital Signs Vital signs: Vital Signs Temp 97.8 F 11/12/22 11:43 Pulse 83 11/12/22 13:13 Resp 18 11/12/22 11:43 BP 161/84 11/12/22 11:43 Pulse Ox 98 11/12/22 11:43 FiO2 2 11/04/22 07:24 Intake & Output 11/11/22 11/12/22 11/12/22 18:59 06:59 18:59 Intake Total 825 Output Total 75 1150 1450 Balance -75 -325 -1450 Intake: Intake, IV Titration 825 Amount Sodium Chloride 0.9% 1, 825 000 ml @ 75 mls/hr IV . [id number] [facility] Rx#:[id number] Output: Chest Tube Drainage 125 Thora-Vent Right Lower 125 Posterior Chest Drainage 75 125 Right Chest 75 125 Urine 900 1450 Other: Voiding Method Toilet Toilet Urinal Urinal # Voids 0 1 # Bowel Movements 0 - Labs CBC & Chem 7: 11/12/22 05:35 11/12/22 05:35 Labs: Abnormal Lab Results - Last 24 Hours (Table) 11/12/22 11/12/22 Range/Units 05:35 05:35 WBC 3.4 L (3.8-10.6) k/uL RBC 3.63 L (4.30-5.90) m/uL Hgb 9.8 L (13.0-17.5) gm/dL Hct 31.1 L (39.0-53.0) % RDW 18.0 H (11.5-15.5) % Plt Count 145 L (150-450) k/uL Lymphocytes # 0.7 L (1.0-4.8) k/uL Sodium 136 L (137-145) mmol/L BUN 8 L (9-20) mg/dL Creatinine 0.51 L (0.66-1.25) mg/dL Calcium 7.8 L (8.4-10.2) mg/dL
[2022-11-12] MEDS: GABAPENTIN 300 MG CAP PO PRN (16:14)
--- NOTE | 2022-11-12 22:43 | P.PN ---
Subjective Progress Note Date: 11/12/22 Principal diagnosis: empyema Patient is a 62-year-old male presenting to the hospital 4 days ago on 10/29/2022 for evaluation of weight loss failure to thrive and suspected malignancy patient also complaining of some right lower chest pain , patient was noticed to have a right-sided effusion status post thoracocentesis significantly positive culture did grew Streptococcus patient initially refused pigtail catheter placement however seemed to have agreed to it though. Patient is status post right-sided chest tube placement by interventional radiology on 11/03/2022 On today's evaluation that is 11/12/2022, the patient remains to be afebrile, the patient is breathing comfortably on 2 L nasal cannula oxygen, the patient has been complaining of right chest pain but denies any worsening, the patient denies any nausea no vomiting no abdominal pain and no diarrhea Objective - Vital Signs Vital signs: Vital Signs Temp 97.8 F 11/12/22 11:43 Pulse 55 L 11/12/22 11:43 Resp 18 11/12/22 11:43 BP 161/84 11/12/22 11:43 Pulse Ox 98 11/12/22 11:43 FiO2 2 11/04/22 07:24 Intake & Output 11/11/22 11/12/22 11/12/22 18:59 06:59 18:59 Intake Total 825 Output Total 75 1150 1450 Balance -75 -325 -1450 Intake: Intake, IV Titration 825 Amount Sodium Chloride 0.9% 1, 825 000 ml @ 75 mls/hr IV . [id number] [facility] Rx#:[id number] Output: Chest Tube Drainage 125 Thora-Vent Right Lower 125 Posterior Chest Drainage 75 125 Right Chest 75 125 Urine 900 1450 Other: Voiding Method Toilet Toilet Urinal Urinal # Voids 0 1 # Bowel Movements 0 - Exam GENERAL DESCRIPTION: Middle-aged male lying in bed in no distress RESPIRATORY SYSTEM: Unlabored breathing , decreased breath sounds at bases right-sided chest tube with mostly bloody secretions HEART: S1 S2 regular rate and rhythm , ABDOMEN: Soft , no tenderness EXTREMITIES: No edema feet - Labs CBC & Chem 7: 11/12/22 05:35 11/12/22 05:35 Labs: Abnormal Lab Results - Last 24 Hours (Table) 06/08/23 06/08/23 Range/Units 05:35 05:35 WBC 3.4 L (3.8-10.6) k/uL RBC 3.63 L (4.30-5.90) m/uL Hgb 9.8 L (13.0-17.5) gm/dL Hct 31.1 L (39.0-53.0) % RDW 18.0 H (11.5-15.5) % Plt Count 145 L (150-450) k/uL Lymphocytes # 0.7 L (1.0-4.8) k/uL Sodium 136 L (137-145) mmol/L BUN 8 L (9-20) mg/dL Creatinine 0.51 L (0.66-1.25) mg/dL Calcium 7.8 L (8.4-10.2) mg/dL Assessment and Plan (1) Empyema Current Visit: Yes Status: Acute Code(s): J86.9 - PYOTHORAX WITHOUT FISTULA SNOMED Code(s): 264902035 Plan: 1patient presented hospital with right-sided chest pain shortness of breath and cough in this patient with evidence of large right-sided effusion status post thoracocentesis with significant normality of the fluid culture growing alphahemolytic Streptococcus concerning for empyema with underlying malignancy not entirely excluded in view of his overall clinical condition 2-patient is status post chest tube placement on the right side, CT surgery is following the patient closely, with no plan for any surgical intervention 3Patient remains to be afebrile the patient white count has been normal 4-patient to continue with Unasyn 3 g every 6 hours and monitor clinical course closely Time with Patient: Less than 30
[2022-11-13] MEDS: MORPHINE SULFATE 4 MG/ML SYRINGE IV PRN ×6 (00:55→22:24)
[2022-11-13] MEDS: AMPICILLIN-SULBACTAM 3 GM in SODIUM CHLORIDE 0.9% 100 ML IVPB SCH ×3 (05:23→17:50)
[2022-11-13] MEDS: SYMBICORT 160-4.5 MCG INHALER INHALATION SCH ×2 (07:46→19:57)
[2022-11-13] MEDS: IPRATROPIUM-ALBUTEROL 3 ML NEB INHALATION SCH ×4 (07:46→19:57)
[2022-11-13] MEDS: PANTOPRAZOLE 40 MG TABLET PO SCH ×2 (08:23→22:24)
[2022-11-13] MEDS: TAMSULOSIN 0.4 MG CAP.ER.24H PO SCH (08:23)
[2022-11-13] MEDS: BENZTROPINE MESYLATE 0.5 MG TAB PO SCH ×2 (08:23→22:24)
[2022-11-13] MEDS: LABETALOL 200 MG TAB PO SCH ×2 (08:23→22:25)
[2022-11-13] MEDS: ENOXAPARIN 40 MG/0.4 ML SYRINGE SQ SCH (08:24)
[2022-11-13] MEDS: SERTRALINE 100 MG TAB PO SCH ×2 (08:24→22:24)
--- NOTE | 2022-11-13 08:26 | XR ---
EXAMINATION TYPE: XR chest 1V portable DATE OF EXAM: 11/13/2022 6:42 AM COMPARISON: Chest radiographs from 11/12/2022 TECHNIQUE: XR chest 1V portable Frontal view of the chest. CLINICAL INDICATION:Male, 62 years old with history of right empyema; FINDINGS: Lungs/Pleura: Blunting of the costophrenic angles. No pneumothorax visualized. Basilar atelectasis ch anges. Pulmonary vascularity: Unremarkable. Heart/mediastinum: Cardiomediastinal silhouette is unremarkable. Musculoskeletal: No acute osseous pathology. Other findings: None Lines/Tubes: Right pigtail catheter appears in appropriate position. No evidence of pneumothorax. IMPRESSION: 1. Bilateral pleural effusions right greater than left. 2. Right pigtail catheter appears in appropriate position. No evidence of pneumothorax.
--- NOTE | 2022-11-13 10:45 | P.PN ---
Subjective Progress Note Date: 11/13/22 Principal diagnosis: Right-sided pleural effusion, empyema with pleural fluid positive for alpha hemolytic strep, status post right-sided thoracentesis with subsequent pigtail catheter placement, masslike area of heterogeneous enhancement in the right middle lobe, combination of collapse and consolidation of the basilar right lower lobe, acute hypoxic respiratory failure, progressive shortness of breath, cough with sputum production. History of recent 65 pound weight loss, long-term heavy tobacco use with recent cessation, COPD, asthma, hypertension The patient was seen and examined in follow-up today 11/13/2022 at his bedside on the fifth floor medical surgical unit. Patient is currently lying in bed, is awake, alert, oriented 3 and is in no acute apparent distress. Denies any complaints of shortness of breath, although reports he continues to have intermittent pain to his right chest where the right pleural pigtail catheter is placed. He reports he feels about the same as he did yesterday with no improvement in the last 24 hours. He remains afebrile. He is received 8 doses of alteplase/dornase lytic treatment through his right pleural pigtail catheter. The right pleural pigtail catheter remains in place to low continuous wall suction -20 cm H2O. Draining thick serosanguineous/mccarthy drainage with 300 mL of drainage in the last 24 hours. Oxygen saturations are 97% on 2 L nasal cannula and he is achieving 1500 mL on his incentive spirometry with encouragement. His been afebrile last 24 hours. Chest x-ray was reviewed. No new concerns. Objective - Vital Signs Vital signs: Vital Signs Temp 98.6 F 11/13/22 07:42 Pulse 70 11/13/22 08:00 Resp 19 11/13/22 07:42 BP 154/80 11/13/22 07:42 Pulse Ox 97 11/13/22 07:50 FiO2 2 11/04/22 07:24 Intake & Output 11/12/22 11/13/22 11/13/22 18:59 06:59 18:59 Output Total 1620 500 Balance -1620 -500 Output: Chest Tube Drainage 170 Thora-Vent Right Lower 170 Posterior Chest Urine 1450 500 Other: Voiding Method Toilet Toilet Urinal Urinal # Voids 1 2 - Exam CONSTITUTIONAL: Appears comfortable, cooperative, no acute distress RESPIRATORY: Lungs sounds diminished bilaterally. Respirations even, nonla bored. Currently on 2 L nasal cannula with oxygen saturation 97%. Able to achieve 1500 mL on incentive spirometry. Strong cough. CARDIOVASCULAR: S1, S2 present. Regular rate and rhythm. Palpable peripheral pulses bilaterally. No edema present. No calf pain or tenderness noted. SCDs present. GASTROINTESTINAL: Abdomen soft, nontender, nondistended. Active bowel sounds present 4 quadrants. Tolerating minimal diet. GENITOURINARY: Continues to void. INTEGUMENTARY: Skin is warm and dry, no evidence of clubbing or cyanosis. Right pleural pigtail catheter dressing is clean, dry and intact. NEUROLOGIC: Cranial nerves II through XII intact. No focal deficits. MUSKULOSKELETAL: Able to move all extremities, strength equal bilaterally, gait normal. PSYCHIATRIC: Alert and oriented to person place and time, flat affect. INVASIVE LINES AND TUBES: Right-sided pigtail catheter present, 300 mL thick serosanguineous/mccarthy drainage in the last 24 hours. - Allied health notes Allied health notes reviewed: nursing - Labs CBC & Chem 7: 11/12/22 05:35 11/12/22 05:35 - Imaging and Cardiology Chest x-ray: report reviewed, image reviewed Assessment and Plan Assessment: Right-sided pleural effusion, empyema with pleural fluid positive for alpha hemolytic streptococcus, status post right-sided thoracentesis with subsequent pigtail catheter placement Masslike area of heterogeneous enhancement in the right middle lobe measuring 6.9 cm, right pleural fluid cytology negative for malignant cells Combination of collapse and consolidation of the basilar right lower lobe Acute hypoxic respiratory failure Progressive shortness of breath, cough with sputum production Recent 65 pound weight loss Long-term heavy tobacco use with recent cessation COPD Asthma Hypertension Plan: We will hold off on pleural instillation of lytics today, continue to monitor drainage from the pigtail catheter. Dr. Wolf will further discuss treatment options with the patient today. Continue to monitor drainage from pigtail catheter. Continue antibiotics per infectious disease recommendations, currently on Unasyn as the patient's pleural fluid culture showed positive for alpha hemolytic streptococcus. Medical management of other comorbidities per internal medicine, pulmonology, and infectious disease. More recommendations to follow based on patient's clinical course. Time with Patient: Greater than 30
[2022-11-13] MEDS: SODIUM CHLORIDE 0.9% 1,000 ML IV SCH (12:24)
--- NOTE | 2022-11-13 14:52 | P.PN ---
Subjective Progress Note Date: 11/13/22 62-year-old male transferred from an outside hospital, with shortness of breath, a 65 pound weight loss recently, failure to thrive, and concerns about malignancy. The patient apparently presented to Hospital up in the [place] area. He was at the outside hospital for some time. The patient is not a pa rticularly good historian. The patient really is not able to give any definitive history. The patient is a heavy smoker, and a chest x-ray, apparently showed a abnormal fluid collection and/or mass in the right chest. I asked him what he was diagnosed with the outside hospital, but he was unable to tell me. He apparently also has cough, some phlegm production. No fever or chills. No chest pain or chest discomfort. He likely has underlying COPD from heavy tobacco use. Currently, the patient's on 3 L of oxygen, but without any IV fluids. We will order the computed tomography scan of the chest, and we asked interventional radiology to consider doing a thoracentesis, and/or pigtail catheter placement. His chest x-ray showed a right-sided pleural effusion. The ultrasound was subsequently ordered. We will follow back from interventional radiology team, that the material removed from the chest, was purulent, and looked like pus. In addition, 1250 mL of fluid was removed from the right we added vancomycin and cefepime. White count 8.3, hemoglobin 11, hematocrit 34.7, and platelet count normal. INR was 1.9. Sodium 131, potassium 3.7, chlorides 98, CO2 23, normal anion gap, BUN 13, and the creatinine 0.61. Glucose 104. Albumin 2.7. Chest x-ray showed some chronic emphysematous changes, parenchymal fibrotic changes, and a non-simple right-sided pleural effusion. The ultrasound showed a relatively larger fluid pocket on the right side, measuring 13.3 cm. There was complex internal debris within the right chest. Hence, interventional radiology was asked to the procedure. Computed tomography scan is currently pending. The patient is seen today 10/31/2022 in follow-up on the regular medical floor. He is currently resting comfortably in bed. Awake and alert in no acute distress. He did undergo a right-sided thoracentesis by interventional radiology yesterday. The fluid was significantly dyspneic and pertinent and suspicious for empyema. The were planning to place a pigtail catheter however the patient refused to have it done. A total of 1250 ML's was drained. Fluid analysis reveals turbid appearance with greater than 500,000 WBCs. Total protein 2.4. LDH greater than 2500. He was initiated on vancomycin and cefepime yesterday. Continued on DuoNeb inhalations, Symbicort. Sodium 133. Potassium 3.9. Bicarb 25. BUN 11. Creatinine 0.60. The patient is seen today 11/01/2022 in follow-up on the regular medical floor. He is currently resting in bed. Awake and alert in no acute distress. Maintaining good O2 saturations in the 90s on room air. He is feeling weak and fatigued. He continues to decline the offer of a chest tube placement to help drain the suspected abscess in the right chest. He is continued on vancomycin and cefepime. Continue on Symbicort and DuoNeb inhalations. Lovenox for DVT prophylaxis. Chest x-ray shows similar right airspace opacities. Superimposed emphysema. Preliminary pleural fluid Gram stain showing alpha hemolytic streptococcus. White count 4.5. Hemoglobin 10.0. Platelets 287. Sodium 133. Potassium 3.2. Bicarb 21. BUN 9. Creatinine 0.58. The patient is seen today 11/02/2022 in follow-up on the regular medical floor. He is awake and alert in no acute distress. Still not feeling much better today compared to yesterday. Still weak and fatigued. Maintaining good O2 saturations in the 90s on room air. He is continued on vancomycin and cefepime. Pleural fluid culture is positive for alphahemolytic streptococcus. White count 5.8. Hemoglobin 9.2. Platelets 285. Sodium 132. Potassium 3.8. Bicarb 19. BUN 6. Creatinine 0.51. Glucose 83. On today's evaluation of 11/03/2022, the patient has no specific complaints. The patient will have a pigtail catheter insertion today for an underlying empyema. Noted the patient underwent a thoracentesis and the fluid cultures c tarik back positive for alpha hemolytic strep. The patient will have a pigtail catheter inserted today. He does have a masslike consolidation of the right middle lobe in addition to right-sided pleural effusion that was drained earlier. He is known to have COPD. He is currently on 2 L of Oxymizer nasal cannula with a pulse ox of 96%. Hemodynamically stable. He remains on accommodation of cefepime and vancomycin. Also, vancomycin, clinically hemoglobin of 10.3 and a platelet count of 316. The BUN is at 5.2 with a creatinine of 0.5 and a sodium level is at 134. The vancomycin trough is at 19.6. The most recent chest x-rays from 11/01/2022 that showed a air space disease involving the right lung, and the CAT scan of the chest that was done on 10/30/2022 showed a moderate to large pleural fluid collection involving the right lung with thickening borders and a small peripheral enhancement and some inflammatory fat stranding within the adjacent pericolic fat. This is consistent with empyema. There is also a some atelectatic changes in the right lung base. There is back on moderate to severe emphysema. The patient's aortic root was measuring 5.2 cm in size and the ascending aorta was measuring 4.1 cm. On 11/04/2022, the patient is being seen for a follow-up. The patient is an empyema of the right lung. The pigtail catheter was inserted yesterday and a total of 600 mL of purulent material was aspirated from the right lung and the [facility] is collecting in the pleural VAC. The repeat chest x-ray shows no major improvement and there is significant opacification of the right lower lobe. Based on that, the patient is going to receive an alteplase treatment to enhance drainage of the empyema. The patient remains hemodynamically stable. He remains on2 L of oxygen by nasal cannula with a pulse ox of 97%. The blood work today shows a WBC count of 8.2 with a hemoglobin of 10.3. Electrolytes from yesterday were all within normal limits. The patient also had has been on IV Unasyn. The patient on DuoNeb about treatments [id number]. He is on Lovenox portably prophylaxis. On today's evaluation of 11/05/2022, the patient has an thrombolytic administr ation to the pigtail catheter into the right lung as the patient has a right lung empyema. A total of 1.4 L of pleural fluid has been aspirated or drained in the atrium since the insertion of the catheter. Clinically the patient is doing well. Chest x-ray shows some limited improvement elevation of the right lung. The patient remains on IV Unasyn. Is currently comfortable. No pleurisy. No hemoptysis. The patient's echoes of 5.5 with a hemoglobin 9.3 and a BUN of 4 with a creatinine of 0.6 and a sodium level is 140. No other issues for now and the patient is being followed up with us and cardiothoracic team. On today's evaluation of 2022, the patient is being seen for a follow-up. The patient underwent his second dose of alteplase administration today. The patient continues to have adequate amount of output. Note that following the first alteplase treatment, the patient produced approximately 700 mL of purulent material and he continues to drain. He remains on oxygen at 2 L/m nasal cannula. He remains on IV Unasyn. The chest x-ray from today is showing still opacification of the right base and there is a right-sided pigtail catheter which is in a good location. There is a persistent right-sided pleural effusion/collection along with right lung atelectasis. There is a small left- sided pleural effusion also noted on today's chest x-ray. Clinically however the patient is doing well. His tolerating his diet. No nausea or vomiting or diarrhea. No other significant issues otherwise. On 11/07/2022, the patient is clinically stable and hemodynamically stable. The patient is undergoing his third dose of alteplase today. Following his second dose yesterday, the patient produced another 400 mL of purulent material. Chest x-ray findings are unchanged. Patient remains on IV Unasyn. The patient also has a white cell count of 5.5 with a hemoglobin 9.3. Sodium is at 140, the BUN is at 9 with a creatinine of 0.6. No chest pain. No fever or chest and altered mentation. Using the incentive spirometer. Using DuoNeb nebulized treatments [id number]. Using Symbicort. . On today's evaluation of 11/08/2022, the patient's right-sided pigtail catheter remains in place. Third dose of thrombolytic was given yesterday and the patient produced another 400 mL of purulent material. He remains on oxygen 2 L/m nasal cannula. He remains on antibiotics. There is a persistent pocket on chest x-ray today and for that reason a CAT scan of the chest will be obtained to evaluate the progression of this right-sided empyema. I would say, overall, there is improvement in the findings and the chest x-ray. No significant leukocytosis with white cell cause of 3.4. Hemoglobin is at 9.7. Sodium is at 133 with a potassium level of 3.4. Serum bicarb is at 30 with a BUN of 6 and a creatinine of 0.48. The patient is seen today 11/09/2022 in follow-up on the regular medical floor. He is currently sitting up in bed. Awake and alert in no acute distress. He is maintaining good O2 saturations in the upper 90s on 2 L/m per nasal cannula. He's receive 4 doses of alteplase/dornase infusions to the right-sided chest tube. 70 ML's returned in the past 24 hours. Follow-up computed tomography scan of the chest from yesterday revealed persistent right basilar empyema with drainage catheter in place. Empyema smaller in size as compared to previous on 10/30/2022. The remains patchy basilar infiltrates and pleural parenchymal opacity in the right lung base with additional small effusions. Fluid cultures have been positive for alphahemolytic streptococcus. White count 3.9. Hemoglobin 10.9. Platelets 127. Sodium 137. Potassium 4.0. Bicarb 26. BUN 7. Creatinine 0.46. He is continued on DuoNeb inhalations, Symbicort. Lovenox for DVT prophylaxis. Antibiotics in the form of Unasyn. The patient is seen today 11/10/2022 and follow-up on the regular medical floor. He remains awake and alert in no acute distress. Continue good O2 saturations in the 90s on room air. He's afebrile. Hemodynamically stable. Chest x-ray r eveals ongoing pleuralparenchymal opacities of the right lower lung with right basilar pleural catheter in place. Findings compatible with underlying emphysema and likely adjacent pneumonia. Advanced bullous emphysema. Trace left-sided pleural effusion. Pleural fluid cultures were positive for alpha hemolytic streptococcus. Remains on Unasyn. He is continued on DuoNeb inhalations, Symbicort. Lovenox for DVT prophylaxis. White count 3.7. Hemoglobin 9.2. Platelets 147. Sodium 136. Potassium 3.1. Bicarb 31. BUN 8. Creatinine 0.47. The patient is seen today 11/11/2022 in follow-up on the regular medical floor. He sitting up in bed. Awake and alert in no acute distress. Maintaining good O2 saturations in the upper 90s on 2 L/m per nasal cannula. He's been afebrile. Hemodynamically stable. He is still having some ongoing issues with right- sided chest discomfort. Pigtail catheter remains in place. Additional 300 ML's drained in the past 24 hours. He's receive 6 doses of lytic infusion. Plan is for her seventh dose today. Chest x-ray continues to show improvement. He is continued on Unasyn. He remains on DuoNeb inhalations, Symbicort. Lovenox for DVT prophylaxis. Patient is seen today 11/13/19992017 in follow-up on the regular medical floor. He is awake and alert in no acute distress. Currently sitting up in bed. Having breakfast. Denies any worsening shortness of breath, cough or congestion. No hemoptysis. He is continued on DuoNeb inhalations, Symbicort. Remains on Unasyn. Lovenox for DVT prophylaxis. Normal saline at 75 ML's per hour. Chest x-ray shows right-sided basilar pleural catheter in place. Ongoing extensive pleural effusion/empyema and areas of airspace disease involving the right lower lobe. Suspect some loculated air within the empyema cavity. Trace left pleural effusion. Catheter remains to low continuous wall suction. No leak noted. He is receiving his seventh dose of lytic infusion. Approximately 220 ML's drained in the past 24 hours. He does continue to work well with the incentive spirometer pulling approximately 1500 ML's. White count 2.4. Hemoglobin 9.8. Platelets 145. Sodium 136. Potassium 3.9. Bicarb 30. BUN 8. Creatinine 0.51. The patient is seen today 11/13/2022 in follow-up on the regular medical floor. Sitting up in bed. Awake and alert in no acute distress. Continues to maintain good O2 saturations in the upper 90s on 2 L/m per nasal cannula. Afebrile. Hemodynamically stable. Chest x-ray shows bilateral pleural effusions right greater than left. Right-sided pigtail catheter remains in good position. No evidence of pneumothorax. Pigtail catheter remains in place to low continuous wall suction. Continues to drain that serosanguineous, tannish-colored drainage with 300 ML's in the past 24 hours. Continues working well with the incentive spirometer. He has received 8 doses of alteplase/dornase lytic infusions. Remains on Unasyn, bronchodilators. Lovenox for DVT prophylaxis. Objective - Vital Signs Vital signs: Vital Signs Temp 98.6 F 11/13/22 07:42 Pulse 70 11/13/22 08:00 Resp 19 11/13/22 07:42 BP 154/80 11/13/22 07:42 Pulse Ox 97 11/13/22 07:50 FiO2 2 11/04/22 07:24 Intake & Output 11/12/22 11/13/22 11/13/22 18:59 06:59 18:59 Output Total 1620 500 500 Balance -1620 -500 -500 Weight 77.111 kg Output: Chest Tube Drainage 170 Thora-Vent Right Lower 170 Posterior Chest Urine 1450 500 500 Other: Voiding Method Toilet Toilet Urinal Urinal Urinal # Voids 1 2 - Exam GENERAL EXAM: Alert, oriented, thin 62-year-old male, on 2 L nasal cannula, comfortable in no apparent distress. HEAD: Normocephalic. EYES: Normal reaction of pupils, equal size. NOSE: Clear with pink turbinates. THROAT: No erythema or exudates. Edentulous. NECK: No masses, no JVD. CHEST: No chest wall deformity. Right-sided pigtail catheter in place to low continuous wall suction. No air leak noted. LUNGS: Equal air entry with bilateral scattered rhonchi more so on the right, diminished in the bases. CVS: S1 and S2 normal with no audible murmur, regular rhythm. ABDOMEN: No hepatosplenomegaly, normal bowel sounds, no guarding or rigidity. SPINE: No scoliosis or deformity SKIN: No rashes CENTRAL NERVOUS SYSTEM: No focal deficits, tone is normal in all 4 extremities. EXTREMITIES: There is no peripheral edema. No clubbing, no cyanosis. Peripheral pulses are intact. - Labs CBC & Chem 7: 11/12/22 05:35 11/12/22 05:35 Assessment and Plan Assessment: Right lung empyema with alphahemolytic strep. The patient has a moderate to large pleural fluid collection on the right side posteriorly with previous thoracentesis showing fluid consistent with empyema. Cultures positive for alphahemolytic streptococcus and the patient was given a pigtail catheter for further drainage. Patchy basilar infiltrates and pleural parenchymal opacity in the right lung base with additional small effusions. Eighth dose of alteplase/dornase given on 11/12/2022 with an additional 300 MLS output. Continued on Unasyn Chronic shortness of breath, anorexia, significant 65 pound weight loss, and an abnormal chest x-ray. History of heavy tobacco use, with probable underlying COPD History of hypertension Vague history of asthma Plan: The patient was seen and evaluated Chest x-ray, medications and labs reviewed Continue the current treatment plan The plan is for a right Eloesser flap placement tomorrow by CT services We will continue to follow I have personally seen and examined the patient, performed the documentation and the assessment and plan as written. Number of minutes spent on the visit: 10.
--- NOTE | 2022-11-13 16:04 | P.PN ---
Subjective Progress Note Date: 11/13/22 Patient reports no changes in his breathing. Continues to complain of chest pain at the site of chest tube. Currently on 2L NC saturating 98%. He will be scheduled for a right Eloesser flap tomorrow. Gen: awake, alert HEENT: normocephalic, atraumatic, good hearing acuity, moist mucous membranes Resp: good air exchange, breathing comfortably with no accessory muscle use, CTA bl CVS: good distal perfusion x 4 : no SPT, no CVAT, schultz catheter not present MSK: no pitting edema, no clubbing Neuro: non-focal, moving all extremities Psych: cooperative, euthymic mood Hospital course: 61-year-old male with a PMH of tobacco abuse who was transferred from [facility] where he had presented earlier today with complaints of weight loss and abdominal pain. In [facility] emergency room, the patient underwent an extensive evaluation with laboratory evaluation showing WBC count 8.3, hemoglobin 11.0, sodium 131, glucose 104, lactic acid 1.3, calcium 8.0, with albumin 2.7. Patient evaluated by pulmonology. Thoracentesis done. Has significant empyema. Patient also started on vancomycin and cefepime. Culture showing alphahemolytic streptococcus. ID consulted. Patient was transitioned to Unas yn. Patient was seen in consultation with CT surgery as well, required multiple doses of lytics to improve chest tube output. Assessment: Empyema Masslike enhancement in the right middle lobe COPD with Emphysema without exacerbation Hyponatremia, euvolemic, stable Hypokalemia, resolved Normocytic anemia Aneurysmal aortic root and ascending aorta Plan: CT surgery note reviewed. Case discussed with Francesco ALATORRE, He will be scheduled for a right Eloesser flap tomorrow. Continue Unasyn 3 g every 6 hours Continue Symbicort twice a day Continue scheduled DuoNeb's every 6 hours Continue morphine 4 mg every 4 hours IV when necessary Pulmonology and Cardiothoracic surgery note reviewed. Patient is full code Objective - Vital Signs Vital signs: Vital Signs Temp 97.5 F L 11/13/22 14:19 Pulse 82 11/13/22 14:19 Resp 19 11/13/22 14:19 BP 142/67 11/13/22 14:19 Pulse Ox 91 L 11/13/22 14:19 FiO2 2 11/04/22 07:24 Intake & Output 11/12/22 11/13/22 11/13/22 18:59 06:59 18:59 Output Total 1620 500 500 Balance -1620 -500 -500 Weight 77.111 kg Output: Chest Tube Drainage 170 Thora-Vent Right Lower 170 Posterior Chest Urine 1450 500 500 Other: Voiding Method Toilet Toilet Urinal Urinal Urinal # Voids 1 2 - Labs CBC & Chem 7: 11/12/22 05:35 11/12/22 05:35
--- NOTE | 2022-11-13 16:29 | P.PN ---
Subjective Progress Note Date: 11/13/22 Principal diagnosis: empyema Patient is a 62-year-old male presenting to the hospital 4 days ago on 10/29/2022 for evaluation of weight loss failure to thrive and suspected malignancy patient also complaining of some right lower chest pain , patient was noticed to have a right-sided effusion status post thoracocentesis significantly positive culture did grew Streptococcus patient initially refused pigtail catheter placement however seemed to have agreed to it though. Patient is status post right-sided chest tube placement by interventional radiology on 11/03/2022 On today's evaluation that is 11/13/2022, the patient denies any fever or any chills, the patient is breathing comfortably on 2 L nasal cannula oxygen, the patient right chest pain controlled with the current pain medication, the patient denies any nausea no vomiting no abdominal pain and no diarrhea Objective - Vital Signs Vital signs: Vital Signs Temp 98.6 F 11/13/22 07:42 Pulse 70 11/13/22 08:00 Resp 19 11/13/22 07:42 BP 154/80 11/13/22 07:42 Pulse Ox 97 11/13/22 07:50 FiO2 2 11/04/22 07:24 Intake & Output 11/12/22 11/13/22 11/13/22 18:59 06:59 18:59 Output Total 1620 500 500 Balance -1620 -500 -500 Output: Chest Tube Drainage 170 Thora-Vent Right Lower 170 Posterior Chest Urine 1450 500 500 Other: Voiding Method Toilet Toilet Urinal Urinal Urinal # Voids 1 2 - Exam GENERAL DESCRIPTION: Middle-aged male lying in bed in no distress RESPIRATORY SYSTEM: Unlabored breathing , decreased breath sounds at bases right-sided chest tube with mostly bloody secretions HEART: S1 S2 regular rate and rhythm , ABDOMEN: Soft , no tenderness EXTREMITIES: No edema feet - Labs CBC & Chem 7: 11/12/22 05:35 11/12/22 05:35 Assessment and Plan (1) Empyema Current Visit: Yes Status: Acute Code(s): J86.9 - PYOTHORAX WITHOUT FISTULA SNOMED Code(s): 253136309 Plan: 1patient presented hospital with right-sided chest pain shortness of breath and cough in this patient with evidence of large right-sided effusion status post thoracocentesis with significant normality of the fluid culture growing alpha hemolytic Streptococcus concerning for empyema with underlying malignancy not entirely excluded in view of his overall clinical condition 2-patient is status post chest tube placement on the right side, CT surgery is following the patient closely, with no plan for any surgical intervention 3Patient remains to be afebrile the patient white count has been normal 4-patient currently being treated Unasyn 3 g every 6 hours, plan is for PICC and outpatient IV antibiotics discussed with watch caser Time with Patient: Less than 30
[2022-11-14] MEDS: AMPICILLIN-SULBACTAM 3 GM in SODIUM CHLORIDE 0.9% 100 ML IVPB SCH ×4 (01:14→18:36)
[2022-11-14] MEDS: SODIUM CHLORIDE 0.9% 1,000 ML IV SCH ×2 (01:14→06:14)
[2022-11-14] MEDS: MORPHINE SULFATE 4 MG/ML SYRINGE IV PRN ×3 (06:32→18:36)
[2022-11-14] MEDS ORDERED: PROPOFOL 10 MG/ML 20 ML VIAL IV ONE (08:14)
[2022-11-14] MEDS ORDERED: MIDAZOLAM 2 MG/2 ML VIAL ONE (08:14)
[2022-11-14] MEDS ORDERED: LIDOCAINE 2% INJ 20 MG/ML (2 ML VIAL) ONE (08:14)
[2022-11-14] MEDS ORDERED: fentaNYL (PF) 50 MCG/ML 2 ML AMP ONE (08:14)
[2022-11-14] MEDS ORDERED: ePHEDrine 50 MG/ML 1 ML VIAL ONE (08:14)
[2022-11-14] MEDS ORDERED: SUCCINYLCHOLINE CHLORIDE 200 MG/10 ML VIAL IV ONE (08:14)
[2022-11-14] MEDS ORDERED: ROCURONIUM 10 MG/ML (5 ML VIAL) IV ONE (08:14)
[2022-11-14] MEDS ORDERED: SODIUM CHLORIDE 0.9% 1,000 ML IV ONE (08:14)
[2022-11-14] MEDS: SYMBICORT 160-4.5 MCG INHALER INHALATION SCH ×2 (09:06→20:37)
[2022-11-14] MEDS: IPRATROPIUM-ALBUTEROL 3 ML NEB INHALATION SCH ×4 (09:07→20:37)
--- NOTE | 2022-11-14 09:20 | P.OP ---
Date of Procedure: 11/14/22 Preoperative Diagnosis: Right-sided persistent empyema Postoperative Diagnosis: Same Procedure(s) Performed: Right Eloesser flap Anesthesia: LAURA Surgeon: Melvin Wolf Foot Orthopedist #1: Marcelo Maya Estimated Blood Loss (ml): 25 IV fluids (ml): 500 Pathology: other (Empyema content forAnd culture) Condition: stable Disposition: PACU Indications for Procedure: 62-year-old male presented with empyema. He had a drain placed 15 days earlier. Despite ongoing antibiotic therapy and continued drainage and intrapleural treatment with TPA and DNase the patient has continued to drip have purulent drainage from the drain. Patient has severe COPD with extremely emphysematous and bolus longs and was felt to be a very poor candidate for decortication due to this. Eloesser flap for chronic pleural drainage was recommended. Informed consent was obtained. Operative Findings: Mature empyema cavity with extremely thick wall. Considerable purulent material present within the cavity. Description of Procedure: Patient was brought to the operating room and placed supine on the operating table. Gen. anesthesia was induced. Tube was secured and the patient was turned in the left lateral decubitus position. Previously placed pleural drain was removed. The area around the drain site was sterilely prepped and draped. Incision was made just inferior to the drain extending posteriorly along the upper border of the 11th rib. This was extended down into the pleural space. The pleura itself was extremely thickened. Portion of the 11th rib was dissected out and resected leaving the intercostal nerve and vessel bundle under the 11th rib intact. Bleeding was controlled with electrocautery and silk ties. Pleural flaps were created inferiorly and superiorly and sutured to the skin with interrupted 2-0 Vicryl sutures. The cavity was irrigated copiously and then packed with 2 inch iodoform. Bulky gauze dressing was applied and the patient was turned supine and extubated and transferred to recovery.
[2022-11-14] MEDS ORDERED: HYDROmorphone 0.5 MG/0.5 ML SYRINGE IVP ONE (09:40)
--- NOTE | 2022-11-14 10:04 | XR ---
EXAMINATION TYPE: XR chest 1V portable DATE OF EXAM: 11/14/2022 Comparison: 11/13/2022 Clinical History: 62-year-old male Post op Eloesser flap Findings: Interval removal of the patient's basilar right-sided pleural drain. Right basilar pleural-parenchyma l opacity persists but with slightly smaller size to be more masslike area above the level of the hem idiaphragm. No appreciable pneumothorax. Background COPD. Heart size. Prominent skinfolds projecting along the periphery of the left lung. Impression: Persistent right lower lung pleural-parenchymal opacities though with slight improvement. The previou s basilar pigtail pleural catheter appears to have been normal.
--- NOTE | 2022-11-14 10:29 | P.PN ---
Subjective Progress Note Date: 11/14/22 Principal diagnosis: empyema Patient is a 62-year-old male presenting to the hospital 4 days ago on 10/29/2022 for evaluation of weight loss failure to thrive and suspected malignancy patient also complaining of some right lower chest pain , patient was noticed to have a right-sided effusion status post thoracocentesis significantly positive culture did grew Streptococcus patient initially refused pigtail catheter placement however seemed to have agreed to it though. Patient is status post right-sided chest tube placement by interventional radiology on 11/03/2022, patient is scheduled for right-sided Elosser flap this morning by CT surgery On today's evaluation that is 11/14/2022, the patient remains to be afebrile, the patient is breathing comfortably on 2 L nasal cannula oxygen, the patient right chest pain controlled with the current pain medication, the patient denies any nausea no vomiting no abdominal pain and no diarrhea Objective - Vital Signs Vital signs: Vital Signs Temp 98.0 F 11/14/22 01:00 Pulse 65 11/14/22 01:00 Resp 16 11/14/22 01:00 BP 152/75 11/14/22 01:00 Pulse Ox 96 11/14/22 01:00 FiO2 2 11/04/22 07:24 Intake & Output 11/13/22 11/14/22 11/14/22 18:59 06:59 18:59 Intake Total 1025 Output Total 620 1400 Balance -620 -375 Weight 77.111 kg Intake: Intake, IV Titration 1025 Amount Ampicillin-Sulbactam 3 gm 200 In Sodium Chloride 0.9% 100 ml @ 200 mls/hr IVPB Q6HR [facility] Rx#:[id number] Sodium Chloride 0.9% 1, 825 000 ml @ 75 mls/hr IV . [id number] [facility] Rx#:[id number] Output: Chest Tube Drainage 120 Thora-Vent Right Lower 120 Posterior Chest Urine 500 1400 Other: Voiding Method Urinal Urinal # Voids 3 1 - Exam GENERAL DESCRIPTION: Middle-aged male lying in bed in no distress RESPIRATORY SYSTEM: Unlabored breathing , decreased breath sounds at bases right-sided chest tube with mostly bloody secretions HEART: S1 S2 regular rate and rhythm , ABDOMEN: Soft , no tenderness EXTREMITIES: No edema feet - Labs CBC & Chem 7: 11/12/22 05:35 11/12/22 05:35 Assessment and Plan (1) Empyema Current Visit: Yes Status: Acute Code(s): J86.9 - PYOTHORAX WITHOUT FISTULA SNOMED Code(s): 147822099 Plan: 1patient presented hospital with right-sided chest pain shortness of breath and cough in this patient with evidence of large right-sided effusion status post thoracocentesis with significant normality of the fluid culture growing alphahemolytic Streptococcus concerning for empyema with underlying malignancy not entirely excluded in view of his overall clinical condition 2-patient is status post chest tube placement on the right side, CT surgery is following the patient closely, and plan for right-sided Elosser flap this morning for persistent empyema 3Patient to continue with Unasyn 3 g every 6 hours, and monitor clinical course closely Time with Patient: Less than 30
[2022-11-14 10:41] LABS: Glucose,Whole Blood 102 mg/dL (70-110)
--- NOTE | 2022-11-14 11:53 | P.PN ---
Subjective Progress Note Date: 11/14/22 Patient reports improvement in his breathing. Currently on 2L NC saturating 98%. Seen in the ICU after right Eloesser flap. Gen: awake, alert HEENT: normocephalic, atraumatic, good hearing acuity, moist mucous membranes Resp: good air exchange, breathing comfortably with no accessory muscle use, CTA bl CVS: good distal perfusion x 4, Normal S1 S2 : no SPT, no CVAT, schultz catheter not present MSK: no pitting edema, no clubbing Neuro: non-focal, moving all extremities Psych: cooperative, euthymic mood Hospital course: 61-year-old male with a PMH of tobacco abuse who was transferred from [facility] where he had presented earlier today with complaints of weight loss and abdominal pain. In [place] emergency room, the patient underwent an extensive evaluation with laboratory evaluation showing WBC count 8.3, hemoglobin 11.0, sodium 131, glucose 104, lactic acid 1.3, calcium 8.0, with albumin 2.7. Patient evaluated by pulmonology. Thoracentesis done. Has significant empyema. Patient also started on vancomycin and cefepime. Culture showing alphahemolytic streptococcus. ID consulted. Patient was transitioned to Unasyn. Patient was seen in consultation with CT surgery as well, required multiple doses of lytics to improve chest tube output. Assessment: Empyema Masslike enhancement in the right middle lobe COPD with Emphysema without exacerbation Hyponatremia, euvolemic, stable Hypokalemia, resolved Normocytic anemia Aneurysmal aortic root and ascending aorta Plan: CT surgery operative note reviewed. Continue Unasyn 3 g every 6 hours Continue Symbicort twice a day Continue scheduled DuoNeb's every 6 hours Continue morphine 4 mg every 4 hours IV when necessary Toradol 15 mg IV Q6H added Pulmonology and Cardiothoracic surgery note reviewed Patient is full code Objective - Vital Signs Vital signs: Vital Signs Temp 97.0 F L 11/14/22 09:16 Pulse 53 L 11/14/22 10:01 Resp 16 11/14/22 10:01 BP 137/75 11/14/22 10:01 Pulse Ox 97 11/14/22 10:01 FiO2 2 11/04/22 07:24 Intake & Output 11/13/22 11/14/22 11/14/22 18:59 06:59 18:59 Intake Total 1025 700 Output Total 620 1400 25 Balance -620 -477 675 Weight 77.111 kg Intake: IV 700 Intake, IV Titration 1025 Amount Ampicillin-Sulbactam 3 gm 200 In Sodium Chloride 0.9% 100 ml @ 200 mls/hr IVPB Q6HR [facility] Rx#:[id number] Sodium Chloride 0.9% 1, 825 000 ml @ 75 mls/hr IV . [id number] [facility] Rx#:[id number] Output: Chest Tube Drainage 120 Thora-Vent Right Lower 120 Posterior Chest Urine 500 1400 Estimated Blood Loss 25 Other: Voiding Method Urinal Urinal # Voids 3 1 1 - Labs CBC & Chem 7: 11/12/22 05:35 11/12/22 05:35
[2022-11-14] MEDS: BENZTROPINE MESYLATE 0.5 MG TAB PO SCH ×2 (12:17→20:42)
[2022-11-14] MEDS: ENOXAPARIN 40 MG/0.4 ML SYRINGE SQ SCH (12:17)
[2022-11-14] MEDS: TAMSULOSIN 0.4 MG CAP.ER.24H PO SCH (12:17)
[2022-11-14] MEDS: LABETALOL 200 MG TAB PO SCH ×2 (12:17→20:42)
[2022-11-14] MEDS: KETOROLAC 15 MG/ML 1 ML VIAL IVP SCH ×2 (12:18→17:39)
[2022-11-14] MEDS: PANTOPRAZOLE 40 MG TABLET PO SCH ×2 (12:22→20:42)
--- NOTE | 2022-11-14 12:38 | P.PN ---
Subjective Progress Note Date: 11/14/22 Principal diagnosis: Right-sided empyema 62-year-old male transferred from an outside hospital, with shortness of breath, a 65 pound weight loss recently, failure to thrive, and concerns about malignancy. The patient apparently presented to Hospital up in the [place] area. He was at the outside hospital for some time. The patient is not a particularly good historian. The patient really is not able to give any definitive history. The patient is a heavy smoker, and a chest x-ray, apparently showed a abnormal fluid collection and/or mass in the right chest. I asked him what he was diagnosed with the outside hospital, but he was unable to tell me. He apparently also has cough, some phlegm production. No fever or chills. No chest pain or chest discomfort. He likely has underlying COPD from heavy tobacco use. Currently, the patient's on 3 L of oxygen, but without any IV fluids. We will order the computed tomography scan of the chest, and we asked interventional radiology to consider doing a thoracentesis, and/or pigtail catheter placement. His chest x-ray showed a right-sided pleural effusion. The ultrasound was subsequently ordered. We will follow back from interventional radiology team, that the material removed from the chest, was purulent, and lo oked like pus. In addition, 1250 mL of fluid was removed from the right we added vancomycin and cefepime. White count 8.3, hemoglobin 11, hematocrit 34.7, and platelet count normal. INR was 1.9. Sodium 131, potassium 3.7, chlorides 98, CO2 23, normal anion gap, BUN 13, and the creatinine 0.61. Glucose 104. Albumin 2.7. Chest x-ray showed some chronic emphysematous changes, parenchymal fibrotic changes, and a non-simple right-sided pleural effusion. The ultrasound showed a relatively larger fluid pocket on the right side, measuring 13.3 cm. There was complex internal debris within the right chest. Hence, interventional radiology was asked to the procedure. Computed tomography scan is currently pending. The patient is seen today 10/31/2022 in follow-up on the regular medical floor. He is currently resting comfortably in bed. Awake and alert in no acute distress. He did undergo a right-sided thoracentesis by interventional radiology yesterday. The fluid was significantly dyspneic and pertinent and suspicious for empyema. The were planning to place a pigtail catheter however the patient refused to have it done. A total of 1250 ML's was drained. Fluid analysis reveals turbid appearance with greater than 500,000 WBCs. Total protein 2.4. LDH greater than 2500. He was initiated on vancomycin and cefepime yesterday. Continued on DuoNeb inhalations, Symbicort. Sodium 133. Potassium 3.9. Bicarb 25. BUN 11. Creatinine 0.60. The patient is seen today 11/01/2022 in follow-up on the regular medical floor. He is currently resting in bed. Awake and alert in no acute distress. Maintaining good O2 saturations in the 90s on room air. He is feeling weak and fatigued. He continues to decline the offer of a chest tube placement to help drain the suspected abscess in the right chest. He is continued on vancomycin and cefepime. Continue on Symbicort and DuoNeb inhalations. Lovenox for DVT prophylaxis. Chest x-ray shows similar right airspace opacities. Superimposed emphysema. Preliminary pleural fluid Gram stain showing alpha hemolytic streptococcus. White count 4.5. Hemoglobin 10.0. Platelets 287. Sodium 133. Potassium 3.2. Bicarb 21. BUN 9. Creatinine 0.58. The patient is seen today 11/02/2022 in follow-up on the regular medical floor. He is awake and alert in no acute distress. Still not feeling much better today compared to yesterday. Still weak and fatigued. Maintaining good O2 saturations in the 90s on room air. He is continued on vancomycin and cefepime. Pleural fluid culture is positive for alphahemolytic streptococcus. White count 5.8. Hemoglobin 9.2. Platelets 285. Sodium 132. Potassium 3.8. Bicarb 19. BUN 6. Creatinine 0.51. Glucose 83. On today's evaluation of 11/03/2022, the patient has no specific complaints. The patient will have a pigtail catheter insertion today for an underlying empyema. Noted the patient underwent a thoracentesis and the fluid cultures came back positive for alpha hemolytic strep. The patient will have a pigtail catheter inserted today. He does have a masslike consolidation of the right middle lobe in addition to right-sided pleural effusion that was drained earli er. He is known to have COPD. He is currently on 2 L of Oxymizer nasal cannula with a pulse ox of 96%. Hemodynamically stable. He remains on accommodation of cefepime and vancomycin. Also, vancomycin, clinically hemoglobin of 10.3 and a platelet count of 316. The BUN is at 5.2 with a creatinine of 0.5 and a sodium level is at 134. The vancomycin trough is at 19.6. The most recent chest x-r ays from 11/01/2022 that showed a air space disease involving the right lung, and the CAT scan of the chest that was done on 10/30/2022 showed a moderate to large pleural fluid collection involving the right lung with thickening borders and a small peripheral enhancement and some inflammatory fat stranding within the adjacent pericolic fat. This is consistent with empyema. There is also a some atelectatic changes in the right lung base. There is back on moderate to severe emphysema. The patient's aortic root was measuring 5.2 cm in size and the ascending aorta was measuring 4.1 cm. On 11/04/2022, the patient is being seen for a follow-up. The patient is an empyema of the right lung. The pigtail catheter was inserted yesterday and a total of 600 mL of purulent material was aspirated from the right lung and the [facility] is collecting in the pleural VAC. The repeat chest x-ray shows no major improvement and there is significant opacification of the right lower lobe. Based on that, the patient is going to receive an alteplase treatment to enhance drainage of the empyema. The patient remains hemodynamically stable. He remains on2 L of oxygen by nasal cannula with a pulse ox of 97%. The blood work today shows a WBC count of 8.2 with a hemoglobin of 10.3. Electrolytes f rom yesterday were all within normal limits. The patient also had has been on IV Unasyn. The patient on DuoNeb about treatments [id number]. He is on Lovenox portably prophylaxis. On today's evaluation of 11/05/2022, the patient has an thrombolytic administration to the pigtail catheter into the right lung as the patient has a right lung empyema. A total of 1.4 L of pleural fluid has been aspirated or drained in the atrium since the insertion of the catheter. Clinically the patient is doing well. Chest x-ray shows some limited improvement elevation of the right lung. The patient remains on IV Unasyn. Is currently comfortable. No pleurisy. No hemoptysis. The patient's echoes of 5.5 with a hemoglobin 9.3 and a BUN of 4 with a creatinine of 0.6 and a sodium level is 140. No other issues for now and the patient is being followed up with us and cardiothoracic team. On today's evaluation of 2022, the patient is being seen for a follow-up. The patient underwent his second dose of alteplase administration today. The patient continues to have adequate amount of output. Note that following the first alteplase treatment, the patient produced approximately 700 mL of purulent material and he continues to drain. He remains on oxygen at 2 L/m nasal cannula. He remains on IV Unasyn. The chest x-ray from today is showing still opacification of the right base and there is a right-sided pigtail catheter which is in a good location. There is a persistent right-sided pleural effusion/collection along with right lung atelectasis. There is a small left- sided pleural effusion also noted on today's chest x-ray. Clinically however the patient is doing well. His tolerating his diet. No nausea or vomiting or diarrhea. No other significant issues otherwise. On 11/07/2022, the patient is clinically stable and hemodynamically stable. The patient is undergoing his third dose of alteplase today. Following his second dose yesterday, the patient produced another 400 mL of purulent material. Chest x-ray findings are unchanged. Patient remains on IV Unasyn. The patient also has a white cell count of 5.5 with a hemoglobin 9.3. Sodium is at 140, the BUN is at 9 with a creatinine of 0.6. No chest pain. No fever or chest and altered mentation. Using the incentive spirometer. Using DuoNeb nebulized treatments [id number]. Using Symbicort. . On today's evaluation of 11/08/2022, the patient's right-sided pigtail catheter remains in place. Third dose of thrombolytic was given yesterday and the patient produced another 400 mL of purulent material. He remains on oxygen 2 L/m nasal cannula. He remains on antibiotics. There is a persistent pocket on chest x-ray today and for that reason a CAT scan of the chest will be obtained to evaluate the progression of this right-sided empyema. I would say, overall, there is improvement in the findings and the chest x-ray. No significant leukocytosis with white cell cause of 3.4. Hemoglobin is at 9.7. Sodium is at 133 with a potassium level of 3.4. Serum bicarb is at 30 with a BUN of 6 and a creatinine of 0.48. The patient is seen today 11/09/2022 in follow-up on the regular medical floor. He is currently sitting up in bed. Awake and alert in no acute distress. He is maintaining good O2 saturations in the upper 90s on 2 L/m per nasal cannula. He's receive 4 doses of alteplase/dornase infusions to the right-sided chest tube. 70 ML's returned in the past 24 hours. Follow-up computed tomography scan of the chest from yesterday revealed persistent right basilar empyema with drainage catheter in place. Empyema smaller in size as compared to previous on 10/30/2022. The remains patchy basilar infiltrates and pleural parenchymal opacity in the right lung base with additional small effusions. Fluid cultures have been positive for alphahemolytic streptococcus. White count 3.9. Hemoglobin 10.9. Platelets 127. Sodium 137. Potassium 4.0. Bicarb 26. BUN 7. Creatinine 0.46. He is continued on DuoNeb inhalations, Symbicort. Lovenox for DVT prophylaxis. Antibiotics in the form of Unasyn. The patient is seen today 11/10/2022 and follow-up on the regular medical floor. He remains awake and alert in no acute distress. Continue good O2 saturations in the 90s on room air. He's afebrile. Hemodynamically stable. Chest x-ray reveals ongoing pleuralparenchymal opacities of the right lower lung with right basilar pleural catheter in place. Findings compatible with underlying emphysema and likely adjacent pneumonia. Advanced bullous emphysema. Trace left-sided pleural effusion. Pleural fluid cultures were positive for alpha hemolytic streptococcus. Remains on Unasyn. He is continued on DuoNeb inhalations, Symbicort. Lovenox for DVT prophylaxis. White count 3.7. Hemoglobin 9.2. Platelets 147. Sodium 136. Potassium 3.1. Bicarb 31. BUN 8. Creatinine 0.47. The patient is seen today 11/11/2022 in follow-up on the regular medical floor. He sitting up in bed. Awake and alert in no acute distress. Maintaining good O2 saturations in the upper 90s on 2 L/m per nasal cannula. He's been afebrile. Hemodynamically stable. He is still having some ongoing issues with right- sided chest discomfort. Pigtail catheter remains in place. Additional 300 ML's drained in the past 24 hours. He's receive 6 doses of lytic infusion. Plan is for her seventh dose today. Chest x-ray continues to show improvement. He is continued on Unasyn. He remains on DuoNeb inhalations, Symbicort. Lovenox for DVT prophylaxis. Patient is seen today 11/13/19992017 in follow-up on the regular medical floor. He is awake and alert in no acute distress. Currently sitting up in bed. Having breakfast. Denies any worsening shortness of breath, cough or co ngestion. No hemoptysis. He is continued on DuoNeb inhalations, Symbicort. Remains on Unasyn. Lovenox for DVT prophylaxis. Normal saline at 75 ML's per hour. Chest x-ray shows right-sided basilar pleural catheter in place. Ongoing extensive pleural effusion/empyema and areas of airspace disease involving the right lower lobe. Suspect some loculated air within the empyema cavity. Trace left pleural effusion. Catheter remains to low continuous wall suction. No leak noted. He is receiving his seventh dose of lytic infusion. Approximately 220 ML's drained in the past 24 hours. He does continue to work well with the incentive spirometer pulling approximately 1500 ML's. White count 2.4. Hemoglobin 9.8. Platelets 145. Sodium 136. Potassium 3.9. Bicarb 30. BUN 8. Creatinine 0.51. The patient is seen today 11/13/2022 in follow-up on the regular medical floor. Sitting up in bed. Awake and alert in no acute distress. Continues to maintain good O2 saturations in the upper 90s on 2 L/m per nasal cannula. Afebrile. Hemodynamically stable. Chest x-ray shows bilateral pleural effusions right greater than left. Right-sided pigtail catheter remains in good position. No evidence of pneumothorax. Pigtail catheter remains in place to low continuous wall suction. Continues to drain that serosanguineous, tannish-colored drainage with 300 ML's in the past 24 hours. Continues working well with the incentive spirometer. He has received 8 doses of alteplase/dornase lytic infusions. Remains on Unasyn, bronchodilators. Lovenox for DVT prophylaxis. Patient was seen today on 11/14/2022, patient is status post Right Eloesser flap, this was done today by Dr. Wolf, I saw the patient in the recovery room, he is doing well, asymptomatic, in no distress, on 2 L nasal cannula, O2 sats at 97%, he is hemodynamically stable, as a matter fact is doing great and better than expected. WBC count 3.4 hemoglobin 9.811 was are normal renal profile is normal. Objective - Vital Signs Vital signs: Vital Signs Temp 97.0 F L 11/14/22 09:16 Pulse 53 L 11/14/22 10:01 Resp 16 11/14/22 10:01 BP 137/75 11/14/22 10:01 Pulse Ox 97 11/14/22 10:01 FiO2 2 11/04/22 07:24 Intake & Output 11/13/22 11/14/22 11/14/22 18:59 06:59 18:59 Intake Total 1025 700 Output Total 620 1400 25 Balance -620 -375 675 Weight 77.111 kg Intake: IV 700 Intake, IV Titration 1025 Amount Ampicillin-Sulbactam 3 gm 200 In Sodium Chloride 0.9% 100 ml @ 200 mls/hr IVPB Q6HR [facility] Rx#:[id number] Sodium Chloride 0.9% 1, 825 000 ml @ 75 mls/hr IV . [id number] [facility] Rx#:[id number] Output: Chest Tube Drainage 120 Thora-Vent Right Lower 120 Posterior Chest Urine 500 1400 Estimated Blood Loss 25 Other: Voiding Method Urinal Urinal # Voids 3 1 1 - Exam Physical Exam: Revealed 62-year-old white male in no distress, looks frail, chronically ill, cachectic. On 2 L nasal cannula. Head: Atraumatic normocephalic. HEENT:[Neck is supple.] [No neck masses.] [No thyromegaly.] [No JVD.] Chest: Diminished breath sound bilaterally, right sided dressing on the chest seems to be clean and dry. Cardiac Exam: [Normal S1 and S2, no S3 gallop, no murmur.] Abdomen: [Soft, nontender, no megaly, no rebound, no guarding, normal bowel sounds.] Extremities: [No clubbing, no edema, no cyanosis.] Neurological Exam: [No focal neurologic deficit.] - Labs CBC & Chem 7: 11/12/22 05:35 11/12/22 05:35 Assessment and Plan Assessment: Impression: Status post Right Eloesser flap, postop day #0 Right lung empyema with alphahemolytic strep. The patient has a moderate to large pleural fluid collection on the right side posteriorly with previous thoracentesis showing fluid consistent with empyema. Cultures positive for alphahemolytic streptococcus and the patient was given a pigtail catheter for further drainage. Patchy basilar infiltrates and pleural parenchymal opacity in the right lung base with additional small effusions. Eighth dose of alteplase/dornase given on 11/12/2022 with an additional 300 MLS output. Continued on Unasyn Chronic shortness of breath, anorexia, significant 65 pound weight loss, patient will definitely need further outpatient workup post discharge. Rule out underlying malignancy. History of heavy tobacco use, with probable underlying COPD History of hypertension Vague history of asthma Recommendation: Continue antibiotics Monitor patient in the ICU for the next 24 hours. Continue bronchodilators, Continue GI and DVT prophylaxis. Continue close monitoring of blood pressure and control. Pain control. We'll follow Time with Patient: Less than 30
[2022-11-14] MEDS: SERTRALINE 100 MG TAB PO SCH ×2 (14:36→20:42)
[2022-11-14 16:30] LABS: African American GFR (CKD) >90 (>60 ml/min/1.73 sqM); Anion Gap 1 mmol/L; Blood Urea Nitrogen 11 mg/dL (9-20); Calcium 7.5 mg/dL (8.4-10.2); Carbon Dioxide 29 mmol/L (22-30); Chloride 105 mmol/L (98-107); Glucose 93 mg/dL (74-99); Non-African American GFR(CKD) >90 (>60 ml/min/1.73 sqM); Potassium 3.8 mmol/L (3.5-5.1); Sodium 135 mmol/L (137-145)
[2022-11-15] MEDS: AMPICILLIN-SULBACTAM 3 GM in SODIUM CHLORIDE 0.9% 100 ML IVPB SCH ×5 (01:45→23:16)
[2022-11-15] MEDS: SODIUM CHLORIDE 0.9% 1,000 ML IV SCH ×3 (01:45→23:16)
[2022-11-15] MEDS: KETOROLAC 15 MG/ML 1 ML VIAL IVP SCH ×5 (01:45→23:15)
[2022-11-15] MEDS ORDERED: MORPHINE SULFATE 4 MG/ML SYRINGE IVP STA ×2 (01:59→02:51)
[2022-11-15] MEDS: IPRATROPIUM-ALBUTEROL 3 ML NEB INHALATION SCH ×4 (07:45→21:01)
[2022-11-15] MEDS: SYMBICORT 160-4.5 MCG INHALER INHALATION SCH ×2 (07:45→21:01)
[2022-11-15] MEDS ORDERED: MORPHINE SULFATE 4 MG/ML SYRINGE IVP PRN (07:49)
[2022-11-15] MEDS: ENOXAPARIN 40 MG/0.4 ML SYRINGE SQ SCH (08:23)
[2022-11-15] MEDS: BENZTROPINE MESYLATE 0.5 MG TAB PO SCH ×2 (08:24→19:52)
[2022-11-15] MEDS: TAMSULOSIN 0.4 MG CAP.ER.24H PO SCH (08:24)
[2022-11-15] MEDS: PANTOPRAZOLE 40 MG TABLET PO SCH ×2 (08:24→19:52)
[2022-11-15] MEDS: LABETALOL 200 MG TAB PO SCH ×2 (08:24→19:52)
[2022-11-15] MEDS: SERTRALINE 100 MG TAB PO SCH ×2 (08:24→19:52)
--- NOTE | 2022-11-15 10:20 | P.PN ---
Subjective Progress Note Date: 11/15/22 Principal diagnosis: Right-sided pleural effusion, empyema with pleural fluid positive for alpha hemolytic strep, status post right-sided thoracentesis with subsequent pigtail catheter placement, masslike area of heterogeneous enhancement in the right middle lobe, combination of collapse and consolidation of the basilar right lower lobe, acute hypoxic respiratory failure, progressive shortness of breath, cough with sputum production. History of recent 65 pound weight loss, long-term heavy tobacco use with recent cessation, COPD, asthma, hypertension POD #1 right Eloesser flap Patient was seen and examined in follow-up today 11/15/2022 at his bedside on the cardiac stepdown unit. He is currently lying in bed, is awake, alert, oriented 3 and is in no acute apparent distress. Denies any complaints of shortness of breath although is complaining of some surgical type pain, currently rating his pain 9 out of 10 on the pain scale. Oxygen saturations are 96% on room air and he is achieving 1500 mL on his incentive spirometry with encouragement. Chest x-ray was reviewed. The patient has been afebrile the last 24 hours. Gram stain culture taken yesterday in the operating room shows moderate polymorphonuclear leukocytes, no organisms seen. Pleural fluid culture results from 10/30/2022 showed alphahemolytic streptococcus and he remains on antibiotic treatments, receiving Unasyn managed by infectious disease. Laboratory results remain pending. Objective - Vital Signs Vital signs: Vital Signs Temp 98.2 F 11/15/22 00:00 Pulse 86 11/15/22 07:55 Resp 18 11/15/22 04:00 BP 158/80 11/15/22 04:00 Pulse Ox 97 11/15/22 07:45 FiO2 2 11/04/22 07:24 Intake & Output 11/14/22 11/15/22 11/15/22 18:59 06:59 18:59 Intake Total 1740 Output Total 600 Balance 1140 Intake: IV 1250 Ampicillin-Sulbactam 3 gm 100 In Sodium Chloride 0.9% 100 ml @ 200 mls/hr IVPB Q6HR [facility] Rx#:[id number] Sodium Chloride 0.9% 1, 450 000 ml @ 75 mls/hr IV . [id number] [facility] Rx#:[id number] Oral 490 Output: Urine 575 Estimated Blood Loss 25 Other: Voiding Method Incontinent Urinal Incontinent # Voids 1 1 - Exam CONSTITUTIONAL: Appears comfortable, cooperative, no acute distress RESPIRATORY: Lungs sounds diminished bilaterally. Respirations even, nonlabored. Currently on room air with oxygen saturation 96%. Able to achieve 1500 mL on incentive spirometry. Strong cough. CARDIOVASCULAR: S1, S2 present. Regular rate and rhythm. Palpable peripheral pulses bilaterally. No edema present. No calf pain or tenderness noted. SCDs present. GASTROINTESTINAL: Abdomen soft, nontender, nondistended. Active bowel sounds present 4 quadrants. Tolerating minimal diet. GENITOURINARY: Continues to void. INTEGUMENTARY: Skin is warm and dry, no evidence of clubbing or cyanosis. Right chest dressing is clean, dry and intact. Scant dry serosanguineous drainage, surrounding the dressing. NEUROLOGIC: Cranial nerves II through XII intact. No focal deficits. MUSKULOSKELETAL: Able to move all extremities, strength equal bilaterally, gait normal. PSYCHIATRIC: Alert and oriented to person place and time, flat affect. - Allied health notes Allied health notes reviewed: nursing - Labs CBC & Chem 7: 11/12/22 05:35 11/14/22 15:28 Labs: Abnormal Lab Results - Last 24 Hours (Table) 11/14/22 Range/Units 15:28 Sodium 135 L (137-145) mmol/L Creatinine 0.52 L (0.66-1.25) mg/dL Calcium 7.5 L (8.4-10.2) mg/dL Microbiology - Last 24 Hours (Table) 11/14/22 09:00 Gram Stain - Preliminary Other - Other - Imaging and Cardiology Chest x-ray: report reviewed, image reviewed Assessment and Plan Assessment: Right-sided pleural effusion, empyema with pleural fluid positive for alpha hemolytic streptococcus, status post right-sided thoracentesis with subsequent p igtail catheter placement, status post right Eloesser flap Masslike area of heterogeneous enhancement in the right middle lobe measuring 6.9 cm, right pleural fluid cytology negative for malignant cells Combination of collapse and consolidation of the basilar right lower lobe Acute hypoxic respiratory failure Progressive shortness of breath, cough with sputum production Recent 65 pound weight loss Long-term heavy tobacco use with recent cessation COPD Asthma Hypertension Plan: Dressing to his right chest, will be changed by Dr. Wolf this morning 11/15/2022. Reinforce the dressing to right chest as needed. Continue antibiotics per infectious disease recommendations, currently on Unasyn as the patient's pleural fluid culture showed positive for alpha hemolytic st reptococcus on 10/30/2022. Culture results taken in the operating room yesterday remain pending. Preliminary results show no growth. Medical management of other comorbidities per internal medicine, pulmonology, and infectious disease. More recommendations to follow based on patient's clinical course. Time with Patient: Greater than 30
--- NOTE | 2022-11-15 11:08 | XR ---
EXAMINATION TYPE: XR chest 1V portable DATE OF EXAM: 11/15/2022 Comparison: 11/14/2022 Clinical History: 62-year-old male ICU follow-up, Post op Eloesser flap Findings: Heart normal size. Hyperinflation. Comment skin fold projecting along the periphery of the left chest . Focal pleural parenchymal opacities of the right base persist. There may be slight improvement from prior. No appreciable pneumothorax. Impression: COPD with persistent focal right lower lung pleural-parenchymal opacities. There may be slight improv ement from prior.
--- NOTE | 2022-11-15 11:17 | P.PN ---
Subjective Progress Note Date: 11/15/22 61-year-old male with a PMH of tobacco abuse who was transferred from [facility] where he had presented earlier today with complaints of weight loss and abdominal pain. In [place] emergency room, the patient underwent an extensive evaluation with laboratory evaluation showing WBC count 8.3, hemoglobin 11.0, sodium 131, glucose 104, lactic acid 1.3, calcium 8.0, with albumin 2.7. Patient evaluated by pulmonology. Thoracentesis done. Has significant empyema. Patient also started on vancomycin and cefepime. Culture showing alphahemolytic streptococcus. ID consulted. Patient was transitioned to Unasyn. Patient was seen in consultation with CT surgery as well, required multiple doses of lytics to improve chest tube output. He underwent right Eloesser flap on 11/14. 11/15 Patient was seen and examined. Patient reports improvement in his breathing. He reports chest pain at the site on incision. 11/15 culture from OR shows moderate PMN with no organisms. General: non toxic, no distress, appears at stated age Derm: warm, dry Head: atraumatic, normocephalic, symmetric Eyes: EOMI, no lid lag, anicteric sclera Cardiovascular: S1S2 reg, no murmur, right chest dressing c/d/i Lungs: Decreased BS bilateral, no rhonchi, no rales , no accessory muscle use Ext: no gross muscle atrophy, no edema, no contractures Neuro: no focal neuro deficits Psych: Alert, oriented, appropriate affect Empyema Masslike enhancement in the right middle lobe COPD with Emphysema without exacerbation Hyponatremia, euvolemic, stable Hypokalemia, resolved Normocytic anemia Aneurysmal aortic root and ascending aorta Based on my assessment of this patient, this patient meets a moderate complexity level of care. Patient has a new diagnosis of empyema with uncertain prognosis. Initially underwent thoracentesis, WCx + alphahemolytic streptococcus, maintained on Unasyn with ID on board. He received multiple doses of thrombolytics to improve chest tube output. Underwent right Eloesser flap on 11/[address] surgery. Bronchodilators: DuoNeb 0.5mg-3mg/3ml scheduled and as needed for SOB and wheezing. Symbicort 2 puff BID. Antibiotics: Unasyn 3g IV Q6H (Day 13) Supplemental oxygen to maintain O2 > 92%. I have reviewed the following architectural sales consultant notes: CT surgery note 11/15, reinforce right chest dressing, follow cultures. I have reviewed the results of the following tests: 11/15 culture from OR shows moderate PMN with no organisms. I have ordered the following tests: I have discussed the care of this patient with the following independent historian: I have independently interpreted the following test below: CXR shows persistent R sided opacity. I have discussed the management of this patient with the following physician: Objective - Vital Signs Vital signs: Vital Signs Temp 98.2 F 11/15/22 00:00 Pulse 88 11/15/22 08:00 Resp 18 11/15/22 08:00 BP 121/101 11/15/22 08:00 Pulse Ox 96 11/15/22 08:00 FiO2 2 11/04/22 07:24 Intake & Output 11/14/22 11/15/22 11/15/22 18:59 06:59 18:59 Intake Total 1740 100 Output Total 600 Balance 1140 100 Intake: IV 1250 Ampicillin-Sulbactam 3 gm 100 In Sodium Chloride 0.9% 100 ml @ 200 mls/hr IVPB Q6HR [facility] Rx#:[id number] Sodium Chloride 0.9% 1, 450 000 ml @ 75 mls/hr IV . [id number] [facility] Rx#:[id number] Oral 490 100 Output: Urine 575 Estimated Blood Loss 25 Other: Voiding Method Incontinent Urinal Incontinent # Voids 1 1 - Labs CBC & Chem 7: 11/12/22 05:35 11/14/22 15:28 Labs: Abnormal Lab Results - Last 24 Hours (Table) 11/14/22 Range/Units 15:28 Sodium 135 L (137-145) mmol/L Creatinine 0.52 L (0.66-1.25) mg/dL Calcium 7.5 L (8.4-10.2) mg/dL Microbiology - Last 24 Hours (Table) 11/14/22 09:00 Gram Stain - Preliminary Other - Other
[2022-11-15] MEDS: traMADol 50 MG TAB PO SCH ×3 (11:41→21:49)
--- NOTE | 2022-11-15 11:50 | P.PN ---
Subjective Progress Note Date: 11/15/22 Principal diagnosis: Right-sided empyema 62-year-old male transferred from an outside hospital, with shortness of breath, a 65 pound weight loss recently, failure to thrive, and concerns about malignancy. The patient apparently presented to Hospital up in the [place] area. He was at the outside hospital for some time. The patient is not a particularly good historian. The patient really is not able to give any definitive history. The patient is a heavy smoker, and a chest x-ray, apparently showed a abnormal fluid collection and/or mass in the right chest. I asked him what he was diagnosed with the outside hospital, but he was unable to tell me. He apparently also has cough, some phlegm production. No fever or chills. No chest pain or chest discomfort. He likely has underlying COPD from heavy tobacco use. Currently, the patient's on 3 L of oxygen, but without any IV fluids. We will order the computed tomography scan of the chest, and we asked interventional radiology to consider doing a thoracentesis, and/or pigtail catheter placement. His chest x-ray showed a right-sided pleural effusion. The ultrasound was subsequently ordered. We will follow back from interventional radiology team, that the material removed from the chest, was purulent, and lo oked like pus. In addition, 1250 mL of fluid was removed from the right we added vancomycin and cefepime. White count 8.3, hemoglobin 11, hematocrit 34.7, and platelet count normal. INR was 1.9. Sodium 131, potassium 3.7, chlorides 98, CO2 23, normal anion gap, BUN 13, and the creatinine 0.61. Glucose 104. Albumin 2.7. Chest x-ray showed some chronic emphysematous changes, parenchymal fibrotic changes, and a non-simple right-sided pleural effusion. The ultrasound showed a relatively larger fluid pocket on the right side, measuring 13.3 cm. There was complex internal debris within the right chest. Hence, interventional radiology was asked to the procedure. Computed tomography scan is currently pending. The patient is seen today 10/31/2022 in follow-up on the regular medical floor. He is currently resting comfortably in bed. Awake and alert in no acute distress. He did undergo a right-sided thoracentesis by interventional radiology yesterday. The fluid was significantly dyspneic and pertinent and suspicious for empyema. The were planning to place a pigtail catheter however the patient refused to have it done. A total of 1250 ML's was drained. Fluid analysis reveals turbid appearance with greater than 500,000 WBCs. Total protein 2.4. LDH greater than 2500. He was initiated on vancomycin and cefepime yesterday. Continued on DuoNeb inhalations, Symbicort. Sodium 133. Potassium 3.9. Bicarb 25. BUN 11. Creatinine 0.60. The patient is seen today 11/01/2022 in follow-up on the regular medical floor. He is currently resting in bed. Awake and alert in no acute distress. Maintaining good O2 saturations in the 90s on room air. He is feeling weak and fatigued. He continues to decline the offer of a chest tube placement to help drain the suspected abscess in the right chest. He is continued on vancomycin and cefepime. Continue on Symbicort and DuoNeb inhalations. Lovenox for DVT prophylaxis. Chest x-ray shows similar right airspace opacities. Superimposed emphysema. Preliminary pleural fluid Gram stain showing alpha hemolytic streptococcus. White count 4.5. Hemoglobin 10.0. Platelets 287. Sodium 133. Potassium 3.2. Bicarb 21. BUN 9. Creatinine 0.58. The patient is seen today 11/02/2022 in follow-up on the regular medical floor. He is awake and alert in no acute distress. Still not feeling much better today compared to yesterday. Still weak and fatigued. Maintaining good O2 saturations in the 90s on room air. He is continued on vancomycin and cefepime. Pleural fluid culture is positive for alphahemolytic streptococcus. White count 5.8. Hemoglobin 9.2. Platelets 285. Sodium 132. Potassium 3.8. Bicarb 19. BUN 6. Creatinine 0.51. Glucose 83. On today's evaluation of 11/03/2022, the patient has no specific complaints. The patient will have a pigtail catheter insertion today for an underlying empyema. Noted the patient underwent a thoracentesis and the fluid cultures came back positive for alpha hemolytic strep. The patient will have a pigtail catheter inserted today. He does have a masslike consolidation of the right middle lobe in addition to right-sided pleural effusion that was drained earli er. He is known to have COPD. He is currently on 2 L of Oxymizer nasal cannula with a pulse ox of 96%. Hemodynamically stable. He remains on accommodation of cefepime and vancomycin. Also, vancomycin, clinically hemoglobin of 10.3 and a platelet count of 316. The BUN is at 5.2 with a creatinine of 0.5 and a sodium level is at 134. The vancomycin trough is at 19.6. The most recent chest x-r ays from 11/01/2022 that showed a air space disease involving the right lung, and the CAT scan of the chest that was done on 10/30/2022 showed a moderate to large pleural fluid collection involving the right lung with thickening borders and a small peripheral enhancement and some inflammatory fat stranding within the adjacent pericolic fat. This is consistent with empyema. There is also a some atelectatic changes in the right lung base. There is back on moderate to severe emphysema. The patient's aortic root was measuring 5.2 cm in size and the ascending aorta was measuring 4.1 cm. On 11/04/2022, the patient is being seen for a follow-up. The patient is an empyema of the right lung. The pigtail catheter was inserted yesterday and a total of 600 mL of purulent material was aspirated from the right lung and the [facility] is collecting in the pleural VAC. The repeat chest x-ray shows no major improvement and there is significant opacification of the right lower lobe. Based on that, the patient is going to receive an alteplase treatment to enhance drainage of the empyema. The patient remains hemodynamically stable. He remains on2 L of oxygen by nasal cannula with a pulse ox of 97%. The blood work today shows a WBC count of 8.2 with a hemoglobin of 10.3. Electrolytes f rom yesterday were all within normal limits. The patient also had has been on IV Unasyn. The patient on DuoNeb about treatments [id number]. He is on Lovenox portably prophylaxis. On today's evaluation of 11/05/2022, the patient has an thrombolytic administration to the pigtail catheter into the right lung as the patient has a right lung empyema. A total of 1.4 L of pleural fluid has been aspirated or drained in the atrium since the insertion of the catheter. Clinically the patient is doing well. Chest x-ray shows some limited improvement elevation of the right lung. The patient remains on IV Unasyn. Is currently comfortable. No pleurisy. No hemoptysis. The patient's echoes of 5.5 with a hemoglobin 9.3 and a BUN of 4 with a creatinine of 0.6 and a sodium level is 140. No other issues for now and the patient is being followed up with us and cardiothoracic team. On today's evaluation of 2022, the patient is being seen for a follow-up. The patient underwent his second dose of alteplase administration today. The patient continues to have adequate amount of output. Note that following the first alteplase treatment, the patient produced approximately 700 mL of purulent material and he continues to drain. He remains on oxygen at 2 L/m nasal cannula. He remains on IV Unasyn. The chest x-ray from today is showing still opacification of the right base and there is a right-sided pigtail catheter which is in a good location. There is a persistent right-sided pleural effusion/collection along with right lung atelectasis. There is a small left- sided pleural effusion also noted on today's chest x-ray. Clinically however the patient is doing well. His tolerating his diet. No nausea or vomiting or diarrhea. No other significant issues otherwise. On 11/07/2022, the patient is clinically stable and hemodynamically stable. The patient is undergoing his third dose of alteplase today. Following his second dose yesterday, the patient produced another 400 mL of purulent material. Chest x-ray findings are unchanged. Patient remains on IV Unasyn. The patient also has a white cell count of 5.5 with a hemoglobin 9.3. Sodium is at 140, the BUN is at 9 with a creatinine of 0.6. No chest pain. No fever or chest and altered mentation. Using the incentive spirometer. Using DuoNeb nebulized treatments [id number]. Using Symbicort. . On today's evaluation of 11/08/2022, the patient's right-sided pigtail catheter remains in place. Third dose of thrombolytic was given yesterday and the patient produced another 400 mL of purulent material. He remains on oxygen 2 L/m nasal cannula. He remains on antibiotics. There is a persistent pocket on chest x-ray today and for that reason a CAT scan of the chest will be obtained to evaluate the progression of this right-sided empyema. I would say, overall, there is improvement in the findings and the chest x-ray. No significant leukocytosis with white cell cause of 3.4. Hemoglobin is at 9.7. Sodium is at 133 with a potassium level of 3.4. Serum bicarb is at 30 with a BUN of 6 and a creatinine of 0.48. The patient is seen today 11/09/2022 in follow-up on the regular medical floor. He is currently sitting up in bed. Awake and alert in no acute distress. He is maintaining good O2 saturations in the upper 90s on 2 L/m per nasal cannula. He's receive 4 doses of alteplase/dornase infusions to the right-sided chest tube. 70 ML's returned in the past 24 hours. Follow-up computed tomography scan of the chest from yesterday revealed persistent right basilar empyema with drainage catheter in place. Empyema smaller in size as compared to previous on 10/30/2022. The remains patchy basilar infiltrates and pleural parenchymal opacity in the right lung base with additional small effusions. Fluid cultures have been positive for alphahemolytic streptococcus. White count 3.9. Hemoglobin 10.9. Platelets 127. Sodium 137. Potassium 4.0. Bicarb 26. BUN 7. Creatinine 0.46. He is continued on DuoNeb inhalations, Symbicort. Lovenox for DVT prophylaxis. Antibiotics in the form of Unasyn. The patient is seen today 11/10/2022 and follow-up on the regular medical floor. He remains awake and alert in no acute distress. Continue good O2 saturations in the 90s on room air. He's afebrile. Hemodynamically stable. Chest x-ray reveals ongoing pleuralparenchymal opacities of the right lower lung with right basilar pleural catheter in place. Findings compatible with underlying emphysema and likely adjacent pneumonia. Advanced bullous emphysema. Trace left-sided pleural effusion. Pleural fluid cultures were positive for alpha hemolytic streptococcus. Remains on Unasyn. He is continued on DuoNeb inhalations, Symbicort. Lovenox for DVT prophylaxis. White count 3.7. Hemoglobin 9.2. Platelets 147. Sodium 136. Potassium 3.1. Bicarb 31. BUN 8. Creatinine 0.47. The patient is seen today 11/11/2022 in follow-up on the regular medical floor. He sitting up in bed. Awake and alert in no acute distress. Maintaining good O2 saturations in the upper 90s on 2 L/m per nasal cannula. He's been afebrile. Hemodynamically stable. He is still having some ongoing issues with right- sided chest discomfort. Pigtail catheter remains in place. Additional 300 ML's drained in the past 24 hours. He's receive 6 doses of lytic infusion. Plan is for her seventh dose today. Chest x-ray continues to show improvement. He is continued on Unasyn. He remains on DuoNeb inhalations, Symbicort. Lovenox for DVT prophylaxis. Patient is seen today 11/13/19992017 in follow-up on the regular medical floor. He is awake and alert in no acute distress. Currently sitting up in bed. Having breakfast. Denies any worsening shortness of breath, cough or co ngestion. No hemoptysis. He is continued on DuoNeb inhalations, Symbicort. Remains on Unasyn. Lovenox for DVT prophylaxis. Normal saline at 75 ML's per hour. Chest x-ray shows right-sided basilar pleural catheter in place. Ongoing extensive pleural effusion/empyema and areas of airspace disease involving the right lower lobe. Suspect some loculated air within the empyema cavity. Trace left pleural effusion. Catheter remains to low continuous wall suction. No leak noted. He is receiving his seventh dose of lytic infusion. Approximately 220 ML's drained in the past 24 hours. He does continue to work well with the incentive spirometer pulling approximately 1500 ML's. White count 2.4. Hemoglobin 9.8. Platelets 145. Sodium 136. Potassium 3.9. Bicarb 30. BUN 8. Creatinine 0.51. The patient is seen today 11/13/2022 in follow-up on the regular medical floor. Sitting up in bed. Awake and alert in no acute distress. Continues to maintain good O2 saturations in the upper 90s on 2 L/m per nasal cannula. Afebrile. Hemodynamically stable. Chest x-ray shows bilateral pleural effusions right greater than left. Right-sided pigtail catheter remains in good position. No evidence of pneumothorax. Pigtail catheter remains in place to low continuous wall suction. Continues to drain that serosanguineous, tannish-colored drainage with 300 ML's in the past 24 hours. Continues working well with the incentive spirometer. He has received 8 doses of alteplase/dornase lytic infusions. Remains on Unasyn, bronchodilators. Lovenox for DVT prophylaxis. Patient was seen today on 11/14/2022, patient is status post Right Eloesser flap, this was done today by Dr. Wolf, I saw the patient in the recovery room, he is doing well, asymptomatic, in no distress, on 2 L nasal cannula, O2 sats at 97%, he is hemodynamically stable, as a matter fact is doing great and better than expected. WBC count 3.4 hemoglobin 9.811 was are normal renal profile is normal. Reevaluated today on 11/15/2022, patient is now postoperative day #1 right Eloesser flap patient is doing well, he is on room air, does not seem to be in any distress, minimal surgical eye pain at the site of the surgery. Patient is achieving 1500 mL with his incentive spirometer. Chest x-ray is showing significant improvement in his right sided fluid collection. Remains on Unasyn. Patient had alpha hemolytic strep cultures from the fluid in the past. Objective - Vital Signs Vital signs: Vital Signs Temp 98.2 F 11/15/22 00:00 Pulse 88 11/15/22 08:00 Resp 18 11/15/22 08:00 BP 121/101 11/15/22 08:00 Pulse Ox 96 11/15/22 08:00 FiO2 2 11/04/22 07:24 Intake & Output 11/14/22 11/15/22 11/15/22 18:59 06:59 18:59 Intake Total 1740 100 Output Total 600 Balance 1140 100 Intake: IV 1250 Ampicillin-Sulbactam 3 gm 100 In Sodium Chloride 0.9% 100 ml @ 200 mls/hr IVPB Q6HR [facility] Rx#:[id number] Sodium Chloride 0.9% 1, 450 000 ml @ 75 mls/hr IV . [id number] [facility] Rx#:[id number] Oral 490 100 Output: Urine 575 Estimated Blood Loss 25 Other: Voiding Method Incontinent Urinal Incontinent # Voids 1 1 - Exam Physical Exam: Revealed 62-year-old white male in no distress, looks frail, chronically ill, cachectic. On room air Head: Atraumatic normocephalic. HEENT:[Neck is supple.] [No neck masses.] [No thyromegaly.] [No JVD.] Chest: Diminished breath sound bilaterally, right sided dressing on the chest seems to be clean and dry. Cardiac Exam: [Normal S1 and S2, no S3 gallop, no murmur.] Abdomen: [Soft, nontender, no megaly, no rebound, no guarding, normal bowel sounds.] Extremities: [No clubbing, no edema, no cyanosis.] Neurological Exam: [No focal neurologic deficit.] - Labs CBC & Chem 7: 11/12/22 05:35 11/14/22 15:28 Labs: Abnormal Lab Results - Last 24 Hours (Table) 11/14/22 Range/Units 15:28 Sodium 135 L (137-145) mmol/L Creatinine 0.52 L (0.66-1.25) mg/dL Calcium 7.5 L (8.4-10.2) mg/dL Microbiology - Last 24 Hours (Table) 11/14/22 09:00 Gram Stain - Preliminary Other - Other Assessment and Plan Assessment: Impression: Status post Right Eloesser flap, postop day #1 Right lung empyema with alphahemolytic strep. The patient has a moderate to large pleural fluid collection on the right side posteriorly with previous thoracentesis showing fluid consistent with empyema. Cultures positive for alphahemolytic streptococcus and the patient was given a pigtail catheter for f urther drainage. Patchy basilar infiltrates and pleural parenchymal opacity in the right lung base with additional small effusions. Eighth dose of alteplase/dornase given on 11/12/2022 with an additional 300 MLS output. Continued on Unasyn Chronic shortness of breath, anorexia, significant 65 pound weight loss, patient will definitely need further outpatient workup post discharge. Rule out und erlying malignancy. History of heavy tobacco use, with probable underlying COPD History of hypertension Vague history of asthma Recommendation: Continue antibiotics Continue incentive spirometry Continue bronchodilators, Continue GI and DVT prophylaxis. Continue blood pressure medication. We'll continue to follow. Continue pain control as much as possible Time with Patient: Less than 30
[2022-11-15 16:14] LABS: Anisocytosis Slight; HCT 31.2 % (39.0-53.0); HGB 9.7 gm/dL (13.0-17.5); Hypochromasia Slight; MCH 26.7 pg (25.0-35.0); MCHC 31.1 g/dL (31.0-37.0); MCV 85.9 fL (80.0-100.0); Mean Platelet Volume 8.7; Platelet Count 134 k/uL (150-450); RBC 3.63 m/uL (4.30-5.90); RDW 19.5 % (11.5-15.5)
[2022-11-15 16:24] LABS: ALT 21 U/L (4-49); AST 22 U/L (17-59); African American GFR (CKD) >90 (>60 ml/min/1.73 sqM); Albumin 2.6 g/dL (3.5-5.0); Alkaline Phosphatase 97 U/L (38-126); Anion Gap 5 mmol/L; Blood Urea Nitrogen 17 mg/dL (9-20); Calcium 8.2 mg/dL (8.4-10.2); Carbon Dioxide 25 mmol/L (22-30); Chloride 104 mmol/L (98-107); Glucose 80 mg/dL (74-99); Non-African American GFR(CKD) >90 (>60 ml/min/1.73 sqM); Potassium 3.8 mmol/L (3.5-5.1); Sodium 134 mmol/L (137-145); Total Bilirubin 0.6 mg/dL (0.2-1.3); Total Protein 5.5 g/dL (6.3-8.2)
[2022-11-16] MEDS: KETOROLAC 15 MG/ML 1 ML VIAL IVP SCH ×4 (05:05→23:46)
[2022-11-16] MEDS: AMPICILLIN-SULBACTAM 3 GM in SODIUM CHLORIDE 0.9% 100 ML IVPB SCH ×4 (05:06→23:47)
[2022-11-16] MEDS: SYMBICORT 160-4.5 MCG INHALER INHALATION SCH ×2 (07:48→21:43)
[2022-11-16] MEDS: IPRATROPIUM-ALBUTEROL 3 ML NEB INHALATION SCH ×4 (07:48→21:43)
--- NOTE | 2022-11-16 07:51 | XR ---
EXAMINATION TYPE: XR chest 2V DATE OF EXAM: 11/16/2022 COMPARISON: 11/15/2022 HISTORY: Shortness of breath TECHNIQUE: Frontal and lateral views of the chest are obtained. FINDINGS: Scattered senescent parenchymal changes noted. Hyperinflation compatible with COPD. Right basilar pleural-parenchymal opacity persists essentially unchanged allowing for differences in technique. Heart size is stable. Mediastinal structures are stable and grossly unremarkable. No evidence for hilar prominence. Degenerative changes dorsal spine. IMPRESSION: 1. Right basilar pleural-parenchymal opacity persists essentially unchanged allowing for differences in technique.
[2022-11-16 08:29] LABS: Anisocytosis Slight; HGB 10.2 gm/dL (13.0-17.5); Hypochromasia Marked; MCV 86.9 fL (80.0-100.0); Mean Platelet Volume 7.8; Platelet Count 121 k/uL (150-450); RBC 3.92 m/uL (4.30-5.90); RDW 19.6 % (11.5-15.5); WBC 3.4 k/uL (3.8-10.6)
[2022-11-16 08:49] LABS: African American GFR (CKD) >90 (>60 ml/min/1.73 sqM); Anion Gap 8 mmol/L; Blood Urea Nitrogen 13 mg/dL (9-20); Calcium 8.1 mg/dL (8.4-10.2); Carbon Dioxide 23 mmol/L (22-30); Chloride 107 mmol/L (98-107); Glucose 173 mg/dL (74-99); Non-African American GFR(CKD) >90 (>60 ml/min/1.73 sqM); Potassium 3.6 mmol/L (3.5-5.1); Sodium 138 mmol/L (137-145)
[2022-11-16] MEDS: LABETALOL 200 MG TAB PO SCH ×2 (08:58→20:22)
[2022-11-16] MEDS: traMADol 50 MG TAB PO SCH ×3 (08:58→21:57)
[2022-11-16] MEDS: PANTOPRAZOLE 40 MG TABLET PO SCH ×2 (08:59→19:43)
[2022-11-16] MEDS: ENOXAPARIN 40 MG/0.4 ML SYRINGE SQ SCH (08:59)
[2022-11-16] MEDS: TAMSULOSIN 0.4 MG CAP.ER.24H PO SCH (08:59)
[2022-11-16] MEDS: SERTRALINE 100 MG TAB PO SCH ×2 (08:59→19:43)
[2022-11-16] MEDS: BENZTROPINE MESYLATE 0.5 MG TAB PO SCH ×2 (08:59→20:22)
--- NOTE | 2022-11-16 09:24 | P.PN ---
Subjective Progress Note Date: 11/16/22 Principal diagnosis: Right-sided pleural effusion, empyema with pleural fluid positive for alpha hemolytic strep, status post right-sided thoracentesis with subsequent pigtail catheter placement, masslike area of heterogeneous enhancement in the right middle lobe, combination of collapse and consolidation of the basilar right lower lobe, acute hypoxic respiratory failure, progressive shortness of breath, cough with sputum production. History of recent 65 pound weight loss, long-term heavy tobacco use with recent cessation, COPD, asthma, hypertension POD #2 right Eloesser flap Patient was seen and examined at his bedside today 11/16/2022 on the cardiac stepdown into. Currently is lying in bed, is awake, alert, oriented 3 and is in no acute apparent distress. Denies any complaints of shortness of breath although is continuing to complain of intermittent pain to his right chest surgical site. Currently rating his pain 5 out of 10 on the pain scale. Oxygen saturations are 98% on room air and he is achieving 1500 mL on his incentive spirometry with encouragement. The dressing to his right side Eloesser flap was changed yesterday at his bedside by Dr. Melvin Wolf and his iodoform packing was removed, and a dressing using 4 x 4 fluffs were placed and secured with tape. Patient tolerated the dressing well. Wound care has been consulted to follow the Eloesser flap and place a fluid collection bag over the Eloesser flap site. The patient remains afebrile the last 24 hours, continues on IV antibiotics, currently receiving Unasyn for alpha hemolytic streptococcus managed by infectious disease. Culture from 11/14/2022 continues to show no organism seen after 24 hours. Chest x-ray was reviewed. Objective - Vital Signs Vital signs: Vital Signs Temp 97.5 F L 11/16/22 08:15 Pulse 79 11/16/22 08:15 Resp 18 11/16/22 08:15 BP 129/77 11/16/22 08:15 Pulse Ox 98 11/16/22 08:15 FiO2 2 11/04/22 07:24 Intake & Output 11/15/22 11/16/22 11/16/22 18:59 06:59 18:59 Intake Total 402 10 Output Total 350 600 300 Balance 52 -590 -300 Intake: IV 10 Invasive Line 5 10 Oral 402 Output: Urine 350 600 300 Other: Voiding Method Urinal Urinal Incontinent Incontinent # Voids 1 # Bowel Movements 2 1 - Exam CONSTITUTIONAL: Appears comfortable, cooperative, no acute distress RESPIRATORY: Lungs sounds diminished bilaterally. Respirations even, nonlabored. Currently on room air with oxygen saturation 98%. Able to achieve 1500 mL on incentive spirometry. Strong cough. CARDIOVASCULAR: S1, S2 present. Regular rate and rhythm. Palpable peripheral pulses bilaterally. No edema present. No calf pain or tenderness noted. SCDs present. GASTROINTESTINAL: Abdomen soft, nontender, nondistended. Active bowel sounds present 4 quadrants. Tolerating minimal diet. GENITOURINARY: Continues to void. INTEGUMENTARY: Skin is warm and dry, no evidence of clubbing or cyanosis. Right chest dressing is clean, dry and intact. NEUROLOGIC: Cranial nerves II through XII intact. No focal deficits. MUSKULOSKELETAL: Able to move all extremities, strength equal bilaterally, gait normal. PSYCHIATRIC: Alert and oriented to person place and time, flat affect. - Allied health notes Allied health notes reviewed: nursing - Labs CBC & Chem 7: 11/16/22 08:04 11/16/22 08:04 Labs: Abnormal Lab Results - Last 24 Hours (Table) 11/15/22 11/15/22 11/16/22 Range/Units 15:54 15:54 08:04 WBC 3.4 L (3.8-10.6) k/uL RBC 3.63 L 3.92 L (4.30-5.90) m/uL Hgb 9.7 L 10.2 L (13.0-17.5) gm/dL Hct 31.2 L 34.0 L (39.0-53.0) % MCHC 30.0 L (31.0-37.0) g/dL RDW 19.5 H 19.6 H (11.5-15.5) % Plt Count 134 L 121 L (150-450) k/uL Sodium 134 L (137-145) mmol/L Creatinine 0.65 L (0.66-1.25) mg/dL Glucose (74-99) mg/dL Calcium 8.2 L (8.4-10.2) mg/dL Total Protein 5.5 L (6.3-8.2) g/dL Albumin 2.6 L (3.5-5.0) g/dL 11/16/22 Range/Units 08:04 WBC (3.8-10.6) k/uL RBC (4.30-5.90) m/uL Hgb (13.0-17.5) gm/dL Hct (39.0-53.0) % MCHC (31.0-37.0) g/dL RDW (11.5-15.5) % Plt Count (150-450) k/uL Sodium (137-145) mmol/L Creatinine 0.61 L (0.66-1.25) mg/dL Glucose 173 H (74-99) mg/dL Calcium 8.1 L (8.4-10.2) mg/dL Total Protein (6.3-8.2) g/dL Albumin (3.5-5.0) g/dL Microbiology - Last 24 Hours (Table) 11/14/22 09:00 Gram Stain - Preliminary Other - Other Tissue Culture - Preliminary - Imaging and Cardiology Chest x-ray: report reviewed, image reviewed Assessment and Plan Assessment: Right-sided pleural effusion, empyema with pleural fluid positive for alpha hemolytic streptococcus, status post right-sided thoracentesis with subsequent pigtail catheter placement, status post right Eloesser flap Masslike area of heterogeneous enhancement in the right middle lobe measuring 6.9 cm, right pleural fluid cytology negative for malignant cells Combination of collapse and consolidation of the basilar right lower lobe Acute hypoxic respiratory failure Progressive shortness of breath, cough with sputum production Recent 65 pound weight loss Long-term heavy tobacco use with recent cessation COPD Asthma Hypertension Plan: Dressing to his right chest, will be changed by Dr. Wolf yesterday 11/15/2022, wound care has been consulted for management of the Eloesser flap and to place a fluid collection bag in place. Reinforce the dressing to right chest as needed. Continue antibiotics per infectious disease recommendations, currently on Unasyn as the patient's pleural fluid culture showed positive for alpha hemolytic streptococcus on 10/30/2022. Culture results taken in the operating room on 11/14/2022 continue to show no growth after 24 hours. Surgical pathology results remain pending. Medical management of other comorbidities per internal medicine, pulmonology, and infectious disease. More recommendations to follow based on patient's clinical course. Time with Patient: Greater than 30
--- NOTE | 2022-11-16 11:21 | P.PN ---
Subjective Progress Note Date: 11/16/22 61-year-old male with a PMH of tobacco abuse who was transferred from [facility] where he had presented earlier today with complaints of weight loss and abdominal pain. In [place] emergency room, the patient underwent an extensive evaluation with laboratory evaluation showing WBC count 8.3, hemoglobin 11.0, sodium 131, glucose 104, lactic acid 1.3, calcium 8.0, with albumin 2.7. Patient evaluated by pulmonology. Thoracentesis done. Has significant empyema. Patient also started on vancomycin and cefepime. Culture showing alphahemolytic streptococcus. ID consulted. Patient was transitioned to Unasyn. Patient was seen in consultation with CT surgery as well, required multiple doses of lytics to improve chest tube output. He underwent right Eloesser flap on 11/14. 11/15 Patient was seen and examined. Patient reports improvement in his breathing. He reports chest pain at the site on incision. 11/15 culture from OR shows moderate PMN with no organisms. 11/16 Patient was seen and examined. Currently saturating 98% on RA. CBC shows Hg 10.2 and Plt count of 121. BMP shows Cr 0.61, glucose of 173 and Ca of 81. CXR shows right basilar opacity essentially unchanged. 11/15 culture from OR shows moderate PMN with no organisms. General: non toxic, no distress, appears at stated age Derm: warm, dry Head: atraumatic, normocephalic, symmetric Eyes: EOMI, no lid lag, anicteric sclera Cardiovascular: S1S2 reg, no murmur, right chest dressing c/d/i Lungs: Decreased BS bilateral, no rhonchi, no rales , no accessory muscle use Ext: no gross muscle atrophy, no edema, no contractures Neuro: no focal neuro deficits Psych: Alert, oriented, appropriate affect Empyema Masslike enhancement in the right middle lobe COPD with Emphysema without exacerbation Normocytic anemia Aneurysmal aortic root and ascending aorta Resolved: HypoNa, HypoK Based on my assessment of this patient, this patient meets a moderate complexity level of care. Patient has a new diagnosis of empyema with uncertain prognosis. Initially underwent thoracentesis, WCx + alphahemolytic streptococcus, maintained on Un asyn with ID on board. He received multiple doses of thrombolytics to improve chest tube output. Underwent right Eloesser flap on 11/[address] surgery. Bronchodilators: DuoNeb 0.5mg-3mg/3ml scheduled and as needed for SOB and wheezing. Symbicort 2 puff BID. Antibiotics: Unasyn 3g IV Q6H (Day 14) Supplemental oxygen to maintain O2 > 92%. I have reviewed the following is consultant notes: None. I have reviewed the results of the following tests: 11/15 culture from OR shows moderate PMN with no organisms. I have ordered the following tests: None. I have discussed the care of this patient with the following independent historian: None. I have independently interpreted the following test below: CXR shows persistent R sided opacity. I have discussed the management of this patient with the following physician: Case was discussed with Dr. Ryan, patient needs a midline with plans for Unasyn on discharge. Objective - Vital Signs Vital signs: Vital Signs Temp 97.5 F L 11/16/22 08:15 Pulse 79 11/16/22 08:15 Resp 18 11/16/22 08:15 BP 129/77 11/16/22 08:15 Pulse Ox 98 11/16/22 08:15 FiO2 2 11/04/22 07:24 Intake & Output 11/15/22 11/16/22 11/16/22 18:59 06:59 18:59 Intake Total 402 10 Output Total 350 600 300 Balance 52 -590 -300 Intake: IV 10 Invasive Line 5 10 Oral 402 Output: Urine 350 600 300 Other: Voiding Method Urinal Urinal Incontinent Incontinent # Voids 1 # Bowel Movements 2 1 - Labs CBC & Chem 7: 11/16/22 08:04 11/16/22 08:04 Labs: Abnormal Lab Results - Last 24 Hours (Table) 11/15/22 11/15/22 11/16/22 Range/Units 15:54 15:54 08:04 WBC 3.4 L (3.8-10.6) k/uL RBC 3.63 L 3.92 L (4.30-5.90) m/uL Hgb 9.7 L 10.2 L (13.0-17.5) gm/dL Hct 31.2 L 34.0 L (39.0-53.0) % MCHC 30.0 L (31.0-37.0) g/dL RDW 19.5 H 19.6 H (11.5-15.5) % Plt Count 134 L 121 L (150-450) k/uL Sodium 134 L (137-145) mmol/L Creatinine 0.65 L (0.66-1.25) mg/dL Glucose (74-99) mg/dL Calcium 8.2 L (8.4-10.2) mg/dL Total Protein 5.5 L (6.3-8.2) g/dL Albumin 2.6 L (3.5-5.0) g/dL 11/16/22 Range/Units 08:04 WBC (3.8-10.6) k/uL RBC (4.30-5.90) m/uL Hgb (13.0-17.5) gm/dL Hct (39.0-53.0) % MCHC (31.0-37.0) g/dL RDW (11.5-15.5) % Plt Count (150-450) k/uL Sodium (137-145) mmol/L Creatinine 0.61 L (0.66-1.25) mg/dL Glucose 173 H (74-99) mg/dL Calcium 8.1 L (8.4-10.2) mg/dL Total Protein (6.3-8.2) g/dL Albumin (3.5-5.0) g/dL Microbiology - Last 24 Hours (Table) 11/14/22 09:00 Gram Stain - Preliminary Other - Other Tissue Culture - Preliminary
--- NOTE | 2022-11-16 12:14 | P.PN ---
Subjective Progress Note Date: 11/16/22 Principal diagnosis: Empyema. The patient is seen today 11/11/2022 in follow-up on the regular medical floor. He sitting up in bed. Awake and alert in no acute distress. Maintaining good O2 saturations in the upper 90s on 2 L/m per nasal cannula. He's been afebrile. Hemodynamically stable. He is still having some ongoing issues with right- sided chest discomfort. Pigtail catheter remains in place. Additional 300 ML's drained in the past 24 hours. He's receive 6 doses of lytic infusion. Plan is for her seventh dose today. Chest x-ray continues to show improvement. He is continued on Unasyn. He remains on DuoNeb inhalations, Symbicort. Lovenox for DVT prophylaxis. Patient is seen today 11/13/19992017 in follow-up on the regular medical floor. He is awake and alert in no acute distress. Currently sitting up in bed. Having breakfast. Denies any worsening shortness of breath, cough or congestion. No hemoptysis. He is continued on DuoNeb inhalations, Symbicort. Remains on Unasyn. Lovenox for DVT prophylaxis. Normal saline at 75 ML's per hour. Chest x-ray shows right-sided basilar pleural catheter in place. Ongoing extensive pleural effusion/empyema and areas of airspace disease involving the right lower lobe. Suspect some loculated air within the empyema cavity. Trace left pleural effusion. Catheter remains to low continuous wall suction. No leak noted. He is receiving his seventh dose of lytic infusion. Approximately 220 ML's drained in the past 24 hours. He does continue to work well with the incentive spirometer pulling approximately 1500 ML's. White count 2.4. Hemoglobin 9.8. Platelets 145. Sodium 136. Potassium 3.9. Bicarb 30. BUN 8. Creatinine 0.51. The patient is seen today 11/13/2022 in follow-up on the regular medical floor. Sitting up in bed. Awake and alert in no acute distress. Continues to maintain good O2 saturations in the upper 90s on 2 L/m per nasal cannula. Afebrile. Hemodynamically stable. Chest x-ray shows bilateral pleural effusions right greater than left. Right-sided pigtail catheter remains in good position. No evidence of pneumothorax. Pigtail catheter remains in place to low continuous wall suction. Continues to drain that serosanguineous, tannish-colored drainage with 300 ML's in the past 24 hours. Continues working well with the incentive spirometer. He has received 8 doses of alteplase/dornase lytic infusions. Remains on Unasyn, bronchodilators. Lovenox for DVT prophylaxis. Patient was seen today on 11/14/2022, patient is status post Right Eloesser flap, this was done today by Dr. Wolf, I saw the patient in the recovery room, he is doing well, asymptomatic, in no distress, on 2 L nasal cannula, O2 sats at 97%, he is hemodynamically stable, as a matter fact is doing great and better than expected. WBC count 3.4 hemoglobin 9.811 was are normal renal profile is normal. Reevaluated today on 11/15/2022, patient is now postoperative day #1 right Eloess er flap patient is doing well, he is on room air, does not seem to be in any distress, minimal surgical eye pain at the site of the surgery. Patient is achieving 1500 mL with his incentive spirometer. Chest x-ray is showing significant improvement in his right sided fluid collection. Remains on Unasyn. Patient had alpha hemolytic strep cultures from the fluid in the past. Progress note dated 11/16/2022. 62-year-old male who's been in the hospital now for 18 days. He's postop day #2, status post right Eloesser flap. The patient's currently on room air, 2 L. The patient is receiving Unasyn. No IV fluids. The patient is likely to be discharged to a alf, or rehab was elevated. White count 3.4, hemoglobin 10.2, hematocrit 34, and platelet count 121,000. Sodium 138, potas sium 3.6, chlorides 107, CO2 23, BUN 13, creatinine 0.61. Glucose 173. Albumin is 2.6. Chest x-ray shows right basilar pleural-parenchymal changes. Objective - Vital Signs Vital signs: Vital Signs Temp 97.5 F L 11/16/22 08:15 Pulse 79 11/16/22 11:10 Resp 18 11/16/22 08:15 BP 129/77 11/16/22 08:15 Pulse Ox 98 11/16/22 08:15 FiO2 2 11/04/22 07:24 Intake & Output 11/15/22 11/16/22 11/16/22 18:59 06:59 18:59 Intake Total 402 10 10 Output Total 350 600 550 Balance 52 -590 -540 Intake: IV 10 10 Invasive Line 5 10 10 Oral 402 Output: Urine 350 600 550 Other: Voiding Method Urinal Urinal Urinal Incontinent Incontinent Incontinent # Voids 1 # Bowel Movements 2 1 - Exam No acute distress, oriented 3. Currently on room air and/or 2 L of oxygen by nasal cannula. HEENT examination is grossly unremarkable. Neck supple. Full range of motion. No adenopathy thyromegaly or neck vein distention. Cardiovascular examination reveals regular rhythm rate. S1-S2 normal. No S3 or S4. No discernible murmur noted. Heart rate 79 bpm. Lungs reveal diminished breath sounds at the right base. Scattered rhonchi are noted. No wheezes or crackles. Saturations are 98% on room air. Abdomen soft bowel sounds are heard. No masses or tenderness. Extremities are intact. No cyanosis clubbing or edema. Skin is without rash or lesion. Neurologic examination is brief but nonfocal. - Labs CBC & Chem 7: 11/16/22 08:04 11/16/22 08:04 Labs: Abnormal Lab Results - Last 24 Hours (Table) 11/15/22 11/15/22 11/16/22 Range/Units 15:54 15:54 08:04 WBC 3.4 L (3.8-10.6) k/uL RBC 3.63 L 3.92 L (4.30-5.90) m/uL Hgb 9.7 L 10.2 L (13.0-17.5) gm/dL Hct 31.2 L 34.0 L (39.0-53.0) % MCHC 30.0 L (31.0-37.0) g/dL RDW 19.5 H 19.6 H (11.5-15.5) % Plt Count 134 L 121 L (150-450) k/uL Sodium 134 L (137-145) mmol/L Creatinine 0.65 L (0.66-1.25) mg/dL Glucose (74-99) mg/dL Calcium 8.2 L (8.4-10.2) mg/dL Total Protein 5.5 L (6.3-8.2) g/dL Albumin 2.6 L (3.5-5.0) g/dL 11/16/22 Range/Units 08:04 WBC (3.8-10.6) k/uL RBC (4.30-5.90) m/uL Hgb (13.0-17.5) gm/dL Hct (39.0-53.0) % MCHC (31.0-37.0) g/dL RDW (11.5-15.5) % Plt Count (150-450) k/uL Sodium (137-145) mmol/L Creatinine 0.61 L (0.66-1.25) mg/dL Glucose 173 H (74-99) mg/dL Calcium 8.1 L (8.4-10.2) mg/dL Total Protein (6.3-8.2) g/dL Albumin (3.5-5.0) g/dL Microbiology - Last 24 Hours (Table) 11/14/22 09:00 Gram Stain - Preliminary Other - Other Tissue Culture - Preliminary Assessment and Plan Assessment: Chronic shortness of breath, anorexia, significant 65 pound weight loss, and an abnormal chest x-ray, suggesting either chronic infection/lung abscess, with empyema, or malignancy. Postop day #2, status post right Eloesser flap. Status post previous thoracentesis, with cultures positive for alpha-hemolytic streptococcus. History of heavy tobacco use, with probable underlying COPD. History of hypertension. Vague history of asthma. Plan: Plan dated 10/30/2022. The patient had a thoracentesis performed by interventional radiology. Apparently the material removed, looked purulent, and we started the patient on vancomycin and cefepime. An ultrasound of the chest was ordered, as well as a CAT scan. The ultrasound showed a complex fluid collection on the right side, therefore interventional radiology did the procedure. The patient has had a significant weight loss, over the last couple of months of about 65 pounds we are concerned about chronic infection/empyema/lung abscess, versus malignancy additional recommendations and suggestions are forthcoming. We will check a pro-calcitonin level. Plan dated 11/16/2022. The patient will continue on antibiotics in the form of Unasyn. The patient had surgery couple days ago. He continues on incentive spirometer, bronchodilators, GI prophylaxis, and DVT prophylaxis. The patient will likely need to be d ischarged to rehab facility or alf. No additional recommendations are made. Labs, x-rays, medications are reviewed. We will continue to follow the patient and make recommendations along the way. Time with Patient: Less than 30
[2022-11-16] MEDS: SODIUM CHLORIDE 0.9% 1,000 ML IV SCH (17:45)
--- NOTE | 2022-11-16 22:50 | P.PN ---
Subjective Progress Note Date: 11/15/22 Principal diagnosis: empyema Patient is a 62-year-old male presenting to the hospital 4 days ago on 10/29/2022 for evaluation of weight loss failure to thrive and suspected malignancy patient also complaining of some right lower chest pain , patient was noticed to have a right-sided effusion status post thoracocentesis significantly positive culture did grew Streptococcus patient initially refused pigtail catheter placement however seemed to have agreed to it though. Patient is status post right-sided chest tube placement by interventional radiology on 11/03/2022, patient is scheduled for right-sided Elosser flap this morning by CT surgery On today's evaluation that is 11/15/2022, the patient denies having any fever or any chills he is breathing comfortably on 2 L nasal cannula still complaining of right-sided chest pain some control with the pain medication no nausea no vomiting no abdominal pain no diarrhea Objective - Vital Signs Vital signs: Vital Signs Temp 98.2 F 11/15/22 00:00 Pulse 65 11/15/22 12:00 Resp 18 11/15/22 12:00 BP 130/68 11/15/22 12:00 Pulse Ox 95 11/15/22 12:00 FiO2 2 11/04/22 07:24 Intake & Output 11/14/22 11/15/22 11/15/22 18:59 06:59 18:59 Intake Total 1740 100 Output Total 600 Balance 1140 100 Intake: IV 1250 Ampicillin-Sulbactam 3 gm 100 In Sodium Chloride 0.9% 100 ml @ 200 mls/hr IVPB Q6HR [facility] Rx#:[id number] Sodium Chloride 0.9% 1, 450 000 ml @ 75 mls/hr IV . [id number] [facility] Rx#:[id number] Oral 490 100 Output: Urine 575 Estimated Blood Loss 25 Other: Voiding Method Incontinent Urinal Incontinent # Voids 1 1 - Exam GENERAL DESCRIPTION: Middle-aged male lying in bed in no distress RESPIRATORY SYSTEM: Unlabored breathing , decreased breath sounds at bases right-sided chest tube with mostly bloody secretions HEART: S1 S2 regular rate and rhythm , ABDOMEN: Soft , no tenderness EXTREMITIES: No edema feet - Labs CBC & Chem 7: 11/16/22 08:04 11/16/22 08:04 Labs: Abnormal Lab Results - Last 24 Hours (Table) 11/14/22 Range/Units 15:28 Sodium 135 L (137-145) mmol/L Creatinine 0.52 L (0.66-1.25) mg/dL Calcium 7.5 L (8.4-10.2) mg/dL Microbiology - Last 24 Hours (Table) 11/14/22 09:00 Gram Stain - Preliminary Other - Other Assessment and Plan (1) Empyema Current Visit: Yes Status: Acute Code(s): J86.9 - PYOTHORAX WITHOUT FISTULA SNOMED Code(s): 907769285 Plan: 1patient presented hospital with right-sided chest pain shortness of breath and cough in this patient with evidence of large right-sided effusion status post thoracocentesis with significant normality of the fluid culture growing alphahemolytic Streptococcus concerning for empyema with underlying malignancy not entirely excluded in view of his overall clinical condition 2-patient is status post chest tube placement on the right side,However the patient did have persistent right-sided empyema for which the patient did have right Eloesser flap procedure completed on 11/14/2022, we will continue patient on Unasyn while waiting for repeat culture to finalize and monitor clinical course closely Time with Patient: Less than 30
--- NOTE | 2022-11-16 22:52 | P.PN ---
Subjective Progress Note Date: 11/16/22 Principal diagnosis: empyema Patient is a 62-year-old male presenting to the hospital 4 days ago on 10/29/2022 for evaluation of weight loss failure to thrive and suspected malignancy patient also complaining of some right lower chest pain , patient was noticed to have a right-sided effusion status post thoracocentesis significantly positive culture did grew Streptococcus patient initially refused pigtail catheter placement however seemed to have agreed to it though. Patient is status post right-sided chest tube placement by interventional radiology on 11/03/2022, patient is scheduled for right-sided Elosser flap this morning by CT surgery On today's evaluation that is 11/16/2022, the patient denies having any fever or any chills, the patient is breathing comfortably on a 2 L nasal cannula oxygen still complaining of some right-sided chest pain no nausea vomiting no abdominal pain and no diarrhea Objective - Vital Signs Vital signs: Vital Signs Temp 97.5 F L 11/16/22 08:15 Pulse 79 11/16/22 08:15 Resp 18 11/16/22 08:15 BP 129/77 11/16/22 08:15 Pulse Ox 98 11/16/22 08:15 FiO2 2 11/04/22 07:24 Intake & Output 11/15/22 11/16/22 11/16/22 18:59 06:59 18:59 Intake Total 402 10 Output Total 350 600 550 Balance 52 -590 -550 Intake: IV 10 Invasive Line 5 10 Oral 402 Output: Urine 350 600 550 Other: Voiding Method Urinal Urinal Incontinent Incontinent # Voids 1 # Bowel Movements 2 1 - Exam GENERAL DESCRIPTION: Middle-aged male lying in bed in no distress RESPIRATORY SYSTEM: Unlabored breathing , decreased breath sounds at bases right-sided chest tube with mostly bloody secretions HEART: S1 S2 regular rate and rhythm , ABDOMEN: Soft , no tenderness EXTREMITIES: No edema feet - Labs CBC & Chem 7: 11/16/22 08:04 11/16/22 08:04 Labs: Abnormal Lab Results - Last 24 Hours (Table) 11/15/22 11/15/22 11/16/22 Range/Units 15:54 15:54 08:04 WBC 3.4 L (3.8-10.6) k/uL RBC 3.63 L 3.92 L (4.30-5.90) m/uL Hgb 9.7 L 10.2 L (13.0-17.5) gm/dL Hct 31.2 L 34.0 L (39.0-53.0) % MCHC 30.0 L (31.0-37.0) g/dL RDW 19.5 H 19.6 H (11.5-15.5) % Plt Count 134 L 121 L (150-450) k/uL Sodium 134 L (137-145) mmol/L Creatinine 0.65 L (0.66-1.25) mg/dL Glucose (74-99) mg/dL Calcium 8.2 L (8.4-10.2) mg/dL Total Protein 5.5 L (6.3-8.2) g/dL Albumin 2.6 L (3.5-5.0) g/dL 11/16/22 Range/Units 08:04 WBC (3.8-10.6) k/uL RBC (4.30-5.90) m/uL Hgb (13.0-17.5) gm/dL Hct (39.0-53.0) % MCHC (31.0-37.0) g/dL RDW (11.5-15.5) % Plt Count (150-450) k/uL Sodium (137-145) mmol/L Creatinine 0.61 L (0.66-1.25) mg/dL Glucose 173 H (74-99) mg/dL Calcium 8.1 L (8.4-10.2) mg/dL Total Protein (6.3-8.2) g/dL Albumin (3.5-5.0) g/dL Microbiology - Last 24 Hours (Table) 11/14/22 09:00 Gram Stain - Preliminary Other - Other Tissue Culture - Preliminary Assessment and Plan (1) Empyema Current Visit: Yes Status: Acute Code(s): J86.9 - PYOTHORAX WITHOUT FISTULA SNOMED Code(s): 188760130 Plan: 1patient presented hospital with right-sided chest pain shortness of breath and cough in this patient with evidence of large right-sided effusion status post thoracocentesis with significant normality of the fluid culture growing alphahemolytic Streptococcus concerning for empyema with underlying malignancy not entirely excluded in view of his overall clinical condition 2-patient is status post chest tube placement on the right side,However the pa tient did have persistent right-sided empyema for which the patient did have right Eloesser flap procedure completed on 11/14/2022, Repeat cultures so far pending however keeping in mind his extensive infection he will benefit from midline placement and continue on IV Unasyn x2 weeks on discharge this was discussed in detail with the medical team working on discharge Time with Patient: Less than 30
[2022-11-17] MEDS: KETOROLAC 15 MG/ML 1 ML VIAL IVP SCH ×3 (05:05→18:04)
[2022-11-17] MEDS: AMPICILLIN-SULBACTAM 3 GM in SODIUM CHLORIDE 0.9% 100 ML IVPB SCH ×3 (05:06→18:04)
[2022-11-17] MEDS: SODIUM CHLORIDE 0.9% 1,000 ML IV SCH ×2 (05:54→20:52)
--- NOTE | 2022-11-17 07:47 | P.PN ---
Subjective Progress Note Date: 11/17/22 Principal diagnosis: Right-sided effusion, empyema with pleural fluid positive for alpha hemolytic strep, status post right-sided thoracentesis with subsequent pigtail catheter placement, masslike area of heterogeneous enhancement in the right middle lobe, combination of collapse and consolidation of the basilar right lower lobe, acute hypoxic respiratory failure, progressive shortness of breath, cough with sputum production. History of recent 65 pound weight loss, long-term heavy tobacco use with recent cessation, COPD, asthma, hypertension POD #3 Eloesser flap The patient was seen and examined sitting up in bed on the cardiac stepdown unit in no acute distress eating breakfast. Continues to feel the same. Currently on room air, remains afebrile, remains on IV Unasyn per infectious disease. CXR reviewed. Case discussed with wound care [facility] [employer] [facility] yesterday, await dressing change recommendations. Notation made that despite PT/OT recommendations for [facility] placement at [place] patient is refusing and insisting on going home. This is considerably unsafe as home care is unlikely to come out 4x per day for IV antibiotics infusion, patient will need daily dressing changes which are too complex for him, his nutrition status is admittedly poor and he admits to skipping meals frequently because he doesn't cook for himself, he requires assistance with ambulation and doesn't ambulate well, and has no one at home with him for assistance. In addition there is concern about the ability to get to/from his necessary follow up appointments. He is unsafe to go home and should go to a facility for at least a couple of weeks to continue his IV infusions, daily dressing changes, monitoring of his wound, improvement in nutrition and mobility. This was discussed at length with the patient this morning. If he still refuses and insists on going home competency should be evaluated and potentially guardianship should be sought as patient is clearly not making the safest decision regarding his health. Objective - Vital Signs Vital signs: Vital Signs Temp 97.5 F L 11/17/22 03:35 Pulse 69 11/17/22 03:35 Resp 18 11/17/22 03:35 BP 158/67 11/17/22 03:35 Pulse Ox 97 11/17/22 03:35 FiO2 2 11/04/22 07:24 Intake & Output 11/16/22 11/17/22 11/17/22 18:59 06:59 18:59 Intake Total 523 550 Output Total 725 750 Balance -202 -200 Weight 77.111 kg Intake: IV 10 Invasive Line 5 10 Oral 513 550 Output: Urine 725 750 Other: Voiding Method Urinal Urinal Incontinent Incontinent # Voids 2 1 # Bowel Movements 1 - Exam CONSTITUTIONAL: Appears comfortable, cooperative, no acute distress RESPIRATORY: Lungs sounds diminished bilaterally. Respirations even, nonlabored. Currently on room air with oxygen saturation 97%. Able to achieve 2500 mL on incentive spirometry. Strong cough. CARDIOVASCULAR: S1, S2 present. Regular rate and rhythm. Palpable peripheral pulses bilaterally. No edema present. No calf pain or tenderness noted GASTROINTESTINAL: Abdomen soft, nontender, nondistended. Active bowel sounds present 4 quadrants. Tolerating minimal diet. Positive bowel movement 11/16/22 GENITOURINARY: Continues to void INTEGUMENTARY: Skin is warm and dry, dressing present over right lateral wall surgical site NEUROLOGIC: Cranial nerves II through XII intact MUSKULOSKELETAL: Able to move all extremities, strength equal bilaterally, gait normal PSYCHIATRIC: Alert and oriented to person place and time, flat affect, poor judgment - Allied health notes Allied health notes reviewed: nursing - Labs CBC & Chem 7: 11/16/22 08:04 11/16/22 08:04 Labs: Abnormal Lab Results - Last 24 Hours (Table) 11/16/22 11/16/22 Range/Units 08:04 08:04 WBC 3.4 L (3.8-10.6) k/uL RBC 3.92 L (4.30-5.90) m/uL Hgb 10.2 L (13.0-17.5) gm/dL Hct 34.0 L (39.0-53.0) % MCHC 30.0 L (31.0-37.0) g/dL RDW 19.6 H (11.5-15.5) % Plt Count 121 L (150-450) k/uL Creatinine 0.61 L (0.66-1.25) mg/dL Glucose 173 H (74-99) mg/dL Calcium 8.1 L (8.4-10.2) mg/dL Microbiology - Last 24 Hours (Table) 11/14/22 09:00 Anaerobic Culture - Preliminary Other - Other 11/14/22 09:00 Gram Stain - Preliminary Other - Other Tissue Culture - Preliminary - Imaging and Cardiology Chest x-ray: image reviewed Assessment and Plan Assessment: Right-sided effusion, empyema with pleural fluid positive for alpha hemolytic strep, status post right-sided thoracentesis with subsequent pigtail catheter placement, status post Eloesser flap Masslike area of heterogeneous enhancement in the right middle lobe measuring 6.9 cm, right pleural fluid cytology negative for malignant cells Combination of collapse and consolidation of the basilar right lower lobe Acute hypoxic respiratory failure Progressive shortness of breath, cough with sputum production Recent 65 pound weight loss Long-term heavy tobacco use with recent cessation COPD Asthma Hypertension Plan: Await wound care recommendations for dressing change Continue antibiotics per infectious disease recommendations Recommend discharge to [facility], if patient refuses recommend competency eval and possible guardianship Medical management of other comorbidities per internal medicine, pulmonology, infectious disease More recommendations to follow
[2022-11-17] MEDS: SYMBICORT 160-4.5 MCG INHALER INHALATION SCH ×2 (08:18→21:52)
[2022-11-17] MEDS: IPRATROPIUM-ALBUTEROL 3 ML NEB INHALATION SCH ×4 (08:18→21:52)
[2022-11-17] MEDS: BENZTROPINE MESYLATE 0.5 MG TAB PO SCH ×2 (08:26→20:58)
[2022-11-17] MEDS: SERTRALINE 100 MG TAB PO SCH ×2 (08:27→20:58)
[2022-11-17] MEDS: TAMSULOSIN 0.4 MG CAP.ER.24H PO SCH (08:27)
[2022-11-17] MEDS: traMADol 50 MG TAB PO SCH ×3 (08:27→22:41)
[2022-11-17] MEDS: LABETALOL 200 MG TAB PO SCH ×2 (08:27→20:58)
[2022-11-17] MEDS: PANTOPRAZOLE 40 MG TABLET PO SCH ×2 (08:27→20:58)
[2022-11-17] MEDS: ENOXAPARIN 40 MG/0.4 ML SYRINGE SQ SCH (08:28)
--- NOTE | 2022-11-17 08:34 | XR ---
EXAMINATION TYPE: XR chest 1V portable DATE OF EXAM: 11/17/2022 7:08 AM COMPARISON: Chest radiographs from 11/16/2022 TECHNIQUE: XR chest 1V portable Portable AP radiograph of the chest. CLINICAL INDICATION:Male, 62 years old with history of s/p right Eloesser flap; FINDINGS: Lungs/Pleura: Hyperinflation. Similar focal pleural-parenchymal opacities of the right base. No appre ciable pneumothorax. Pulmonary vascularity: Unremarkable. Heart/mediastinum: Cardiomediastinal silhouette is prominent in size. Atherosclerotic calcifications are seen in the aorta. Musculoskeletal: No acute osseous pathology. IMPRESSION: COPD with similar focal right lower lung pleural-parenchymal opacities.
--- NOTE | 2022-11-17 11:17 | P.PN ---
Subjective Progress Note Date: 11/17/22 Principal diagnosis: Empyema. The patient is seen today 11/11/2022 in follow-up on the regular medical floor. He sitting up in bed. Awake and alert in no acute distress. Maintaining good O2 saturations in the upper 90s on 2 L/m per nasal cannula. He's been afebrile. Hemodynamically stable. He is still having some ongoing issues with right- sided chest discomfort. Pigtail catheter remains in place. Additional 300 ML's drained in the past 24 hours. He's receive 6 doses of lytic infusion. Plan is for her seventh dose today. Chest x-ray continues to show improvement. He is continued on Unasyn. He remains on DuoNeb inhalations, Symbicort. Lovenox for DVT prophylaxis. Patient is seen today 11/13/19992017 in follow-up on the regular medical floor. He is awake and alert in no acute distress. Currently sitting up in bed. Having breakfast. Denies any worsening shortness of breath, cough or congestion. No hemoptysis. He is continued on DuoNeb inhalations, Symbicort. Remains on Unasyn. Lovenox for DVT prophylaxis. Normal saline at 75 ML's per hour. Chest x-ray shows right-sided basilar pleural catheter in place. Ongoing extensive pleural effusion/empyema and areas of airspace disease involving the right lower lobe. Suspect some loculated air within the empyema cavity. Trace left pleural effusion. Catheter remains to low continuous wall suction. No leak noted. He is receiving his seventh dose of lytic infusion. Approximately 220 ML's drained in the past 24 hours. He does continue to work well with the incentive spirometer pulling approximately 1500 ML's. White count 2.4. Hemoglobin 9.8. Platelets 145. Sodium 136. Potassium 3.9. Bicarb 30. BUN 8. Creatinine 0.51. The patient is seen today 11/13/2022 in follow-up on the regular medical floor. Sitting up in bed. Awake and alert in no acute distress. Continues to maintain good O2 saturations in the upper 90s on 2 L/m per nasal cannula. Afebrile. Hemodynamically stable. Chest x-ray shows bilateral pleural effusions right greater than left. Right-sided pigtail catheter remains in good position. No evidence of pneumothorax. Pigtail catheter remains in place to low continuous wall suction. Continues to drain that serosanguineous, tannish-colored drainage with 300 ML's in the past 24 hours. Continues working well with the incentive spirometer. He has received 8 doses of alteplase/dornase lytic infusions. Remains on Unasyn, bronchodilators. Lovenox for DVT prophylaxis. Patient was seen today on 11/14/2022, patient is status post Right Eloesser flap, this was done today by Dr. Wolf, I saw the patient in the recovery room, he is doing well, asymptomatic, in no distress, on 2 L nasal cannula, O2 sats at 97%, he is hemodynamically stable, as a matter fact is doing great and better than expected. WBC count 3.4 hemoglobin 9.811 was are normal renal profile is normal. Reevaluated today on 11/15/2022, patient is now postoperative day #1 right Eloess er flap patient is doing well, he is on room air, does not seem to be in any distress, minimal surgical eye pain at the site of the surgery. Patient is achieving 1500 mL with his incentive spirometer. Chest x-ray is showing significant improvement in his right sided fluid collection. Remains on Unasyn. Patient had alpha hemolytic strep cultures from the fluid in the past. Progress note dated 11/16/2022. 62-year-old male who's been in the hospital now for 18 days. He's postop day #2, status post right Eloesser flap. The patient's currently on room air, 2 L. The patient is receiving Unasyn. No IV fluids. The patient is likely to be discharged to a penitentiary, or rehab was elevated. White count 3.4, hemoglobin 10.2, hematocrit 34, and platelet count 121,000. Sodium 138, potas sium 3.6, chlorides 107, CO2 23, BUN 13, creatinine 0.61. Glucose 173. Albumin is 2.6. Chest x-ray shows right basilar pleural-parenchymal changes. Progress note dated 11/17/2022. The patient is seen today in room 369. He remains on 2 L of oxygen. IV fluids. His antibiotic currently is Unasyn. The going to be discharged soon. He is postop day #3, status post right Eloesser flap. No new labs today. Labs from November 16 are reviewed. Chest x-ray shows changes of COPD, with similar focal right lower lung pleural and parenchymal opacities. Objective - Vital Signs Vital signs: Vital Signs Temp 97.5 F L 11/17/22 03:35 Pulse 76 11/17/22 10:50 Resp 18 11/17/22 08:52 BP 141/78 11/17/22 08:52 Pulse Ox 96 11/17/22 08:52 FiO2 2 11/04/22 07:24 Intake & Output 11/16/22 11/17/22 11/17/22 18:59 06:59 18:59 Intake Total 523 550 Output Total 725 750 Balance -202 -200 Weight 77.111 kg Intake: IV 10 Invasive Line 5 10 Oral 513 550 Output: Urine 725 750 Other: Voiding Method Urinal Urinal Toilet Incontinent Incontinent Urinal Incontinent # Voids 2 1 # Bowel Movements 1 - Exam No acute distress, oriented 3. Currently on room air and/or 2 L of oxygen by nasal cannula. HEENT examination is grossly unremarkable. Neck supple. Full range of motion. No adenopathy thyromegaly or neck vein distention. Cardiovascular examination reveals regular rhythm rate. S1-S2 normal. No S3 or S4. No discernible murmur noted. Heart rate 76 bpm. Lungs reveal diminished breath sounds at the right base. Scattered rhonchi are noted. No wheezes or crackles. Saturations are 96% on 2 L of oxygen. Abdomen soft bowel sounds are heard. No masses or tenderness. Extremities are intact. No cyanosis clubbing or edema. Skin is without rash or lesion. Neurologic examination is brief but nonfocal. - Labs CBC & Chem 7: 11/16/22 08:04 11/16/22 08:04 Labs: Microbiology - Last 24 Hours (Table) 11/14/22 09:00 Anaerobic Culture - Preliminary Other - Other 11/14/22 09:00 Gram Stain - Preliminary Other - Other Tissue Culture - Preliminary Assessment and Plan Assessment: Chronic shortness of breath, anorexia, significant 65 pound weight loss, and an abnormal chest x-ray, suggesting either chronic infection/lung abscess, with empyema, or malignancy. Postop day #3, status post right Eloesser flap. Status post previous thoracentesis, with cultures positive for alpha-hemolytic streptococcus. History of heavy tobacco use, with probable underlying COPD. History of hypertension. Vague history of asthma. Plan: Plan dated 10/30/2022. The patient had a thoracentesis performed by interventional radiology. Apparently the material removed, looked purulent, and we started the patient on vancomycin and cefepime. An ultrasound of the chest was ordered, as well as a CAT scan. The ultrasound showed a complex fluid collection on the right side, therefore interventional radiology did the procedure. The patient has had a significant weight loss, over the last couple of months of about 65 pounds we a re concerned about chronic infection/empyema/lung abscess, versus malignancy additional recommendations and suggestions are forthcoming. We will check a pro-calcitonin level. Plan dated 11/16/2022. The patient will continue on antibiotics in the form of Unasyn. The patient had surgery couple days ago. He continues on incentive spirometer, bronchodilators, GI prophylaxis, and DVT prophylaxis. The patient will likely need to be discharged to rehab facility or penitentiary. No additional recommendations are made. Labs, x-rays, medications are reviewed. We will continue to follow the patient and make recommendations along the way. Plan dated 11/17/2022. The patient appears be doing relatively well. He's on 2 L of oxygen. Saturations are mid to high 90s. She's not receiving any IV fluids the patient continues on Unasyn. The patient is hoping be discharged soon. Labs, x-rays, a nd medications are all reviewed. His vital signs are very stable. We will continue to follow the patient and make recommendations along the way. Time with Patient: Less than 30
--- NOTE | 2022-11-17 11:40 | P.CONS ---
History of Present Illness - Reason for Consult Consult date: 11/17/22 wound Care - History of Present Illness This is a 62-year-old patient being seen on 3 for wound care consult. Patient's past medical history is significant for asthma, COPD and hypertension. Patient is a former smoker. Patient had right-sided effusion with edema with pleural fluid positive for alphahemolytic strep status post right-sided thoracentesis. Patient has eloesser flap for dressing recommendations. Patient currently has fluff to the site however he has significant amount of drainage. Skin is still intact with no open ulceration. Review Of Systems: Constitutional: No fever, no chills, no night sweats. No weight change. No weakness, fatigue or lethargy. No daytime sleepiness. Integumentary:reports wounds, no lesions. No rash or pruritus. No unusual bruising. No change in hair or nails. Physical exam: General Appearance: Alert, cooperative, no distress, appears stated age. Skin: See HPI all other Skin color, texture, tugor normal, no rashes or lesions. Neurologic: Alert oriented x3 Assessment: 1. Eloesser Flap 2. Right-sided effusion Plan: 1. Right Flank: Apply wound drainage to the site, zinc to any exposed skin. May apply 4x4 for drainage management. Change every 5-7 days. Order: [facility] Wound Drainage Cutter Aluminum Sheet with Barrier [id number]. Patient will need assistance in dressing changes. Recommend for him to come to the wound care center to continue management of the site. Thank you for the consultation any questions please contact the wound care center DNP note has been reviewed and discussed with Dr. Rocha and the impression and plan of care has been directed as dictated. Past Medical History Past Medical History: Asthma, COPD, Hypertension History of Any Multi-Drug Resistant Organisms: None Reported Past Surgical History: Orthopedic Surgery Past Anesthesia/Blood Transfusion Reactions: No Reported Reaction Past Psychological History: No Psychological Hx Reported Smoking Status: Former smoker Past Alcohol Use History: None Reported Past Drug Use History: None Reported - Past Family History Father Family Medical History: COPD Medications and Allergies Home Medications Medication Instructions Recorded Confirmed Type Albuterol Sulfate [Albuterol 2 puff PO RT-Q4H PRN 10/30/22 10/30/22 History Sulfate Hfa] Benztropine Mesylate [Cogentin] 0.5 mg PO BID 10/30/22 10/30/22 History Gabapentin 600 mg PO TID PRN 10/30/22 10/30/22 History HYDROcodone/APAP 10-325MG [[place] 1 tab PO Q6HR PRN 10/30/22 10/30/22 History 10-325] Ibuprofen [Motrin] 600 mg PO Q6HR PRN 10/30/22 10/30/22 History Labetalol [Trandate] 200 mg PO BID 10/30/22 10/30/22 History Ondansetron Odt [Zofran Odt] 4 mg PO Q8HR PRN 10/30/22 10/30/22 History Pantoprazole Sodium [Protonix] 40 mg PO BID 10/30/22 10/30/22 History Sertraline [Zoloft] 100 mg PO BID 10/30/22 10/30/22 History Tamsulosin [Flomax] 0.4 mg PO DAILY 10/30/22 10/30/22 History tiZANidine [Zanaflex] 2 mg PO DAILY 10/30/22 10/30/22 History Allergies Allergy/AdvReac Type Severity Reaction Status Date / Time No Known Allergies Allergy Verified 10/30/22 07:14 Physical Exam Vitals: Vital Signs Temp Pulse Resp BP Pulse Ox 11/17/22 10:50 76 11/17/22 08:52 76 18 141/78 96 11/17/22 08:17 94 L 11/17/22 03:35 97.5 F L 69 18 158/67 97 11/16/22 23:40 97.9 F 64 18 161/84 98 11/16/22 19:39 98.3 F 67 18 164/80 97 11/16/22 16:45 74 11/16/22 15:48 74 18 151/82 96 11/16/22 12:57 74 20 148/77 96 Intake and Output 11/16/22 11/17/22 11/17/22 22:59 06:59 14:59 Intake Total 790 Output Total 175 750 Balance 615 -750 Intake: Oral 790 Output: Urine 175 750 Other: Voiding Method Urinal Urinal Toilet Incontinent Incontinent Urinal Incontinent # Voids 2 1 # Bowel Movements 1 Results CBC & Chem 7: 11/16/22 08:04 11/16/22 08:04 Labs: Microbiology - Last 24 Hours (Table) 11/14/22 09:00 Anaerobic Culture - Preliminary Other - Other 11/14/22 09:00 Gram Stain - Preliminary Other - Other Tissue Culture - Preliminary Assessment and Plan (1) Non-pressure chronic ulcer of skin of other sites with muscle involvement without evidence of necrosis Current Visit: Yes Status: Acute Code(s): L98.495 - NON-PRS [facility] SKIN/ OTH SITE WITH MSL INVL W/O EVD OF NECR SNOMED Code(s): 86869263 (2) Pleural effusion, right Current Visit: Yes Status: Acute Code(s): J90 - PLEURAL EFFUSION, NOT ELSEWHERE CLASSIFIED SNOMED Code(s): 73584913
--- NOTE | 2022-11-17 14:17 | P.PN ---
Subjective Progress Note Date: 11/17/22 62-year-old male with a PMH of tobacco abuse who was transferred from [facility] where he had presented earlier today with complaints of weight loss and abdominal pain. In [place] emergency room, the patient underwent an extensive evaluation with laboratory evaluation showing WBC count 8.3, hemoglobin 11.0, sodium 131, glucose 104, lactic acid 1.3, calcium 8.0, with albumin 2.7. Patie nt evaluated by pulmonology. Thoracentesis done. Has significant empyema. Patient also started on vancomycin and cefepime. Culture showing alphahemolytic streptococcus. ID consulted. Patient was transitioned to Unasyn. Patient was seen in consultation with CT surgery as well, required multiple doses of lytics to improve chest tube output. He underwent right Eloesser flap on 11/14. Patient is more denying any acute complaints. No acute issues overnight General examination - Alert and Oriented 3 in NAD Heart - + S1S2 no murmurs Lungs -diminished breath sounds bilaterally Abdomen soft NT ND +ve BS Extremities - No edema [employer] ARCHIT[employer] - Moving all 4 extremities spontaneously Psych - Calm and cooperative Empyema Masslike enhancement in the right middle lobe COPD with Emphysema without exacerbation Normocytic anemia Aneurysmal aortic root and ascending aorta Resolved: HypoNa, HypoK Based on my assessment of this patient, this patient meets a moderate complexity level of care. Patient has a new diagnosis of empyema with uncertain prognosis. Initially underwent thoracentesis, WCx + alphahemolytic streptococcus, maintained on Unasyn with ID on board. He received multiple doses of thrombolytics to improve chest tube output. Underwent right Eloesser flap on 11/[address] surgery[address] Wound care managing the Eloesser flap and placed a fluid collection bag over the Eloesser flap site. Wound care recommending patient to follow-up at the wound care clinic Bronchodilators: DuoNeb 0.5mg-3mg/3ml scheduled and as needed for SOB and wheezing. Symbicort 2 puff BID. Antibiotics: Unasyn 3g IV Q6H (Day 14) Supplemental oxygen to maintain O2 > 92%. Anticipated patient will go to assisted tomorrow to complete his antibiotics and for wound care. Patient is amenable to the plan. I discussed with case management manager who said that they anticipated prior authorization to be approved by tomorrow. I have reviewed the following home energy consultant supervisor notes: None. I have reviewed the results of the following tests: CBC and BMP which are unremarkable I have ordered the following tests: None. I have discussed the care of this patient with the following independent historian: None. I have independently interpreted the following test below: None I have discussed the management of this patient with the following physician: None Objective - Vital Signs Vital signs: Vital Signs Temp 97.5 F L 11/17/22 03:35 Pulse 61 11/17/22 11:15 Resp 18 11/17/22 11:15 BP 145/75 11/17/22 11:15 Pulse Ox 96 11/17/22 11:15 FiO2 2 11/04/22 07:24 Intake & Output 11/16/22 11/17/22 11/17/22 18:59 06:59 18:59 Intake Total 523 550 Output Total 725 750 Balance -202 -200 Weight 77.111 kg Intake: IV 10 Invasive Line 5 10 Oral 513 550 Output: Urine 725 750 Other: Voiding Method Urinal Urinal Toilet Incontinent Incontinent Urinal Incontinent # Voids 2 1 # Bowel Movements 1 - Labs CBC & Chem 7: 11/16/22 08:04 11/16/22 08:04 Labs: Microbiology - Last 24 Hours (Table) 11/14/22 09:00 Anaerobic Culture - Preliminary Other - Other 11/14/22 09:00 Gram Stain - Preliminary Other - Other Tissue Culture - Preliminary
--- NOTE | 2022-11-17 21:50 | P.PN ---
Subjective Progress Note Date: 11/17/22 Principal diagnosis: empyema Patient is a 62-year-old male presenting to the hospital 4 days ago on 10/29/2022 for evaluation of weight loss failure to thrive and suspected malignancy patient also complaining of some right lower chest pain , patient was noticed to have a right-sided effusion status post thoracocentesis significantly positive culture did grew Streptococcus patient initially refused pigtail catheter placement however seemed to have agreed to it though. Patient is status post right-sided chest tube placement by interventional radiology on 11/03/2022, patient is scheduled for right-sided Elosser flap this morning by CT surgery On today's evaluation that is 11/17/2022, the patient remains to be afebrile, the patient is breathing comfortably on on room air, the patient right-sided chest pain is currently controlled, no nausea vomiting no abdominal pain and no diarrhea Objective - Vital Signs Vital signs: Vital Signs Temp 97.5 F L 11/17/22 03:35 Pulse 61 11/17/22 11:15 Resp 18 11/17/22 11:15 BP 145/75 11/17/22 11:15 Pulse Ox 96 11/17/22 11:15 FiO2 2 11/04/22 07:24 Intake & Output 11/16/22 11/17/22 11/17/22 18:59 06:59 18:59 Intake Total 523 550 Output Total 725 750 Balance -202 -200 Weight 77.111 kg Intake: IV 10 Invasive Line 5 10 Oral 513 550 Output: Urine 725 750 Other: Voiding Method Urinal Urinal Toilet Incontinent Incontinent Urinal Incontinent # Voids 2 1 # Bowel Movements 1 - Exam GENERAL DESCRIPTION: Middle-aged male lying in bed in no distress RESPIRATORY SYSTEM: Unlabored breathing , decreased breath sounds at bases right-sided chest tube with mostly bloody secretions HEART: S1 S2 regular rate and rhythm , ABDOMEN: Soft , no tenderness EXTREMITIES: No edema feet - Labs CBC & Chem 7: 11/16/22 08:04 11/16/22 08:04 Labs: Microbiology - Last 24 Hours (Table) 11/14/22 09:00 Anaerobic Culture - Preliminary Other - Other 11/14/22 09:00 Gram Stain - Preliminary Other - Other Tissue Culture - Preliminary Assessment and Plan (1) Empyema Current Visit: Yes Status: Acute Code(s): J86.9 - PYOTHORAX WITHOUT FISTULA SNOMED Code(s): 671988561 Plan: 1patient presented hospital with right-sided chest pain shortness of breath and cough in this patient with evidence of large right-sided effusion status post thoracocentesis with significant normality of the fluid culture growing alphahemolytic Streptococcus concerning for empyema with underlying malignancy not entirely excluded in view of his overall clinical condition 2-patient is status post chest tube placement on the right side,However the patient did have persistent right-sided empyema for which the patient did have right Eloesser flap procedure completed on 11/14/2022, Repeat cultures so far negative, with extensive improving requiring surgery continue the patient Unasyn for 2 weeks on discharge and close out patient follow-up Time with Patient: Less than 30
[2022-11-18] MEDS: KETOROLAC 15 MG/ML 1 ML VIAL IVP SCH ×3 (00:01→11:13)
[2022-11-18] MEDS: AMPICILLIN-SULBACTAM 3 GM in SODIUM CHLORIDE 0.9% 100 ML IVPB SCH ×3 (00:01→11:13)
--- NOTE | 2022-11-18 07:12 | P.PN ---
Subjective Progress Note Date: 11/18/22 Principal diagnosis: Right-sided effusion, empyema with pleural fluid positive for alpha hemolytic strep, status post right-sided thoracentesis with subsequent pigtail catheter placement, masslike area of heterogeneous enhancement in the right middle lobe, combination of collapse and consolidation of the basilar right lower lobe, acute hypoxic respiratory failure, progressive shortness of breath, cough with sputum production. History of recent 65 pound weight loss, long-term heavy tobacco use with recent cessation, COPD, asthma, hypertension POD #4 Eloesser flap The patient was seen and examined sitting up in bed on the cardiac stepdown unit in no acute distress. Continues to feel the same. Currently on room air, remains afebrile, remains on IV Unasyn per infectious disease. CXR reviewed. Case discussed with wound care BAFFLE MOUNTER, dressing change recommendations were made. Plan is for discharge to [facility] today by internal medicine with patient to receive another 2 weeks IV antibiotics per infectious disease. Stable for discharge from our standpoint. Objective - Vital Signs Vital signs: Vital Signs Temp 97.7 F 11/18/22 03:39 Pulse 70 11/18/22 03:39 Resp 19 11/18/22 03:39 BP 164/84 11/18/22 03:39 Pulse Ox 98 11/18/22 03:39 FiO2 2 11/04/22 07:24 Intake & Output 11/17/22 11/18/22 11/18/22 18:59 06:59 18:59 Intake Total 240 Output Total 1100 Balance 240 -1100 Intake: Oral 240 Output: Urine 1100 Other: Voiding Method Toilet Toilet Urinal Urinal Incontinent Incontinent # Voids 2 1 # Bowel Movements 1 1 - Exam CONSTITUTIONAL: Appears comfortable, cooperative, no acute distress RESPIRATORY: Lungs sounds diminished bilaterally. Respirations even, nonlabore d. Currently on room air with oxygen saturation 98%. Able to achieve 2500 mL on incentive spirometry. Strong cough. CARDIOVASCULAR: S1, S2 present. Regular rate and rhythm. Palpable peripheral pulses bilaterally. No edema present. No calf pain or tenderness noted GASTROINTESTINAL: Abdomen soft, nontender, nondistended. Active bowel sounds present 4 quadrants. Tolerating minimal diet. Positive bowel movement 11/17/22 GENITOURINARY: Continues to void INTEGUMENTARY: Skin is warm and dry, dressing present over right lateral wall surgical site (dressing changed yesterday per CV surgery, flap looks clean) NEUROLOGIC: Cranial nerves II through XII intact MUSKULOSKELETAL: Able to move all extremities, strength equal bilaterally, gait normal PSYCHIATRIC: Alert and oriented to person place and time, flat affect, poor judgment - Allied health notes Allied health notes reviewed: nursing - Labs CBC & Chem 7: 11/16/22 08:04 11/16/22 08:04 Labs: Microbiology - Last 24 Hours (Table) 11/14/22 09:00 Gram Stain - Preliminary Other - Other Tissue Culture - Preliminary Assessment and Plan Assessment: Right-sided effusion, empyema with pleural fluid positive for alpha hemolytic strep, status post right-sided thoracentesis with subsequent pigtail catheter placement, status post Eloesser flap Masslike area of heterogeneous enhancement in the right middle lobe measuring 6.9 cm, right pleural fluid cytology negative for malignant cells Combination of collapse and consolidation of the basilar right lower lobe Acute hypoxic respiratory failure Progressive shortness of breath, cough with sputum production Recent 65 pound weight loss Long-term heavy tobacco use with recent cessation COPD Asthma Hypertension Plan: Wound care recommendations for dressing change per WC BAFFLE MOUNTER: may use 4x4 for now, once at rehab apply leo wound drainage accounts collector with barrier, monitor output Patient to follow in wound care clinic weekly Continue antibiotics per infectious disease recommendations Cleared for discharge to [facility] from our standpoint Medical management of other comorbidities per internal medicine, pulmonology, infectious disease More recommendations to follow
[2022-11-18] MEDS: SYMBICORT 160-4.5 MCG INHALER INHALATION SCH (07:27)
[2022-11-18] MEDS: IPRATROPIUM-ALBUTEROL 3 ML NEB INHALATION SCH ×2 (07:27→11:22)
[2022-11-18] MEDS: LABETALOL 200 MG TAB PO SCH (08:01)
[2022-11-18] MEDS: BENZTROPINE MESYLATE 0.5 MG TAB PO SCH (08:01)
[2022-11-18] MEDS: SERTRALINE 100 MG TAB PO SCH (08:01)
[2022-11-18] MEDS: traMADol 50 MG TAB PO SCH (08:01)
[2022-11-18] MEDS: PANTOPRAZOLE 40 MG TABLET PO SCH (08:01)
[2022-11-18] MEDS: ENOXAPARIN 40 MG/0.4 ML SYRINGE SQ SCH (08:01)
[2022-11-18] MEDS: TAMSULOSIN 0.4 MG CAP.ER.24H PO SCH (08:01)
[2022-11-18 09:04] VITALS: RESP 18
[2022-11-18] MEDS: SODIUM CHLORIDE 0.9% 1,000 ML IV SCH (09:07)
[2022-11-18] MEDS ORDERED: LOPERAMIDE 2 MG CAP PO PRN (10:45)
--- NOTE | 2022-11-18 11:00 | P.DS ---
Providers Date of admission: 10/29/22 22:46 Attending physician: Carlos Quijano MD Consults: 10/29/22 22:46 Consult Physician Routine Consulting Provider: Darwin Yang Consult Reason/Comments: Pleural effusion, weight loss, failure to thrive Do you want consulting provider notified?: Yes 11/01/22 12:20 Consult Physician Routine Consulting Provider: Leeroy Ryan Consult Reason/Comments: empyema Do you want consulting provider notified?: Yes 11/04/22 10:57 Consult Physician Routine Consulting Provider: Aki Frederick Consult Reason/Comments: empyema Do you want consulting provider notified?: Yes Primary care physician: Anushka Sabillon MD Hospital Course: Discharge Diagnosis: Empyema Masslike enhancement in the right middle lobe COPD with Emphysema without exacerbation Normocytic anemia Aneurysmal aortic root and ascending aorta Resolved: HypoNa, HypoK Hospital Course: 62-year-old male with a PMH of tobacco abuse and Parkinson's disease who was transferred from [facility] where he had presented earlier today with complaints of weight loss and abdominal pain. At the outside facility CT chest abdomen pelvis revealed a large loculated right-sided pleural effusion and advanced COPD. In [place] emergency room, the patient underwent an extensive evaluation with laboratory evaluation showing WBC count 8.3, hemoglobin 11.0, sodium 131, glucose 104, lactic acid 1.3, calcium 8.0, with albumin 2.7. Patient evaluated by pulmonology. Thoracentesis done. Has significant empyema. Patient also started on vancomycin and cefepime. Culture showing alphahemolytic streptococcus. ID consulted. Patient was transitioned to Unasyn. Patient was seen in consultation with CT surgery as well, required multiple doses of lytics to improve chest tube output. He underwent right Eloesser flap on 11/14. Patient also seen by wound care to manage the wound at the Eloesser flap. Wound care recommended to apply wound drainage to this site zinc 2 any exposed skin. May apply 4 x 4 for drainage management. Change every 5-7 days. Wound care recommended to follow up at the wound care center. Infectious disease recommended IV Unasyn 2 weeks on discharge. Patient had a midline placed prior to discharge. Patient is deemed stable for discharge to correction facility. Patient seen and examined at bedside.[] Vital signs reviewed and stable. General: [non toxic], [no distress], [appears at stated age], appears chronically debilitated and malnourished Head: [atraumatic], [normocephalic], [symmetric] Eyes: [EOMI], [no lid lag], [anicteric sclera] Mouth: [no lip lesion], [mucus membranes moist] Cardiovascular: [S1S2 reg], [no murmur], [positive posterior tibial pulse bilateral], Lungs: Diminished breath sounds bilaterally, ostomy bag on his back Abdominal: [soft], [ nontender to palpation], [no guarding], [no appreciable organomegaly] Ext: [no gross muscle atrophy], [no edema], [no contractures], bilateral hand resting tremor Neuro: [ CN II-XI grossly intact], [no focal neuro deficits] Psych: [Alert], [oriented], appears anxious A total of [40] minutes of time were spent preparing this complex discharge summary . Patient Condition at Discharge: Poor Plan - Discharge Summary Discharge Rx Participant: No New Discharge Prescriptions: New Benzonatate [Tessalon Perles] 200 mg PO TID PRN cap PRN Reason: Cough Loperamide [Imodium] 2 mg PO QID PRN cap PRN Reason: Diarrhea Budesonide-Formot 160-4.5 Mcg [Symbicort 160-4.5 Mcg Inhaler] 2 puff INHALATION RT-BID each traMADol HCl [Ultram] 50 mg PO TID PRN tab PRN Reason: Pain Ampicillin-Sulbactam [Unasyn 3 gm vial] 3 gm IVPB Q6HR 14 Days #14 each Continue Tamsulosin [Flomax] 0.4 mg PO DAILY Pantoprazole Sodium [Protonix] 40 mg PO BID tiZANidine [Zanaflex] 2 mg PO DAILY Labetalol [Trandate] 200 mg PO BID Sertraline [Zoloft] 100 mg PO BID Benztropine Mesylate [Cogentin] 0.5 mg PO BID Albuterol Sulfate [Albuterol Sulfate Hfa] 2 puff PO RT-Q4H PRN PRN Reason: Shortness Of Breath Changed Gabapentin 600 mg PO TID #0 Discontinued HYDROcodone/APAP 10-325MG [[place] 10-325] 1 tab PO Q6HR PRN PRN Reason: Pain Ondansetron Odt [Zofran Odt] 4 mg PO Q8HR PRN PRN Reason: Nausea And Vomiting Ibuprofen [Motrin] 600 mg PO Q6HR PRN PRN Reason: Pain Discharge Medication List Albuterol Sulfate [Albuterol Sulfate Hfa] 2 puff PO RT-Q4H PRN 10/30/22 [History] Benztropine Mesylate [Cogentin] 0.5 mg PO BID 10/30/22 [History] Labetalol [Trandate] 200 mg PO BID 10/30/22 [History] Pantoprazole Sodium [Protonix] 40 mg PO BID 10/30/22 [History] Sertraline [Zoloft] 100 mg PO BID 10/30/22 [History] Tamsulosin [Flomax] 0.4 mg PO DAILY 10/30/22 [History] tiZANidine [Zanaflex] 2 mg PO DAILY 10/30/22 [History] Ampicillin-Sulbactam [Unasyn 3 gm vial] 3 gm IVPB Q6HR 14 Days #14 each 11/18/22 [Rx] Benzonatate [Tessalon Perles] 200 mg PO TID PRN cap 11/18/22 [Rx] Budesonide-Formot 160-4.5 Mcg [Symbicort 160-4.5 Mcg Inhaler] 2 puff INHALATION RT-BID each 11/18/22 [Rx] Gabapentin 600 mg PO TID #0 11/18/22 [Rx] Loperamide [Imodium] 2 mg PO QID PRN cap 11/18/22 [Rx] traMADol HCl [Ultram] 50 mg PO TID PRN tab 11/18/22 [Rx] Follow up Appointment(s)/Referral(s): Isaac Hodges MD [STAFF PHYSICIAN] - 1 Week Melvin Wolf MD [STAFF PHYSICIAN] - 1 Week Darwin Yang DO [Doctor of Osteopathic Medicine] - 1 Week Anushka Sabillon MD [Primary Care Provider] - 1-2 days [facility] [NON-STAFF] - 1 Week Activity/Diet/Wound Care/Special Instructions: [facility] home care - Discharge/Stand Alone Forms: Who Do I Call?, Community Resources, Outpatient Counseling Discharge Disposition: TRANSFER TO SNF/ECF
--- NOTE | 2022-11-18 11:29 | P.PN ---
Subjective Progress Note Date: 11/18/22 Principal diagnosis: Empyema. The patient is seen today 11/11/2022 in follow-up on the regular medical floor. He sitting up in bed. Awake and alert in no acute distress. Maintaining good O2 saturations in the upper 90s on 2 L/m per nasal cannula. He's been afebrile. Hemodynamically stable. He is still having some ongoing issues with right- sided chest discomfort. Pigtail catheter remains in place. Additional 300 ML's drained in the past 24 hours. He's receive 6 doses of lytic infusion. Plan is for her seventh dose today. Chest x-ray continues to show improvement. He is continued on Unasyn. He remains on DuoNeb inhalations, Symbicort. Lovenox for DVT prophylaxis. Patient is seen today 11/13/19992017 in follow-up on the regular medical floor. He is awake and alert in no acute distress. Currently sitting up in bed. Having breakfast. Denies any worsening shortness of breath, cough or congestion. No hemoptysis. He is continued on DuoNeb inhalations, Symbicort. Remains on Unasyn. Lovenox for DVT prophylaxis. Normal saline at 75 ML's per hour. Chest x-ray shows right-sided basilar pleural catheter in place. Ongoing extensive pleural effusion/empyema and areas of airspace disease involving the right lower lobe. Suspect some loculated air within the empyema cavity. Trace left pleural effusion. Catheter remains to low continuous wall suction. No leak noted. He is receiving his seventh dose of lytic infusion. Approximately 220 ML's drained in the past 24 hours. He does continue to work well with the incentive spirometer pulling approximately 1500 ML's. White count 2.4. Hemoglobin 9.8. Platelets 145. Sodium 136. Potassium 3.9. Bicarb 30. BUN 8. Creatinine 0.51. The patient is seen today 11/13/2022 in follow-up on the regular medical floor. Sitting up in bed. Awake and alert in no acute distress. Continues to maintain good O2 saturations in the upper 90s on 2 L/m per nasal cannula. Afebrile. Hemodynamically stable. Chest x-ray shows bilateral pleural effusions right greater than left. Right-sided pigtail catheter remains in good position. No evidence of pneumothorax. Pigtail catheter remains in place to low continuous wall suction. Continues to drain that serosanguineous, tannish-colored drainage with 300 ML's in the past 24 hours. Continues working well with the incentive spirometer. He has received 8 doses of alteplase/dornase lytic infusions. Remains on Unasyn, bronchodilators. Lovenox for DVT prophylaxis. Patient was seen today on 11/14/2022, patient is status post Right Eloesser flap, this was done today by Dr. Wolf, I saw the patient in the recovery room, he is doing well, asymptomatic, in no distress, on 2 L nasal cannula, O2 sats at 97%, he is hemodynamically stable, as a matter fact is doing great and better than expected. WBC count 3.4 hemoglobin 9.811 was are normal renal profile is normal. Reevaluated today on 11/15/2022, patient is now postoperative day #1 right Eloess er flap patient is doing well, he is on room air, does not seem to be in any distress, minimal surgical eye pain at the site of the surgery. Patient is achieving 1500 mL with his incentive spirometer. Chest x-ray is showing significant improvement in his right sided fluid collection. Remains on Unasyn. Patient had alpha hemolytic strep cultures from the fluid in the past. Progress note dated 11/16/2022. 62-year-old male who's been in the hospital now for 18 days. He's postop day #2, status post right Eloesser flap. The patient's currently on room air, 2 L. The patient is receiving Unasyn. No IV fluids. The patient is likely to be discharged to a prison, or rehab was elevated. White count 3.4, hemoglobin 10.2, hematocrit 34, and platelet count 121,000. Sodium 138, potas sium 3.6, chlorides 107, CO2 23, BUN 13, creatinine 0.61. Glucose 173. Albumin is 2.6. Chest x-ray shows right basilar pleural-parenchymal changes. Progress note dated 11/17/2022. The patient is seen today in room 369. He remains on 2 L of oxygen. IV fluids. His antibiotic currently is Unasyn. The going to be discharged soon. He is postop day #3, status post right Eloesser flap. No new labs today. Labs from November 16 are reviewed. Chest x-ray shows changes of COPD, with similar focal right lower lung pleural and parenchymal opacities. Progress note dated 11/18/2022. The patient is again seen today in room 369. Hopefully, the patient will be discharged, today. He remains on oxygen, 2 L. He's not receiving any IV fluids. His current antibiotic is Unasyn. No new labs today. No chest x-ray today. Objective - Vital Signs Vital signs: Vital Signs Temp 97.9 F 11/18/22 08:00 Pulse 105 H 11/18/22 08:00 Resp 18 11/18/22 08:00 BP 122/83 11/18/22 08:00 Pulse Ox 91 L 11/18/22 08:00 FiO2 2 11/04/22 07:24 Intake & Output 11/17/22 11/18/22 11/18/22 18:59 06:59 18:59 Intake Total 240 250 Output Total 1100 400 Balance 240 -1100 -150 Intake: Oral 240 250 Output: Urine 1100 400 Other: Voiding Method Toilet Toilet Toilet Urinal Urinal Urinal Incontinent Incontinent Incontinent # Voids 2 1 # Bowel Movements 1 1 - Exam No acute distress, oriented 3. Currently on room air and/or 2 L of oxygen by nasal cannula. Room air saturations are 92%. HEENT examination is grossly unremarkable. Neck supple. Full range of motion. No adenopathy thyromegaly or neck vein distention. Cardiovascular examination reveals regular rhythm rate. S1-S2 normal. No S3 or S4. No discernible murmur noted. Heart rate 87 bpm. Lungs reveal diminished breath sounds at the right base. Scattered rhonchi are noted. No wheezes or crackles. Abdomen soft bowel sounds are heard. No masses or tenderness. Extremities are intact. No cyanosis clubbing or edema. Skin is without rash or lesion. Neurologic examination is brief but nonfocal. - Labs CBC & Chem 7: 11/16/22 08:04 11/16/22 08:04 Labs: Microbiology - Last 24 Hours (Table) 11/14/22 09:00 Gram Stain - Preliminary Other - Other Tissue Culture - Preliminary Assessment and Plan Assessment: Chronic shortness of breath, anorexia, significant 65 pound weight loss, and an abnormal chest x-ray, suggesting either chronic infection/lung abscess, with empyema, or malignancy. Postop day #4, status post right Eloesser flap. Status post previous thoracentesis, with cultures positive for alpha-hemolytic streptococcus. History of heavy tobacco use, with probable underlying COPD. History of hypertension. Vague history of asthma. Plan: Plan dated 10/30/2022. The patient had a thoracentesis performed by interventional radiology. Apparently the material removed, looked purulent, and we started the patient on vancomycin and cefepime. An ultrasound of the chest was ordered, as well as a CAT scan. The ultrasound showed a complex fluid collection on the right side, therefore interventional radiology did the procedure. The patient has had a significant weight loss, over the last couple of months of about 65 pounds we are concerned about chronic infection/empyema/lung abscess, versus malignancy additional recommendations and suggestions are forthcoming. We will check a pro-calcitonin level. Plan dated 11/16/2022. The patient will continue on antibiotics in the form of Unasyn. The patient had surgery couple days ago. He continues on incentive spirometer, bronchodilators, GI prophylaxis, and DVT prophylaxis. The patient will likely need to be disch arged to rehab facility or prison. No additional recommendations are made. Labs, x-rays, medications are reviewed. We will continue to follow the patient and make recommendations along the way. Plan dated 11/17/2022. The patient appears be doing relatively well. He's on 2 L of oxygen. S aturations are mid to high 90s. She's not receiving any IV fluids the patient continues on Unasyn. The patient is hoping be discharged soon. Labs, x-rays, and medications are all reviewed. His vital signs are very stable. We will continue to follow the patient and make recommendations along the way. Plan dated 11/18/2022. The patient will likely be discharged today. The patient is stable. He is either on room air or 2 L. The patient's not receiving any IV fluids labs, x- rays, and medications are all reviewed. Prognosis is guarded. Time with Patient: Less than 30
[2022-11-18 11:47] VITALS: BP 121/76; PULSE 72; TEMP 98
--- NOTE | 2022-11-18 15:52 | P.PN ---
Subjective Progress Note Date: 11/18/22 Principal diagnosis: empyema Patient is a 62-year-old male presenting to the hospital 4 days ago on 10/29/2022 for evaluation of weight loss failure to thrive and suspected malignancy patient also complaining of some right lower chest pain , patient was noticed to have a right-sided effusion status post thoracocentesis significantly positive culture did grew Streptococcus patient initially refused pigtail catheter placement however seemed to have agreed to it though. Patient is status post right-sided chest tube placement by interventional radiology on 11/03/2022, patient is scheduled for right-sided Elosser flap this morning by CT surgery On today's evaluation that is 11/18/2022, the patient denies any fever and chills, the patient is breathing comfortably on on room air, the patient right- sided chest pain is currently controlled with pain medication, no nausea vomiting no abdominal pain and no diarrhea Objective - Vital Signs Vital signs: Vital Signs Temp 98 F 11/18/22 11:46 Pulse 72 11/18/22 11:46 Resp 18 11/18/22 11:46 BP 121/76 11/18/22 11:46 Pulse Ox 99 11/18/22 11:46 FiO2 2 11/04/22 07:24 Intake & Output 11/17/22 11/18/22 11/18/22 18:59 06:59 18:59 Intake Total 240 250 Output Total 1100 400 Balance 240 -1100 -150 Intake: Oral 240 250 Output: Urine 1100 400 Other: Voiding Method Toilet Toilet Toilet Urinal Urinal Urinal Incontinent Incontinent Incontinent # Voids 2 1 # Bowel Movements 1 1 - Exam GENERAL DESCRIPTION: Middle-aged male lying in bed in no distress RESPIRATORY SYSTEM: Unlabored breathing , decreased breath sounds at bases right-sided chest tube with mostly bloody secretions HEART: S1 S2 regular rate and rhythm , ABDOMEN: Soft , no tenderness EXTREMITIES: No edema feet - Labs CBC & Chem 7: 11/16/22 08:04 11/16/22 08:04 Labs: Microbiology - Last 24 Hours (Table) 11/14/22 09:00 Gram Stain - Preliminary Other - Other Tissue Culture - Preliminary Assessment and Plan (1) Empyema Status: Acute Code(s): J86.9 - PYOTHORAX WITHOUT FISTULA SNOMED Code(s): 005913338 Plan: 1patient presented hospital with right-sided chest pain shortness of breath and cough in this patient with evidence of large right-sided effusion status post thoracocentesis with significant normality of the fluid culture growing alphahemolytic Streptococcus concerning for empyema with underlying malignancy not entirely excluded in view of his overall clinical condition 2-patient is status post chest tube placement on the right side,However the patient did have persistent right-sided empyema for which the patient did have right Eloesser flap procedure completed on 11/14/2022, Repeat cultures so far negative 3- plan is to continue the patient on Unasyn for 2 weeks on discharge and close out patient follow-up Time with Patient: Less than 30
== END 2022-11-18 12:45 | DRG 166 ==
LOC: EC 22:42 → 4SSUR 22:46 → 5NMEDONC 11-03 18:09 → 2SICU 11-14 10:01 → 3SCARD 11-14 17:32
PROVIDERS: ADMIT Internal Medicine; ATTEND Internal Medicine
PROC: 0W993ZZ Drainage of Right Pleural Cavity, Percutaneous Approach (ICD-10-PCS; 2022-10-30)
PROC: 0W9930Z Drainage of Right Pleural Cavity with Drainage Device, Percutaneous Approach (ICD-10-PCS; 2022-11-03)
PROC: 0B9N30Z Drainage of Right Pleura with Drainage Device, Percutaneous Approach (ICD-10-PCS; 2022-11-14)
PROC: 0PB10ZZ Excision of 1 to 2 Ribs, Open Approach (ICD-10-PCS; 2022-11-14)
PROC: 3E03317 Introduction of Other Thrombolytic into Peripheral Vein, Percutaneous Approach (ICD-10-PCS; principal; 2022-11-14 08:00)
PROC: 05H933Z Insertion of Infusion Device into Right Brachial Vein, Percutaneous Approach (ICD-10-PCS; 2022-11-16)
PROC: 05HF33Z Insertion of Infusion Device into Left Cephalic Vein, Percutaneous Approach (ICD-10-PCS; 2022-11-18)
DX: J86.9 Pyothorax without fistula (principal); J18.9 Pneumonia, unspecified organism; J96.01 Acute respiratory failure with hypoxia; I31.39 Other pericardial effusion (noninflammatory); R64 Cachexia; Q25.43 Congenital aneurysm of aorta; E87.1 Hypo-osmolality and hyponatremia; J91.8 Pleural effusion in other conditions classified elsewhere; C34.2 Malignant neoplasm of middle lobe, bronchus or lung; L98.495 Non-pressure chronic ulcer of skin of other sites with muscle involvement without evidence of necrosis; J98.11 Atelectasis; J98.19 Other pulmonary collapse; R62.7 Adult failure to thrive; I27.21 Secondary pulmonary arterial hypertension; G20 Parkinson's disease; I71.21 Aneurysm of the ascending aorta, without rupture; I70.0 Atherosclerosis of aorta; J43.9 Emphysema, unspecified; R54 Age-related physical debility; I10 Essential (primary) hypertension; D64.9 Anemia, unspecified; B95.4 Other streptococcus as the cause of diseases classified elsewhere; Z53.29 Procedure and treatment not carried out because of patient's decision for other reasons; R16.1 Splenomegaly, not elsewhere classified; R63.0 Anorexia; E87.6 Hypokalemia; K21.9 Gastro-esophageal reflux disease without esophagitis; R19.7 Diarrhea, unspecified; Z68.21 Body mass index [BMI] 21.0-21.9, adult; Z87.891 Personal history of nicotine dependence; Z79.899 Other long term (current) drug therapy; Z82.5 Family history of asthma and other chronic lower respiratory diseases; Z79.51 Long term (current) use of inhaled steroids; Z28.310 Unvaccinated for COVID-19
CPT/HCPCS: 32551; 32555; 36410; 71045; 71046; 71250; 71260; 76604; 76937; 76942; 80048; 80053; 80202; 81001; 82150; 82565; 82945; 83605; 83615; 83735; 84145; 84157; 85025; 85027; 85610; 87070; 87075; 87102; 87205; 88108; 88305; 89050; 94640; 94760; 99285

== ENCOUNTER 2023-01-08 03:21 | Inpatient (IN) | payer MEDICARE ==
--- NOTE | 2023-01-08 03:34 | ED ---
SOB HPI - General Stated Complaint: SOB Time Seen by Provider: 01/08/23 03:24 - History of Present Illness Initial Comments: 62-year-old male with past medical history of COPD, hypertension, Parkinson's, bipolar who presented to [facility] for shortness of breath. States he became more short of breath last night. He was found to be saturating 82% at outside hospital. He denied having a chest pain. He was given 125 Solu-Medrol and an albuterol breathing treatments. Lactic acid was 2.2. Magnesium 1.6. Chest x-ray was completed which demonstrates right basilar opacity which could be pleural fluid, atelectasis and/or acute airspace process. Additional patchy opacities throughout the right long and more pronounced at the base. Patient was given vancomycin and Zosyn. He does have a history of loculated pleural effusion on the right with empyema. This required a surgical Eloesser flap on november 14 which was completed by Dr. Wolf. Due to the patient's affiliation with our hospital they wanted to transport the patient here. Patient was agreeable. He denies any fevers. No vomiting. No lower extremity swelling. No other alleviating, precipitating or modifying factors - Related Data Home Medications Medication Instructions Recorded Confirmed Albuterol Sulfate [Albuterol 2 puff INHALATION RT-Q4H PRN 10/30/22 01/08/23 Sulfate Hfa] Benztropine Mesylate [Cogentin] 0.5 mg PO BID 10/30/22 01/08/23 Labetalol [Trandate] 200 mg PO BID 10/30/22 01/08/23 Pantoprazole Sodium [Protonix] 40 mg PO BID 10/30/22 01/08/23 Sertraline [Zoloft] 100 mg PO BID 10/30/22 01/08/23 Tamsulosin [Flomax] 0.4 mg PO DAILY 10/30/22 01/08/23 tiZANidine [Zanaflex] 2 mg PO DAILY 10/30/22 01/08/23 Apixaban [Eliquis] 5 mg PO BID 01/08/23 01/08/23 Fluticasone Nasal [place] [Flonase 1 spr EA NOSTRIL DAILY 01/08/23 01/08/23 Nasal [place]] Gabapentin 600 mg PO BID 01/08/23 01/08/23 HYDROcodone/APAP 10-325MG [[place] 1 tab PO Q6H 01/08/23 01/08/23 10-325] QUEtiapine [SEROquel] 100 mg PO HS 01/08/23 01/08/23 Previous Rx's Medication Instructions Recorded Budesonide-Formot 160-4.5 Mcg 2 puff INHALATION RT-BID each 11/18/22 [Symbicort 160-4.5 Mcg Inhaler] Loperamide [Imodium] 2 mg PO QID PRN cap 11/18/22 Allergies Allergy/AdvReac Type Severity Reaction Status Date / Time No Known Allergies Allergy Verified 01/08/23 03:33 Review of Systems ROS Statement: Those systems with pertinent positive or pertinent negative responses have been documented in the HPI. ROS Other: All systems not noted in ROS Statement are negative. Past Medical History Past Medical History: Asthma, COPD, Hypertension History of Any Multi-Drug Resistant Organisms: None Reported Past Surgical History: Orthopedic Surgery Past Anesthesia/Blood Transfusion Reactions: No Reported Reaction Past Psychological History: No Psychological Hx Reported Smoking Status: Former smoker Past Alcohol Use History: None Reported Past Drug Use History: None Reported - Past Family History Father Family Medical History: COPD General Exam General appearance: alert, in no apparent distress Head exam: Present: atraumatic, normocephalic, normal inspection Eye exam: Present: normal appearance, PERRL, EOMI. Absent: scleral icterus, conjunctival injection, periorbital swelling ENT exam: Present: mucous membranes dry Respiratory exam: Present: accessory muscle use (Tachypnea), decreased breath sounds Cardiovascular Exam: Present: regular rate, normal rhythm, normal heart sounds. Absent: systolic murmur, diastolic murmur, rubs, gallop, clicks GI/Abdominal exam: Present: soft, normal bowel sounds. Absent: distended, tenderness, guarding, rebound, rigid Psychiatric exam: Present: flat affect Course Vital Signs 01/08/23 01/08/23 01/08/23 03:23 03:53 04:33 Temperature 97.9 F Pulse Rate 93 74 Respiratory 22 22 Rate Blood Pressure 164/103 O2 Sat by Pulse 95 Oximetry 01/08/23 01/08/23 01/08/23 04:40 04:42 06:19 Temperature Pulse Rate 75 76 Respiratory 22 22 Rate Blood Pressure 159/90 161/92 O2 Sat by Pulse 95 100 97 Oximetry 01/08/23 07:40 Temperature Pulse Rate 70 Respiratory 19 Rate Blood Pressure 116/75 O2 Sat by Pulse 99 Oximetry Medical Decision Making - Medical Decision Making Was pt. sent in by a medical professional or institution (KAYLA Whitman, CREATIVE ASSISTANT, urgent care, hospital, or penitentiary...) When possible be specific @ -[facility] Did you speak to anyone other than the patient for history (EMS, parent, family, police, friend...)? What history was obtained from this source @ -I spoke with the physician at outside facility who transferred the patient Did you review nursing and triage notes (agree or disagree)? Why? @ -I reviewed and agree with nursing and triage notes Were old charts reviewed (outside hosp., previous admission, EMS record, old EKG, old radiological studies, urgent care reports/EKG's, penitentiary records)? Report findings @ -Reviewed the patient's chart from November when he had cardiothoracic surgery Differential Diagnosis (chest pain, altered mental status, abdominal pain women, abdominal pain men, vaginal bleeding, weakness, fever, dyspnea, syncope, headache, dizziness, GI bleed, back pain, seizure, CVA, palpatations, mental health, musculoskeletal)? @ -Differential Dyspnea: Coronary syndrome, arrhythmia, tamponade, asthma, COPD, pulmonary embolism, pneumonia, pneumothorax, pulmonary effusion, anaphylaxis, diabetic ketoacidosis, flailed chest, pulmonary contusion, diaphragmatic rupture, anemia, neuromuscular, this is not meant to be an all-inclusive list. EKG interpreted by me (3pts min.). @ -Not completed X-rays interpreted by me (1pt min.). @ -None done CT interpreted by me (1pt min.). @ -None done U/S interpreted by me (1pt. min.). @ -None done What testing was considered but not performed or refused? (CT, X-rays, U/S, labs)? Why? @ -Laboratory studies were completed at outside facility and therefore will not be completed now What meds were considered but not given or refused? Why? @ -None Did you discuss the management of the patient with other professionals (professionals i.e. KAYLA Whitman, CREATIVE ASSISTANT, lab, RT, psych nurse, social services, wood gouger, teacher, security public safety officer, showcase trimmer)? Give summary @ -I spoke with Dr. Conte from [facility] who will admit the patient Was smoking cessation discussed for >3mins.? @ -No Was critical care preformed (if so, how long)? @ -No Were there social determinants of health that impacted care today? How? (Homelessness, low income, unemployed, alcoholism, drug addiction, transportation, low edu. Level, literacy, decrease access to med. care, custodial, rehab)? @ -No Was there de-escalation of care discussed even if they declined (Discuss DNR or withdrawal of care, Hospice)? DNR status @ -No What co-morbidities impacted this encounter? (DM, HTN, Smoking, COPD, CAD, Cancer, CVA, ARF, Chemo, Hep., AIDS, mental health diagnosis, sleep apnea, morbid obesity)? @ -History of empyema with thoracotomy Was patient admitted / discharged? Hospital course, mention meds given and route, prescriptions, significant lab abnormalities, going to OR and other pertinent info. @ -Upon arrival patient was placed into room 2. I did review his transfer packet. Patient was given a breathing treatment. I did admit the patient to the hospital with scheduled antibiotics. Pulmonology will be placed on consult. He is awaiting a bed on the floor in stable condition Undiagnosed new problem with uncertain prognosis? @ -No Drug Therapy requiring intensive monitoring for toxicity (Heparin, Nitro, Insulin, Cardizem)? @ -No Were any procedures done? @ -No Diagnosis/symptom? @ -Acute hypoxic respiratory failure, acute pneumonia, lactic acidosis, history of thoracotomy Acute, or Chronic, or Acute on Chronic? @ -Acute Uncomplicated (without systemic symptoms) or Complicated (systemic symptoms)? @ -Complicated Side effects of treatment? @ -ALLERGIC reaction Exacerbation, Progression, or Severe Exacerbation? @ -No Poses a threat to life or bodily function? How? (Chest pain, [place], [place], pneumonia, PE, COPD, DKA, ARF, appy, cholecystitis, CVA, Diverticulitis, Homicidal, Suicidal, threat to staff... and all critical care pts) @ -No Disposition Clinical Impression: Acute and chronic respiratory failure with hypoxia, Pneumonia Disposition: ADMITTED IP TO THIS HOSP Condition: Stable Is patient prescribed a controlled substance at d/c from ED?: No Time of Disposition: 04:14 Decision to Admit Reason: Admit from EC Decision Date: 01/08/23 Decision Time: 04:14
[2023-01-08] MEDS ORDERED: MORPHINE SULFATE 4 MG/ML SYRINGE IVP STA (04:09)
[2023-01-08] MEDS ORDERED: IPRATROPIUM-ALBUTEROL 3 ML NEB INHALATION STA (04:12)
[2023-01-08] MEDS ORDERED: NALOXONE 0.4 MG/ML 1 ML VIAL IV PRN (04:14)
[2023-01-08] MEDS ORDERED: LOSARTAN 50 MG TAB PO STA (04:30)
[2023-01-08] MEDS ORDERED: LABETALOL 200 MG TAB PO STA (04:30)
[2023-01-08] MEDS ORDERED: VANCOMYCIN IV PER PHARMACY 1 EACH MISC MISCELLANE PRN (05:48)
[2023-01-08] MEDS ORDERED: PNEUMONIA PROTOCOL UTILIZED 1 EACH MISC PO PRN (05:48)
[2023-01-08] MEDS ORDERED: HYDROcodone/APAP 10-325MG 1 EACH TAB PO ONE (06:09)
[2023-01-08] MEDS ORDERED: VANCOMYCIN 1,500 MG in SODIUM CHLORIDE 0.9% 500 ML 500 ML IVPB ONE (07:00)
[2023-01-08] MEDS: PIPERACILLIN-TAZOBACTAM 3.375 GM in SODIUM CHLORIDE 0.9% 100 ML IVPB SCH ×3 (07:47→16:41)
[2023-01-08] MEDS ORDERED: IPRATROPIUM-ALBUTEROL 3 ML NEB INHALATION SCH (08:00)
[2023-01-08] MEDS: IPRATROPIUM-ALBUTEROL 3 ML NEB INHALATION SCH ×4 (09:00→20:40)
[2023-01-08 10:48] LABS: African American GFR (CKD) >90 (>60 ml/min/1.73 sqM); Anion Gap 7 mmol/L; Blood Urea Nitrogen 15 mg/dL (9-20); Calcium 8.8 mg/dL (8.4-10.2); Carbon Dioxide 19 mmol/L (22-30); Chloride 111 mmol/L (98-107); Glucose 139 mg/dL (74-99); Non-African American GFR(CKD) >90 (>60 ml/min/1.73 sqM); Sodium 137 mmol/L (137-145)
[2023-01-08] MEDS ORDERED: VANCOMYCIN 1,500 MG in SODIUM CHLORIDE 0.9% 500 ML 500 ML IVPB SCH (14:00)
--- NOTE | 2023-01-08 14:04 | CT ---
EXAMINATION TYPE: CT angio chest DATE OF EXAM: 01/08/2023 1:12 PM COMPARISON: X-ray 01/08/2000, CT scan 11/08/2022 HISTORY: Difficulty breathing. CT DLP: 329.3 mGycm Automated exposure control for dose reduction was used. CONTRAST: CTA scan of the thorax is performed with IV Contrast, patient injected with 82ml mL of Isovue 370, pu lmonary embolism protocol. . FINDINGS: LUNGS: Fairly advanced of bolus emphysematous changes. There is bilateral lower lobe consolidation sm all right effusion. Basilar bronchiectasis. MEDIASTINUM: There is satisfactory enhancement of the pulmonary artery and its branches, there is no CT evidence for pulmonary embolism. There is artifact which does limit the distal branches bilateral ly for assessment of pulmonary embolism. There is borderline hilar and mediastinal adenopathy measuri ng 0 axis of 1 to 1.1 cm.. No pericardial effusion is seen. The heart is enlarged and there is a sm all pericardial effusion and there is dense coronary artery calcium Main pulmonary artery measures 3. 9 cm and is dilated. The aortic root measures 4.5 cm. OTHER: Spleen is enlarged measuring 15 cm there is a 1 cm indeterminate nodule. Correlate for spleni c varices and hepatocellular disease. Bilateral adrenal gland thickening noted. There is postsurgical change involving the stomach. IMPRESSION: 1. No CT evidence of sizable pulmonary embolism. 2. Dilated pulmonary artery can be associated with RV dysfunction and pulmonary arterial hypertension . 3. Aortic root is dilated measuring 4.5 cm compatible aneurysmal dilation. 4. Nonspecific borderline mediastinal and hilar adenopathy with diffuse emphysematous changes and tammie ateral areas of consolidation with small effusion greater on the right. Atelectasis is favored over p neumonia correlate clinically for confirmation. 5. Splenomegaly measuring 15 cm with indeterminate 1 cm nodule.
--- NOTE | 2023-01-08 14:15 | P.CNPUL ---
History of Present Illness Consult date: 01/08/23 History of present illness: 62-year-old male patient with history of empyema. The patient was transferred to us because of shortness of breath and ongoing drainage from a surgical one- sided along the right lateral chest area. The patient is known to have previous history of empyema. The patient was initially treated with catheter drainage with thrombolytics. The patient's cultures were positive for alpha hemolytic strep. He initially required thoracentesis and subsequently pigtail catheter was inserted and subsequently the patient was taken to the operating room and the patient was having no major response to conservative measures.. H Patient has severe COPD with extremely emphysematous and bolus longs and was felt to be a very poor candidate for decortication due to this. Eloesser flap for chronic pleural drainage was performed. After a prolonged hospitalization back in November, the patient was discharged home. During the course of his illness, the patient had a acute hypoxic respiratory failure and was discharged home on oxygen. His surgical pleural biopsies were negative for any malignancy. Is known to have COPD and he has history of long and heavy tobacco consumption over the years. He also has hypertension. He denies having any fever or chills. There is drainage still which is minimal from the surgical sites. Apparently was found to be hypoxic at home with a pulse ox of 82% upon arrival to the hospital. He was started on accommodation of Zosyn and vancomycin. He was transferred to our hospital for further care as the patient underwent his surgical intervention our hospital. His other comorbid conditions include Parkinson's disease, hypertension, and I see that the patient has been anticoagulation with Eliquis and exact reason for that is not known to me at this point in time. Review of Systems Constitutional: Denies chills, Denies fever Eyes: denies as per HPI, denies blurred vision, denies bulging eye, denies decreased vision, denies diplopia, denies discharge, denies dry eye, denies irritation, denies itching, denies pain, denies photophobia, denies loss of peripheral vision, denies loss of vision, denies tunnel vision/blind spots Ears: deny: decreased hearing, ear discharge, earache, tinnitus Ears, nose, mouth and throat: Reports as per HPI Breasts: absent: as per HPI, gynecomastia Cardiovascular: Reports decreased exercise tolerance, Reports dyspnea on exertion Respiratory: Reports dyspnea, Reports home oxygen Genitourinary: Reports as per HPI Musculoskeletal: Reports as per HPI Musculoskeletal: absent: ankle pain, ankle stiffness, ankle swelling Integumentary: Reports as per HPI Neurological: Reports as per HPI Psychiatric: Reports as per HPI Endocrine: Reports as per HPI Hematologic/Lymphatic: Reports as per HPI Allergic/Immunologic: Reports as per HPI Past Medical History Past Medical History: Asthma, COPD, Hyperlipidemia, Hypertension, Pneumonia (Along with history of empyema involving the right lung) History of Any Multi-Drug Resistant Organisms: None Reported Past Surgical History: Orthopedic Surgery Past Anesthesia/Blood Transfusion Reactions: No Reported Reaction Past Psychological History: No Psychological Hx Reported Smoking Status: Former smoker Past Alcohol Use History: None Reported Past Drug Use History: None Reported - Past Family History Father Family Medical History: COPD Medications and Allergies Home Medications Medication Instructions Recorded Confirmed Type Albuterol Sulfate [Albuterol 2 puff INHALATION RT-Q4H PRN 10/30/22 01/08/23 History Sulfate Hfa] Benztropine Mesylate [Cogentin] 0.5 mg PO BID 10/30/22 01/08/23 History Labetalol [Trandate] 200 mg PO BID 10/30/22 01/08/23 History Pantoprazole Sodium [Protonix] 40 mg PO BID 10/30/22 01/08/23 History Sertraline [Zoloft] 100 mg PO BID 10/30/22 01/08/23 History Tamsulosin [Flomax] 0.4 mg PO DAILY 10/30/22 01/08/23 History tiZANidine [Zanaflex] 2 mg PO DAILY 10/30/22 01/08/23 History Budesonide-Formot 160-4.5 Mcg 2 puff INHALATION RT-BID each 11/18/22 01/08/23 Rx [Symbicort 160-4.5 Mcg Inhaler] Loperamide [Imodium] 2 mg PO QID PRN cap 11/18/22 01/08/23 Rx Apixaban [Eliquis] 5 mg PO BID 01/08/23 01/08/23 History Fluticasone Nasal [place] [Flonase 1 spr EA NOSTRIL DAILY 01/08/23 01/08/23 History Nasal [place]] Gabapentin 600 mg PO BID 01/08/23 01/08/23 History HYDROcodone/APAP 10-325MG [[place] 1 tab PO Q6H 01/08/23 01/08/23 History 10-325] QUEtiapine [SEROquel] 100 mg PO HS 01/08/23 01/08/23 History Allergies Allergy/AdvReac Type Severity Reaction Status Date / Time No Known Allergies Allergy Verified 01/08/23 03:33 Physical Exam Vitals: Vital Signs Temp Pulse Resp BP Pulse Ox 01/08/23 09:09 68 01/08/23 09:01 70 01/08/23 08:55 73 20 150/87 95 01/08/23 07:40 70 19 116/75 99 01/08/23 06:19 76 22 161/92 97 01/08/23 04:42 75 22 159/90 100 01/08/23 04:40 95 01/08/23 04:33 74 01/08/23 03:53 22 01/08/23 03:23 97.9 F 93 22 164/103 95 Intake and Output 01/07/23 01/08/23 01/08/23 22:59 06:59 14:59 Other: Weight 77.111 kg CONSTITUTIONAL: Appears comfortable, cooperative, no acute distress, the patient is currently on 3 L of oxygen by nasal cannula. Head exam was generally normal. There was no scleral icterus or corneal arcus. Mucous membranes were moist. Neck was supple and without jugular venous distension, thyromegaly, or carotid bruits. Carotids were easily palpable bilaterally. There was no adenopathy. RESPIRATORY: Lungs sounds diminished bilaterally. Respirations even, nonlabored. Currently on room air with oxygen saturation 98%. The surgical scar over the right chest area is clean and intact. The patient has some nonhealing site within the right chest wall and which is draining some liquidy/yellowish/turbid material. CARDIOVASCULAR: S1, S2 present. Regular rate and rhythm. Palpable peripheral pulses bilaterally. No edema present. No calf pain or tenderness noted GASTROINTESTINAL: Abdomen soft, nontender, nondistended. Active bowel sounds present 4 quadrants. Tolerating minimal diet. GENITOURINARY: Continues to void INTEGUMENTARY: Skin is warm and dry, dressing present over right lateral wall surgical site NEUROLOGIC: Cranial nerves II through XII intact MUSKULOSKELETAL: Able to move all extremities, strength equal bilaterally, gait normal PSYCHIATRIC: Alert and oriented to person place and time, flat affect, poor judgment Results - Laboratory Findings CBC and BMP: 01/08/23 10:10 ABG Sodium 137 mmol/L (137-145) 01/08/23 10:10 Potassium 4.0 mmol/L (3.5-5.1) 01/08/23 10:10 Chloride 111 mmol/L (98-107) H 01/08/23 10:10 Carbon Dioxide 19 mmol/L (22-30) L 01/08/23 10:10 Anion Gap 7 mmol/L 01/08/23 10:10 BUN 15 mg/dL (9-20) 01/08/23 10:10 Creatinine 0.50 mg/dL (0.66-1.25) L 01/08/23 10:10 Est GFR (CKD-EPI)AfAm >90 (>60 ml/min/1.73 sqM) 01/08/23 10:10 Est GFR (CKD-EPI)NonAf >90 (>60 ml/min/1.73 sqM) 01/08/23 10:10 Glucose 139 mg/dL (74-99) H 01/08/23 10:10 Calcium 8.8 mg/dL (8.4-10.2) 01/08/23 10:10 Abnormal lab findings: Abnormal Labs 01/08/23 10:10 Chloride 111 H Carbon Dioxide 19 L Creatinine 0.50 L Glucose 139 H Assessment and Plan Plan: Acute hypoxic respiratory failure and the patient is currently on 3 L of oxygen by nasal cannula Shortness of breath on that investigation. The patient has history of empyema the patient has an underlying COPD. There is drainage from the wound along the right chest. Rule out underlying residual empyema/pleurocutaneous fistula. Right-sided effusion, empyema with pleural fluid positive for alpha hemolytic strep, status post right-sided thoracentesis with subsequent pigtail catheter placement, status post Eloesser flap, surgery was unsuccessful Note that there was no evidence of malignancy in the pleural fluid in the pleural lining. Advanced COPD Long-term heavy tobacco use with recent cessation COPD Asthma Hypertension BPH Anticoagulation, exact cause is not clear and the patient has been maintained on Eliquis. Plan Continue auction supplementations liters and titrate oxygen flow Put the patient on DuoNeb nebs [id number] The patient will maintain on Symbicort on outpatient basis Cover the patient with broad-spectrum antibiotics and the patient is currently on Zosyn and vancomycin Obtain a CAT scan of the chest Clinically consult cardiothoracic surgery if needed We'll need records regarding use of anticoagulants in this patient Resume all medication We'll continue to follow
[2023-01-09] MEDS: VANCOMYCIN 1,500 MG in SODIUM CHLORIDE 0.9% 500 ML 500 ML IVPB SCH ×3 (00:38→19:53)
[2023-01-09] MEDS ORDERED: HEPARIN SODIUM 1,000 UN/ML (10ML VL) IV ONE (01:43)
[2023-01-09] MEDS: HEPARIN SOD,PORK IN 0.45% NACL 25,000 UNIT in 0.45% NACL 1 250ML.BAG IV SCH ×2 (02:15→23:42)
[2023-01-09 03:54] LABS: Anisocytosis Slight; Basophils % (A) 0 %; Eosinophils # (A) 0.1 k/uL (0-0.7); Eosinophils % (A) 1 %; HCT 32.9 % (39.0-53.0); HGB 10.2 gm/dL (13.0-17.5); Hypochromasia Marked; Lymphocytes # (A) 0.9 k/uL (1.0-4.8); Lymphocytes % (A) 14 %; MCH 25.5 pg (25.0-35.0); MCV 82.2 fL (80.0-100.0); Mean Platelet Volume 7.5; Monocytes # (A) 0.4 k/uL (0-1.0); Monocytes % (A) 5 %; Neutrophils # (A) 5.1 k/uL (1.3-7.7); Neutrophils % (A) 78 %; Platelet Count 175 k/uL (150-450); RDW 17.1 % (11.5-15.5); WBC 6.6 k/uL (3.8-10.6)
[2023-01-09 04:05] LABS: INR 1.1 (<1.2); Partial Thromboplastin Time 58.9 sec (22.0-30.0); Prothrombin Time 11.1 sec (9.0-12.0)
--- NOTE | 2023-01-09 04:25 | XR ---
EXAM: XR Chest, 1 View CLINICAL HISTORY: ITS.REASON XR Reason: pneumonia TECHNIQUE: Frontal view of the chest. COMPARISON: 11/17/2022 FINDINGS: Lungs: New right lung groundglass opacity and developing dense peripheral opacities. Hyperinflated lungs with heterogeneous parenchyma. Bronchovascular markings slightly more prominent. Right upper lateral subpleural blebs, similar. Pleural space: Right basilar scarring and pleural thickening. Right pleural thickening/effusion seen previously, but increased. No pneumothorax seen. Heart: Unremarkable. No cardiomegaly. Mediastinum: Unremarkable. Bones/joints: Unremarkable. IMPRESSION: Probable developing unusual pneumonia with areas of dense consolidation and increasing right pleural effusion
[2023-01-09] MEDS: HYDROcodone/APAP 10-325MG 1 EACH TAB PO PRN ×2 (04:44→19:52)
[2023-01-09] MEDS: LABETALOL 200 MG TAB PO SCH ×2 (06:21→19:53)
[2023-01-09] MEDS ORDERED: VANCOMYCIN TROUGH DUE 1 EACH MISC MISCELLANE ONE (07:00)
[2023-01-09] MEDS: ASPIRIN 81 MG PO SCH (07:43)
[2023-01-09] MEDS: PIPERACILLIN-TAZOBACTAM 3.375 GM in SODIUM CHLORIDE 0.9% 100 ML IVPB SCH (07:43)
[2023-01-09] MEDS ORDERED: LOPERAMIDE 2 MG CAP PO PRN (08:13)
[2023-01-09] MEDS: BENZTROPINE MESYLATE 0.5 MG TAB PO SCH ×2 (08:47→19:53)
[2023-01-09] MEDS: GABAPENTIN 300 MG CAP PO SCH ×2 (08:47→19:52)
[2023-01-09] MEDS: SERTRALINE 100 MG TAB PO SCH ×2 (08:47→19:53)
[2023-01-09] MEDS: tiZANidine 4 MG TAB PO SCH (08:47)
[2023-01-09] MEDS: PANTOPRAZOLE 40 MG TABLET PO SCH ×2 (08:47→19:52)
[2023-01-09] MEDS: TAMSULOSIN 0.4 MG CAP.ER.24H PO SCH (08:47)
[2023-01-09] MEDS: FLUTICASONE 50MCG/SPRAY NASAL 16GM EA NOSTRIL SCH (08:48)
[2023-01-09] MEDS: IPRATROPIUM-ALBUTEROL 3 ML NEB INHALATION SCH ×4 (09:00→21:08)
--- NOTE | 2023-01-09 09:35 | P.HPIM ---
History of Present Illness H&P Date: 01/08/23 Chief Complaint: Shortness of breath 62-year-old male with past medical history of COPD, hypertension, Parkinson's, bipolar who presented to [facility] for shortness of breath. States he became more short of breath last night. He was found to be saturating 82% at outside hospital. He denied having a chest pain. He was given 125 Solu- Medrol and an albuterol breathing treatments. Blood to completed an outside facility reveals Lactic acid was 2.2. Magnesium 1.6. Chest x-ray was completed which demonstrates right basilar opacity which could be pleural fluid, atelectasis and/or acute airspace process. Additional patchy opacities throughout the right long and more pronounced at the base. Patient was given vancomycin and Zosyn. He does have a history of loculated pleural effusion on the right with empyema. This required a surgical Eloesser flap on november 14 which was completed by Dr. Wolf. Due to the patient's affiliation with our hospital they wanted to transport the patient here. Patient was agreeable. He denies any fevers. No vomiting. No lower extremity swelling. Review of Systems REVIEW OF SYSTEMS: CONSTITUTIONAL: No fever, no malaise, no fatigue. HEENT: No recent visual problems or hearing problems. Denied any sore throat. CARDIOVASCULAR: No chest pain, orthopnea, PND, no palpitations, no syncope. PULMONARY: No shortness of breath, no cough, no hemoptysis. GASTROINTESTINAL: No diarrhea, no nausea, no vomiting, no abdominal pain. NEUROLOGICAL: No headaches, no weakness, no numbness. HEMATOLOGICAL: Denies any bleeding or petechiae. GENITOURINARY: Denies any burning micturition, frequency, or urgency. MUSCULOSKELETAL/RHEUMATOLOGICAL: Denies any joint pain, swelling, or any muscle pain. ENDOCRINE: Denies any polyuria or polydipsia. The rest of the 14-point review of systems is negative. Past Medical History Past Medical History: Asthma, COPD, Hypertension History of Any Multi-Drug Resistant Organisms: None Reported Past Surgical History: Orthopedic Surgery Past Anesthesia/Blood Transfusion Reactions: No Reported Reaction Past Psychological History: No Psychological Hx Reported Smoking Status: Former smoker Past Alcohol Use History: None Reported Past Drug Use History: None Reported - Past Family History Father Family Medical History: COPD Medications and Allergies Home Medications Medication Instructions Recorded Confirmed Type Albuterol Sulfate [Albuterol 2 puff INHALATION RT-Q4H PRN 10/30/22 01/08/23 History Sulfate Hfa] Benztropine Mesylate [Cogentin] 0.5 mg PO BID 10/30/22 01/08/23 History Labetalol [Trandate] 200 mg PO BID 10/30/22 01/08/23 History Pantoprazole Sodium [Protonix] 40 mg PO BID 10/30/22 01/08/23 History Sertraline [Zoloft] 100 mg PO BID 10/30/22 01/08/23 History Tamsulosin [Flomax] 0.4 mg PO DAILY 10/30/22 01/08/23 History tiZANidine [Zanaflex] 2 mg PO DAILY 10/30/22 01/08/23 History Budesonide-Formot 160-4.5 Mcg 2 puff INHALATION RT-BID each 11/18/22 01/08/23 Rx [Symbicort 160-4.5 Mcg Inhaler] Loperamide [Imodium] 2 mg PO QID PRN cap 11/18/22 01/08/23 Rx Apixaban [Eliquis] 5 mg PO BID 01/08/23 01/08/23 History Fluticasone Nasal [place] [Flonase 1 spr EA NOSTRIL DAILY 01/08/23 01/08/23 History Nasal [place]] Gabapentin 600 mg PO BID 01/08/23 01/08/23 History HYDROcodone/APAP 10-325MG [[place] 1 tab PO Q6H 01/08/23 01/08/23 History 10-325] QUEtiapine [SEROquel] 100 mg PO HS 01/08/23 01/08/23 History Allergies Allergy/AdvReac Type Severity Reaction Status Date / Time No Known Allergies Allergy Verified 01/08/23 03:33 Physical Exam Vitals: Vital Signs Temp Pulse Resp BP Pulse Ox 01/08/23 12:28 68 01/08/23 12:19 76 01/08/23 09:09 68 01/08/23 09:01 70 01/08/23 08:55 73 20 150/87 95 01/08/23 07:40 70 19 116/75 99 01/08/23 06:19 76 22 161/92 97 01/08/23 04:42 75 22 159/90 100 01/08/23 04:40 95 01/08/23 04:33 74 01/08/23 03:53 22 01/08/23 03:23 97.9 F 93 22 164/103 95 Intake and Output 01/07/23 01/08/23 01/08/23 22:59 06:59 14:59 Other: Weight 77.111 kg CONSTITUTIONAL: Appears comfortable, cooperative, no acute distress, the patient is currently on 3 L of oxygen by nasal cannula. Head exam was generally normal. There was no scleral icterus or corneal arcus. Mucous membranes were moist. Neck was supple and without jugular venous distension, thyromegaly, or carotid bruits. Carotids were easily palpable bilaterally. There was no adenopathy. RESPIRATORY: Lungs sounds diminished bilaterally. Respirations even, nonlabored. Currently on room air with oxygen saturation 98%. The surgical scar over the right chest area is clean and intact. The patient has some nonhealing site within the right chest wall and which is draining some liquidy/yellowish/turbid material. CARDIOVASCULAR: S1, S2 present. Regular rate and rhythm. Palpable peripheral pulses bilaterally. No edema present. No calf pain or tenderness noted GASTROINTESTINAL: Abdomen soft, nontender, nondistended. Active bowel sounds present 4 quadrants. Tolerating minimal diet. INTEGUMENTARY: Skin is warm and dry, dressing present over right lateral wall surgical site NEUROLOGIC: Cranial nerves II through XII intact MUSKULOSKELETAL: Able to move all extremities, strength equal bilaterally, gait normal PSYCHIATRIC: Alert and oriented to person place and time, flat affect, poor judgment Results CBC & Chem 7: 01/09/23 03:15 01/08/23 10:10 Labs: Abnormal Lab Results - Last 24 Hours (Table) 01/08/23 Range/Units 10:10 Chloride 111 H (98-107) mmol/L Carbon Dioxide 19 L (22-30) mmol/L Creatinine 0.50 L (0.66-1.25) mg/dL Glucose 139 H (74-99) mg/dL Assessment and Plan Assessment: 1. Acute hypoxic respiratory failure; rule out underlying residual empyema/pleurocutaneous fistula - Patient was found to be saturating around 82%; patient is currently on O2 at 3 L per nasal cannula with O2 saturation above 90% -- Patient has history of right-sided pleural effusion which was evaluated and was found to be empyema with fluid positive for alphahemolytic streptococcus; patient underwent right-sided thoracentesis and pigtail catheter placement; p atient is status post Eloesser flap - Patient is in place and proximal spectrum antibiotics in form of Zosyn and vancomycin - CT of the chest is ordered with plans for possible thoracic surgery consult as needed 2. Advanced COPD/asthma; not in exacerbation -- patient remains on bronchodilator nebulizer treatments in form of DuoNeb 4 times a day and when necessary; patient is maintained on Symbicort inhaler as outpatient 3. Hypertension; labetalol 200 mg twice a day; losartan 50 mg daily 4. BPH; Flomax 0.5 mg daily DVT prophylaxis; SCDs/subcu heparin CODE STATUS; full code
--- NOTE | 2023-01-09 09:57 | P.CRDCN ---
History of Present Illness Consult date: 01/09/23 Reason for Consult (text): Critical troponin, chest pain History of present illness: History of present illness: This is a 62-year-old man with past medical history of empyema with recent hospitalization in October at which time he had a drainage tube in place followed by flap procedure. Patient also has past medical history of hypertension, hy perlipidemia, COPD. We have been asked to evaluate the patient for critical troponin and chest pain. Apparently patient had chest pain earlier in the morning. Patient currently denies having any chest pain. He is on eliquis which he does not present illness. He cannot identify who started this medication. He is an active smoker, down to 5-10 cigarettes per day. Patient initially presented to [facility] and was found to have a lactic acid 2.2. Troponin was normal at 56 with normal range 0-76. Magnesium 1.6. Patient was treated with [place] Zosyn and vancomycin and transferred to [facility]. Patient currently denies having any chest pain. EKG sinus rhythm with left bundle-branch block CT angiogram of the chest revealed no pulmonary embolism. Dilated pulmonary artery with pulmonary artery hypertension. Aortic root 4.5 cm. Adenopathy and diffuse emphysematous changes, small effusion greater on the right, atelectasis. Splenomegaly 15 cm Chest x-ray: Probable developing unusual pneumonia WBC 6.6, hemoglobin 10.2, platelet count 175. INR 1.1. D-dimer 0.89. Potassium 4.0, BUN 15 and creatinine 0.5. Troponin 0.064. Calcitonin 0.23. Patient has been started on a heparin drip. Home cardiac medications: Eliquis 5 mg twice daily, labetalol 200 mg twice daily Review Of Systems: At the time of my evaluation: Constitutional: No fever, no chills. No weakness, fatigue or lethargy. EENT: No headache. No dizziness. Lungs: No shortness of breath, cough, no sputum production. No wheezing. Cardiovascular: No chest pain, no lower extremity edema. No palpitations. No paroxysmal nocturnal dyspnea. No orthopnea. No lightheadedness or dizziness. No syncopal episodes. Abdominal: No abdominal pain. No nausea, vomiting. No diarrhea. No const ipation. No bloody or tarry stools. Genitourinary: No dysuria.. No urinary retention. Musculoskeletal: No myalgias. No muscle weakness, no frequent falls. No back pain. No neck pain. Integumentary: No wounds. No rash. No unusual bruising. Neurologic: No aphasia. No facial droop. No change in mentation. No head injury. No headache. Physical examination: Gen: This is a 62-year-old male resting in bed appears to be in no acute respiratory distress VS: reviewed HEENT: Head is atraumatic, normocephalic. Pupils equal, round. Sclerae is anicteric. NECK: Supple. No JVD. . LUNGS: Diminished bilaterally. No intercostal retractions. HEART: Regular rate and rhythm. No murmur. ABDOMEN: Soft No tenderness. EXTREMITIES: No pedal edema. No calf tenderness. NEUROLOGICAL: Patient is awake, alert and oriented x3. Assessment: Atypical chest pain, rule out non-ST elevated myocardial infarction Empyema Hypertension Hyperlipidemia COPD Active tobacco use and dependence Plan: Obtain repeat troponins Start patient on aspirin 81 mg daily, losartan 50 mg daily, continue labetalol Continue heparin drip and hold eliquis Obtain 2-D echocardiogram and Doppler study to assess cardiac structure and function Plan will be for outpatient stress testing and if there is any ischemia found, patient will proceed with cardiac catheterization once his respiratory status is stable. Further recommendations to follow based upon clinical course Thank you kindly for this consultation. Nurse practitioner note has been reviewed, I agree with documented findings and plan of care. Patient was seen and examined. A 62-year-old male with past medical history of Past Medical History Past Medical History: Asthma, COPD, Hyperlipidemia, Hypertension, Pneumonia (Along with history of empyema involving the right lung) History of Any Multi-Drug Resistant Organisms: None Reported Past Surgical History: Orthopedic Surgery Past Anesthesia/Blood Transfusion Reactions: No Reported Reaction Past Psychological History: No Psychological Hx Reported Smoking Status: Former smoker Past Alcohol Use History: None Reported Past Drug Use History: None Reported - Past Family History Father Family Medical History: COPD Medications and Allergies Home Medications Medication Instructions Recorded Confirmed Type Albuterol Sulfate [Albuterol 2 puff INHALATION RT-Q4H PRN 10/30/22 01/08/23 History Sulfate Hfa] Benztropine Mesylate [Cogentin] 0.5 mg PO BID 10/30/22 01/08/23 History Labetalol [Trandate] 200 mg PO BID 10/30/22 01/08/23 History Pantoprazole Sodium [Protonix] 40 mg PO BID 10/30/22 01/08/23 History Sertraline [Zoloft] 100 mg PO BID 10/30/22 01/08/23 History Tamsulosin [Flomax] 0.4 mg PO DAILY 10/30/22 01/08/23 History tiZANidine [Zanaflex] 2 mg PO DAILY 10/30/22 01/08/23 History Budesonide-Formot 160-4.5 Mcg 2 puff INHALATION RT-BID each 11/18/22 01/08/23 Rx [Symbicort 160-4.5 Mcg Inhaler] Loperamide [Imodium] 2 mg PO QID PRN cap 11/18/22 01/08/23 Rx Apixaban [Eliquis] 5 mg PO BID 01/08/23 01/08/23 History Fluticasone Nasal [place] [Flonase 1 spr EA NOSTRIL DAILY 01/08/23 01/08/23 History Nasal [place]] Gabapentin 600 mg PO BID 01/08/23 01/08/23 History HYDROcodone/APAP 10-325MG [[place] 1 tab PO Q6H 01/08/23 01/08/23 History 10-325] QUEtiapine [SEROquel] 100 mg PO HS 01/08/23 01/08/23 History Allergies Allergy/AdvReac Type Severity Reaction Status Date / Time No Known Allergies Allergy Verified 01/08/23 03:33 Physical Exam Vitals: Vital Signs Temp Pulse Pulse Resp BP BP BP 01/09/23 04:00 97.8 F 82 18 170/81 01/09/23 02:00 98.3 F 73 18 162/88 01/08/23 22:35 75 153/82 01/08/23 20:57 78 01/08/23 20:42 76 01/08/23 20:00 98.0 F 85 18 164/85 01/08/23 17:52 97.8 F 76 19 153/88 01/08/23 17:00 83 22 161/81 01/08/23 16:17 70 01/08/23 16:08 74 01/08/23 14:00 81 20 152/90 01/08/23 12:28 68 01/08/23 12:19 76 01/08/23 09:09 68 01/08/23 09:01 70 01/08/23 08:55 73 20 150/87 Pulse Ox 01/09/23 04:00 97 01/09/23 02:00 96 01/08/23 22:35 98 01/08/23 20:57 01/08/23 20:42 01/08/23 20:00 96 01/08/23 17:52 94 L 01/08/23 17:00 94 L 01/08/23 16:17 01/08/23 16:08 01/08/23 14:00 96 01/08/23 12:28 01/08/23 12:19 01/08/23 09:09 01/08/23 09:01 01/08/23 08:55 95 Intake and Output 01/08/23 01/09/23 01/09/23 22:59 06:59 14:59 Intake Total 900 600 Balance 900 600 Intake: Intake, IV Titration 600 600 Amount Piperacillin-Tazobactam 3 100 100 .375 gm In Sodium Chloride 0.9% 100 ml @ 25 mls/hr IVPB Q8HR [facility] Rx# :[id number] Vancomycin 1,500 mg In 500 500 Sodium Chloride 0.9% 500 ml 500 ml @ 167 mls/hr IVPB Q8HR [facility] Rx#: [id number] Oral 300 Other: # Voids 1 1 Results 01/09/23 03:15 01/08/23 10:10 Cardiac Enzymes 01/08/23 Range/Units 23:37 Troponin I 0.064 H* (0.000-0.034) ng/mL Coagulation 01/09/23 Range/Units 03:15 PT 11.1 (9.0-12.0) sec APTT 58.9 H (22.0-30.0) sec CBC 01/09/23 Range/Units 03:15 WBC 6.6 (3.8-10.6) k/uL RBC 4.00 L (4.30-5.90) m/uL Hgb 10.2 L (13.0-17.5) gm/dL Hct 32.9 L (39.0-53.0) % Plt Count 175 (150-450) k/uL Comprehensive Metabolic Panel 01/08/23 Range/Units 10:10 Sodium 137 (137-145) mmol/L Potassium 4.0 (3.5-5.1) mmol/L Chloride 111 H (98-107) mmol/L Carbon Dioxide 19 L (22-30) mmol/L BUN 15 (9-20) mg/dL Creatinine 0.50 L (0.66-1.25) mg/dL Glucose 139 H (74-99) mg/dL Calcium 8.8 (8.4-10.2) mg/dL Current Medications Generic Name Dose Route Start Last Admin Trade Name Freq PRN Reason Stop Dose Admin Hydrocodone Bitart/Acetaminophen 1 each 01/09/23 03:52 01/09/23 04:44 Hydrocodone/Apap 10-325mg 1 Each Tab PO 1 each Q6HR PRN Administration Pain Albuterol/Ipratropium 3 ml 01/08/23 08:00 01/08/23 20:40 Ipratropium-Albuterol 3 Ml Neb INHALATION 3 ml RT-QID [facility] Administration Aspirin 81 mg 01/09/23 09:00 01/09/23 07:43 Aspirin 81 Mg PO 81 mg DAILY [facility] Administration Heparin Sodium (Porcine) 0 unit 01/09/23 01:43 Heparin Sodium 1,000 Un/Ml (10ml Vl) IV PER PROTOCOL PRN Low PTT Protocol Piperacillin Sod/Tazobactam 100 mls @ 25 mls/hr 01/08/23 08:00 01/09/23 07:43 Sod 3.375 gm/ Sodium Chloride IVPB 01/13/23 08:01 25 mls/hr Q8HR [facility] Administration Protocol Vancomycin HCl 1,500 mg/ 500 mls @ 167 mls/hr 01/09/23 00:00 01/09/23 00:38 Sodium Chloride IVPB 167 mls/hr Q8HR [facility] Administration Heparin Sodium/Sodium Chloride 250 mls @ 9.253 mls/hr 01/09/23 02:00 01/09/23 02:15 25,000 unit/ Sodium Chloride IV 12 units/kg/hr .Q24H [facility] 9.253 mls/hr Administration Protocol 12 UNITS/KG/HR Labetalol HCl 200 mg 01/09/23 09:00 01/09/23 06:21 Labetalol 200 Mg Tab PO 200 mg BID [facility] Administration Miscellaneous Information 1 each 01/08/23 05:48 Pneumonia Protocol Utilized 1 Each Misc PO ONCE PRN Per Protocol Naloxone HCl 0.2 mg 01/08/23 04:14 Naloxone 0.4 Mg/Ml 1 Ml Vial IV Q2M PRN Opioid Reversal Nitroglycerin 0.4 mg 01/08/23 23:09 Nitroglycerin Sl Tabs 0.4 Mg Tab SUBLINGUAL Q5M PRN Chest Pain Intake and Output 01/08/23 01/09/23 01/09/23 22:59 06:59 14:59 Intake Total 900 600 Balance 900 600 Intake: Intake, IV Titration 600 600 Amount Piperacillin-Tazobactam 3 100 100 .375 gm In Sodium Chloride 0.9% 100 ml @ 25 mls/hr IVPB Q8HR [facility] Rx# :[id number] Vancomycin 1,500 mg In 500 500 Sodium Chloride 0.9% 500 ml 500 ml @ 167 mls/hr IVPB Q8HR [facility] Rx#: [id number] Oral 300 Other: # Voids 1 1 01/09/23 03:15 01/08/23 10:10
[2023-01-09] MEDS: LOSARTAN 50 MG TAB PO SCH (09:58)
[2023-01-09 13:24] LABS: BUN/Creat Ratio 21.33 Ratio (12.00-20.00); Blood Urea Nitrogen 12.8 mg/dL (9.0-27.0); Calcium 8.7 mg/dL (8.7-10.3); Carbon Dioxide 21.8 mmol/L (21.6-31.8); Chloride 107 mmol/L (96-109); Glucose 92 mg/dL (70-110); Potassium 3.5 mmol/L (3.5-5.5); Sodium 140 mmol/L (135-145)
[2023-01-09 13:30] LABS: Basophils # (A) 0 X 10*3/uL (0.00-0.10); Basophils % (A) 0 %; Eosinophils # (A) 0.03 X 10*3/uL (0.04-0.35); Eosinophils % (A) 0.5 %; HCT 33.6 % (39.6-50.0); Lymphocytes # (A) 0.64 X 10*3/uL (0.90-5.00); Lymphocytes % (A) 11.5 %; MCH 24.6 pg (27.0-32.0); MCHC 29.8 d/dL (32.0-37.0); MCV 82.8 FL (80.0-97.0); Mean Platelet Volume 11.7 FL (9.5-12.2); Monocytes # (A) 0.34 X 10*3/uL (0.20-1.00); Monocytes % (A) 6.1 %; NRBC Per 100 WBC 0 X 10*3/uL (0.00-0.01); Neutrophils # (A) 4.53 X 10*3/uL (1.80-7.70); Neutrophils % (A) 81.5 %; Platelet Count 217 X 10*3/uL (140-440); RBC 4.06 X 10*6/uL (4.40-5.60); RDW 17.5 % (11.5-14.5); WBC 5.56 X 10*3/uL (4.50-10.00)
[2023-01-09] MEDS: CEFEPIME 2 GM in SODIUM CHLORIDE 0.9% 100 ML IVPB SCH ×2 (15:16→23:37)
[2023-01-09] MEDS: HEPARIN SODIUM 1,000 UN/ML (10ML VL) IV PRN ×2 (15:38→23:37)
--- NOTE | 2023-01-09 15:54 | P.PN ---
Subjective Progress Note Date: 01/09/23 62-year-old male patient with history of empyema. The patient was transferred to us because of shortness of breath and ongoing drainage from a surgical one- sided along the right lateral chest area. The patient is known to have previous history of empyema. The patient was initially treated with catheter drainage with thrombolytics. The patient's cultures were positive for alpha hemolytic strep. He initially required thoracentesis and subsequently pigtail catheter was inserted and subsequently the patient was taken to the operating room and the patient was having no major response to conservative measures.. H Patient has severe COPD with extremely emphysematous and bolus longs and was felt to be a very poor candidate for decortication due to this. Eloesser flap for chronic pleural drainage was performed. After a prolonged hospitalization back in November, the patient was discharged home. During the course of his illness, the patient had a acute hypoxic respiratory failure and was discharged home on oxygen. His surgical pleural biopsies were negative for any malignancy. Is known to have COPD and he has history of long and heavy tobacco consumption over the years. He also has hypertension. He denies having any fever or chills. There is drainage still which is minimal from the surgical sites. Apparently was found to be hypoxic at home with a pulse ox of 82% upon arrival to the hospital. He was started on accommodation of Zosyn and vancomycin. He was transferred to our hospital for further care as the patient underwent his surgical intervention our hospital. His other comorbid conditions include Parkinson's disease, hypertension, and I see that the patient has been anticoagulation with Eliquis and exact reason for that is not known to me at this point in time. On today's evaluation of a 2022, the patient has no specific complaints. No active drainage from his surgical site over the right lateral chest area. His COPD is stable. The patient has no fever or chills or leukocytosis.The patient's white cell count is currently that 5 with a hemoglobin of 10. Troponins are 0.06 0.05 and 0.04 respectively the pro calcitonin level came back at 0.23. CAT scan of the chest was also done yesterday showed no evidence of any pulmonary embolism. The patient has advanced bullous emphysematous change in bilateral lower lobe consolidation along with pleural thickening and limited amount of effusion the right lung base. There is also evidence of bibasilar bronchiectasis. There is no evidence of any abscess or empyema within the lung. The spleen is enlarged around 15 cm in size. The patient remains on a combination of Zosyn and vancomycin. Objective - Vital Signs Vital signs: Vital Signs Temp 97.5 F L 01/09/23 08:00 Pulse 70 01/09/23 09:00 Resp 18 01/09/23 09:00 BP 152/83 01/09/23 08:00 Pulse Ox 96 01/09/23 09:00 FiO2 Intake & Output 01/08/23 01/09/23 01/09/23 18:59 06:59 18:59 Intake Total 800 700 181.383 Balance 800 700 181.383 Intake: Intake, IV Titration 600 600 63.383 Amount Heparin Sod,Pork in 0.45% 63.383 NaCl 25,000 unit In 0.45 % NaCl 1 250ml.bag @ 12 UNITS/KG/HR 9.253 mls/hr IV .Q24H [facility] Rx#: [id number] Piperacillin-Tazobactam 3 100 100 .375 gm In Sodium Chloride 0.9% 100 ml @ 25 mls/hr IVPB Q8HR [facility] Rx# :[id number] Vancomycin 1,500 mg In 500 500 Sodium Chloride 0.9% 500 ml 500 ml @ 167 mls/hr IVPB Q8HR [facility] Rx#: [id number] Oral 200 100 118 Other: # Voids 1 1 - Exam CONSTITUTIONAL: Appears comfortable, cooperative, no acute distress, the patient is currently on 3 L of oxygen by nasal cannula. Head exam was generally normal. There was no scleral icterus or corneal arcus. Mucous membranes were moist. Neck was supple and without jugular venous distension, thyromegaly, or carotid bruits. Carotids were easily palpable bilaterally. There was no adenopathy. RESPIRATORY: Lungs sounds diminished bilaterally. Respirations even, nonlabored. Currently on room air with oxygen saturation 98%. The surgical sca r over the right chest area is clean and intact. The patient has some nonhealing site within the right chest wall and which is draining some liquidy/yellowish/turbid material. CARDIOVASCULAR: S1, S2 present. Regular rate and rhythm. Palpable peripheral pulses bilaterally. No edema present. No calf pain or tenderness noted GASTROINTESTINAL: Abdomen soft, nontender, nondistended. Active bowel sounds present 4 quadrants. Tolerating minimal diet. GENITOURINARY: Continues to void INTEGUMENTARY: Skin is warm and dry, dressing present over right lateral wall surgical site NEUROLOGIC: Cranial nerves II through XII intact MUSKULOSKELETAL: Able to move all extremities, strength equal bilaterally, gait normal PSYCHIATRIC: Alert and oriented to person place and time, flat affect, poor judgment - Labs CBC & Chem 7: 01/09/23 08:05 01/09/23 08:05 Labs: Abnormal Lab Results - Last 24 Hours (Table) 01/08/23 01/08/23 01/08/23 Range/Units 10:10 10:10 23:32 RBC (4.30-5.90) m/uL Hgb (13.0-17.5) gm/dL Hct (39.0-53.0) % RDW (11.5-15.5) % Lymphocytes # (1.0-4.8) k/uL APTT (22.0-30.0) sec D-Dimer 0.89 H (<0.60) mg/L FEU Chloride 111 H (98-107) mmol/L Carbon Dioxide 19 L (22-30) mmol/L Creatinine 0.50 L (0.66-1.25) mg/dL Glucose 139 H (74-99) mg/dL Troponin I (0.000-0.034) ng/mL Procalcitonin 0.23 H (0.02-0.09) ng/mL 01/08/23 01/09/23 01/09/23 Range/Units 23:37 03:15 03:15 RBC 4.00 L (4.30-5.90) m/uL Hgb 10.2 L (13.0-17.5) gm/dL Hct 32.9 L (39.0-53.0) % RDW 17.1 H (11.5-15.5) % Lymphocytes # 0.9 L (1.0-4.8) k/uL APTT 58.9 H (22.0-30.0) sec D-Dimer (<0.60) mg/L FEU Chloride (98-107) mmol/L Carbon Dioxide (22-30) mmol/L Creatinine (0.66-1.25) mg/dL Glucose (74-99) mg/dL Troponin I 0.064 H* (0.000-0.034) ng/mL Procalcitonin (0.02-0.09) ng/mL 01/09/23 Range/Units 08:05 RBC (4.30-5.90) m/uL Hgb (13.0-17.5) gm/dL Hct (39.0-53.0) % RDW (11.5-15.5) % Lymphocytes # (1.0-4.8) k/uL APTT (22.0-30.0) sec D-Dimer (<0.60) mg/L FEU Chloride (98-107) mmol/L Carbon Dioxide (22-30) mmol/L Creatinine (0.66-1.25) mg/dL Glucose (74-99) mg/dL Troponin I 0.054 H* (0.000-0.034) ng/mL Procalcitonin (0.02-0.09) ng/mL Microbiology - Last 24 Hours (Table) 01/08/23 06:20 Nasal Screen MRSA/MSSA - Final Nasal Swab Staphylococcus aureus,Not MRSA Assessment and Plan Plan: Acute hypoxic respiratory failure and the patient is currently on 3 L of oxygen by nasal cannula, wean down to 2 L with a pulse ox of 98%. CAT scan of the chest was done. No evidence of any empyema. There is pleural thickening and some residual small. The right lung base. No active drainage from the surgical one-sided this point in time. Right-sided effusion, empyema with pleural fluid positive for alpha hemolytic strep, status post right-sided thoracentesis with subsequent pigtail catheter placement, status post Eloesser flap,Note that there was no evidence of malignancy in the pleural fluid in the pleural lining. Advanced COPD Long-term heavy tobacco use with recent cessation COPD Asthma Hypertension BPH Anticoagulation, exact cause is not clear and the patient has been maintained on Eliquis. Plan Continue oxygen supplementations liters and titrate oxygen flow, currently on 2 L Put the patient on DuoNeb nebs [id number] The patient will maintain on Symbicort on outpatient basis Cover the patient with broad-spectrum antibiotics and the patient is currently on Zosyn and vancomycin, will consult with infectious disease. I considered putting the patient is an ongoing pleural space infection CAT scan of the chest was noted We'll need records regarding use of anticoagulants in this patient Resume all medication We'll continue to follow
--- NOTE | 2023-01-09 16:48 | CA ---
Transthoracic Echo Report Name: Juan José Huddleston Age: 62 Gender: M : 1960 Exam Date: 01/09/2023 14:07 Exam Location: [place] [facility] Ht (in): 75 Wt (lb): 170 Ordering Physician: Reyna Mesa Attending/Referring Phys: [id number], Moshe [employer] Tool Operator Ceci Vega [facility] Procedure CPT: Indications: LVF Cardiac Hx: Technical Quality: Fair Contrast 1: Total Dose (mL): Contrast 2: Total Dose (mL): MEASUREMENTS (Male / Female) Normal Values 2D ECHO LV Diastolic Diameter PLAX 5.8 cm 4.2 - 5.9 / 3.9 - 5.3 cm LV Systolic Diameter PLAX 4.6 cm IVS Diastolic Thickness 1.1 cm 0.6 - 1.0 / 0.6 - 0.9 cm LVPW Diastolic Thickness 1.2 cm 0.6 - 1.0 / 0.6 - 0.9 cm LV Relative Wall Thickness 0.4 Aortic Root Diameter 4.6 cm LV Diastolic Volume MOD BP 181.8 cm??? 67 - 155 / 56 - 104 cm??? LV Systolic Volume MOD BP 125.2 cm??? 22 - 58 / 19 - 49 cm??? LV Ejection Fraction MOD BP 31.1 % >= 55 % LV Cardiac Index MOD BP 2109.5 cm???/min???m??? LV Diastolic Volume MOD 4C 170.6 cm??? LV Systolic Volume MOD 4C 123.6 cm??? LV Ejection Fraction MOD 4C 27.6 % LV Cardiac Index MOD 4C 1751.9 cm???/min???m??? LV Diastolic Length 4C 10.5 cm LV Systolic Length 4C 9.1 cm LV Diastolic Volume MOD 2C 195.0 cm??? LV Systolic Volume MOD 2C 122.0 cm??? LV Ejection Fraction MOD 2C 37.4 % LV Cardiac Index MOD 2C 2719.2 cm???/min???m??? LV Diastolic Length 2C 10.7 cm LV Systolic Length 2C 9.5 cm Ascending Aorta Diameter 4.2 cm DOPPLER AV Peak Velocity 134.6 cm/s AV Peak Gradient 7.2 mmHg AV Mean Velocity 87.0 cm/s AV Mean Gradient 3.6 mmHg AV Velocity Time Integral 22.3 cm AI Peak Velocity 387.3 cm/s AI Peak Gradient 60.0 mmHg AI Pressure Half Time 439.0 ms LVOT Peak Velocity 108.7 cm/s LVOT Peak Gradient 4.7 mmHg LVOT Velocity Time Integral 20.4 cm Mitral E Point Velocity 79.7 cm/s Mitral A Point Velocity 101.4 cm/s Mitral E to A Ratio 0.8 MV Deceleration Time 226.3 ms LV E' Lateral Velocity 3.5 cm/s Mitral E to LV E' Lateral Ratio 23.0 LV E' Septal Velocity 4.4 cm/s Mitral E to LV E' Septal Ratio 18.0 TR Peak Velocity 324.8 cm/s TR Peak Gradient 42.2 mmHg Right Atrial Pressure 15.0 mmHg Pulmonary Artery Systolic Pressu 57.2 mmHg Right Ventricular Systolic Press 57.2 mmHg FINDINGS Left Ventricle Mildly increased septal wall thickness. Moderately increased left ventricular diastolic volume. Severely increased left ventricular systolic volume. Moderately decreased left ventricular ejection fraction. Left ventricular ejection fraction is estimated at 30-35%. Regional wall motion abnormalities. Right Ventricle Severe pulmonary hypertension. Severely increased basal right ventricular diameter. Right Atrium Severe right atrial dilatation. Left Atrium Severe left atrial dilatation. Mitral Valve Structurally normal mitral valve. Mitral valve thickened. Mild mitral regurgitation. Aortic Valve Aortic valve not well visualized. Moderate aortic regurgitation. Tricuspid Valve Structurally normal tricuspid valve. Moderate tricuspid regurgitation. Pulmonic Valve Structurally normal pulmonic valve. Mild pulmonic regurgitation. Pericardium Small pericardial effusion. Aorta Moderate aortic dilatation at the level of the sinuses of valsalva (root). Mildly dilated proximal ascending aorta (tube). CONCLUSIONS Moderate LV systolic dysfunction with an ejection fraction of 30-35% with evidence of prior anteroseptal myocardial infarction Moderate mitral regurgitation Mild mitral regurgitation Moderate aortic root dilatation Previewed by: Dr. Lv Sullivan MD (Electronically Signed) Final Date: 09 January 2023 16:47
[2023-01-09] MEDS: QUEtiapine 100 MG TAB PO SCH (19:53)
[2023-01-09] MEDS: SYMBICORT 160-4.5 MCG INHALER INHALATION SCH (21:07)
--- NOTE | 2023-01-09 21:48 | P.CONS ---
History of Present Illness - Reason for Consult Consult date: 01/09/23 - History of Present Illness Patient is a 62-year-old male with a past medical history significant for COPD hypertension Parkinson disease bipolar disorder presented to the [facility] for evaluation of increasing shortness of breath patient's symptom has been going on for few days before presentation to the hospital patient denies having any chest pain he did have a cough moderate intensity occasional sputum production denies any nausea no vomiting no abdominal pain no diarrhea patient was noticed to be hypoxic at the outside facility with O2 sats of 82% patient did received Solu-Medrol chest x-ray with right basilar opacity patient has been brought to the hospital for further evaluation patient also have a recent Eloesser flap for recurrent effusion on November [address] Wolf, on presentation to the hospital the patient was afebrile and no fever has been recorded subsequently patient was nontachycardic or hypotensive mild hypoxemia and currently on 2 L nasal cannula oxygen patient did have a normal white count D-dimer was 0.89 troponin is elevated progressive 0.23 patient did have a CT angiogram of the chest no evidence of PE dilated pulmonary artery nonspecific borderline mediastinal and hilar adenopathy bilateral areas of consolidation with small effusion greater on the right with concern for pneumonia patient was started on vancomycin and Zosyn infectious was consulted f or further management of antibiotic therapy Past Medical History Past Medical History: Asthma, COPD, Hyperlipidemia, Hypertension, Pneumonia (Along with history of empyema involving the right lung) History of Any Multi-Drug Resistant Organisms: None Reported Past Surgical History: Orthopedic Surgery Past Anesthesia/Blood Transfusion Reactions: No Reported Reaction Past Psychological History: No Psychological Hx Reported Smoking Status: Former smoker Past Alcohol Use History: None Reported Past Drug Use History: None Reported - Past Family History Father Family Medical History: COPD Medications and Allergies Home Medications Medication Instructions Recorded Confirmed Type Albuterol Sulfate [Albuterol 2 puff INHALATION RT-Q4H PRN 10/30/22 01/08/23 History Sulfate Hfa] Benztropine Mesylate [Cogentin] 0.5 mg PO BID 10/30/22 01/08/23 History Labetalol [Trandate] 200 mg PO BID 10/30/22 01/08/23 History Pantoprazole Sodium [Protonix] 40 mg PO BID 10/30/22 01/08/23 History Sertraline [Zoloft] 100 mg PO BID 10/30/22 01/08/23 History Tamsulosin [Flomax] 0.4 mg PO DAILY 10/30/22 01/08/23 History tiZANidine [Zanaflex] 2 mg PO DAILY 10/30/22 01/08/23 History Budesonide-Formot 160-4.5 Mcg 2 puff INHALATION RT-BID each 11/18/22 01/08/23 Rx [Symbicort 160-4.5 Mcg Inhaler] Loperamide [Imodium] 2 mg PO QID PRN cap 11/18/22 01/08/23 Rx Apixaban [Eliquis] 5 mg PO BID 01/08/23 01/08/23 History Fluticasone Nasal [place] [Flonase 1 spr EA NOSTRIL DAILY 01/08/23 01/08/23 History Nasal [place]] Gabapentin 600 mg PO BID 01/08/23 01/08/23 History HYDROcodone/APAP 10-325MG [[place] 1 tab PO Q6H 01/08/23 01/08/23 History 10-325] QUEtiapine [SEROquel] 100 mg PO HS 01/08/23 01/08/23 History Allergies Allergy/AdvReac Type Severity Reaction Status Date / Time No Known Allergies Allergy Verified 01/08/23 03:33 Physical Exam Vitals: Vital Signs Temp Pulse Pulse Resp BP BP BP 01/09/23 11:01 97.9 F 69 18 163/73 01/09/23 09:00 70 18 01/09/23 08:00 97.5 F L 64 20 152/83 01/09/23 04:00 97.8 F 82 18 170/81 01/09/23 02:00 98.3 F 73 18 162/88 01/08/23 22:35 75 153/82 01/08/23 20:57 78 01/08/23 20:42 76 01/08/23 20:00 98.0 F 85 18 164/85 01/08/23 17:52 97.8 F 76 19 153/88 01/08/23 17:00 83 22 161/81 01/08/23 16:17 70 01/08/23 16:08 74 01/08/23 14:00 81 20 152/90 01/08/23 12:28 68 01/08/23 12:19 76 Pulse Ox 01/09/23 11:01 98 01/09/23 09:00 96 01/09/23 08:00 99 01/09/23 04:00 97 01/09/23 02:00 96 01/08/23 22:35 98 01/08/23 20:57 01/08/23 20:42 01/08/23 20:00 96 01/08/23 17:52 94 L 01/08/23 17:00 94 L 01/08/23 16:17 01/08/23 16:08 01/08/23 14:00 96 01/08/23 12:28 01/08/23 12:19 Intake and Output 01/08/23 01/09/23 01/09/23 22:59 06:59 14:59 Intake Total 900 600 181.383 Balance 900 600 181.383 Intake: Intake, IV Titration 600 600 63.383 Amount Heparin Sod,Pork in 0.45% 63.383 NaCl 25,000 unit In 0.45 % NaCl 1 250ml.bag @ 12 UNITS/KG/HR 9.253 mls/hr IV .Q24H [facility] Rx#: [id number] Piperacillin-Tazobactam 3 100 100 .375 gm In Sodium Chloride 0.9% 100 ml @ 25 mls/hr IVPB Q8HR [facility] Rx# :[id number] Vancomycin 1,500 mg In 500 500 Sodium Chloride 0.9% 500 ml 500 ml @ 167 mls/hr IVPB Q8HR [facility] Rx#: [id number] Oral 300 118 Other: # Voids 1 1 Results CBC & Chem 7: 01/09/23 08:05 01/09/23 08:05 Labs: Abnormal Lab Results - Last 24 Hours (Table) 01/08/23 01/08/23 01/08/23 Range/Units 10:10 23:32 23:37 RBC (4.30-5.90) m/uL Hgb (13.0-17.5) gm/dL Hct (39.0-53.0) % RDW (11.5-15.5) % Lymphocytes # (1.0-4.8) k/uL APTT (22.0-30.0) sec D-Dimer 0.89 H (<0.60) mg/L FEU Troponin I 0.064 H* (0.000-0.034) ng/mL Procalcitonin 0.23 H (0.02-0.09) ng/mL 01/09/23 01/09/23 01/09/23 Range/Units 03:15 03:15 08:05 RBC 4.00 L (4.30-5.90) m/uL Hgb 10.2 L (13.0-17.5) gm/dL Hct 32.9 L (39.0-53.0) % RDW 17.1 H (11.5-15.5) % Lymphocytes # 0.9 L (1.0-4.8) k/uL APTT 58.9 H (22.0-30.0) sec D-Dimer (<0.60) mg/L FEU Troponin I 0.054 H* (0.000-0.034) ng/mL Procalcitonin (0.02-0.09) ng/mL Microbiology - Last 24 Hours (Table) 01/08/23 06:20 Nasal Screen MRSA/MSSA - Final Nasal Swab Staphylococcus aureus,Not MRSA Assessment and Plan Plan: 1patient is a 62-year-old male's past medical history of COPD in this patient with the right sided empyema status post chest tube placement and subsequently did Eloesser flap for recurrent effusion cultures at that time were positive for Streptococcus patient was treated with IV antibiotic therapy for almost 3 weeks subsequently discharged on oral Augmentin now presenting back to the hospital with increasing shortness of breath did have evidence of bibasilar consolidation and effusion concerning for recurrent infection patient however not running any fever White count has been normal and does not look toxic 2we will continue the patient on vancomycin however switch Zosyn to cefepime to decrease risk of nephrotoxicity 3May benefit from repeat cultures to make sure no evidence of infection with a different pathogen We will follow on clinical condition and cultures to further adjust medication if needed Thank you for this consultation we will follow the patient along with you Dictation was produced using [employer] software. please excuse any grammatical, word or spelling errors.
[2023-01-10 06:44] LABS: Anisocytosis Slight; Basophils % (A) 0 %; Eosinophils # (A) 0.1 k/uL (0-0.7); Eosinophils % (A) 3 %; HCT 32.3 % (39.0-53.0); HGB 10.1 gm/dL (13.0-17.5); Hypochromasia Marked; Lymphocytes # (A) 0.7 k/uL (1.0-4.8); Lymphocytes % (A) 19 %; MCH 25.7 pg (25.0-35.0); MCHC 31.2 g/dL (31.0-37.0); MCV 82.4 fL (80.0-100.0); Mean Platelet Volume 8.5; Monocytes # (A) 0.2 k/uL (0-1.0); Monocytes % (A) 6 %; Neutrophils # (A) 2.8 k/uL (1.3-7.7); Neutrophils % (A) 71 %; Platelet Count 161 k/uL (150-450); RBC 3.92 m/uL (4.30-5.90); RDW 17.5 % (11.5-15.5); WBC 3.9 k/uL (3.8-10.6)
[2023-01-10 06:50] LABS: Partial Thromboplastin Time 33.2 sec (22.0-30.0); Prothrombin Time 10.7 sec (9.0-12.0)
[2023-01-10 06:58] LABS: African American GFR (CKD) >90 (>60 ml/min/1.73 sqM); Non-African American GFR(CKD) >90 (>60 ml/min/1.73 sqM)
[2023-01-10] MEDS: SYMBICORT 160-4.5 MCG INHALER INHALATION SCH ×2 (09:07→20:31)
[2023-01-10] MEDS: IPRATROPIUM-ALBUTEROL 3 ML NEB INHALATION SCH ×4 (09:07→20:30)
[2023-01-10] MEDS: CEFEPIME 2 GM in SODIUM CHLORIDE 0.9% 100 ML IVPB SCH ×2 (09:25→15:45)
[2023-01-10] MEDS: LABETALOL 200 MG TAB PO SCH ×2 (09:26→21:56)
[2023-01-10] MEDS: LOSARTAN 50 MG TAB PO SCH (09:26)
[2023-01-10] MEDS: GABAPENTIN 300 MG CAP PO SCH ×2 (09:26→20:44)
[2023-01-10] MEDS: BENZTROPINE MESYLATE 0.5 MG TAB PO SCH ×2 (09:26→21:56)
[2023-01-10] MEDS: tiZANidine 4 MG TAB PO SCH (09:26)
[2023-01-10] MEDS: TAMSULOSIN 0.4 MG CAP.ER.24H PO SCH (09:26)
[2023-01-10] MEDS: HYDROcodone/APAP 10-325MG 1 EACH TAB PO PRN ×3 (09:26→22:48)
[2023-01-10] MEDS: PANTOPRAZOLE 40 MG TABLET PO SCH ×2 (09:27→20:45)
[2023-01-10] MEDS: ASPIRIN 81 MG PO SCH (09:27)
[2023-01-10] MEDS: FLUTICASONE 50MCG/SPRAY NASAL 16GM EA NOSTRIL SCH (09:27)
[2023-01-10] MEDS: SERTRALINE 100 MG TAB PO SCH ×2 (09:27→20:45)
--- NOTE | 2023-01-10 10:13 | P.PN ---
Subjective Progress Note Date: 01/10/23 History of present illness: This is a 62-year-old man with past medical history of empyema with recent hos pitalization in October at which time he had a drainage tube in place followed by flap procedure. Patient also has past medical history of hypertension, hyperlipidemia, COPD. We have been asked to evaluate the patient for critical troponin and chest pain. Apparently patient had chest pain earlier in the morning. Patient currently denies having any chest pain. He is on eliquis which he does not present illness. He cannot identify who started this medication. He is an active smoker, down to 5-10 cigarettes per day. Patient initially presented to [facility] and was found to have a lactic acid 2.2. Troponin was normal at 56 with normal range 0-76. Magnesium 1.6. Patient was treated with [place] Zosyn and vancomycin and transferred to [facility]. Patient currently denies having any chest pain. EKG sinus rhythm with left bundle-branch block CT angiogram of the chest revealed no pulmonary embolism. Dilated pulmonary artery with pulmonary artery hypertension. Aortic root 4.5 cm. Adenopathy and diffuse emphysematous changes, small effusion greater on the right, atelectasis. Splenomegaly 15 cm Chest x-ray: Probable developing unusual pneumonia WBC 6.6, hemoglobin 10.2, platelet count 175. INR 1.1. D-dimer 0.89. Potassium 4.0, BUN 15 and creatinine 0.5. Troponin 0.064. Calcitonin 0.23. Patient has been started on a heparin drip. Home cardiac medications: Eliquis 5 mg twice daily, labetalol 200 mg twice daily 01/10 Patient denies having any chest pain or shortness of breath. He is on treatment for pneumonia with IV antibiotics. Patient has been maintained on a heparin drip. Repeat troponins came back at 0.048, 0.044. Echocardiogram reveals EF of 30-35% with evidence of prior anterior septal myocardial infarction, moderate mitral regurgitation, mild mitral regurgitation, moderate aortic root dilatation. Physical examination: Gen: This is a 62-year-old male resting in bed appears to be in no acute respiratory distress VS: reviewed HEENT: Head is atraumatic, normocephalic. Pupils equal, round. Sclerae is anicteric. NECK: Supple. No JVD. . LUNGS: Diminished bilaterally. No intercostal retractions. HEART: Regular rate and rhythm. No murmur. ABDOMEN: Soft No tenderness. EXTREMITIES: No pedal edema. No calf tenderness. NEUROLOGICAL: Patient is awake, alert and oriented x3. Assessment: Atypical chest pain, rule out non-ST elevated myocardial infarction Empyema/pneumonia Hypertension Hyperlipidemia COPD Active tobacco use and dependence Cardiomyopathy most likely ischemic Plan: Continue patient on aspirin 81 mg daily, losartan 50 mg daily, labetalol Discontinue heparin drip and resume eliquis Plan will be for outpatient ischemic workup once his respiratory status is stable. Further recommendations to follow based upon clinical course Thank you kindly for this consultation. Nurse practitioner note has been reviewed, I agree with documented findings and plan of care. Patient was seen and examined. A 62-year-old male with past medical history of Objective - Vital Signs Vital signs: Vital Signs Temp 97.5 F L 01/10/23 04:00 Pulse 68 01/10/23 09:17 Resp 15 01/10/23 04:00 BP 141/70 01/10/23 04:00 Pulse Ox 98 01/10/23 04:00 FiO2 Intake & Output 01/09/23 01/10/23 01/10/23 18:59 06:59 18:59 Intake Total 034.015 7529.853 118 Output Total 700 500 Balance 737.147 550.853 -382 Intake: Intake, IV Titration 139.147 710.853 Amount Cefepime 2 gm In Sodium 100 Chloride 0.9% 100 ml @ 25 mls/hr IVPB Q8HR [facility] Rx# :[id number] Heparin Sod,Pork in 0.45% 139.147 110.853 NaCl 25,000 unit In 0.45 % NaCl 1 250ml.bag @ 12 UNITS/KG/HR 9.253 mls/hr IV .Q24H [facility] Rx#: [id number] Vancomycin 1,500 mg In 500 Sodium Chloride 0.9% 500 ml 500 ml @ 167 mls/hr IVPB Q12HR [facility] Rx#: [id number] Oral 598 540 118 Output: Urine 700 500 Other: # Voids 1 - Labs CBC & Chem 7: 01/10/23 06:31 01/10/23 06:31 Labs: Abnormal Lab Results - Last 24 Hours (Table) 01/09/23 01/09/23 01/09/23 Range/Units 08:05 08:05 08:05 RBC 4.06 L (4.40-5.60) X 10*6/uL Hgb 10.0 L (13.0-17.0) d/dL Hct 33.6 L (39.6-50.0) % MCH 24.6 L (27.0-32.0) pg MCHC 29.8 L (32.0-37.0) d/dL RDW 17.5 H (11.5-14.5) % Lymphocytes # 0.64 L (0.90-5.00) X 10*3/uL Eosinophils # 0.03 L (0.04-0.35) X 10*3/uL APTT (22.0-30.0) sec Creatinine (0.66-1.25) mg/dL BUN/Creatinine Ratio 21.33 H (12.00-20.00) Ratio Troponin I 0.054 H* (0.000-0.034) ng/mL 01/09/23 01/09/23 01/10/23 Range/Units 10:45 15:05 06:31 RBC 3.92 L (4.40-5.60) X 10*6/uL Hgb 10.1 L (13.0-17.0) d/dL Hct 32.3 L (39.6-50.0) % MCH (27.0-32.0) pg MCHC (32.0-37.0) d/dL RDW 17.5 H (11.5-14.5) % Lymphocytes # 0.7 L (0.90-5.00) X 10*3/uL Eosinophils # (0.04-0.35) X 10*3/uL APTT (22.0-30.0) sec Creatinine (0.66-1.25) mg/dL BUN/Creatinine Ratio (12.00-20.00) Ratio Troponin I 0.048 H* 0.044 H* (0.000-0.034) ng/mL 01/10/23 01/10/23 Range/Units 06:31 06:31 RBC (4.40-5.60) X 10*6/uL Hgb (13.0-17.0) d/dL Hct (39.6-50.0) % MCH (27.0-32.0) pg MCHC (32.0-37.0) d/dL RDW (11.5-14.5) % Lymphocytes # (0.90-5.00) X 10*3/uL Eosinophils # (0.04-0.35) X 10*3/uL APTT 33.2 H (22.0-30.0) sec Creatinine 0.54 L (0.66-1.25) mg/dL BUN/Creatinine Ratio (12.00-20.00) Ratio Troponin I (0.000-0.034) ng/mL Microbiology - Last 24 Hours (Table) 01/08/23 06:20 Nasal Screen MRSA/MSSA - Final Nasal Swab Staphylococcus aureus,Not MRSA
[2023-01-10] MEDS: VANCOMYCIN 1,500 MG in SODIUM CHLORIDE 0.9% 500 ML 500 ML IVPB SCH ×2 (11:01→20:45)
--- NOTE | 2023-01-10 11:09 | P.PN ---
Subjective Progress Note Date: 01/10/23 62-year-old male patient with history of empyema. The patient was transferred to us because of shortness of breath and ongoing drainage from a surgical one- sided along the right lateral chest area. The patient is known to have previous history of empyema. The patient was initially treated with catheter drainage with thrombolytics. The patient's cultures were positive for alpha hemolytic strep. He initially required thoracentesis and subsequently pigtail catheter was inserted and subsequently the patient was taken to the operating room and the patient was having no major response to conservative measures.. H Patient has severe COPD with extremely emphysematous and bolus longs and was felt to be a very poor candidate for decortication due to this. Eloesser flap for chronic pleural drainage was performed. After a prolonged hospitalization back in November, the patient was discharged home. During the course of his illness, the patient had a acute hypoxic respiratory failure and was discharged home on oxygen. His surgical pleural biopsies were negative for any malignancy. Is known to have COPD and he has history of long and heavy tobacco consumption over the years. He also has hypertension. He denies having any fever or chills. There is drainage still which is minimal from the surgical sites. Apparently was found to be hypoxic at home with a pulse ox of 82% upon arrival to the hospital. He was started on accommodation of Zosyn and vancomycin. He was transferred to our hospital for further care as the patient underwent his surgical intervention our hospital. His other comorbid conditions include Parkinson's disease, hypertension, and I see that the patient has been anticoagulation with Eliquis and exact reason for that is not known to me at this point in time. On today's evaluation of a 2022, the patient has no specific complaints. No active drainage from his surgical site over the right lateral chest area. His COPD is stable. The patient has no fever or chills or leukocytosis.The patient's white cell count is currently that 5 with a hemoglobin of 10. Troponins are 0.06 0.05 and 0.04 respectively the pro calcitonin level came back at 0.23. CAT scan of the chest was also done yesterday showed no evidence of any pulmonary embolism. The patient has advanced bullous emphysematous change in bilateral lower lobe consolidation along with pleural thickening and limited amount of effusion the right lung base. There is also evidence of bibasilar bronchiectasis. There is no evidence of any abscess or empyema within the lung. The spleen is enlarged around 15 cm in size. The patient remains on a combination of Zosyn and vancomycin. On today's evaluation of 01/10/2023, the patient is resting comfortably in bed. No new complaints. He remains on IV heparin. Customer Operations Associate on the case regarding the acute and NSTEMI. The patient states that he still seen drainage from his wound was placed on IV cefepime and vancomycin. Nevertheless, based on the nursing staff and based on my observation, dressing is essentially clear. As such, no cultures have been obtained. The white cycles of 3.9, hemoglobin is 10, creatinine is at 0.5. The echo has resulted in the patient has an impaired left ventricular ejection fraction of 33 5% and moderate MR and moderate dilatation of the aortic root. Objective - Vital Signs Vital signs: Vital Signs Temp 97.5 F L 01/10/23 04:00 Pulse 68 01/10/23 09:17 Resp 15 01/10/23 04:00 BP 141/70 01/10/23 04:00 Pulse Ox 98 01/10/23 04:00 FiO2 Intake & Output 01/09/23 01/10/23 01/10/23 18:59 06:59 18:59 Intake Total 182.150 0771.853 118 Output Total 700 500 Balance 737.147 550.853 -382 Intake: Intake, IV Titration 139.147 710.853 Amount Cefepime 2 gm In Sodium 100 Chloride 0.9% 100 ml @ 25 mls/hr IVPB Q8HR [facility] Rx# :[id number] Heparin Sod,Pork in 0.45% 139.147 110.853 NaCl 25,000 unit In 0.45 % NaCl 1 250ml.bag @ 12 UNITS/KG/HR 9.253 mls/hr IV .Q24H [facility] Rx#: [id number] Vancomycin 1,500 mg In 500 Sodium Chloride 0.9% 500 ml 500 ml @ 167 mls/hr IVPB Q12HR [facility] Rx#: [id number] Oral 598 540 118 Output: Urine 700 500 Other: # Voids 1 - Exam CONSTITUTIONAL: Appears comfortable, cooperative, no acute distress, the patient is currently on 3 L of oxygen by nasal cannula. Head exam was generally normal. There was no scleral icterus or corneal arcus. Mucous membranes were moist. Neck was supple and without jugular venous distension, thyromegaly, or carotid bruits. Carotids were easily palpable bilaterally. There was no adenopathy. RESPIRATORY: Lungs sounds diminished bilaterally. Respirations even, nonlabored. Currently on room air with oxygen saturation 98%. The surgical sc ar over the right chest area is clean and intact. The patient has some nonhealing site within the right chest wall and which is draining some liquidy/yellowish/turbid material. CARDIOVASCULAR: S1, S2 present. Regular rate and rhythm. Palpable peripheral pulses bilaterally. No edema present. No calf pain or tenderness noted GASTROINTESTINAL: Abdomen soft, nontender, nondistended. Active bowel sounds present 4 quadrants. Tolerating minimal diet. GENITOURINARY: Continues to void INTEGUMENTARY: Skin is warm and dry, dressing present over right lateral wall surgical site NEUROLOGIC: Cranial nerves II through XII intact MUSKULOSKELETAL: Able to move all extremities, strength equal bilaterally, gait normal PSYCHIATRIC: Alert and oriented to person place and time, flat affect, poor judgment - Labs CBC & Chem 7: 01/10/23 06:31 01/10/23 06:31 Labs: Abnormal Lab Results - Last 24 Hours (Table) 01/09/23 01/09/23 01/09/23 Range/Units 08:05 08:05 10:45 RBC 4.06 L (4.40-5.60) X 10*6/uL Hgb 10.0 L (13.0-17.0) d/dL Hct 33.6 L (39.6-50.0) % MCH 24.6 L (27.0-32.0) pg MCHC 29.8 L (32.0-37.0) d/dL RDW 17.5 H (11.5-14.5) % Lymphocytes # 0.64 L (0.90-5.00) X 10*3/uL Eosinophils # 0.03 L (0.04-0.35) X 10*3/uL APTT (22.0-30.0) sec Creatinine (0.66-1.25) mg/dL BUN/Creatinine Ratio 21.33 H (12.00-20.00) Ratio Troponin I 0.048 H* (0.000-0.034) ng/mL 01/09/23 01/10/23 01/10/23 Range/Units 15:05 06:31 06:31 RBC 3.92 L (4.40-5.60) X 10*6/uL Hgb 10.1 L (13.0-17.0) d/dL Hct 32.3 L (39.6-50.0) % MCH (27.0-32.0) pg MCHC (32.0-37.0) d/dL RDW 17.5 H (11.5-14.5) % Lymphocytes # 0.7 L (0.90-5.00) X 10*3/uL Eosinophils # (0.04-0.35) X 10*3/uL APTT (22.0-30.0) sec Creatinine 0.54 L (0.66-1.25) mg/dL BUN/Creatinine Ratio (12.00-20.00) Ratio Troponin I 0.044 H* (0.000-0.034) ng/mL 01/10/23 Range/Units 06:31 RBC (4.40-5.60) X 10*6/uL Hgb (13.0-17.0) d/dL Hct (39.6-50.0) % MCH (27.0-32.0) pg MCHC (32.0-37.0) d/dL RDW (11.5-14.5) % Lymphocytes # (0.90-5.00) X 10*3/uL Eosinophils # (0.04-0.35) X 10*3/uL APTT 33.2 H (22.0-30.0) sec Creatinine (0.66-1.25) mg/dL BUN/Creatinine Ratio (12.00-20.00) Ratio Troponin I (0.000-0.034) ng/mL Microbiology - Last 24 Hours (Table) 01/08/23 06:20 Nasal Screen MRSA/MSSA - Final Nasal Swab Staphylococcus aureus,Not MRSA Assessment and Plan Plan: Acute hypoxic respiratory failure and the patient is currently on 3 L of oxygen by nasal cannula, wean down to 2 L with a pulse ox of 98%. CAT scan of the chest was done. No evidence of any empyema. There is pleural thickening and some residual small. The right lung base. No active drainage from the surgical one-sided this point in time. Right-sided effusion, empyema with pleural fluid positive for alpha hemolytic strep, status post right-sided thoracentesis with subsequent pigtail catheter placement, status post Eloesser flap,Note that there was no evidence of malignancy in the pleural fluid in the pleural lining. No active drainage based on our observation. Advanced COPD CHF with impaired LV function, ejection fraction 35% and the patient has a moderate MR. Acute non-STEMI Long-term heavy tobacco use with recent cessation COPD Asthma Hypertension BPH Anticoagulation, exact cause is not clear and the patient has been maintained on Eliquis. The patient is currently on IV heparin. Plan Continue oxygen supplementations liters and titrate oxygen flow, currently on 2 L Put the patient on DuoNeb nebs [id number] The patient will maintain on Symbicort on outpatient basis No active drainage from the surgical one-sided based on our observation Culture if there is any drainage Cover the patient with broad-spectrum antibiotics and the patient is currently on cefepime and vancomycin, will consult with infectious disease. No clear indication of the pleural space infection CAT scan of the chest was noted We'll need records regarding use of anticoagulants in this patient Resume all medication Cardiology to comment on non-ST segment elevation myocardial infarction. The patient was placed on hold regarding his Eliquis and the patient is currently on IV heparin. Echo was noted We'll continue to follow
--- NOTE | 2023-01-10 16:30 | P.PN ---
Subjective Progress Note Date: 01/10/23 Principal diagnosis: Pneumonia/empyema Patient is a 62-year-old male with a past medical history significant for COPD hypertension Parkinson disease bipolar disorder,patient also have a recent Eloesser flap for recurrent effusion presented to the [facility] for evaluation of increasing shortness of breath,patient did have a CT angiogram of the chest no evidence of PE dilated pulmonary artery nonspecific borderline mediastinal and hilar adenopathy bilateral areas of consolidation with small effusion greater on the right, with concern for persistent empyema patient was started on antibiotic infection disease was consulted. On today's evaluation that is 01/10/2023 the patient is afebrile, patient is currently breathing comfortably on 2 L nasal canal oxygen, the patient denies having any chest pain or any worsening cough he is bringing up some sputum or hemoptysis no nausea no vomiting no abdominal pain no diarrhea. Patient did have a white count of 3.9, creatinine 0.54, pro calcitonin is 0.23 Objective - Vital Signs Vital signs: Vital Signs Temp 97.8 F 01/10/23 11:35 Pulse 66 01/10/23 11:35 Resp 16 01/10/23 11:35 BP 167/63 01/10/23 11:35 Pulse Ox 97 01/10/23 11:35 FiO2 Intake & Output 01/09/23 01/10/23 01/10/23 18:59 06:59 18:59 Intake Total 100.101 1336.853 478 Output Total 700 500 Balance 737.147 550.853 -22 Intake: Intake, IV Titration 139.147 710.853 Amount Cefepime 2 gm In Sodium 100 Chloride 0.9% 100 ml @ 25 mls/hr IVPB Q8HR [facility] Rx# :[id number] Heparin Sod,Pork in 0.45% 139.147 110.853 NaCl 25,000 unit In 0.45 % NaCl 1 250ml.bag @ 12 UNITS/KG/HR 9.253 mls/hr IV .Q24H [facility] Rx#: [id number] Vancomycin 1,500 mg In 500 Sodium Chloride 0.9% 500 ml 500 ml @ 167 mls/hr IVPB Q12HR [facility] Rx#: [id number] Oral 598 [id number] Output: Urine 700 500 Other: # Voids 1 - Exam GENERAL DESCRIPTION: A middle-aged male lying in bed in no distress RESPIRATORY SYSTEM: Unlabored breathing , decreased breath sounds at bases HEART: S1 S2 regular rate and rhythm , ABDOMEN: Soft , no tenderness EXTREMITIES: No edema feet - Labs CBC & Chem 7: 01/10/23 06:31 01/10/23 06:31 Labs: Abnormal Lab Results - Last 24 Hours (Table) 01/09/23 01/10/23 01/10/23 Range/Units 15:05 06:31 06:31 RBC 3.92 L (4.30-5.90) m/uL Hgb 10.1 L (13.0-17.5) gm/dL Hct 32.3 L (39.0-53.0) % RDW 17.5 H (11.5-15.5) % Lymphocytes # 0.7 L (1.0-4.8) k/uL APTT (22.0-30.0) sec Creatinine 0.54 L (0.66-1.25) mg/dL Troponin I 0.044 H* (0.000-0.034) ng/mL 01/10/23 Range/Units 06:31 RBC (4.30-5.90) m/uL Hgb (13.0-17.5) gm/dL Hct (39.0-53.0) % RDW (11.5-15.5) % Lymphocytes # (1.0-4.8) k/uL APTT 33.2 H (22.0-30.0) sec Creatinine (0.66-1.25) mg/dL Troponin I (0.000-0.034) ng/mL Assessment and Plan (1) Pneumonia Current Visit: Yes Status: Acute Code(s): J18.9 - PNEUMONIA, UNSPECIFIED ORGANISM SNOMED Code(s): 680016422 (2) Empyema Current Visit: No Status: Acute Code(s): J86.9 - PYOTHORAX WITHOUT FISTULA SNOMED Code(s): 262880336 Plan: 1patient is a 62-year-old male's past medical history of COPD in this patient with the right sided empyema status post chest tube placement and sub sequently did Eloesser flap for recurrent effusion cultures at that time were positive for Streptococcus patient was treated with IV antibiotic therapy for almost 3 weeks subsequently discharged on oral Augmentin now presenting back to the hospital with increasing shortness of breath did have evidence of bibasilar consolidation and effusion concerning for recurrent infection patient however not running any fever White count has been normal and does not look toxic 2the patient will continue the patient on vancomycin and cefepime, while waiting for the cultures to finalize Dictation was produced using [employer] dictation software. please excuse any grammatical, word or spelling errors. Time with Patient: Less than 30
--- NOTE | 2023-01-10 16:56 | P.PN ---
Subjective Progress Note Date: 01/09/23 62-year-old male with past medical history of COPD, hypertension, Parkinson's, bipolar who presented to [facility] for shortness of breath. States he became more short of breath last night. He was found to be saturating 82% at outside hospital. He denied having a chest pain. He was given 125 Solu- Medrol and an albuterol breathing treatments. Blood to completed an outside facility reveals Lactic acid was 2.2. Magnesium 1.6. Chest x-ray was completed which demonstrates right basilar opacity which could be pleural fluid, atelectasis and/or acute airspace process. Additional patchy opacities throughout the right long and more pronounced at the base. Patient was given vancomycin and Zosyn. He does have a history of loculated pleural effusion on the right with empyema. This required a surgical Eloesser flap on november 14 which was completed by Dr. Wolf. Due to the patient's a ffiliation with our hospital they wanted to transport the patient here. Patient was agreeable. He denies any fevers. No vomiting. No lower extremity swelling. Objective - Vital Signs Vital signs: Vital Signs Temp 97.9 F 01/09/23 11:01 Pulse 69 01/09/23 11:01 Resp 18 01/09/23 11:01 BP 163/73 01/09/23 11:01 Pulse Ox 98 01/09/23 11:01 FiO2 Intake & Output 01/08/23 01/09/23 01/09/23 18:59 06:59 18:59 Intake Total 800 700 181.383 Balance 800 700 181.383 Intake: Intake, IV Titration 600 600 63.383 Amount Heparin Sod,Pork in 0.45% 63.383 NaCl 25,000 unit In 0.45 % NaCl 1 250ml.bag @ 12 UNITS/KG/HR 9.253 mls/hr IV .Q24H [facility] Rx#: [id number] Piperacillin-Tazobactam 3 100 100 .375 gm In Sodium Chloride 0.9% 100 ml @ 25 mls/hr IVPB Q8HR [facility] Rx# :[id number] Vancomycin 1,500 mg In 500 500 Sodium Chloride 0.9% 500 ml 500 ml @ 167 mls/hr IVPB Q8HR [facility] Rx#: [id number] Oral 200 100 118 Other: # Voids 1 1 - Exam CONSTITUTIONAL: Appears comfortable, cooperative, no acute distress, the patient is currently on 3 L of oxygen by nasal cannula. Head exam was generally normal. There was no scleral icterus or corneal arcus. Mucous membranes were moist. Neck was supple and without jugular venous distension, thyromegaly, or carotid bruits. Carotids were easily palpable bilaterally. There was no adenopathy. RESPIRATORY: Lungs sounds diminished bilaterally. Respirations even, nonla bored. Currently on room air with oxygen saturation 98%. The surgical scar over the right chest area is clean and intact. The patient has some nonhealing site within the right chest wall and which is draining some liquidy/yellowish/turbid material. CARDIOVASCULAR: S1, S2 present. Regular rate and rhythm. Palpable peripheral pulses bilaterally. No edema present. No calf pain or tenderness noted GASTROINTESTINAL: Abdomen soft, nontender, nondistended. Active bowel sounds present 4 quadrants. Tolerating minimal diet. INTEGUMENTARY: Skin is warm and dry, dressing present over right lateral wall surgical site NEUROLOGIC: Cranial nerves II through XII intact MUSKULOSKELETAL: Able to move all extremities, strength equal bilaterally, gait normal PSYCHIATRIC: Alert and oriented to person place and time, flat affect, poor judgment - Labs CBC & Chem 7: 01/10/23 06:31 08 06:31 Labs: Abnormal Lab Results - Last 24 Hours (Table) 01/08/23 01/08/23 01/08/23 Range/Units 10:10 23:32 23:37 RBC (4.30-5.90) m/uL Hgb (13.0-17.5) gm/dL Hct (39.0-53.0) % MCH (27.0-32.0) pg MCHC (32.0-37.0) d/dL RDW (11.5-15.5) % Lymphocytes # (1.0-4.8) k/uL Eosinophils # (0.04-0.35) X 10*3/uL APTT (22.0-30.0) sec D-Dimer 0.89 H (<0.60) mg/L FEU BUN/Creatinine Ratio (12.00-20.00) Ratio Troponin I 0.064 H* (0.000-0.034) ng/mL Procalcitonin 0.23 H (0.02-0.09) ng/mL 01/09/23 01/09/23 01/09/23 Range/Units 03:15 03:15 08:05 RBC 4.00 L 4.06 L (4.30-5.90) m/uL Hgb 10.2 L 10.0 L (13.0-17.5) gm/dL Hct 32.9 L 33.6 L (39.0-53.0) % MCH 24.6 L (27.0-32.0) pg MCHC 29.8 L (32.0-37.0) d/dL RDW 17.1 H 17.5 H (11.5-15.5) % Lymphocytes # 0.9 L 0.64 L (1.0-4.8) k/uL Eosinophils # 0.03 L (0.04-0.35) X 10*3/uL APTT 58.9 H (22.0-30.0) sec D-Dimer (<0.60) mg/L FEU BUN/Creatinine Ratio (12.00-20.00) Ratio Troponin I (0.000-0.034) ng/mL Procalcitonin (0.02-0.09) ng/mL 01/09/23 01/09/23 01/09/23 Range/Units 08:05 08:05 10:45 RBC (4.30-5.90) m/uL Hgb (13.0-17.5) gm/dL Hct (39.0-53.0) % MCH (27.0-32.0) pg MCHC (32.0-37.0) d/dL RDW (11.5-15.5) % Lymphocytes # (1.0-4.8) k/uL Eosinophils # (0.04-0.35) X 10*3/uL APTT (22.0-30.0) sec D-Dimer (<0.60) mg/L FEU BUN/Creatinine Ratio 21.33 H (12.00-20.00) Ratio Troponin I 0.054 H* 0.048 H* (0.000-0.034) ng/mL Procalcitonin (0.02-0.09) ng/mL Microbiology - Last 24 Hours (Table) 01/08/23 06:20 Nasal Screen MRSA/MSSA - Final Nasal Swab Staphylococcus aureus,Not MRSA Assessment and Plan Assessment: 1. Acute hypoxic respiratory failure; rule out underlying residual empyema/pleurocutaneous fistula - Patient was found to be saturating around 82%; patient is currently on O2 at 3 L per nasal cannula with O2 saturation above 90% -- Patient has history of right-sided pleural effusion which was evaluated and was found to be empyema with fluid positive for alphahemolytic streptococcus; patient underwent right-sided thoracentesis and pigtail catheter placement; patient is status post Eloesser flap - Patient is in place and proximal spectrum antibiotics in form of Zosyn and vancomycin - CT of the chest is ordered with plans for possible thoracic surgery consult as needed 2. Advanced COPD/asthma; not in exacerbation -- patient remains on bronchodilator nebulizer treatments in form of DuoNeb 4 times a day and when necessary; patient is maintained on Symbicort inhaler as outpatient 3. Hypertension; labetalol 200 mg twice a day; losartan 50 mg daily 4. BPH; Flomax 0.5 mg daily DVT prophylaxis; SCDs/subcu heparin CODE STATUS; full code
--- NOTE | 2023-01-10 16:58 | P.PN ---
Subjective Progress Note Date: 01/10/23 62-year-old male with past medical history of COPD, hypertension, Parkinson's, bipolar who presented to [facility] for shortness of breath. States he became more short of breath last night. He was found to be saturating 82% at outside hospital. He denied having a chest pain. He was given 125 Solu- Medrol and an albuterol breathing treatments. Blood to completed an outside facility reveals Lactic acid was 2.2. Magnesium 1.6. Chest x-ray was completed which demonstrates right basilar opacity which could be pleural fluid, atelectasis and/or acute airspace process. Additional patchy opacities throughout the right long and more pronounced at the base. Patient was given vancomycin and Zosyn. He does have a history of loculated pleural effusion on the right with empyema. This required a surgical Eloesser flap on november 14 which was completed by Dr. Wolf. Due to the patient's a ffiliation with our hospital they wanted to transport the patient here. Patient was agreeable. He denies any fevers. No vomiting. No lower extremity swelling. 01/10/2023, the patient is seen and evaluated in room at bedside; resting comfortably in bed. No new complaints. He remains on IV heparin. Charge Account Authorizer on the case regarding the acute and NSTEMI. The patient states that he still seen drainage from his wound was placed on IV cefepime and vancomycin. Nevertheless, based on the nursing staff and based on my observation, dressing is essentially clear. As such, no cultures have been obtained. The white cycles of 3.9, hemoglobin is 10, creatinine is at 0.5. The echo has resulted in the patient has an impaired left ventricular ejection fraction of 33 5% and moderate MR and moderate dilatation of the aortic root. Patient remains on supplemental oxygen at 2 L per nasal cannula; continue with DuoNeb nebulizer treatments -- Patient remains on broad-spectrum antibiotics in form of cefepime and vancomycin per ID recommendations - CT of the chest is completed and noted - Patient remains on IV heparin for NSTEMI; cardiology is on board Objective - Vital Signs Vital signs: Vital Signs Temp 97.8 F 01/10/23 11:35 Pulse 66 01/10/23 11:35 Resp 16 01/10/23 11:35 BP 167/63 01/10/23 11:35 Pulse Ox 97 01/10/23 11:35 FiO2 Intake & Output 01/09/23 01/10/23 01/10/23 18:59 06:59 18:59 Intake Total 235.173 5502.853 478 Output Total 700 500 Balance 737.147 550.853 -22 Intake: Intake, IV Titration 139.147 710.853 Amount Cefepime 2 gm In Sodium 100 Chloride 0.9% 100 ml @ 25 mls/hr IVPB Q8HR [facility] Rx# :[id number] Heparin Sod,Pork in 0.45% 139.147 110.853 NaCl 25,000 unit In 0.45 % NaCl 1 250ml.bag @ 12 UNITS/KG/HR 9.253 mls/hr IV .Q24H [facility] Rx#: [id number] Vancomycin 1,500 mg In 500 Sodium Chloride 0.9% 500 ml 500 ml @ 167 mls/hr IVPB Q12HR [facility] Rx#: [id number] Oral 598 [id number] Output: Urine 700 500 Other: # Voids 1 - Exam CONSTITUTIONAL: Appears comfortable, cooperative, no acute distress, the patient is currently on 3 L of oxygen by nasal cannula. Head exam was generally normal. There was no scleral icterus or corneal arcus. Mucous membranes were moist. Neck was supple and without jugular venous distension, thyromegaly, or carotid bruits. Carotids were easily palpable bilaterally. There was no adenopathy. RESPIRATORY: Lungs sounds diminished bilaterally. Respirations even, nonlabored. Currently on room air with oxygen saturation 98%. The surgical scar over the right chest area is clean and intact. The patient has some nonhealing site within the right chest wall and which is draining some liquidy/yellowish/turbid material. CARDIOVASCULAR: S1, S2 present. Regular rate and rhythm. Palpable peripheral pulses bilaterally. No edema present. No calf pain or tenderness noted GASTROINTESTINAL: Abdomen soft, nontender, nondistended. Active bowel sounds present 4 quadrants. Tolerating minimal diet. INTEGUMENTARY: Skin is warm and dry, dressing present over right lateral wall surgical site NEUROLOGIC: Cranial nerves II through XII intact MUSKULOSKELETAL: Able to move all extremities, strength equal bilaterally, gait normal PSYCHIATRIC: Alert and oriented to person place and time, flat affect, poor judgment - Labs CBC & Chem 7: 01/10/23 06:31 01/10/23 06:31 Labs: Abnormal Lab Results - Last 24 Hours (Table) 01/09/23 01/10/23 01/10/23 Range/Units 15:05 06:31 06:31 RBC 3.92 L (4.30-5.90) m/uL Hgb 10.1 L (13.0-17.5) gm/dL Hct 32.3 L (39.0-53.0) % RDW 17.5 H (11.5-15.5) % Lymphocytes # 0.7 L (1.0-4.8) k/uL APTT (22.0-30.0) sec Creatinine 0.54 L (0.66-1.25) mg/dL Troponin I 0.044 H* (0.000-0.034) ng/mL 01/10/23 Range/Units 06:31 RBC (4.30-5.90) m/uL Hgb (13.0-17.5) gm/dL Hct (39.0-53.0) % RDW (11.5-15.5) % Lymphocytes # (1.0-4.8) k/uL APTT 33.2 H (22.0-30.0) sec Creatinine (0.66-1.25) mg/dL Troponin I (0.000-0.034) ng/mL Assessment and Plan Assessment: 1. Acute hypoxic respiratory failure; rule out underlying residual empyema/pleurocutaneous fistula - Patient was found to be saturating around 82%; patient is currently on O2 at 3 L per nasal cannula with O2 saturation above 90% -- Patient has history of right-sided pleural effusion which was evaluated and was found to be empyema with fluid positive for alphahemolytic streptococcus; patient underwent right-sided thoracentesis and pigtail catheter placement; patient is status post Eloesser flap - Patient is in place and proximal spectrum antibiotics in form of Zosyn and vancomycin - CT of the chest is ordered with plans for possible thoracic surgery consult as needed 2. Advanced COPD/asthma; not in exacerbation -- patient remains on bronchodilator nebulizer treatments in form of DuoNeb 4 times a day and when necessary; patient is maintained on Symbicort inhaler as outpatient 3. Hypertension; labetalol 200 mg twice a day; losartan 50 mg daily 4. BPH; Flomax 0.5 mg daily DVT prophylaxis; SCDs/subcu heparin CODE STATUS; full code
[2023-01-10] MEDS: APIXABAN 5 MG TAB PO SCH (20:45)
[2023-01-10] MEDS: ATORVASTATIN 40 MG TAB PO SCH (20:45)
[2023-01-10] MEDS: QUEtiapine 100 MG TAB PO SCH (21:56)
[2023-01-11] MEDS: CEFEPIME 2 GM in SODIUM CHLORIDE 0.9% 100 ML IVPB SCH ×4 (01:09→23:34)
[2023-01-11] MEDS: HYDROcodone/APAP 10-325MG 1 EACH TAB PO PRN ×4 (06:23→23:33)
[2023-01-11] MEDS: NITROGLYCERIN SL TABS 0.4 MG TAB SUBLINGUAL PRN ×3 (07:54→08:07)
[2023-01-11] MEDS ORDERED: VANCOMYCIN TROUGH DUE 1 EACH MISC MISCELLANE ONE (08:00)
[2023-01-11] MEDS: TAMSULOSIN 0.4 MG CAP.ER.24H PO SCH (08:27)
[2023-01-11] MEDS: GABAPENTIN 300 MG CAP PO SCH ×2 (08:27→20:31)
[2023-01-11] MEDS: SERTRALINE 100 MG TAB PO SCH ×2 (08:27→20:31)
[2023-01-11] MEDS: APIXABAN 5 MG TAB PO SCH ×2 (08:27→20:31)
[2023-01-11] MEDS: PANTOPRAZOLE 40 MG TABLET PO SCH ×2 (08:27→20:31)
[2023-01-11] MEDS: tiZANidine 4 MG TAB PO SCH (08:27)
[2023-01-11] MEDS: LABETALOL 200 MG TAB PO SCH (08:28)
[2023-01-11] MEDS: BENZTROPINE MESYLATE 0.5 MG TAB PO SCH ×2 (08:28→23:33)
[2023-01-11] MEDS: ASPIRIN 81 MG PO SCH (08:28)
[2023-01-11] MEDS: LOSARTAN 50 MG TAB PO SCH (08:28)
[2023-01-11] MEDS: FLUTICASONE 50MCG/SPRAY NASAL 16GM EA NOSTRIL SCH (08:31)
[2023-01-11] MEDS ORDERED: MAG HYDROX/AL HYDROX/SIMETH 30 ML, HYOSCYAMINE ELIXIR 10 ML, LIDOCAINE VISCOUS 10 ML PO ONE ×3 (08:45)
[2023-01-11] MEDS: SYMBICORT 160-4.5 MCG INHALER INHALATION SCH ×2 (08:49→20:44)
[2023-01-11] MEDS: IPRATROPIUM-ALBUTEROL 3 ML NEB INHALATION SCH ×4 (08:49→20:43)
[2023-01-11 10:05] LABS: African American GFR (CKD) >90 (>60 ml/min/1.73 sqM); Non-African American GFR(CKD) >90 (>60 ml/min/1.73 sqM)
[2023-01-11] MEDS ORDERED: VANCOMYCIN 1,250 MG in SODIUM CHLORIDE 0.9% 250 ML IVPB SCH (12:00)
[2023-01-11] MEDS ORDERED: LOSARTAN 50 MG TAB PO STA (12:53)
--- NOTE | 2023-01-11 12:55 | P.PN ---
Subjective HISTORY OF PRESENT ILLNESS: This is a 62-year-old man with past medical history of empyema with recent hospitalization in October at which time he had a drainage tube in place followed by flap procedure. Patient also has past medical history of hypertension, hyperlipidemia, COPD. We have been asked to evaluate the patient for critical troponin and chest pain. Apparently patient had chest pain earlier in the morning. Patient currently denies having any chest pain. He is on eliquis which he does not present illness. He cannot identify who started this medication. He is an active smoker, down to 5-10 cigarettes per day. Patient initially presented to [facility] and was found to have a lactic acid 2.2. Troponin was normal at 56 with normal range 0-76. Magnesium 1.6. Patient was treated with [place] Zosyn and vancomycin and transferred to [facility]. Patient currently denies having any chest pain. EKG sinus rhythm with left bundle-branch block CT angiogram of the chest revealed no pulmonary embolism. Dilated pulmonary artery with pulmonary artery hypertension. Aortic root 4.5 cm. Adenopathy and diffuse emphysematous changes, small effusion greater on the right, atelectasis. Splenomegaly 15 cm Chest x-ray: Probable developing unusual pneumonia WBC 6.6, hemoglobin 10.2, platelet count 175. INR 1.1. D-dimer 0.89. Potassium 4.0, BUN 15 and creatinine 0.5. Troponin 0.064. Calcitonin 0.23. Patient has been started on a heparin drip. Home cardiac medications: Eliquis 5 mg twice daily, labetalol 200 mg twice daily 01/10 Patient denies having any chest pain or shortness of breath. He is on treatment for pneumonia with IV antibiotics. Patient has been maintained on a heparin drip. Repeat troponins came back at 0.048, 0.044. Echocardiogram reveals EF of 30-35% with evidence of prior anterior septal myocardial infarction, moderate mitral regurgitation, mild mitral regurgitation, moderate aortic root dilatation. 01/11/2023 Patient examined this morning at the bedside. Patient states he had an episode of chest pain this morning that felt like a pressure type sensation. He states the pain was worse with movement. He states the pain was not worse with deep inspiration. He denied any radiation of the pain. EKG performed revealing sinus mechanism with left bundle branch block. Patient received a GI cocktail this morning with improvement in his symptoms. PHYSICAL EXAM: VITAL SIGNS: Reviewed. GENERAL: Well-developed in no acute distress. NECK: Supple. No JVD or thyromegaly LUNGS: Respirations even and unlabored. Lungs diminished bilaterally with rhonchi noted. HEART: Regular rate and rhythm. S1 and S2 heard. EXTREMITIES: Normal range of motion. No clubbing or cyanosis. Peripheral pulses intact. No lower extremity edema ASSESSMENT: Shortness of breath Acute hypoxic respiratory failure Atypical chest pain with minimally abnormal troponins History of right-sided pleural effusion/empyema, status post thoracentesis, pigtail catheter placement, and Eloesser flap, November 2022 Hypertension Hyperlipidemia COPD exacerbation Nicotine dependence Long-term anticoagulation, reason unknown Cardiomyopathy, suspect ischemic, ejection fraction 30-35% with evidence of prior anterior septal OR PLAN: Continue current cardiac medications Add Imdur 30 mg daily Increase losartan to 100mg daily Change beta augustine to Metoprolol succinate 25mg BID Continue with conservative management at this point Patient will undergo outpatient ischemic workup when he is medically stable Further recommendations pending patient course Patient to follow up post discharge with Dr. Sullivan Nurse practitioner note has been reviewed by physician. Signing provider agrees with the documented findings, assessment, and plan of care. Objective - Vital Signs Vital signs: Vital Signs Temp 96.4 F L 01/11/23 07:50 Pulse 76 01/11/23 09:01 Resp 27 H 01/11/23 07:50 BP 179/79 01/11/23 08:05 Pulse Ox 95 01/11/23 08:05 FiO2 Intake & Output 01/10/23 01/11/23 01/11/23 18:59 06:59 18:59 Intake Total 1198 500 Output Total 500 1000 425 Balance 698 -500 -425 Intake: Oral 1198 500 Output: Urine 500 1000 425 Other: # Voids 1 - Labs CBC & Chem 7: 01/10/23 06:31 01/11/23 08:54 Labs: Abnormal Lab Results - Last 24 Hours (Table) 01/11/23 Range/Units 08:54 Creatinine 0.58 L (0.66-1.25) mg/dL
--- NOTE | 2023-01-11 14:33 | P.PN ---
Subjective Progress Note Date: 01/11/23 Principal diagnosis: Right-sided pleural effusion/empyema with acute hypoxic respiratory failure and underlying COPD 62-year-old male patient with history of empyema. The patient was transferred to us because of shortness of breath and ongoing drainage from a surgical one-sided along the right lateral chest area. The patient is known to have previous history of empyema. The patient was initially treated with catheter drainage with thrombolytics. The patient's cultures were positive for alpha hemolytic strep. He initially required thoracentesis and subsequently pigtail catheter was inserted and subsequently the patient was taken to the operating room and the patient was having no major response to conservative measures.. H Patient has severe COPD with extremely emphysematous and bolus longs and was felt to be a very poor candidate for decortication due to this. Eloesser flap for chronic pleural drainage was performed. After a prolonged hospitalization back in November, the patient was discharged home. During the course of his illness, the patient had a acute hypoxic respiratory failure and was discharged home on oxygen. His surgical pleural biopsies were negative for any malignancy. Is known to have COPD and he has history of long and heavy tobacco consumption over the years. He also has hypertension. He denies having any fever or chills. There is drainage still which is minimal from the surgical sites. Apparently was found to be hypoxic at home with a pulse ox of 82% upon arrival to the hospital. He was started on accommodation of Zosyn and vancomycin. He was transferred to our hospital for further care as the patient underwent his surgical intervention our hospital. His other comorbid conditions include Parkinson's disease, hypertension, and I see that the patient has been anticoagulation with Eliquis and exact reason for that is not known to me at this point in time. On today's evaluation of a 2022, the patient has no specific complaints. No active drainage from his surgical site over the right lateral chest area. His COPD is stable. The patient has no fever or chills or leukocytosis.The patient's white cell count is currently that 5 with a hemoglobin of 10. Troponins are 0.06 0.05 and 0.04 respectively the pro calcitonin level came back at 0.23. CAT scan of the chest was also done yesterday showed no evidence of any pulmonary embolism. The patient has advanced bullous emphysematous change in bilateral lower lobe consolidation along with pleural thickening and limited amount of effusion the right lung base. There is also evidence of bibasilar bronchiectasis. There is no evidence of any abscess or empyema within the lung. The spleen is enlarged around 15 cm in size. The patient remains on a combination of Zosyn and vancomycin. On today's evaluation of 01/10/2023, the patient is resting comfortably in bed. No new complaints. He remains on IV heparin. Recreation Activities Coordinator on the case regarding the acute and NSTEMI. The patient states that he still seen drainage from his wound was placed on IV cefepime and vancomycin. Nevertheless, based on the nursing staff and based on my observation, dressing is essentially clear. As such, no cultures have been obtained. The white cycles of 3.9, hemoglobin is 10, creatinine is at 0.5. The echo has resulted in the patient has an impaired left ventricular ejection fraction of 33 5% and moderate MR and moderate dilatation of the aortic root. Reevaluated today on 01/11/2023, patient seems to be doing fairly well, resting in bed, not in any distress. Patient remains on antibiotics, microbiology from the nasal screen came back showing staph aureus, not MRSA. Patient is on cefepime, however vancomycin has been discontinued remains on bronchodilators, remains on eliquis, patient is doing fairly well. He is on 2 L nasal cannula with O2 sats of 96%. Scan is 3.9 hemoglobin 10.1 electrolytes are normal, renal profile is normal pro calcitonin level of 0.23 troponin a bit elevated at 0.04 Objective - Vital Signs Vital signs: Vital Signs Temp 98.1 F 01/11/23 11:45 Pulse 68 01/11/23 12:36 Resp 24 01/11/23 11:45 BP 156/77 01/11/23 11:45 Pulse Ox 96 01/11/23 11:45 FiO2 Intake & Output 01/10/23 01/11/23 01/11/23 18:59 06:59 18:59 Intake Total 1198 500 Output Total 500 1000 425 Balance 698 -500 -425 Intake: Oral 1198 500 Output: Urine 500 1000 425 Other: # Voids 1 - Exam Physical Exam: Revealed a 62-year-old white male in no distress on 3 L is cannula Head: Atraumatic, normocephalic. HEENT:[Neck is supple.] [No neck masses.] [No thyromegaly.] [No JVD.] Chest: [Diminished breath sound bilaterally no rhonchi and no wheezes the surgical incision site seems to be clean and intact, minimal serous drainage noted from the surgical site./Chest wall Cardiac Exam: [Normal S1 and S2, no S3 gallop, no murmur.] Abdomen: [Soft, nontender, no megaly, no rebound, no guarding, normal bowel sounds.] Extremities: [No clubbing, no edema, no cyanosis.] Neurological Exam: [No focal neurologic deficit.] Alert oriented 3 Psychiatric: Normal mood affect and normal mental status examination. Skin: No rashes - Labs CBC & Chem 7: 01/10/23 06:31 01/11/23 08:54 Labs: Abnormal Lab Results - Last 24 Hours (Table) 01/11/23 Range/Units 08:54 Creatinine 0.58 L (0.66-1.25) mg/dL Assessment and Plan Assessment: Impression: Acute hypoxic respiratory failure, multifactorial, secondary to pleural effusion and advanced COPD with congestive heart failure and impaired LV function ejection fraction of 35% not to mention the patient has moderate mitral regurgit ation Right-sided effusion, empyema with pleural fluid positive for alpha hemolytic strep, status post right-sided thoracentesis with subsequent pigtail catheter placement, status post Eloesser flap,Note that there was no evidence of malignancy in the pleural fluid in the pleural lining. Advanced COPD Ischemic cardiomyopathy and LV dysfunction Acute non-ST elevation myocardial infarction Benign essential hypertension Recommendation: Continue present supportive care measures Continue antibiotics as per infectious disease on the case Continue bronchodilators Cardiology is addressing his non-ST elevation myocardial infarction and he is on anticoagulation therapy Reviewed CT of the chest, no clear-cut evidence of empyema We will continue to follow Time with Patient: Less than 30
--- NOTE | 2023-01-11 14:36 | P.PN ---
Subjective Progress Note Date: 01/11/23 62-year-old male with past medical history of COPD, hypertension, Parkinson's, bipolar who presented to [facility] for shortness of breath. States he became more short of breath last night. He was found to be saturating 82% at outside hospital. He denied having a chest pain. He was given 125 Solu- Medrol and an albuterol breathing treatments. Blood to completed an outside facility reveals Lactic acid was 2.2. Magnesium 1.6. Chest x-ray was completed which demonstrates right basilar opacity which could be pleural fluid, atelectasis and/or acute airspace process. Additional patchy opacities throughout the right long and more pronounced at the base. Patient was given vancomycin and Zosyn. He does have a history of loculated pleural effusion on the right with empyema. This required a surgical Eloesser flap on november 14 which was completed by Dr. Wolf. Due to the patient's af filiation with our hospital they wanted to transport the patient here. Patient was agreeable. He denies any fevers. No vomiting. No lower extremity swelling. 01/10/2023, the patient is seen and evaluated in room at bedside; resting comfortably in bed. No new complaints. He remains on IV heparin. Electrician Wiring on the case regarding the acute and NSTEMI. The patient states that he still seen drainage from his wound was placed on IV cefepime and vancomycin. Nevertheless, based on the nursing staff and based on my observation, dressing is essentially clear. As such, no cultures have been obtained. The white cycles of 3.9, hemoglobin is 10, creatinine is at 0.5. The echo has resulted in the patient has an impaired left ventricular ejection fraction of 33 5% and moderate MR and moderate dilatation of the aortic root. Patient remains on supplemental oxygen at 2 L per nasal cannula; continue with DuoNeb nebulizer treatments -- Patient remains on broad-spectrum antibiotics in form of cefepime and vancomycin per ID recommendations - CT of the chest is completed and noted - Patient remains on IV heparin for NSTEMI; cardiology is on board 01/11. Patient seen and examined. States he feels the same as yesterday, complaining of lethargy REVIEW OF SYSTEMS: CONSTITUTIONAL: No fever, no malaise,. CARDIOVASCULAR: No chest pain, no palpitations, no syncope. PULMONARY: No shortness of breath, no cough, GASTROINTESTINAL: No diarrhea, no nausea, no vomiting, no abdominal pain. NEUROLOGICAL: No headaches, no weakness, PHYSICAL EXAMINATION: GENERAL: The patient is alert and oriented x3, not in any acute distress. Well developed, well nourished. HEENT: Pupils are round and equally reacting to light. EOMI. No scleral icterus. No conjunctival pallor. Normocephalic, atraumatic. No pharyngeal erythema. No thyromegaly. CARDIOVASCULAR: S1 and S2 present. No murmurs, rubs, or gallops. PULMONARY: Coarse breath sounds bilaterally, Eloesser flap seen ABDOMEN: Soft, nontender, nondistended, normoactive bowel sounds. No palpable organomegaly. MUSCULOSKELETAL: No joint swelling or deformity. EXTREMITIES: No cyanosis, clubbing, or pedal edema. NEUROLOGICAL: Gross neurological examination did not reveal any focal deficits. SKIN: No rashes. Assessment and plan Acute hypoxic respiratory failure Right-sided empyema status post chest tube placement - Patient was found to be saturating around 82%; patient is currently on O2 at 3 L per nasal cannula with O2 saturation above 90% -- Patient has history of right-sided pleural effusion which was evaluated and was found to be empyema with fluid positive for alphahemolytic streptococcus; patient underwent right-sided thoracentesis and pigtail catheter placement; patient is status post Eloesser flap Continue cefepime and vancomycin Pulmonology following ID following CHF with impaired LV function, ejection fraction 35% and the patient has a moderate MR. Acute non-STEMI Cardiology evaluated the patient, reviewed 2-D echo, recommended discontinuing heparin and starting Eliquis, recommend outpatient ischemic workup Advanced COPD/asthma; not in exacerbation -- patient remains on bronchodilator nebulizer treatments in form of DuoNeb 4 times a day and when necessary; patient is maintained on Symbicort inhaler as outpatient Hypertension; labetalol 200 mg twice a day; losartan 50mg daily BPH; Flomax 0.5 mg daily Labs and medication were reviewed.. Continue same treatment. Continue with symptomatic treatment. Resume home medication. Monitor labs and vitals. DVT and GI prophylaxis. Further recommendations as per clinical course of the patient Dictation was produced using [employer] dictation software. please excuse any grammatical, word or spelling errors. Objective - Vital Signs Vital signs: Vital Signs Temp 96.4 F L 01/11/23 07:50 Pulse 76 01/11/23 09:01 Resp 27 H 01/11/23 07:50 BP 179/79 01/11/23 08:05 Pulse Ox 95 01/11/23 08:05 FiO2 Intake & Output 01/10/23 01/11/23 01/11/23 18:59 06:59 18:59 Intake Total 1198 500 Output Total 500 1000 Balance 698 -500 Intake: Oral 1198 500 Output: Urine 500 1000 Other: # Voids 1 - Labs CBC & Chem 7: 01/10/23 06:31 01/11/23 08:54 Labs: Abnormal Lab Results - Last 24 Hours (Table) 01/11/23 Range/Units 08:54 Creatinine 0.58 L (0.66-1.25) mg/dL
--- NOTE | 2023-01-11 15:16 | CDI ---
Documentation Clarification Form Date: 01/11/2023 02:43:35 PM From: Chuyita Canchola RN CCDS Phone: [phone] Admit Date: 01/08/2023 04:14:00 AM Patient Name: Juan José Huddleston Visit Number: [id number] Discharge Date: ATTENTION: The Clinical Documentation Specialists (CDI) and [facility] Coding Staff appreciate your assistance in clarifying documentation. Please respond to the clarification below the line at the bottom and electronically sign. The CDI & [facility] Coding staff will review the response and follow-up if needed. Please note: Queries are made part of the Legal Health Record. If you have any questions, please contact the author of this message via ITS. Dr. Wilber Encinas Your patient has the documented diagnosis of unspecified CHF 01/10, Pulmonary note 01/10. Additional information regarding the type, acuity of CHF is requested. History/Risk Factors: 62-year-old male presents to ED from outside hospital for oxygen saturation of 82%. Medical history: Advanced COPD, HTN, alphahemolytic streptococcus empyema right lung, HLD, and active tobacco use and dependence. 01/08, H&P. Clinical Indicators: VS/Pulse OX: B/P 165/103; HR 93; Temp 97.9 F Oral; RR 22; SpO2 95% nasal cannula 2L Echocardiogram Results, 01/09: Moderate LV systolic dysfunction with an EF of 30- 35% with evidence of prior anteroseptal myocardial infarction. Moderate mitral regurgitation, mild mitral regurgitation, moderate aortic root dilation. Chest X Ray, 01/09: right basilar scarring and pleural thickening. Right pleural thickening / effusion seen previously, but increased. Treatment: 01/11 Toprol XL 25mg PO BID; 01/12 Imdur 30mg PO Daily In your professional opinion, can you please clarify the acuity and type of CHF if known? [ x] Chronic Systolic Heart Failure (reduced EF) [ ] Chronic Systolic & Diastolic Heart Failure [ ] Acute on Chronic Systolic Heart Failure [ ] Acute on Chronic Diastolic Heart Failure [ ] Other, please specify [ ] Unable to determine (Template Last Revised: July 2020) MTDD
[2023-01-11 15:48] LABS: Chol/HDL Ratio 3.37 Ratio; LDL Cholesterol,Calculated 72.1 mg/dL (0.0-131.0); VLDL Calculation 17.88 mg/dL (5.00-40.00)
[2023-01-11] MEDS: ATORVASTATIN 40 MG TAB PO SCH (20:31)
[2023-01-11] MEDS: METOPROLOL SUCCINATE (ER) 25 MG TAB.ER.24H PO SCH (20:31)
[2023-01-11] MEDS: QUEtiapine 100 MG TAB PO SCH (23:33)
[2023-01-12] MEDS: HYDROcodone/APAP 10-325MG 1 EACH TAB PO PRN ×4 (05:28→20:10)
[2023-01-12] MEDS: ALBUTEROL NEBULIZED 2.5 MG/3 ML INHALATION PRN (05:32)
[2023-01-12 07:59] LABS: African American GFR (CKD) >90 (>60 ml/min/1.73 sqM); Non-African American GFR(CKD) >90 (>60 ml/min/1.73 sqM)
[2023-01-12] MEDS: LOSARTAN 50 MG TAB PO SCH (08:42)
[2023-01-12] MEDS: SERTRALINE 100 MG TAB PO SCH ×2 (08:42→20:10)
[2023-01-12] MEDS: CEFEPIME 2 GM in SODIUM CHLORIDE 0.9% 100 ML IVPB SCH ×2 (08:42→15:28)
[2023-01-12] MEDS: GABAPENTIN 300 MG CAP PO SCH ×2 (08:42→20:10)
[2023-01-12] MEDS: ISOSORBIDE MONONITRATE ER 30 MG TAB.ER.24H PO SCH (08:42)
[2023-01-12] MEDS: BENZTROPINE MESYLATE 0.5 MG TAB PO SCH ×2 (08:42→20:10)
[2023-01-12] MEDS: TAMSULOSIN 0.4 MG CAP.ER.24H PO SCH (08:43)
[2023-01-12] MEDS: ASPIRIN 81 MG PO SCH (08:43)
[2023-01-12] MEDS: METOPROLOL SUCCINATE (ER) 25 MG TAB.ER.24H PO SCH ×2 (08:43→20:10)
[2023-01-12] MEDS: PANTOPRAZOLE 40 MG TABLET PO SCH ×2 (08:43→20:10)
[2023-01-12] MEDS: APIXABAN 5 MG TAB PO SCH ×2 (08:43→20:11)
[2023-01-12] MEDS: tiZANidine 4 MG TAB PO SCH (08:43)
[2023-01-12] MEDS: FLUTICASONE 50MCG/SPRAY NASAL 16GM EA NOSTRIL SCH (08:44)
[2023-01-12] MEDS: SYMBICORT 160-4.5 MCG INHALER INHALATION SCH ×2 (09:08→20:49)
[2023-01-12] MEDS: IPRATROPIUM-ALBUTEROL 3 ML NEB INHALATION SCH ×4 (09:08→20:49)
--- NOTE | 2023-01-12 11:12 | P.PN ---
Subjective HISTORY OF PRESENT ILLNESS: This is a 62-year-old man with past medical history of empyema with recent hospitalization in October at which time he had a drainage tube in place followed by flap procedure. Patient also has past medical history of hypertension, hyperlipidemia, COPD. We have been asked to evaluate the patient for critical troponin and chest pain. Apparently patient had chest pain earlier in the morning. Patient currently denies having any chest pain. He is on eliquis which he does not present illness. He cannot identify who started this medication. He is an active smoker, down to 5-10 cigarettes per day. Patient initially presented to [facility] and was found to have a lactic acid 2.2. Troponin was normal at 56 with normal range 0-76. Magnesium 1.6. Patient was treated with [place] Zosyn and vancomycin and transferred to [facility]. Patient currently denies having any chest pain. EKG sinus rhythm with left bundle-branch block CT angiogram of the chest revealed no pulmonary embolism. Dilated pulmonary artery with pulmonary artery hypertension. Aortic root 4.5 cm. Adenopathy and diffuse emphysematous changes, small effusion greater on the right, atelectasis. Splenomegaly 15 cm Chest x-ray: Probable developing unusual pneumonia WBC 6.6, hemoglobin 10.2, platelet count 175. INR 1.1. D-dimer 0.89. Potassium 4.0, BUN 15 and creatinine 0.5. Troponin 0.064. Calcitonin 0.23. Patient has been started on a heparin drip. Home cardiac medications: Eliquis 5 mg twice daily, labetalol 200 mg twice daily 01/10 Patient denies having any chest pain or shortness of breath. He is on treatment for pneumonia with IV antibiotics. Patient has been maintained on a heparin drip. Repeat troponins came back at 0.048, 0.044. Echocardiogram reveals EF of 30-35% with evidence of prior anterior septal myocardial infarction, moderate mitral regurgitation, mild mitral regurgitation, moderate aortic root dilatation. 01/11/2023 Patient examined this morning at the bedside. Patient states he had an episode of chest pain this morning that felt like a pressure type sensation. He states the pain was worse with movement. He states the pain was not worse with deep inspiration. He denied any radiation of the pain. EKG performed revealing sinus mechanism with left bundle branch block. Patient received a GI cocktail this morning with improvement in his symptoms. 01/12/2023 Patient examined this morning at the bedside. Patient currently denies shortness of breath. He states his chest discomfort feels about the same as did yesterday. Today he reports the pain is worse with deep inspiration. Patient's blood pressure is elevated this morning with a recent reading of 179/91. PHYSICAL EXAM: VITAL SIGNS: Reviewed. GENERAL: Well-developed in no acute distress. NECK: Supple. No JVD or thyromegaly LUNGS: Respirations even and unlabored. Lungs diminished bilaterally with rhonchi noted. HEART: Regular rate and rhythm. S1 and S2 heard. EXTREMITIES: Normal range of motion. No clubbing or cyanosis. Peripheral puls es intact. No lower extremity edema ASSESSMENT: Shortness of breath Acute hypoxic respiratory failure Atypical chest pain with minimally abnormal troponins History of right-sided pleural effusion/empyema, status post thoracentesis, pigtail catheter placement, and Eloesser flap, November 2022 Hypertension Hyperlipidemia COPD exacerbation Nicotine dependence Long-term anticoagulation, reason unknown Cardiomyopathy, suspect ischemic, ejection fraction 30-35% with evidence of kita or anterior septal [place] PLAN: Continue current cardiac medications Losartan was increased to 100 mg daily yesterday No further adjustments to antihypertensive medications at this time. Will continue to monitor blood pressure and make further recommendations. Continue with conservative management at this point Patient will undergo outpatient ischemic workup when he is medically stable Further recommendations pending patient course Patient to follow up post discharge with Dr. Sullivan Nurse practitioner note has been reviewed by physician. Signing provider agrees with the documented findings, assessment, and plan of care. Objective - Vital Signs Vital signs: Vital Signs Temp 98.1 F 01/12/23 08:39 Pulse 64 01/12/23 09:23 Resp 20 01/12/23 08:39 BP 179/91 01/12/23 08:39 Pulse Ox 95 01/12/23 09:08 FiO2 Intake & Output 01/11/23 01/12/23 01/12/23 18:59 06:59 18:59 Intake Total 690 250 Output Total 800 900 630 Balance -110 -893 -767 Intake: IV 10 Invasive Line 7 10 Intake, IV Titration 450 Amount Cefepime 2 gm In Sodium 200 Chloride 0.9% 100 ml @ 25 mls/hr IVPB Q8HR [facility] Rx# :[id number] Vancomycin 1,250 mg In 250 Sodium Chloride 0.9% 250 ml @ 125 mls/hr IVPB Q12H [facility] Rx#:[id number] Oral 240 240 Output: Urine 800 900 630 Other: # Bowel Movements 1 - Labs CBC & Chem 7: 01/10/23 06:31 01/12/23 06:45 Labs: Abnormal Lab Results - Last 24 Hours (Table) 01/11/23 01/12/23 Range/Units 08:54 06:45 Creatinine 0.61 L (0.66-1.25) mg/dL HDL Cholesterol 38.00 L (40.00-60.00) mg/dL
--- NOTE | 2023-01-12 12:11 | P.PN ---
Subjective Progress Note Date: 01/12/23 Principal diagnosis: Right-sided pleural effusion/empyema with acute hypoxic respiratory failure and underlying COPD 62-year-old male patient with history of empyema. The patient was transferred to us because of shortness of breath and ongoing drainage from a surgical one-sided along the right lateral chest area. The patient is known to have previous history of empyema. The patient was initially treated with catheter drainage with thrombolytics. The patient's cultures were positive for alpha hemolytic strep. He initially required thoracentesis and subsequently pigtail catheter was inserted and subsequently the patient was taken to the operating room and the patient was having no major response to conservative measures.. H Patient has severe COPD with extremely emphysematous and bolus longs and was felt to be a very poor candidate for decortication due to this. Eloesser flap for chronic pleural drainage was performed. After a prolonged hospitalization back in November, the patient was discharged home. During the course of his illness, the patient had a acute hypoxic respiratory failure and was discharged home on oxygen. His surgical pleural biopsies were negative for any malignancy. Is known to have COPD and he has history of long and heavy tobacco consumption over the years. He also has hypertension. He denies having any fever or chills. There is drainage still which is minimal from the surgical sites. Apparently was found to be hypoxic at home with a pulse ox of 82% upon arrival to the hospital. He was started on accommodation of Zosyn and vancomycin. He was transferred to our hospital for further care as the patient underwent his surgical intervention our hospital. His other comorbid conditions include Parkinson's disease, hypertension, and I see that the patient has been anticoagulation with Eliquis and exact reason for that is not known to me at this point in time. On today's evaluation of a 2022, the patient has no specific complaints. No active drainage from his surgical site over the right lateral chest area. His COPD is stable. The patient has no fever or chills or leukocytosis.The patient's white cell count is currently that 5 with a hemoglobin of 10. Troponins are 0.06 0.05 and 0.04 respectively the pro calcitonin level came back at 0.23. CAT scan of the chest was also done yesterday showed no evidence of any pulmonary embolism. The patient has advanced bullous emphysematous change in bilateral lower lobe consolidation along with pleural thickening and limited amount of effusion the right lung base. There is also evidence of bibasilar bronchiectasis. There is no evidence of any abscess or empyema within the lung. The spleen is enlarged around 15 cm in size. The patient remains on a combination of Zosyn and vancomycin. On today's evaluation of 01/10/2023, the patient is resting comfortably in bed. No new complaints. He remains on IV heparin. Process Manager on the case regarding the acute and NSTEMI. The patient states that he still seen drainage from his wound was placed on IV cefepime and vancomycin. Nevertheless, based on the nursing staff and based on my observation, dressing is essentially clear. As such, no cultures have been obtained. The white cycles of 3.9, hemoglobin is 10, creatinine is at 0.5. The echo has resulted in the patient has an impaired left ventricular ejection fraction of 33 5% and moderate MR and moderate dilatation of the aortic root. Reevaluated today on 01/11/2023, patient seems to be doing fairly well, resting in bed, not in any distress. Patient remains on antibiotics, microbiology from the nasal screen came back showing staph aureus, not MRSA. Patient is on cefepime, however vancomycin has been discontinued remains on bronchodilators, remains on eliquis, patient is doing fairly well. He is on 2 L nasal cannula with O2 sats of 96%. Scan is 3.9 hemoglobin 10.1 electrolytes are normal, renal profile is normal pro calcitonin level of 0.23 troponin a bit elevated at 0.04 Reevaluated today on 01/12/2023, patient is resting well, denies being in any distress, remains on oxygen at 2 L nasal cannula and O2 saturation ranging between 86 on room air up to 95% on 2 L nasal cannula hence the patient may eventually require home O2. He did have some chest discomfort yesterday and today, and that being addressed by cardiology. CT angiogram on this admission showed no evidence of pulmonary embolism however it did show small right-sided p leural effusion and basilar bronchiectasis. Objective - Vital Signs Vital signs: Vital Signs Temp 98.2 F 01/12/23 11:24 Pulse 88 01/12/23 11:24 Resp 20 01/12/23 11:24 BP 171/80 01/12/23 11:24 Pulse Ox 92 L 01/12/23 11:24 FiO2 Intake & Output 01/11/23 01/12/23 01/12/23 18:59 06:59 18:59 Intake Total 690 250 Output Total 800 900 900 Balance -110 900 -650 Intake: IV 10 Invasive Line 7 10 Intake, IV Titration 450 Amount Cefepime 2 gm In Sodium 200 Chloride 0.9% 100 ml @ 25 mls/hr IVPB Q8HR [facility] Rx# :[id number] Vancomycin 1,250 mg In 250 Sodium Chloride 0.9% 250 ml @ 125 mls/hr IVPB Q12H [facility] Rx#:[id number] Oral 240 240 Output: Urine 800 900 900 Other: # Bowel Movements 1 - Exam Physical Exam: Revealed a 62-year-old white male in no distress on 2 L is cannula Head: Atraumatic, normocephalic. HEENT:[Neck is supple.] [No neck masses.] [No thyromegaly.] [No JVD.] Chest: [Diminished breath sound bilaterally no rhonchi and no wheezes the surgical incision site seems to be clean and intact, minimal serous drainage noted from the surgical site./Chest wall Cardiac Exam: [Normal S1 and S2, no S3 gallop, no murmur.] Abdomen: [Soft, nontender, no megaly, no rebound, no guarding, normal bowel sounds.] Extremities: [No clubbing, no edema, no cyanosis.] Neurological Exam: [No focal neurologic deficit.] Alert oriented 3 Psychiatric: Normal mood affect and normal mental status examination. Skin: No rashes - Labs CBC & Chem 7: 01/10/23 06:31 01/12/23 06:45 Labs: Abnormal Lab Results - Last 24 Hours (Table) 01/11/23 01/12/23 Range/Units 08:54 06:45 Creatinine 0.61 L (0.66-1.25) mg/dL HDL Cholesterol 38.00 L (40.00-60.00) mg/dL Assessment and Plan Assessment: Impression: Acute hypoxic respiratory failure, multifactorial, secondary to pleural effusion and advanced COPD with congestive heart failure and impaired LV function ejection fraction of 35% not to mention the patient has moderate mitral regurgitation Right-sided effusion, empyema with pleural fluid positive for alpha hemolytic s trep, status post right-sided thoracentesis with subsequent pigtail catheter placement, status post Eloesser flap,Note that there was no evidence of malignancy in the pleural fluid in the pleural lining. Advanced COPD Ischemic cardiomyopathy and LV dysfunction Acute non-ST elevation myocardial infarction Benign essential hypertension Recommendation: Continue present supportive care measures Continue antibiotics as per infectious disease on the case, wondering if the antibiotics can be changed to oral antibiotics and discharge the patient home on oral antibiotics with plans to follow-up on outpatient basis. Continue bronchodilators Cardiology is addressing his non-ST elevation myocardial infarction and he is on anticoagulation therapy Reviewed CT of the chest, no clear-cut evidence of empyema Patient may qualify for home oxygen and that is to be addressed by admitting physician. Considering a 6 minute walk to qualify the patient for home oxygen mostly because of his advanced COPD Consider discharge planning once he is cleared by other consultants including cardiology and infectious disease. We will continue to follow Time with Patient: Less than 30
--- NOTE | 2023-01-12 12:43 | P.PN ---
Subjective Progress Note Date: 01/12/23 62-year-old male with past medical history of COPD, hypertension, Parkinson's, bipolar who presented to [facility] for shortness of breath. States he became more short of breath last night. He was found to be saturating 82% at outside hospital. He denied having a chest pain. He was given 125 Solu- Medrol and an albuterol breathing treatments. Blood to completed an outside facility reveals Lactic acid was 2.2. Magnesium 1.6. Chest x-ray was completed which demonstrates right basilar opacity which could be pleural fluid, atelectasis and/or acute airspace process. Additional patchy opacities throughout the right long and more pronounced at the base. Patient was given vancomycin and Zosyn. He does have a history of loculated pleural effusion on the right with empyema. This required a surgical Eloesser flap on november 14 which was completed by Dr. Wolf. Due to the patient's af filiation with our hospital they wanted to transport the patient here. Patient was agreeable. He denies any fevers. No vomiting. No lower extremity swelling. 01/10/2023, the patient is seen and evaluated in room at bedside; resting comfortably in bed. No new complaints. He remains on IV heparin. Wincher on the case regarding the acute and NSTEMI. The patient states that he still seen drainage from his wound was placed on IV cefepime and vancomycin. Nevertheless, based on the nursing staff and based on my observation, dressing is essentially clear. As such, no cultures have been obtained. The white cycles of 3.9, hemoglobin is 10, creatinine is at 0.5. The echo has resulted in the patient has an impaired left ventricular ejection fraction of 33 5% and moderate MR and moderate dilatation of the aortic root. Patient remains on supplemental oxygen at 2 L per nasal cannula; continue with DuoNeb nebulizer treatments -- Patient remains on broad-spectrum antibiotics in form of cefepime and vancomycin per ID recommendations - CT of the chest is completed and noted - Patient remains on IV heparin for NSTEMI; cardiology is on board 01/11. Patient seen and examined. States he feels the same as yesterday, complaining of lethargy 01/12. Patient seen and examined. Blood pressure was elevated, complaining of pain in his back and legs. Currently on 2 L of oxygen REVIEW OF SYSTEMS: CONSTITUTIONAL: No fever, no malaise,. CARDIOVASCULAR: No chest pain, no palpitations, no syncope. PULMONARY: No shortness of breath, no cough, GASTROINTESTINAL: No diarrhea, no nausea, no vomiting, no abdominal pain. NEUROLOGICAL: No headaches, no weakness, PHYSICAL EXAMINATION: GENERAL: The patient is alert and oriented x3, not in any acute distress. Well developed, well nourished. HEENT: Pupils are round and equally reacting to light. EOMI. No scleral icterus. No conjunctival pallor. Normocephalic, atraumatic. No pharyngeal erythema. No thyromegaly. CARDIOVASCULAR: S1 and S2 present. No murmurs, rubs, or gallops. PULMONARY: Coarse breath sounds bilaterally, Eloesser flap seen ABDOMEN: Soft, nontender, nondistended, normoactive bowel sounds. No palpable organomegaly. MUSCULOSKELETAL: No joint swelling or deformity. EXTREMITIES: No cyanosis, clubbing, or pedal edema. NEUROLOGICAL: Gross neurological examination did not reveal any focal deficits. SKIN: No rashes. Assessment and plan Acute hypoxic respiratory failure Right-sided empyema status post chest tube placement - Patient was found to be saturating around 82%; patient is currently on O2 at 3 L per nasal cannula with O2 saturation above 90% -- Patient has history of right-sided pleural effusion which was evaluated and was found to be empyema with fluid positive for alphahemolytic streptococcus; patient underwent right-sided thoracentesis and pigtail catheter placement; patient is status post Eloesser flap Continue cefepime and vancomycin Pulmonology following ID following CHF with impaired LV function, ejection fraction 35% and the patient has a moderate MR. Acute non-STEMI Cardiology evaluated the patient, reviewed 2-D echo, , recommend outpatient ischemic workup. Increase losartan 200 mg daily, added Imdur, continue with metoprolol succinate 25 mg twice a day Advanced COPD/asthma; not in exacerbation -- patient remains on bronchodilator nebulizer treatments in form of DuoNeb 4 times a day and when necessary; patient is maintained on Symbicort inhaler as outpatient Hypertension;Increase losartan 200 mg daily, added Imdur, continue with metoprolol succinate 25 mg twice a day BPH; Flomax 0.5 mg daily Labs and medication were reviewed.. Continue same treatment. Continue with symptomatic treatment. Resume home medication. Monitor labs and vitals. DVT and GI prophylaxis. Further recommendations as per clinical course of the patient Dictation was produced using [employer] dictation software. please excuse any grammatical, word or spelling errors. Objective - Vital Signs Vital signs: Vital Signs Temp 98.1 F 01/12/23 08:39 Pulse 64 01/12/23 09:23 Resp 20 01/12/23 08:39 BP 179/91 01/12/23 08:39 Pulse Ox 95 01/12/23 09:08 FiO2 Intake & Output 01/11/23 01/12/23 01/12/23 18:59 06:59 18:59 Intake Total 690 250 Output Total 800 900 630 Balance -110 900 380 Intake: IV 10 Invasive Line 7 10 Intake, IV Titration 450 Amount Cefepime 2 gm In Sodium 200 Chloride 0.9% 100 ml @ 25 mls/hr IVPB Q8HR [facility] Rx# :[id number] Vancomycin 1,250 mg In 250 Sodium Chloride 0.9% 250 ml @ 125 mls/hr IVPB Q12H [facility] Rx#:[id number] Oral 240 240 Output: Urine 800 900 630 Other: # Bowel Movements 1 - Labs CBC & Chem 7: 01/10/23 06:31 01/12/23 06:45 Labs: Abnormal Lab Results - Last 24 Hours (Table) 01/11/23 01/11/23 01/12/23 Range/Units 08:54 08:54 06:45 Creatinine 0.58 L 0.61 L (0.66-1.25) mg/dL HDL Cholesterol 38.00 L (40.00-60.00) mg/dL
--- NOTE | 2023-01-12 15:43 | P.PN ---
Subjective Progress Note Date: 01/11/23 Principal diagnosis: Pneumonia/empyema Patient is a 62-year-old male with a past medical history significant for COPD hypertension Parkinson disease bipolar disorder,patient also have a recent Eloesser flap for recurrent effusion presented to the [facility] for evaluation of increasing shortness of breath,patient did have a CT angiogram of the chest no evidence of PE dilated pulmonary artery nonspecific borderline mediastinal and hilar adenopathy bilateral areas of consolidation with small effusion greater on the right, with concern for persistent empyema patient was started on antibiotic infection disease was consulted. On today's evaluation that is 01/11/2023 the patient remains to be afebrile, patient is breathing comfortably on 2 L nasal canal oxygen, the patient denies having any chest pain , patient did have occasional cough but not bringing up any sputum and no hemoptysis no nausea no vomiting no abdominal pain no diarrhea. Patient did have a white count of 3.9, creatinine 0.54 as of 01/11/2020. Patient and her CBC today, pro calcitonin is 0.23 Objective - Vital Signs Vital signs: Vital Signs Temp 98.1 F 01/11/23 11:45 Pulse 68 01/11/23 12:36 Resp 24 01/11/23 11:45 BP 156/77 01/11/23 11:45 Pulse Ox 96 01/11/23 11:45 FiO2 Intake & Output 01/10/23 01/11/23 01/11/23 18:59 06:59 18:59 Intake Total 1198 500 Output Total 500 1000 425 Balance 698 -500 -425 Intake: Oral 1198 500 Output: Urine 500 1000 425 Other: # Voids 1 - Exam GENERAL DESCRIPTION: A middle-aged male lying in bed in no distress RESPIRATORY SYSTEM: Unlabored breathing , decreased breath sounds at bases HEART: S1 S2 regular rate and rhythm , ABDOMEN: Soft , no tenderness EXTREMITIES: No edema feet - Labs CBC & Chem 7: 01/10/23 06:31 01/12/23 06:45 Labs: Abnormal Lab Results - Last 24 Hours (Table) 01/11/23 Range/Units 08:54 Creatinine 0.58 L (0.66-1.25) mg/dL Assessment and Plan (1) Pneumonia Current Visit: Yes Status: Acute Code(s): J18.9 - PNEUMONIA, UNSPECIFIED ORGANISM SNOMED Code(s): 821441922 (2) Empyema Current Visit: No Status: Acute Code(s): J86.9 - PYOTHORAX WITHOUT FISTULA SNOMED Code(s): 017441382 Plan: 1patient is a 62-year-old male's past medical history of COPD in this patient with the right sided empyema status post chest tube placement and subsequently did Eloesser flap for recurrent effusion cultures at that time were positive for Streptococcus patient was treated with IV antibiotic therapy for almost 3 weeks subsequently discharged on oral Augmentin now presenting back to the hospital with increasing shortness of breath did have evidence of bibasilar consolidation and effusion concerning for recurrent infection patient however not running any fever White count has been normal and does not look toxic 2with low clinic suspicious for empyema we will discontinue vancomycin and continue the patient cefepime Dictation was produced using [employer] dictation software. please excuse any grammatical, word or spelling errors. Time with Patient: Less than 30
--- NOTE | 2023-01-12 15:44 | P.PN ---
Subjective Progress Note Date: 01/12/23 Principal diagnosis: Pneumonia/empyema Patient is a 62-year-old male with a past medical history significant for COPD hypertension Parkinson disease bipolar disorder,patient also have a recent Eloesser flap for recurrent effusion presented to the [facility] for evaluation of increasing shortness of breath,patient did have a CT angiogram of the chest no evidence of PE dilated pulmonary artery nonspecific borderline mediastinal and hilar adenopathy bilateral areas of consolidation with small effusion greater on the right, with concern for persistent empyema patient was started on antibiotic infection disease was consulted. On today's evaluation that is 01/12/2023 the patient denies any fever or any chills, patient is breathing comfortably on 2 L nasal canal oxygen, the patient denies having any chest pain , patient did have occasional dry cough the patient denies nausea no vomiting no abdominal pain no diarrhea. Patient did have a white count of 3.9, creatinine 0.54 as of 01/10/2023. Patient and her CBC today, pro calcitonin is 0.23 Objective - Vital Signs Vital signs: Vital Signs Temp 98.2 F 01/12/23 11:24 Pulse 64 01/12/23 12:57 Resp 20 01/12/23 11:24 BP 171/80 01/12/23 11:24 Pulse Ox 92 L 01/12/23 11:24 FiO2 Intake & Output 01/11/23 01/12/23 01/12/23 18:59 06:59 18:59 Intake Total 690 475 Output Total 800 900 900 Balance -110 900 -665 Intake: IV 10 Invasive Line 7 10 Intake, IV Titration 450 Amount Cefepime 2 gm In Sodium 200 Chloride 0.9% 100 ml @ 25 mls/hr IVPB Q8HR [facility] Rx# :[id number] Vancomycin 1,250 mg In 250 Sodium Chloride 0.9% 250 ml @ 125 mls/hr IVPB Q12H [facility] Rx#:[id number] Oral 240 465 Output: Urine 800 900 900 Other: # Bowel Movements 1 - Exam GENERAL DESCRIPTION: A middle-aged male lying in bed in no distress RESPIRATORY SYSTEM: Unlabored breathing , decreased breath sounds at bases HEART: S1 S2 regular rate and rhythm , ABDOMEN: Soft , no tenderness EXTREMITIES: No edema feet - Labs CBC & Chem 7: 01/10/23 06:31 01/12/23 06:45 Labs: Abnormal Lab Results - Last 24 Hours (Table) 01/11/23 01/12/23 Range/Units 08:54 06:45 Creatinine 0.61 L (0.66-1.25) mg/dL HDL Cholesterol 38.00 L (40.00-60.00) mg/dL Assessment and Plan (1) Pneumonia Current Visit: Yes Status: Acute Code(s): J18.9 - PNEUMONIA, UNSPECIFIED ORGANISM SNOMED Code(s): 404600788 (2) Empyema Current Visit: No Status: Acute Code(s): J86.9 - PYOTHORAX WITHOUT FISTULA SNOMED Code(s): 051810247 Plan: 1patient is a 62-year-old male's past medical history of COPD in this patient with the right sided empyema status post chest tube placement and subsequently did Eloesser flap for recurrent effusion cultures at that time were positive for Streptococcus patient was treated with IV antibiotic therapy for almost 3 weeks subsequently discharged on oral Augmentin now presenting back to the hospital with increasing shortness of breath did have evidence of bibasilar consolidation and effusion concerning for recurrent infection patient however not running any fever White count has been normal and does not look toxic 2with low clinic suspicious for empyema or pneumonia we will transition him to short course of oral antibiotic on the basis of previous culture Dictation was produced using [employer] dictation software. please excuse any grammatical, word or spelling errors. Time with Patient: Less than 30
[2023-01-12] MEDS: QUEtiapine 100 MG TAB PO SCH (20:10)
[2023-01-12] MEDS: ATORVASTATIN 40 MG TAB PO SCH (20:10)
[2023-01-12] MEDS: AMOXIC-POT CLAV 875-125MG 1 EACH TAB PO SCH (20:10)
[2023-01-13] MEDS: HYDROcodone/APAP 10-325MG 1 EACH TAB PO PRN ×3 (00:03→07:57)
[2023-01-13] MEDS: ALBUTEROL NEBULIZED 2.5 MG/3 ML INHALATION PRN (03:09)
[2023-01-13 06:16] LABS: Anisocytosis Slight; Basophils % (A) 0 %; Eosinophils # (A) 0.1 k/uL (0-0.7); Eosinophils % (A) 3 %; HGB 10.1 gm/dL (13.0-17.5); Hypochromasia Marked; Lymphocytes # (A) 0.7 k/uL (1.0-4.8); Lymphocytes % (A) 14 %; MCH 25.8 pg (25.0-35.0); MCHC 31.6 g/dL (31.0-37.0); MCV 81.7 fL (80.0-100.0); Mean Platelet Volume 7.4; Monocytes # (A) 0.2 k/uL (0-1.0); Monocytes % (A) 4 %; Neutrophils # (A) 4.1 k/uL (1.3-7.7); Neutrophils % (A) 79 %; Platelet Count 129 k/uL (150-450); RBC 3.91 m/uL (4.30-5.90); RDW 17.4 % (11.5-15.5); WBC 5.2 k/uL (3.8-10.6)
[2023-01-13 06:19] LABS: ALT 17 U/L (4-49); AST 20 U/L (17-59); African American GFR (CKD) >90 (>60 ml/min/1.73 sqM); Albumin 3.1 g/dL (3.5-5.0); Alkaline Phosphatase 100 U/L (38-126); Anion Gap 7 mmol/L; Blood Urea Nitrogen 15 mg/dL (9-20); Calcium 8.3 mg/dL (8.4-10.2); Carbon Dioxide 22 mmol/L (22-30); Chloride 109 mmol/L (98-107); Glucose 100 mg/dL (74-99); Non-African American GFR(CKD) >90 (>60 ml/min/1.73 sqM); Sodium 138 mmol/L (137-145); Total Bilirubin 0.6 mg/dL (0.2-1.3); Total Protein 5.7 g/dL (6.3-8.2)
[2023-01-13 07:41] VITALS: BP 167/84; RESP 18; TEMP 98.2
[2023-01-13] MEDS: GABAPENTIN 300 MG CAP PO SCH (07:55)
[2023-01-13] MEDS: tiZANidine 4 MG TAB PO SCH (07:55)
[2023-01-13] MEDS: QUEtiapine 100 MG TAB PO SCH (07:55)
[2023-01-13] MEDS: AMOXIC-POT CLAV 875-125MG 1 EACH TAB PO SCH (07:55)
[2023-01-13] MEDS: APIXABAN 5 MG TAB PO SCH (07:55)
[2023-01-13] MEDS: LOSARTAN 50 MG TAB PO SCH (07:56)
[2023-01-13] MEDS: SERTRALINE 100 MG TAB PO SCH (07:56)
[2023-01-13] MEDS: ISOSORBIDE MONONITRATE ER 30 MG TAB.ER.24H PO SCH (07:56)
[2023-01-13] MEDS: PANTOPRAZOLE 40 MG TABLET PO SCH (07:56)
[2023-01-13] MEDS: BENZTROPINE MESYLATE 0.5 MG TAB PO SCH (07:56)
[2023-01-13] MEDS: ASPIRIN 81 MG PO SCH (07:56)
[2023-01-13] MEDS: TAMSULOSIN 0.4 MG CAP.ER.24H PO SCH (07:56)
[2023-01-13] MEDS ORDERED: carvediloL 6.25 MG TAB PO SCH (08:00)
[2023-01-13] MEDS: IPRATROPIUM-ALBUTEROL 3 ML NEB INHALATION SCH ×2 (09:01→11:52)
[2023-01-13] MEDS: SYMBICORT 160-4.5 MCG INHALER INHALATION SCH (09:01)
--- NOTE | 2023-01-13 10:31 | P.PN ---
Subjective HISTORY OF PRESENT ILLNESS: This is a 62-year-old man with past medical history of empyema with recent hospitalization in October at which time he had a drainage tube in place followed by flap procedure. Patient also has past medical history of hypertension, hyperlipidemia, COPD. We have been asked to evaluate the patient for critical troponin and chest pain. Apparently patient had chest pain earlier in the morning. Patient currently denies having any chest pain. He is on eliquis which he does not present illness. He cannot identify who started this medication. He is an active smoker, down to 5-10 cigarettes per day. Patient initially presented to [facility] and was found to have a lactic acid 2.2. Troponin was normal at 56 with normal range 0-76. Magnesium 1.6. Patient was treated with [place] Zosyn and vancomycin and transferred to [facility]. Patient currently denies having any chest pain. EKG sinus rhythm with left bundle-branch block CT angiogram of the chest revealed no pulmonary embolism. Dilated pulmonary artery with pulmonary artery hypertension. Aortic root 4.5 cm. Adenopathy and diffuse emphysematous changes, small effusion greater on the right, atelectasis. Splenomegaly 15 cm Chest x-ray: Probable developing unusual pneumonia WBC 6.6, hemoglobin 10.2, platelet count 175. INR 1.1. D-dimer 0.89. Potassium 4.0, BUN 15 and creatinine 0.5. Troponin 0.064. Calcitonin 0.23. Patient has been started on a heparin drip. Home cardiac medications: Eliquis 5 mg twice daily, labetalol 200 mg twice daily 01/10 Patient denies having any chest pain or shortness of breath. He is on treatment for pneumonia with IV antibiotics. Patient has been maintained on a heparin drip. Repeat troponins came back at 0.048, 0.044. Echocardiogram reveals EF of 30-35% with evidence of prior anterior septal myocardial infarction, moderate mitral regurgitation, mild mitral regurgitation, moderate aortic root dilatation. 01/11/2023 Patient examined this morning at the bedside. Patient states he had an episode of chest pain this morning that felt like a pressure type sensation. He states the pain was worse with movement. He states the pain was not worse with deep inspiration. He denied any radiation of the pain. EKG performed revealing sinus mechanism with left bundle branch block. Patient received a GI cocktail this morning with improvement in his symptoms. 01/12/2023 Patient examined this morning at the bedside. Patient currently denies shortness of breath. He states his chest discomfort feels about the same as did yesterday. Today he reports the pain is worse with deep inspiration. Patient's blood pressure is elevated this morning with a recent reading of 179/91. 01/13/2023 Patient examined this morning at the bedside. Patient denies chest pain or pressure. He denies shortness of breath. Blood pressure remains elevated with a systolic between [id number]. PHYSICAL EXAM: VITAL SIGNS: Reviewed. GENERAL: Well-developed in no acute distress. NECK: Supple. No JVD or thyromegaly LUNGS: Respirations even and unlabored. Lungs diminished bilaterally with rhonchi noted. HEART: Regular rate and rhythm. S1 and S2 heard. EXTREMITIES: Normal range of motion. No clubbing or cyanosis. Peripheral pulses intact. No lower extremity edema ASSESSMENT: Shortness of breath Acute hypoxic respiratory failure Atypical chest pain with minimally abnormal troponins History of right-sided pleural effusion/empyema, status post thoracentesis, pigtail catheter placement, and Eloesser flap, November 2022 Hypertension Hyperlipidemia COPD exacerbation Nicotine dependence Long-term anticoagulation, reason unknown Cardiomyopathy, suspect ischemic, ejection fraction 30-35% with evidence of prior anterior septal MD PLAN: Continue current cardiac medications Discontinue metoprolol. Begin carvedilol 6.25mg BID. Continue to monitor blood pressure. Continue with conservative management at this point Patient will undergo outpatient ischemic workup when he is medically stable Further recommendations pending patient course Patient to follow up post discharge with Dr. Sullivan Nurse practitioner note has been reviewed by physician. Signing provider agrees with the documented findings, assessment, and plan of care. Objective - Vital Signs Vital signs: Vital Signs Temp 98.2 F 01/13/23 07:40 Pulse 77 01/13/23 09:14 Resp 18 01/13/23 09:14 BP 167/84 01/13/23 07:40 Pulse Ox 94 L 01/13/23 09:02 FiO2 Intake & Output 01/12/23 01/13/23 01/13/23 18:59 06:59 18:59 Intake Total 965 20 110 Output Total 1200 450 Balance -235 -430 110 Weight 81.9 kg Intake: IV 20 20 Invasive Line 7 20 20 Oral 945 110 Output: Urine 1200 450 - Labs CBC & Chem 7: 01/13/23 05:29 01/13/23 05:29 Labs: Abnormal Lab Results - Last 24 Hours (Table) 01/13/23 01/13/23 Range/Units 05:29 05:29 RBC 3.91 L (4.30-5.90) m/uL Hgb 10.1 L (13.0-17.5) gm/dL Hct 32.0 L (39.0-53.0) % RDW 17.4 H (11.5-15.5) % Plt Count 129 L (150-450) k/uL Lymphocytes # 0.7 L (1.0-4.8) k/uL Chloride 109 H (98-107) mmol/L Glucose 100 H (74-99) mg/dL Calcium 8.3 L (8.4-10.2) mg/dL Total Protein 5.7 L (6.3-8.2) g/dL Albumin 3.1 L (3.5-5.0) g/dL
--- NOTE | 2023-01-13 10:41 | P.PN ---
Subjective Progress Note Date: 01/13/23 Principal diagnosis: Right-sided pleural effusion/empyema with acute hypoxic respiratory failure and underlying COPD 62-year-old male patient with history of empyema. The patient was transferred to us because of shortness of breath and ongoing drainage from a surgical one-sided along the right lateral chest area. The patient is known to have previous history of empyema. The patient was initially treated with catheter drainage with thrombolytics. The patient's cultures were positive for alpha hemolytic strep. He initially required thoracentesis and subsequently pigtail catheter was inserted and subsequently the patient was taken to the operating room and the patient was having no major response to conservative measures.. H Patient has severe COPD with extremely emphysematous and bolus longs and was felt to be a very poor candidate for decortication due to this. Eloesser flap for chronic pleural drainage was performed. After a prolonged hospitalization back in November, the patient was discharged home. During the course of his illness, the patient had a acute hypoxic respiratory failure and was discharged home on oxygen. His surgical pleural biopsies were negative for any malignancy. Is known to have COPD and he has history of long and heavy tobacco consumption over the years. He also has hypertension. He denies having any fever or chills. There is drainage still which is minimal from the surgical sites. Apparently was found to be hypoxic at home with a pulse ox of 82% upon arrival to the hospital. He was started on accommodation of Zosyn and vancomycin. He was transferred to our hospital for further care as the patient underwent his surgical intervention our hospital. His other comorbid conditions include Parkinson's disease, hypertension, and I see that the patient has been anticoagulation with Eliquis and exact reason for that is not known to me at this point in time. On today's evaluation of a 2022, the patient has no specific complaints. No active drainage from his surgical site over the right lateral chest area. His COPD is stable. The patient has no fever or chills or leukocytosis.The patient's white cell count is currently that 5 with a hemoglobin of 10. Troponins are 0.06 0.05 and 0.04 respectively the pro calcitonin level came back at 0.23. CAT scan of the chest was also done yesterday showed no evidence of any pulmonary embolism. The patient has advanced bullous emphysematous change in bilateral lower lobe consolidation along with pleural thickening and limited amount of effusion the right lung base. There is also evidence of bibasilar bronchiectasis. There is no evidence of any abscess or empyema within the lung. The spleen is enlarged around 15 cm in size. The patient remains on a combination of Zosyn and vancomycin. On today's evaluation of 01/10/2023, the patient is resting comfortably in bed. No new complaints. He remains on IV heparin. [employer] Department on the case regarding the acute and NSTEMI. The patient states that he still seen drainage from his wound was placed on IV cefepime and vancomycin. Nevertheless, based on the nursing staff and based on my observation, dressing is essentially clear. As such, no cultures have been obtained. The white cycles of 3.9, hemoglobin is 10, creatinine is at 0.5. The echo has resulted in the patient has an impaired left ventricular ejection fraction of 33 5% and moderate MR and moderate dilatation of the aortic root. Reevaluated today on 01/11/2023, patient seems to be doing fairly well, resting in bed, not in any distress. Patient remains on antibiotics, microbiology from the nasal screen came back showing staph aureus, not MRSA. Patient is on cefepime, however vancomycin has been discontinued remains on bronchodilators, remains on eliquis, patient is doing fairly well. He is on 2 L nasal cannula with O2 sats of 96%. Scan is 3.9 hemoglobin 10.1 electrolytes are normal, renal profile is normal pro calcitonin level of 0.23 troponin a bit elevated at 0.04 Reevaluated today on 01/12/2023, patient is resting well, denies being in any distress, remains on oxygen at 2 L nasal cannula and O2 saturation ranging between 86 on room air up to 95% on 2 L nasal cannula hence the patient may eventually require home O2. He did have some chest discomfort yesterday and today, and that being addressed by cardiology. CT angiogram on this admission showed no evidence of pulmonary embolism however it did show small right-sided p leural effusion and basilar bronchiectasis. Reevaluated today on , patient is doing well, he was seen by infectious disease yesterday, and placed on oral Augmentin. I will clear the patient to be discharged home if cleared by other consultants on Augmentin, he will be home on his oxygen he is already on 2 L at home. And his usual bronchodilators. Patient is being followed by cardiology for ischemic cardiomyopathy, and he was cleared already by cardiology. For discharge Objective - Vital Signs Vital signs: Vital Signs Temp 98.2 F 01/13/23 07:40 Pulse 77 01/13/23 09:14 Resp 18 01/13/23 09:14 BP 167/84 01/13/23 07:40 Pulse Ox 94 L 01/13/23 09:02 FiO2 Intake & Output 01/12/23 01/13/23 01/13/23 18:59 06:59 18:59 Intake Total 965 20 110 Output Total 1200 450 Balance -235 -430 110 Weight 81.9 kg Intake: IV 20 20 Invasive Line 7 20 20 Oral 945 110 Output: Urine 1200 450 - Exam Physical Exam: Revealed a 62-year-old white male in no distress on 2 L is cannula Head: Atraumatic, normocephalic. HEENT:[Neck is supple.] [No neck masses.] [No thyromegaly.] [No JVD.] Chest: [Diminished breath sound bilaterally no rhonchi and no wheezes the surgical incision site seems to be clean and intact Cardiac Exam: [Normal S1 and S2, no S3 gallop, no murmur.] Abdomen: [Soft, nontender, no megaly, no rebound, no guarding, normal bowel sounds.] Extremities: [No clubbing, no edema, no cyanosis.] Neurological Exam: [No focal neurologic deficit.] Alert oriented 3 Psychiatric: Normal mood affect and normal mental status examination. Skin: No rashes - Labs CBC & Chem 7: 01/13/23 05:29 01/13/23 05:29 Labs: Abnormal Lab Results - Last 24 Hours (Table) 01/13/23 01/13/23 Range/Units 05:29 05:29 RBC 3.91 L (4.30-5.90) m/uL Hgb 10.1 L (13.0-17.5) gm/dL Hct 32.0 L (39.0-53.0) % RDW 17.4 H (11.5-15.5) % Plt Count 129 L (150-450) k/uL Lymphocytes # 0.7 L (1.0-4.8) k/uL Chloride 109 H (98-107) mmol/L Glucose 100 H (74-99) mg/dL Calcium 8.3 L (8.4-10.2) mg/dL Total Protein 5.7 L (6.3-8.2) g/dL Albumin 3.1 L (3.5-5.0) g/dL Assessment and Plan Assessment: Impression: Acute hypoxic respiratory failure, multifactorial, secondary to pleural effusion and advanced COPD with congestive heart failure and impaired LV function ejection fraction of 35% not to mention the patient has moderate mitral regurgitation Right-sided effusion, empyema with pleural fluid positive for alpha hemolytic strep, status post right-sided thoracentesis with subsequent pigtail catheter placement, status post Eloesser flap,Note that there was no evidence of malignancy in the pleural fluid in the pleural lining. Advanced COPD Ischemic cardiomyopathy and LV dysfunction Acute non-ST elevation myocardial infarction Benign essential hypertension Recommendation: Agree with Augmentin as recommended by infectious disease Agree with discharge planning Follow-up on outpatient basis with Dr. Andino saw the patient initially for his empyema Home oxygen at 2 L/m, patient to continue his bronchodilators and his usual home meds along with Augmentin and O2 per Time with Patient: Less than 30
[2023-01-13 10:52] VITALS: PULSE 84
--- NOTE | 2023-01-13 11:50 | P.DS ---
Providers Date of admission: 01/08/23 04:14 Expected date of discharge: 01/13/23 Attending physician: Fritz Sandhu Consults: 01/08/23 04:28 Consult Physician Urgent Consulting Provider: Doreen Andino Consult Reason/Comments: acute hypoxic respiratory failure, community acquired pneumonia Do you want consulting provider notified?: Yes 01/09/23 01:09 Consult Physician Stat Consulting Provider: Hallie Ortega Consult Reason/Comments: Critical trop/chest pain Do you want consulting provider notified?: Already Contacted 01/09/23 10:30 Consult Physician Routine Consulting Provider: Leeroy Ryan Consult Reason/Comments: PNA, elevated procal Do you want consulting provider notified?: Yes Primary care physician: Anushka Sabillon MD Hospital Course: Discharge diagnoses; Acute hypoxic respiratory failure Right-sided empyema status post chest tube placement - Patient was found to be saturating around 82%; patient is currently on O2 at 3 L per nasal cannula with O2 saturation above 90% -- Patient has history of right-sided pleural effusion which was evaluated and was found to be empyema with fluid positive for alphahemolytic streptococcus; patient underwent right-sided thoracentesis and pigtail catheter placement; patient is status post Eloesser flap Continue cefepime and vancomycin Pulmonology following ID following 01/13. Being discharged on Augmentin for 2 weeks per ID recommendation CHF with impaired LV function, ejection fraction 35% and the patient has a moderate MR. Acute non-STEMI Cardiology evaluated the patient, reviewed 2-D echo, , recommend outpatient ischemic workup. Losartan 100 mg daily, Imdur, continue Coreg Advanced COPD/asthma; not in exacerbation -- patient remains on bronchodilator nebulizer treatments in form of DuoNeb 4 times a day and when necessary; patient is maintained on Symbicort inhaler as outpatient Hypertension;Increase losartan 100 mg daily, added Imdur, continue with Coreg BPH; Flomax 0.5 mg daily Hospital course; 62-year-old male with past medical history of COPD, hypertension, Parkinson's, bipolar who presented to [facility] for shortness of breath. States he became more short of breath last night. He was found to be saturating 82% at outside hospital. He denied having a chest pain. He was given 125 Solu- Medrol and an albuterol breathing treatments. Blood to completed an outside facility reveals Lactic acid was 2.2. Magnesium 1.6. Chest x-ray was completed which demonstrates right basilar opacity which could be pleural fluid, atelectasis and/or acute airspace process. Additional patchy opacities throughout the right long and more pronounced at the base. Patient was given vancomycin and Zosyn. He does have a history of loculated pleural effusion on the right with empyema. This required a surgical Eloesser flap on november 14 which was completed by Dr. Wolf. Due to the patient's affiliation with our hospital they wanted to transport the patient here. Patient was agreeable. He denies any fevers. No vomiting. No lower extremity swelling. 01/10/2023, the patient is seen and evaluated in room at bedside; resting comfortably in bed. No new complaints. He remains on IV heparin. Family Partner on the case regarding the acute and NSTEMI. The patient states that he still seen drainage from his wound was placed on IV cefepime and vancomycin. Nevertheless, based on the nursing staff and based on my observation, dressing is essentially clear. As such, no cultures have been obtained. The white cycles of 3.9, hemoglobin is 10, creatinine is at 0.5. The echo has resulted in the patient has an impaired left ventricular ejection fraction of 33 5% and moderate MR and moderate dilatation of the aortic root. Patient remains on supplemental oxygen at 2 L per nasal cannula; continue with DuoNeb nebulizer treatments -- Patient remains on broad-spectrum antibiotics in form of cefepime and vancomycin per ID recommendations - CT of the chest is completed and noted - Patient remains on IV heparin for NSTEMI; cardiology is on board 01/11. Patient seen and examined. States he feels the same as yesterday, complaining of lethargy 01/12. Patient seen and examined. Blood pressure was elevated, complaining of pain in his back and legs. Currently on 2 L of oxygen 01/13. Being discharged on Augmentin for 2 weeks per ID recommendation. Patient had walking resting pulse ox done, qualifies for home O2. Pulmonology cleared the patient for discharge as well PHYSICAL EXAMINATION: GENERAL: The patient is alert and oriented x3, not in any acute distress. Well developed, well nourished. HEENT: Pupils are round and equally reacting to light. EOMI. No scleral icterus. No conjunctival pallor. Normocephalic, atraumatic. No pharyngeal erythema. No thyromegaly. CARDIOVASCULAR: S1 and S2 present. No murmurs, rubs, or gallops. PULMONARY: Coarse breath sounds bilaterally, Eloesser flap seen ABDOMEN: Soft, nontender, nondistended, normoactive bowel sounds. No palpable organomegaly. MUSCULOSKELETAL: No joint swelling or deformity. EXTREMITIES: No cyanosis, clubbing, or pedal edema. NEUROLOGICAL: Gross neurological examination did not reveal any focal deficits. SKIN: No rashes. Dictation was produced using [employer] dictation software. please excuse any grammatical, word or spelling errors. Patient Condition at Discharge: Stable Plan - Discharge Summary Discharge Rx Participant: Yes New Discharge Prescriptions: New Aspirin 81 mg PO DAILY #30 tab Losartan [Cozaar] 100 mg PO DAILY #30 tab Isosorbide Mononitrate ER [Imdur] 30 mg PO DAILY #30 tab Atorvastatin [Lipitor] 40 mg PO HS #30 tab Nitroglycerin Sl Tabs [Nitrostat] 0.4 mg SUBLINGUAL Q5M PRN #30 tab PRN Reason: Chest Pain Amoxic-Pot Clav 875-125Mg [Augmentin 875-125] 1 each PO Q12HR 14 Days #28 tab carvediloL [Coreg] 6.25 mg PO BID-W/MEALS #60 tab Continue Tamsulosin [Flomax] 0.4 mg PO DAILY Pantoprazole Sodium [Protonix] 40 mg PO BID tiZANidine [Zanaflex] 2 mg PO DAILY HYDROcodone/APAP 10-325MG [[place] 10-325] 1 tab PO Q6H QUEtiapine [SEROquel] 100 mg PO HS Sertraline [Zoloft] 100 mg PO BID Benztropine Mesylate [Cogentin] 0.5 mg PO BID Albuterol Sulfate [Albuterol Sulfate Hfa] 2 puff INHALATION RT-Q4H PRN PRN Reason: Shortness Of Breath Loperamide [Imodium] 2 mg PO QID PRN cap PRN Reason: Diarrhea Budesonide-Formot 160-4.5 Mcg [Symbicort 160-4.5 Mcg Inhaler] 2 puff INHALATION RT-BID each Apixaban [Eliquis] 5 mg PO BID Fluticasone Nasal [place] [Flonase Nasal [place]] 1 spr EA NOSTRIL DAILY Gabapentin 600 mg PO BID Discontinued Labetalol [Trandate] 200 mg PO BID Discharge Medication List Albuterol Sulfate [Albuterol Sulfate Hfa] 2 puff INHALATION RT-Q4H PRN 10/30/22 [History] Benztropine Mesylate [Cogentin] 0.5 mg PO BID 10/30/22 [History] Pantoprazole Sodium [Protonix] 40 mg PO BID 10/30/22 [History] Sertraline [Zoloft] 100 mg PO BID 10/30/22 [History] Tamsulosin [Flomax] 0.4 mg PO DAILY 10/30/22 [History] tiZANidine [Zanaflex] 2 mg PO DAILY 10/30/22 [History] Budesonide-Formot 160-4.5 Mcg [Symbicort 160-4.5 Mcg Inhaler] 2 puff INHALATION RT-BID each 11/18/22 [Rx] Loperamide [Imodium] 2 mg PO QID PRN cap 11/18/22 [Rx] Apixaban [Eliquis] 5 mg PO BID 01/08/23 [History] Fluticasone Nasal [place] [Flonase Nasal [place]] 1 spr EA NOSTRIL DAILY 01/08/23 [History] Gabapentin 600 mg PO BID 01/08/23 [History] HYDROcodone/APAP 10-325MG [[place] 10-325] 1 tab PO Q6H 01/08/23 [History] QUEtiapine [SEROquel] 100 mg PO HS 01/08/23 [History] Amoxic-Pot Clav 875-125Mg [Augmentin 875-125] 1 each PO Q12HR 14 Days #28 tab 01/13/23 [Rx] Aspirin 81 mg PO DAILY #30 tab 01/13/23 [Rx] Atorvastatin [Lipitor] 40 mg PO HS #30 tab 01/13/23 [Rx] Isosorbide Mononitrate ER [Imdur] 30 mg PO DAILY #30 tab 01/13/23 [Rx] Losartan [Cozaar] 100 mg PO DAILY #30 tab 01/13/23 [Rx] Nitroglycerin Sl Tabs [Nitrostat] 0.4 mg SUBLINGUAL Q5M PRN #30 tab 01/13/23 [Rx] carvediloL [Coreg] 6.25 mg PO BID-W/MEALS #60 tab 01/13/23 [Rx] Follow up Appointment(s)/Referral(s): [facility],Equipment [NON-STAFF] - Anushka Sabillon MD [Primary Care Provider] - 1-2 days Lv Sullivan MD [STAFF PHYSICIAN] - 1 Week Leeroy Ryan MD [STAFF PHYSICIAN] - 1 Week Huang Elder MD [STAFF PHYSICIAN] - 1 Week Activity/Diet/Wound Care/Special Instructions: Patient requires home oxygen at discharge to manage COPD - contact [facility] to notify them when you will be home for home oxygen delivery Discharge Disposition: HOME WITH HOME HEALTH SERVICES
== END 2023-01-13 14:47 | disposition home health service (06) | DRG 189 ==
LOC: EC 03:21 → 4SSUR 04:14 → 3SCARD 01-09 01:49
PROVIDERS: ADMIT Hospitalist; ATTEND Hospitalist
DX: J96.21 Acute and chronic respiratory failure with hypoxia (principal); I21.4 Non-ST elevation (NSTEMI) myocardial infarction; J18.9 Pneumonia, unspecified organism; J47.0 Bronchiectasis with acute lower respiratory infection; E87.20 Acidosis, unspecified; J90 Pleural effusion, not elsewhere classified; I50.22 Chronic systolic (congestive) heart failure; J98.11 Atelectasis; I27.21 Secondary pulmonary arterial hypertension; G20 Parkinson's disease; I11.0 Hypertensive heart disease with heart failure; J43.9 Emphysema, unspecified; F31.9 Bipolar disorder, unspecified; I77.810 Thoracic aortic ectasia; I25.5 Ischemic cardiomyopathy; I34.0 Nonrheumatic mitral (valve) insufficiency; I25.2 Old myocardial infarction; N40.0 Benign prostatic hyperplasia without lower urinary tract symptoms; E78.5 Hyperlipidemia, unspecified; I44.7 Left bundle-branch block, unspecified; M54.9 Dorsalgia, unspecified; R16.1 Splenomegaly, not elsewhere classified; F17.210 Nicotine dependence, cigarettes, uncomplicated; Z71.6 Tobacco abuse counseling; Z79.01 Long term (current) use of anticoagulants; Z79.51 Long term (current) use of inhaled steroids; Z79.899 Other long term (current) drug therapy
CPT/HCPCS: 71045; 71275; 80048; 80053; 80061; 80202; 82565; 84145; 84484; 85025; 85379; 85610; 85730; 87070; 93005; 93306; 94640; 94760; 96361; 96365; 96366; 99285

== ENCOUNTER 2023-01-14 14:21 | Inpatient (IN) | payer MEDICARE ==
--- NOTE | 2023-01-14 14:46 | ED ---
General Adult HPI - General Chief complaint: Shortness of Breath Stated complaint: sob Time Seen by Provider: 01/14/23 14:25 Source: patient, RN notes reviewed, old records reviewed Mode of arrival: EMS Limitations: no limitations - History of Present Illness Initial comments: This is a 62-year-old male who presents emergency department from [facility]. Patient was seen in emergency department had a full workup and was diagnosed with that enlarging right-sided pleural effusion with shortness of breath. Patient is transferred to this facility because he was here recently. Patient denies any fever chills per patient denies chest pain. Patient denies any other symptoms at this time. Patient stated he does have a history of lung cancer but he doesn't think they did anything about it. - Related Data Home Medications Medication Instructions Recorded Confirmed Albuterol Sulfate [Albuterol 2 puff INHALATION RT-Q4H PRN 10/30/22 01/14/23 Sulfate Hfa] Benztropine Mesylate [Cogentin] 0.5 mg PO BID 10/30/22 01/14/23 Pantoprazole Sodium [Protonix] 40 mg PO BID 10/30/22 01/14/23 Sertraline [Zoloft] 100 mg PO BID 10/30/22 01/14/23 Tamsulosin [Flomax] 0.4 mg PO DAILY 10/30/22 01/14/23 tiZANidine [Zanaflex] 2 mg PO DAILY 10/30/22 01/14/23 Apixaban [Eliquis] 5 mg PO BID 01/08/23 01/14/23 Fluticasone Nasal [place] [Flonase 1 spr EA NOSTRIL DAILY 01/08/23 01/14/23 Nasal [place]] Gabapentin 600 mg PO BID 01/08/23 01/14/23 HYDROcodone/APAP 10-325MG [[place] 1 tab PO Q6H 01/08/23 01/14/23 10-325] QUEtiapine [SEROquel] 100 mg PO HS 01/08/23 01/14/23 Amoxic-Pot Clav 875-125Mg 1 tab PO Q12HR 01/14/23 01/14/23 [Augmentin 875-125] Previous Rx's Medication Instructions Recorded Budesonide-Formot 160-4.5 Mcg 2 puff INHALATION RT-BID each 11/18/22 [Symbicort 160-4.5 Mcg Inhaler] Loperamide [Imodium] 2 mg PO QID PRN cap 11/18/22 Aspirin 81 mg PO DAILY #30 tab 01/13/23 Atorvastatin [Lipitor] 40 mg PO HS #30 tab 01/13/23 Isosorbide Mononitrate ER [Imdur] 30 mg PO DAILY #30 tab 01/13/23 Losartan [Cozaar] 100 mg PO DAILY #30 tab 01/13/23 Nitroglycerin Sl Tabs [Nitrostat] 0.4 mg SUBLINGUAL Q5M PRN #30 tab 01/13/23 carvediloL [Coreg] 6.25 mg PO BID-W/MEALS #60 tab 01/13/23 Allergies Allergy/AdvReac Type Severity Reaction Status Date / Time No Known Allergies Allergy Verified 01/14/23 15:08 Review of Systems ROS Statement: Those systems with pertinent positive or pertinent negative responses have been documented in the HPI. ROS Other: All systems not noted in ROS Statement are negative. Past Medical History Past Medical History: Asthma, COPD, Hyperlipidemia, Hypertension, Pneumonia History of Any Multi-Drug Resistant Organisms: None Reported Past Surgical History: Orthopedic Surgery Past Anesthesia/Blood Transfusion Reactions: No Reported Reaction Past Psychological History: No Psychological Hx Reported Smoking Status: Former smoker Past Alcohol Use History: None Reported Past Drug Use History: None Reported - Past Family History Father Family Medical History: COPD General Exam - General Exam Comments Initial Comments: GENERAL: Patient is well-developed and well-nourished. Patient is nontoxic and well- hydrated and is in mild distress. ENT: Neck is soft and supple. No significant lymphadenopathy is noted. Oropharynx is clear. Moist mucous membranes. Neck has full range of motion without eliciting any pain. EYES: The sclera were anicteric and conjunctiva were pink and moist. Extraocular movements were intact and pupils were equal round and reactive to light. Eyelids were unremarkable. PULMONARY: Diminished breath sounds right base at the very base on the left there is also decreased breath sounds CARDIOVASCULAR: There is a regular rate and rhythm without any murmurs gallops or rubs. ABDOMEN: Soft and nontender with normal bowel sounds. SKIN: Skin is clear with no lesions or rashes and otherwise unremarkable. NEUROLOGIC: Patient is alert and oriented x3. Cranial nerves II through XII are grossly intact. Motor and sensory are also intact. Normal speech, volume and content. Symmetrical smile. MUSCULOSKELETAL: Normal extremities with adequate strength and full range of motion. No lower extremity swelling or edema. No calf tenderness. LYMPHATICS: No significant lymphadenopathy is noted PSYCHIATRIC: Normal psychiatric evaluation. Limitations: no limitations Course Vital Signs 01/14/23 01/14/23 01/14/23 14:22 15:27 16:41 Temperature 98.6 F 98.8 F Pulse Rate 81 78 81 Respiratory 19 19 17 Rate Blood Pressure 126/111 126/101 179/98 O2 Sat by Pulse 94 L 93 L 97 Oximetry Medical Decision Making - Medical Decision Making EKG is interpreted by myself that shows a sinus rhythm with occasional PAC at 83 bpm AL interval is on a 43 QRSs 158 QTC intervals 452 QTC is 492. Patient's EKG shows a left bundle branch block Was pt. sent in by a medical professional or institution (, PA, VETERINARY MEDICINE SCIENTIST, urgent care, hospital, or chcf...) When possible be specific @ -Patient was sent to us by Rhona lopez Did you speak to anyone other than the patient for history (EMS, parent, family, police, friend...)? What history was obtained from this source @ -ER physician called to update his on the patient's lab work and radiological studies done today Did you review nursing and triage notes (agree or disagree)? Why? @ -I reviewed and agree with nursing and triage notes Were old charts reviewed (outside hosp., previous admission, EMS record, old EKG, old radiological studies, urgent care reports/EKG's, chcf records)? Report findings @ -I reviewed per chart per labwork on this patient and reviewed all transfer paperwork on this patient Differential Diagnosis (chest pain, altered mental status, abdominal pain women, abdominal pain men, vaginal bleeding, weakness, fever, dyspnea, syncope, headache, dizziness, GI bleed, back pain, seizure, CVA, palpatations, mental health, musculoskeletal)? @ -Differential Dyspnea: Coronary syndrome, arrhythmia, tamponade, asthma, COPD, pulmonary embolism, pneumonia, pneumothorax, pulmonary effusion, anaphylaxis, diabetic ketoacidosis, flailed chest, pulmonary contusion, diaphragmatic rupture, anemia, neuromuscular, this is not meant to be an all-inclusive list. EKG interpreted by me (3pts min.). @ -As above X-rays interpreted by me (1pt min.). @ -None done CT interpreted by me (1pt min.). @ -None done U/S interpreted by me (1pt. min.). @ -None done What testing was considered but not performed or refused? (CT, X-rays, U/S, labs)? Why? @ -None What meds were considered but not given or refused? Why? @ -None Did you discuss the management of the patient with other professionals (professionals i.e. , PA, VETERINARY MEDICINE SCIENTIST, lab, RT, psych nurse, director social, chemical laboratory chief, teacher, staff combat information center officer, rifle case repairer)? Give summary @ -I spoke with Dr. Encinas he agreed to admit the patient admitted the patient Was smoking cessation discussed for >3mins.? @ -No Was critical care preformed (if so, how long)? @ -No Were there social determinants of health that impacted care today? How? (Homelessness, low income, unemployed, alcoholism, drug addiction, transportation, low edu. Level, literacy, decrease access to med. care, care home, rehab)? @ -No Was there de-escalation of care discussed even if they declined (Discuss DNR or withdrawal of care, Hospice)? DNR status @ -No What co-morbidities impacted this encounter? (DM, HTN, Smoking, COPD, CAD, Cancer, CVA, ARF, Chemo, Hep., AIDS, mental health diagnosis, sleep apnea, morbid obesity)? @ -None Was patient admitted / discharged? Hospital course, mention meds given and route, prescriptions, significant lab abnormalities, going to OR and other pertinent info. @ -I reviewed patient's lab work from the other hospital I also reviewed the chest x-ray and computed tomography scan. Undiagnosed new problem with uncertain prognosis? @ -No Drug Therapy requiring intensive monitoring for toxicity (Heparin, Nitro, Insulin, Cardizem)? @ -No Were any procedures done? @ -No Diagnosis/symptom? @ -Pleural Effusion Acute, or Chronic, or Acute on Chronic? @ -Acute Uncomplicated (without systemic symptoms) or Complicated (systemic symptoms)? @ -Complicated Side effects of treatment? @ -No Exacerbation, Progression, or Severe Exacerbation? @ -No Poses a threat to life or bodily function? How? (Chest pain, [place], [place], pneumonia, PE, COPD, DKA, ARF, appy, cholecystitis, CVA, Diverticulitis, Homicidal, Suicidal, threat to staff... and all critical care pts) @ -No Diagnosis/symptom? @ -Dyspnea Acute, or Chronic, or Acute on Chronic? @ -Acute Uncomplicated (without systemic symptoms) or Complicated (systemic symptoms)? @ -Complicated Side effects of treatment? @ -none Exacerbation, Progression, or Severe Exacerbation] @ -no Poses a threat to life or bodily function? @ -no Disposition Clinical Impression: Dyspnea, Pleural effusion Disposition: ADMITTED IP TO THIS HOSP Referrals: Anushka Sabillon MD [Primary Care Provider] - 1-2 days Time of Disposition: 16:20
[2023-01-14] MEDS ORDERED: HYDROmorphone 0.5 MG/0.5 ML SYRINGE IVP STA (16:26)
[2023-01-14] MEDS ORDERED: hydrALAZINE HCL 20 MG/ML 1 ML VIAL IVP STA (17:45)
[2023-01-14] MEDS ORDERED: NITROGLYCERIN SL TABS 0.4 MG TAB SUBLINGUAL PRN (21:57)
[2023-01-14] MEDS ORDERED: ALBUTEROL NEBULIZED 2.5 MG/3 ML INHALATION PRN (21:57)
[2023-01-14] MEDS ORDERED: LOPERAMIDE 2 MG CAP PO PRN (21:57)
[2023-01-14] MEDS: HYDROcodone/APAP 10-325MG 1 EACH TAB PO PRN (22:17)
[2023-01-14] MEDS: LOSARTAN 50 MG TAB PO SCH (22:17)
[2023-01-14] MEDS: carvediloL 6.25 MG TAB PO SCH (22:18)
[2023-01-15] MEDS: TAMSULOSIN 0.4 MG CAP.ER.24H PO SCH (03:52)
[2023-01-15] MEDS: HYDROcodone/APAP 10-325MG 1 EACH TAB PO PRN ×3 (05:47→21:05)
[2023-01-15] MEDS: carvediloL 6.25 MG TAB PO SCH ×2 (05:48→16:33)
[2023-01-15] MEDS: PANTOPRAZOLE 40 MG TABLET PO SCH ×2 (05:48→16:33)
--- NOTE | 2023-01-15 07:32 | XR ---
EXAMINATION TYPE: XR chest 1V portable DATE OF EXAM: 01/15/2023 HISTORY: Shortness of breath. COMPARISON: 01/09/2023 TECHNIQUE: Single view of the chest is submitted. FINDINGS: Hyperinflation and emphysematous changes noted. Patchy infiltrate right medial lung base and right mi dlung zone. Loculated fluid noted at the right lateral lung base which may be trapped within the righ t minor fissure. Small bilateral pleural effusions. Underlying interstitial lung disease. The heart i s stable. Hilar and mediastinal structures are within normal limits. Degenerative changes are seen of the dorsal spine. IMPRESSION: 1. Changes of underlying pneumonia with loculated pleural effusion or trapped fluid. 2. Changes of COPD with underlying emphysema and interstitial lung disease.
[2023-01-15] MEDS ORDERED: FUROSEMIDE 10 MG/ML 4 ML VIAL IV STA (08:15)
[2023-01-15] MEDS: SYMBICORT 160-4.5 MCG INHALER INHALATION SCH ×2 (08:29→19:37)
[2023-01-15] MEDS: ISOSORBIDE MONONITRATE ER 30 MG TAB.ER.24H PO SCH (09:57)
[2023-01-15] MEDS: tiZANidine 4 MG TAB PO SCH (09:57)
[2023-01-15] MEDS: GABAPENTIN 300 MG CAP PO SCH ×2 (09:58→20:08)
[2023-01-15] MEDS: BENZTROPINE MESYLATE 0.5 MG TAB PO SCH ×2 (09:58→20:08)
[2023-01-15] MEDS: ASPIRIN 81 MG PO SCH (09:58)
[2023-01-15] MEDS: FLUTICASONE 50MCG/SPRAY NASAL 16GM EA NOSTRIL SCH (09:58)
[2023-01-15] MEDS: SERTRALINE 100 MG TAB PO SCH ×2 (09:58→20:08)
[2023-01-15] MEDS: LOSARTAN 50 MG TAB PO SCH (09:58)
[2023-01-15 10:44] LABS: Anisocytosis Slight; Basophils % (A) 0 %; Eosinophils # (A) 0.1 k/uL (0-0.7); Eosinophils % (A) 1 %; HGB 11.6 gm/dL (13.0-17.5); Hypochromasia Moderate; Lymphocytes % (A) 14 %; MCH 25.7 pg (25.0-35.0); MCHC 32.2 g/dL (31.0-37.0); MCV 79.8 fL (80.0-100.0); Mean Platelet Volume 9.5; Microcytosis Slight; Monocytes # (A) 0.4 k/uL (0-1.0); Monocytes % (A) 6 %; Neutrophils # (A) 5.6 k/uL (1.3-7.7); Neutrophils % (A) 77 %; Platelet Count 204 k/uL (150-450); RBC 4.52 m/uL (4.30-5.90); RDW 17.4 % (11.5-15.5); WBC 7.2 k/uL (3.8-10.6)
[2023-01-15 10:53] LABS: ALT 23 U/L (4-49); AST 22 U/L (17-59); African American GFR (CKD) >90 (>60 ml/min/1.73 sqM); Albumin 3.6 g/dL (3.5-5.0); Alkaline Phosphatase 90 U/L (38-126); Anion Gap 9 mmol/L; Blood Urea Nitrogen 21 mg/dL (9-20); Calcium 8.6 mg/dL (8.4-10.2); Carbon Dioxide 24 mmol/L (22-30); Chloride 103 mmol/L (98-107); Glucose 119 mg/dL (74-99); Non-African American GFR(CKD) >90 (>60 ml/min/1.73 sqM); Potassium 3.6 mmol/L (3.5-5.1); Sodium 136 mmol/L (137-145); Total Bilirubin 1.2 mg/dL (0.2-1.3); Total Protein 6.6 g/dL (6.3-8.2)
--- NOTE | 2023-01-15 11:03 | XR ---
EXAMINATION TYPE: XR chest 2V DATE OF EXAM: 01/15/2023 COMPARISON: 01/15/2023 HISTORY: Shortness of breath TECHNIQUE: Frontal and lateral views of the chest are obtained. FINDINGS: Scattered senescent parenchymal changes noted. Hyperinflation compatible with COPD. Increasing opacity right lower lobe may reflect an increasing loculated pleural effusion and/or infil trate or atelectasis. There is a patchy infiltrate right upper lobe and right medial lung base persis t. Heart size is stable. Mediastinal structures are stable and grossly unremarkable. No evidence for hilar prominence. Degenerative changes dorsal spine. IMPRESSION: 1. Increasing opacity right lower lobe may reflect an increasing loculated pleural effusion and/or in filtrate or atelectasis. There is a patchy infiltrate right upper lobe and right medial lung base per sist.
--- NOTE | 2023-01-15 11:23 | P.CNPUL ---
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 He has been readmitted to our hospital 2 times in the last 2 weeks. He was discharged home on 01/13/2023 with home care. He was came back to our facility on 01/14/2023 as a transfer from [facility]. There was concerns regarding enlarging right-sided pleural effusion. He still has an opening that is draining the right lung with a dressing intact. His chest x-ray is similar to his last one here on 01/09/2023. Chronic changes in the right lung. White count 7.2. Hemoglobin 11.6. Platelets 204. Sodium 136. Potassium 3.6. Bicarb 24. BUN 21. Creatinine 0.69. Glucose 119. He is seen today in consultation on the regular medical floor. He is awake and alert in no acute distress. Somewhat of a poor historian. He is maintaining O2 saturations in the mid 90s on 4 L nasal cannula. He is afebrile. Hemodynamically stable. He's been initiated on antibiotics in the form of Augmentin. Continued on bronchodilators. Review of Systems REVIEW OF SYSTEMS: CONSTITUTIONAL: Denies any recent significant weight loss or weight gain. EYES: Denies change in vision. EARS, NOSE, MOUTH, THROAT: Denies headaches, denies sore throat. CARDIOVASCULAR: Denies chest pain, palpitations or syncopal episodes. RESPIRATORY: Positive for shortness of breath, no cough, congestion or hemoptysis. GASTROINTESTINAL: Denies change in appetite, denies abdominal pain GENITOURINARY: Denies hematuria, denies infections. MUSKULOSKELETAL: Denies pain, denies swelling. INTEGUMENTARY: Denies rash, denies eczema. NEUROLOGICAL: Denies recent memory loss, no recent seizure activity. PSYCHIATRIC: Denies anxiety, denies depression. HEMATOLOGIC/LYMPHATIC: Denies anemia, denies enlarged lymph nodes. Past Medical History Past Medical History: Asthma, COPD, Hyperlipidemia, Hypertension, Pneumonia History of Any Multi-Drug Resistant Organisms: None Reported Past Surgical History: Orthopedic Surgery Past Anesthesia/Blood Transfusion Reactions: No Reported Reaction Past Psychological History: No Psychological Hx Reported Smoking Status: Current every day smoker Past Alcohol Use History: None Reported Past Drug Use History: None Reported - Past Family History Father Family Medical History: COPD Medications and Allergies Home Medications Medication Instructions Recorded Confirmed Type Albuterol Sulfate [Albuterol 2 puff INHALATION RT-Q4H PRN 10/30/22 01/14/23 History Sulfate Hfa] Benztropine Mesylate [Cogentin] 0.5 mg PO BID 10/30/22 01/14/23 History Pantoprazole Sodium [Protonix] 40 mg PO BID 10/30/22 01/14/23 History Sertraline [Zoloft] 100 mg PO BID 10/30/22 01/14/23 History Tamsulosin [Flomax] 0.4 mg PO DAILY 10/30/22 01/14/23 History tiZANidine [Zanaflex] 2 mg PO DAILY 10/30/22 01/14/23 History Budesonide-Formot 160-4.5 Mcg 2 puff INHALATION RT-BID each 11/18/22 01/14/23 Rx [Symbicort 160-4.5 Mcg Inhaler] Loperamide [Imodium] 2 mg PO QID PRN cap 11/18/22 01/14/23 Rx Apixaban [Eliquis] 5 mg PO BID 01/08/23 01/14/23 History Fluticasone Nasal [place] [Flonase 1 spr EA NOSTRIL DAILY 01/08/23 01/14/23 History Nasal [place]] Gabapentin 600 mg PO BID 01/08/23 01/14/23 History HYDROcodone/APAP 10-325MG [[place] 1 tab PO Q6H 01/08/23 01/14/23 History 10-325] QUEtiapine [SEROquel] 100 mg PO HS 01/08/23 01/14/23 History Aspirin 81 mg PO DAILY #30 tab 01/13/23 01/14/23 Rx Atorvastatin [Lipitor] 40 mg PO HS #30 tab 01/13/23 01/14/23 Rx Isosorbide Mononitrate ER [Imdur] 30 mg PO DAILY #30 tab 01/13/23 01/14/23 Rx Losartan [Cozaar] 100 mg PO DAILY #30 tab 01/13/23 01/14/23 Rx Nitroglycerin Sl Tabs [Nitrostat] 0.4 mg SUBLINGUAL Q5M PRN #30 tab 01/13/23 01/14/23 Rx carvediloL [Coreg] 6.25 mg PO BID-W/MEALS #60 tab 01/13/23 01/14/23 Rx Amoxic-Pot Clav 875-125Mg 1 tab PO Q12HR 01/14/23 01/14/23 History [Augmentin 875-125] Allergies Allergy/AdvReac Type Severity Reaction Status Date / Time No Known Allergies Allergy Verified 01/14/23 15:08 Physical Exam Vitals: Vital Signs Temp Pulse Pulse Resp BP BP BP 01/15/23 09:52 97.7 F 69 19 150/72 01/15/23 08:34 01/15/23 04:00 97.9 F 73 19 179/82 01/14/23 23:25 97.9 F 64 18 157/80 01/14/23 20:19 01/14/23 20:17 97.9 F 87 24 176/92 01/14/23 19:24 98.7 F 81 27 H 166/108 01/14/23 18:00 178/106 01/14/23 16:41 98.8 F 81 17 179/98 01/14/23 15:27 78 19 126/101 01/14/23 14:22 98.6 F 81 19 126/111 Pulse Ox 01/15/23 09:52 95 01/15/23 08:34 95 01/15/23 04:00 94 L 01/14/23 23:25 94 L 01/14/23 20:19 96 01/14/23 20:17 82 L 01/14/23 19:24 94 L 01/14/23 18:00 96 01/14/23 16:41 97 01/14/23 15:27 93 L 01/14/23 14:22 94 L Intake and Output 01/14/23 01/15/23 01/15/23 22:59 06:59 14:59 Intake Total 118 Output Total 350 570 950 Balance -383 -789 -548 Intake: Oral 118 Output: Urine 350 250 950 Post Void Residual 320 Other: Voiding Method Urinal Urinal # Bowel Movements 1 Weight 81.647 kg GENERAL EXAM: Alert, oriented strength, 62-year-old male, 4 L nasal cannula, comfortable in no apparent distress. HEAD: Normocephalic. EYES: Normal reaction of pupils, equal size. NOSE: Clear with pink turbinates. THROAT: No erythema or exudates. NECK: No masses, no JVD. CHEST: No chest wall deformity. Evidence of Eloesser flap with opening on the right chest wall LUNGS: Equal air entry with crackles in the right lung base. CVS: S1 and S2 normal with no audible murmur, regular rhythm. ABDOMEN: No hepatosplenomegaly, normal bowel sounds, no guarding or rigidity. SPINE: No scoliosis or deformity SKIN: No rashes CENTRAL NERVOUS SYSTEM: No focal deficits, tone is normal in all 4 extremities. EXTREMITIES: There is no peripheral edema. No clubbing, no cyanosis. Peripheral pulses are intact. 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 Chronic hypoxemic respiratory failure oxygen in the outpatient setting Chronic obstructive pulmonary disease History of chronic tobacco dependence Ischemic cardiomyopathy with ejection fraction 30-35% History of myocardial infarction Hypertension Parkinson's disease Hyperlipidemia Plan: The patient was seen and evaluated Chest x-ray, labs and medications are reviewed No significant change in chest x-ray or patient's symptoms Could be discharged from the pulmonary standpoint Continue his home pulmonary medications, oxygen Explained to the patient he will have chronic shortness of breath May need placement in extended care Continue to follow-up in our office as scheduled I have personally seen and examined the patient, performed the documentation and the assessment and plan as written. Number of minutes spent on the visit: 20.
[2023-01-15] MEDS ORDERED: RX INFO: IV CONTRAST WAS GIVEN 1 EACH MISC MISCELLANE PRN (12:19)
--- NOTE | 2023-01-15 15:30 | P.HPIM ---
History of Present Illness H&P Date: 01/15/23 History of present illness; patient is 59-year-old gentleman with past medical h istory significant for COPD, empyema ,Eloesser flap for chronic pleural drainage who was recently discharged from our hospital on oral Augmentin. Patient was seen by ID and pulmonology during that visit. Patient was discharged on 2 L of oxygen. Patient stated that when he went back home he started noticing that he was getting more short of breath. Denied any chest pain. There was no complain of any swelling of feet. No complain of fever or chills. Denies any cough. Patient is complaining of generalized weakness and lethargy. Because of this worsening shortness of breath patient came back to the ER and was admitted to medicine service REVIEW OF SYSTEMS: CONSTITUTIONAL: No fever, no malaise, no fatigue. HEENT: No recent visual problems or hearing problems. Denied any sore throat. CARDIOVASCULAR: No chest pain, orthopnea, PND, no palpitations, no syncope. PULMONARY: As mentioned in HPI GASTROINTESTINAL: No diarrhea, no nausea, no vomiting, no abdominal pain. NEUROLOGICAL: No headaches, no weakness, no numbness. HEMATOLOGICAL: Denies any bleeding or petechiae. GENITOURINARY: Denies any burning micturition, frequency, or urgency. MUSCULOSKELETAL/RHEUMATOLOGICAL: Denies any joint pain, swelling, or any muscle pain. ENDOCRINE: Denies any polyuria or polydipsia. The rest of the 14-point review of systems is negative. PHYSICAL EXAMINATION: GENERAL: The patient is alert and oriented x3, not in any acute distress. Well developed, well nourished. HEENT: Pupils are round and equally reacting to light. EOMI. No scleral icterus. No conjunctival pallor. Normocephalic, atraumatic. No pharyngeal erythema. No thyromegaly. CARDIOVASCULAR: S1 and S2 present. No murmurs, rubs, or gallops. PULMONARY: Diminished breath sounds at bases bilaterally ABDOMEN: Soft, nontender, nondistended, normoactive bowel sounds. No palpable organomegaly. MUSCULOSKELETAL: No joint swelling or deformity. EXTREMITIES: No cyanosis, clubbing, or pedal edema. NEUROLOGICAL: Gross neurological examination did not reveal any focal deficits. SKIN: No rashes. Assessment and plan Acute on chronic respiratory failure Right-sided pleural effusion Acute on chronic systolic CHF COPD Hypertension BPH Monitor vital signs Monitor CBC Monitor CMP Continue telemetry monitoring Ordered chest x-ray Order proBNP Resume home meds Consult cardiology Consult pulmonology Labs and medication were reviewed.. Continue same treatment. Continue with symptomatic treatment. Resume home medication. Monitor labs and vitals. DVT and GI prophylaxis. Further recommendations as per clinical course of the patient Dictation was produced using [employer] dictation software. please excuse any grammatical, word or spelling errors. Past Medical History Past Medical History: Asthma, COPD, Hyperlipidemia, Hypertension, Pneumonia History of Any Multi-Drug Resistant Organisms: None Reported Past Surgical History: Orthopedic Surgery Past Anesthesia/Blood Transfusion Reactions: No Reported Reaction Past Psychological History: No Psychological Hx Reported Smoking Status: Current every day smoker Past Alcohol Use History: None Reported Past Drug Use History: None Reported - Past Family History Father Family Medical History: COPD Medications and Allergies Home Medications Medication Instructions Recorded Confirmed Type Albuterol Sulfate [Albuterol 2 puff INHALATION RT-Q4H PRN 10/30/22 01/14/23 History Sulfate Hfa] Benztropine Mesylate [Cogentin] 0.5 mg PO BID 10/30/22 01/14/23 History Pantoprazole Sodium [Protonix] 40 mg PO BID 10/30/22 01/14/23 History Sertraline [Zoloft] 100 mg PO BID 10/30/22 01/14/23 History Tamsulosin [Flomax] 0.4 mg PO DAILY 10/30/22 01/14/23 History tiZANidine [Zanaflex] 2 mg PO DAILY 10/30/22 01/14/23 History Budesonide-Formot 160-4.5 Mcg 2 puff INHALATION RT-BID each 11/18/22 01/14/23 Rx [Symbicort 160-4.5 Mcg Inhaler] Loperamide [Imodium] 2 mg PO QID PRN cap 11/18/22 01/14/23 Rx Apixaban [Eliquis] 5 mg PO BID 01/08/23 01/14/23 History Fluticasone Nasal [place] [Flonase 1 spr EA NOSTRIL DAILY 01/08/23 01/14/23 History Nasal [place]] Gabapentin 600 mg PO BID 01/08/23 01/14/23 History HYDROcodone/APAP 10-325MG [[place] 1 tab PO Q6H 01/08/23 01/14/23 History 10-325] QUEtiapine [SEROquel] 100 mg PO HS 01/08/23 01/14/23 History Aspirin 81 mg PO DAILY #30 tab 01/13/23 01/14/23 Rx Atorvastatin [Lipitor] 40 mg PO HS #30 tab 01/13/23 01/14/23 Rx Isosorbide Mononitrate ER [Imdur] 30 mg PO DAILY #30 tab 01/13/23 01/14/23 Rx Losartan [Cozaar] 100 mg PO DAILY #30 tab 01/13/23 01/14/23 Rx Nitroglycerin Sl Tabs [Nitrostat] 0.4 mg SUBLINGUAL Q5M PRN #30 tab 01/13/23 01/14/23 Rx carvediloL [Coreg] 6.25 mg PO BID-W/MEALS #60 tab 01/13/23 01/14/23 Rx Amoxic-Pot Clav 875-125Mg 1 tab PO Q12HR 01/14/23 01/14/23 History [Augmentin 875-125] Allergies Allergy/AdvReac Type Severity Reaction Status Date / Time No Known Allergies Allergy Verified 01/14/23 15:08 Physical Exam Vitals: Vital Signs Temp Pulse Pulse Resp BP BP BP 01/15/23 08:34 01/15/23 04:00 97.9 F 73 19 179/82 01/14/23 23:25 97.9 F 64 18 157/80 01/14/23 20:19 01/14/23 20:17 97.9 F 87 24 176/92 01/14/23 19:24 98.7 F 81 27 H 166/108 01/14/23 18:00 178/106 01/14/23 16:41 98.8 F 81 17 179/98 01/14/23 15:27 78 19 126/101 01/14/23 14:22 98.6 F 81 19 126/111 Pulse Ox 01/15/23 08:34 95 01/15/23 04:00 94 L 01/14/23 23:25 94 L 01/14/23 20:19 96 01/14/23 20:17 82 L 01/14/23 19:24 94 L 01/14/23 18:00 96 01/14/23 16:41 97 01/14/23 15:27 93 L 01/14/23 14:22 94 L Intake and Output 01/14/23 01/15/23 01/15/23 22:59 06:59 14:59 Output Total 350 570 Balance -350 -570 Output: Urine 350 250 Post Void Residual 320 Other: Voiding Method Urinal # Bowel Movements 1 Weight 81.647 kg Results CBC & Chem 7: 01/15/23 10:33 01/15/23 10:33 Thrombosis Risk Factor Assmnt - Choose All That Apply Any of the Below Risk Factors Present?: Yes Each Factor Represents 1 point: Abnormal pulmonary function (COPD) Other Risk Factors: Yes Each Risk Factor Represents 2 Points: Age 61-74 years Thrombosis Risk Factor Assessment Total Risk Factor Score: 3 Thrombosis Risk Factor Assessment Level: Moderate Risk
--- NOTE | 2023-01-15 17:23 | CT ---
EXAMINATION TYPE: CT chest w con DATE OF EXAM: 01/15/2023 COMPARISON: January 08, 2023 HISTORY: Possible empyema, loculated effusion. CT DLP: 369.3 mGycm Automated exposure control for dose reduction was used. CONTRAST: CT scan of the chest is performed with IV Contrast, patient injected with 100 mL of Isovue 300. FINDINGS: LUNGS: There is loculated fluid collection noted at the right lung base which is difficult to measure and is estimated at 13 x 5 cm with additional caudal component measuring 5.3 x 3.5 cm. There is wojciech tional free flowing no pleural effusion at the right lung base. No definite evidence for empyema. Sma ll left-sided pleural effusion is seen. Pleural-parenchymal opacity right lower lobe. Severe parasept al emphysema noted. MEDIASTINUM: There are no greater than 1 cm hilar or mediastinal lymph nodes. No pericardial effusi on is seen. Ascending thoracic aortic aneurysm measuring 4.4 cm AP dimension. There is evidence of ca rdiomegaly. Anterior pericardial effusion measuring 1.8 cm. UPPER ABDOMEN: Splenomegaly with AP dimension of 16.7 cm. OTHER: No additional significant abnormality is seen. IMPRESSION: 1. Bilobed loculated right basilar pleural effusion or CT evidence to suggest empyema at this time. S mall free-flowing pleural effusions noted as well bilaterally. 2. Pleural-parenchymal density right lower lobe may reflect atelectasis and/or pneumonia. Follow-up u ntil resolution is advised.
[2023-01-15] MEDS: QUEtiapine 100 MG TAB PO SCH (20:08)
[2023-01-15] MEDS: AMOXIC-POT CLAV 875-125MG 1 EACH TAB PO SCH (20:08)
[2023-01-15] MEDS: ATORVASTATIN 40 MG TAB PO SCH (20:08)
[2023-01-15] MEDS ORDERED: CALCIUM CARBONATE 500 MG CHEWABLE PO PRN (21:00)
--- NOTE | 2023-01-15 22:06 | P.CONS ---
History of Present Illness - Reason for Consult Consult date: 01/15/23 - History of Present Illness Patient is a 62-year-old male with a past medical history significant for significant for Parkinson disease hypertension hyperlipidemia COPD did have history of right-sided empyema secondry to alpha Streptococcus requiring right- sided thoracocentesis and subsequently did have a Elosser flap he was admitted to this facility for shortness of breath did not have any fever or elevated w kwasi count and no concern for empyema patient was sent home on oral Augmentin to be on the safe side presenting back to the hospital within 24 hours of discharge complaining of shortness of breath patient denies having any chest pain he did have a cough mild to moderate intensity with occasional sputum production no nausea no vomiting no abdominal pain or any diarrhea patient on presentation the hospital was afebrile and no fever has been recorded subsequently patient was mildly hypoxic with O2 sats of 93% currently on 4 L nasal cannula oxygen patient did have a normal white count kidney function normal liver enzymes are normal patient did have a chest x-ray that was read as changes of underlying pneumonia with loculated pleural effusion or trapped fluid patient was continued on oral Augmentin infectious was consulted for further management of antibiotic therapy Past Medical History Past Medical History: Asthma, COPD, Hyperlipidemia, Hypertension, Pneumonia History of Any Multi-Drug Resistant Organisms: None Reported Past Surgical History: Orthopedic Surgery Past Anesthesia/Blood Transfusion Reactions: No Reported Reaction Past Psychological History: No Psychological Hx Reported Smoking Status: Current every day smoker Past Alcohol Use History: None Reported Past Drug Use History: None Reported - Past Family History Father Family Medical History: COPD Medications and Allergies Home Medications Medication Instructions Recorded Confirmed Type Albuterol Sulfate [Albuterol 2 puff INHALATION RT-Q4H PRN 10/30/22 01/14/23 History Sulfate Hfa] Benztropine Mesylate [Cogentin] 0.5 mg PO BID 10/30/22 01/14/23 History Pantoprazole Sodium [Protonix] 40 mg PO BID 10/30/22 01/14/23 History Sertraline [Zoloft] 100 mg PO BID 10/30/22 01/14/23 History Tamsulosin [Flomax] 0.4 mg PO DAILY 10/30/22 01/14/23 History tiZANidine [Zanaflex] 2 mg PO DAILY 10/30/22 01/14/23 History Budesonide-Formot 160-4.5 Mcg 2 puff INHALATION RT-BID each 11/18/22 01/14/23 Rx [Symbicort 160-4.5 Mcg Inhaler] Loperamide [Imodium] 2 mg PO QID PRN cap 11/18/22 01/14/23 Rx Apixaban [Eliquis] 5 mg PO BID 01/08/23 01/14/23 History Fluticasone Nasal [place] [Flonase 1 spr EA NOSTRIL DAILY 01/08/23 01/14/23 History Nasal [place]] Gabapentin 600 mg PO BID 01/08/23 01/14/23 History HYDROcodone/APAP 10-325MG [[place] 1 tab PO Q6H 01/08/23 01/14/23 History 10-325] QUEtiapine [SEROquel] 100 mg PO HS 01/08/23 01/14/23 History Aspirin 81 mg PO DAILY #30 tab 01/13/23 01/14/23 Rx Atorvastatin [Lipitor] 40 mg PO HS #30 tab 01/13/23 01/14/23 Rx Isosorbide Mononitrate ER [Imdur] 30 mg PO DAILY #30 tab 01/13/23 01/14/23 Rx Losartan [Cozaar] 100 mg PO DAILY #30 tab 01/13/23 01/14/23 Rx Nitroglycerin Sl Tabs [Nitrostat] 0.4 mg SUBLINGUAL Q5M PRN #30 tab 01/13/23 01/14/23 Rx carvediloL [Coreg] 6.25 mg PO BID-W/MEALS #60 tab 01/13/23 01/14/23 Rx Amoxic-Pot Clav 875-125Mg 1 tab PO Q12HR 01/14/23 01/14/23 History [Augmentin 875-125] Allergies Allergy/AdvReac Type Severity Reaction Status Date / Time No Known Allergies Allergy Verified 01/14/23 15:08 Physical Exam Vitals: Vital Signs Temp Pulse Pulse Resp BP BP BP 01/15/23 09:52 97.7 F 69 19 150/72 01/15/23 08:34 01/15/23 04:00 97.9 F 73 19 179/82 01/14/23 23:25 97.9 F 64 18 157/80 01/14/23 20:19 01/14/23 20:17 97.9 F 87 24 176/92 01/14/23 19:24 98.7 F 81 27 H 166/108 01/14/23 18:00 178/106 01/14/23 16:41 98.8 F 81 17 179/98 01/14/23 15:27 78 19 126/101 01/14/23 14:22 98.6 F 81 19 126/111 Pulse Ox 01/15/23 09:52 95 01/15/23 08:34 95 01/15/23 04:00 94 L 01/14/23 23:25 94 L 01/14/23 20:19 96 01/14/23 20:17 82 L 01/14/23 19:24 94 L 01/14/23 18:00 96 01/14/23 16:41 97 01/14/23 15:27 93 L 01/14/23 14:22 94 L Intake and Output 01/14/23 01/15/23 01/15/23 22:59 06:59 14:59 Intake Total 118 Output Total 350 570 950 Balance -350 -765 -429 Intake: Oral 118 Output: Urine 350 250 950 Post Void Residual 320 Other: Voiding Method Urinal Urinal # Bowel Movements 1 Weight 81.647 kg Results CBC & Chem 7: 01/16/23 10:48 01/16/23 10:48 Labs: Abnormal Lab Results - Last 24 Hours (Table) 01/15/23 01/15/23 Range/Units 10:33 10:33 Hgb 11.6 L (13.0-17.5) gm/dL Hct 36.0 L (39.0-53.0) % MCV 79.8 L (80.0-100.0) fL RDW 17.4 H (11.5-15.5) % Sodium 136 L (137-145) mmol/L BUN 21 H (9-20) mg/dL Glucose 119 H (74-99) mg/dL Assessment and Plan Plan: 1patient was in the hospital with increasing shortness of breath in this patient who did have a history of right-sided empyema status post thoracocentesis culture positive for alphahemolytic Streptococcus did have thoracocentesis followed by a lobster clamp with recent admission to hospital with similar symptoms patient was ruled out for any pneumonia or empyema discharged on Augmentin presented to the hospital with worsening shortness of breath the patient remains to be afebrile white normal chest x-ray reported to have increasing fluid and a question of possible empyema. 2we will obtain a CT of the chest to evaluate for underlying pathology. 3we will recheck a CRP and a procalcitonin level. 4for now continue with oral Augmentin we will follow on clinical condition and cultures to further adjust medication if needed Thank you for this consultation we will follow the patient along with you Dictation was produced using [employer] dictation software. please excuse any grammatical, word or spelling errors. Time with Patient: Greater than 30
[2023-01-16] MEDS: HYDROcodone/APAP 10-325MG 1 EACH TAB PO PRN ×4 (05:05→23:41)
[2023-01-16] MEDS: PANTOPRAZOLE 40 MG TABLET PO SCH ×2 (05:05→16:09)
[2023-01-16] MEDS: carvediloL 6.25 MG TAB PO SCH ×2 (05:05→16:09)
[2023-01-16] MEDS: TAMSULOSIN 0.4 MG CAP.ER.24H PO SCH (07:53)
[2023-01-16] MEDS: BENZTROPINE MESYLATE 0.5 MG TAB PO SCH ×2 (07:53→19:33)
[2023-01-16] MEDS: LOSARTAN 50 MG TAB PO SCH (07:53)
[2023-01-16] MEDS: GABAPENTIN 300 MG CAP PO SCH ×2 (07:53→19:33)
[2023-01-16] MEDS: ASPIRIN 81 MG PO SCH (07:53)
[2023-01-16] MEDS: FLUTICASONE 50MCG/SPRAY NASAL 16GM EA NOSTRIL SCH (07:53)
[2023-01-16] MEDS: ISOSORBIDE MONONITRATE ER 30 MG TAB.ER.24H PO SCH (07:53)
[2023-01-16] MEDS: SERTRALINE 100 MG TAB PO SCH ×2 (07:54→19:33)
[2023-01-16] MEDS: tiZANidine 4 MG TAB PO SCH (07:54)
[2023-01-16] MEDS: AMOXIC-POT CLAV 875-125MG 1 EACH TAB PO SCH ×2 (08:03→19:33)
[2023-01-16] MEDS: SYMBICORT 160-4.5 MCG INHALER INHALATION SCH ×2 (08:47→20:28)
--- NOTE | 2023-01-16 10:03 | P.PN ---
Subjective Progress Note Date: 01/16/23 This is a 62-year-old male patient with history of Parkinson's disease, hypertension, hyperlipidemia, chronic obstructive pulmonary disease, former smoker, right-sided empyema secondary to alpha hemolytic strep and is status post right-sided thoracentesis with subsequent pigtail catheter placement and subsequent Eloesser flap. He has been readmitted to our hospital 2 times in the last 2 weeks. He was discharged home on 01/13/2023 with home care. He was came back to our facility on 01/14/2023 as a transfer from [facility]. There was concerns regarding enlarging right-sided pleural effusion. He still has an opening that is draining the right lung with a dressing intact. His chest x-ray is similar to his last one here on 01/09/2023. Chronic changes in the right lung. White count 7.2. Hemoglobin 11.6. Platelets 204. Sodium 136. Potassium 3.6. Bicarb 24. BUN 21. Creatinine 0.69. Glucose 119. He is seen today in consultation on the regular medical floor. He is awake and alert in no acute distress. Somewhat of a poor historian. He is maintaining O2 saturations in the mid 90s on 4 L nasal cannula. He is afebrile. Hemodynamically stable. He's been initiated on antibiotics in the form of Augmentin. Continued on bronchodilators. The patient is seen today 01/16/2023 in follow-up on the regular medical floor. He is currently resting comfortably in bed. Awake and alert in no acute distress. He is maintaining O2 saturations up to 99% on 4 L nasal cannula. Afebrile. Hemodynamically stable. Computed tomography scan of the chest reveals bilobed loculated right basilar pleural effusion with no evidence to suggest empyema at this time. Small free-flowing pleural effusions noted bilaterally. Pleural parenchymal density in the right lower lobe may reflect atelectasis. He is currently on Augmentin. Objective - Vital Signs Vital signs: Vital Signs Temp 98.0 F 01/16/23 07:50 Pulse 62 01/16/23 07:50 Resp 18 01/16/23 07:50 BP 149/82 01/16/23 07:50 Pulse Ox 97 01/16/23 07:50 FiO2 Intake & Output 01/15/23 01/16/23 01/16/23 18:59 06:59 18:59 Intake Total 878 490 Output Total 2425 Balance -1547 490 Intake: Oral 878 490 Output: Urine 2425 Other: Voiding Method Urinal Urinal Urinal # Voids 3 - Exam GENERAL EXAM: Alert, pleasant 62-year-old male, on 4 L nasal cannula, comf ortable in no apparent distress. HEAD: Normocephalic. EYES: Normal reaction of pupils, equal size. NOSE: Clear with pink turbinates. THROAT: No erythema or exudates. NECK: No masses, no JVD. CHEST: No chest wall deformity. Evidence of Eloesser flap with opening on the right chest wall LUNGS: Equal air entry with crackles in the right lung base. CVS: S1 and S2 normal with no audible murmur, regular rhythm. ABDOMEN: No hepatosplenomegaly, normal bowel sounds, no guarding or rigidity. SPINE: No scoliosis or deformity SKIN: No rashes CENTRAL NERVOUS SYSTEM: No focal deficits, tone is normal in all 4 extremities. EXTREMITIES: There is no peripheral edema. No clubbing, no cyanosis. Peripheral pulses are intact. - Labs CBC & Chem 7: 01/15/23 10:33 01/15/23 10:33 Labs: Abnormal Lab Results - Last 24 Hours (Table) 01/15/23 01/15/23 Range/Units 10:33 10:33 Hgb 11.6 L (13.0-17.5) gm/dL Hct 36.0 L (39.0-53.0) % MCV 79.8 L (80.0-100.0) fL RDW 17.4 H (11.5-15.5) % Sodium 136 L (137-145) mmol/L BUN 21 H (9-20) mg/dL Glucose 119 H (74-99) mg/dL Assessment and Plan Assessment: Acute on chronic hypoxemic respiratory failure secondary to chronic right-sided pleural effusion secondary to empyema with previous thoracentesis, pigtail catheter placement and subsequent Eloesser flap placement and no evidence of malignancy History of 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 Computed tomography scan of the chest reveals bilobed loculated right basilar pleural effusion with no evidence to suggest empyema at this time. Small free-flowing pleural effusions noted bilaterally. Pleural parenchymal d ensity in the right lower lobe may reflect atelectasis. Chronic hypoxemic respiratory failure oxygen in the outpatient setting Chronic obstructive pulmonary disease History of chronic tobacco dependence Ischemic cardiomyopathy with ejection fraction 30-35% History of myocardial infarction Hypertension Parkinson's disease Hyperlipidemia Plan: The patient was seen and evaluated CT chest, labs and medications are reviewed No significant change in imaging or patient's symptoms Could be discharged from the pulmonary standpoint Antibiotics per ID service Continue to follow-up in our office as scheduled I have personally seen and examined the patient, performed the documentation and the assessment and plan as written. Number of minutes spent on the visit: 10.
[2023-01-16 11:02] LABS: Anisocytosis Slight; Basophils % (A) 1 %; Eosinophils # (A) 0.1 k/uL (0-0.7); Eosinophils % (A) 2 %; HCT 34.8 % (39.0-53.0); HGB 11.3 gm/dL (13.0-17.5); Hypochromasia Marked; Lymphocytes # (A) 1.1 k/uL (1.0-4.8); Lymphocytes % (A) 20 %; MCH 26.1 pg (25.0-35.0); MCHC 32.4 g/dL (31.0-37.0); MCV 80.5 fL (80.0-100.0); Mean Platelet Volume 8.6; Microcytosis Slight; Monocytes # (A) 0.3 k/uL (0-1.0); Monocytes % (A) 6 %; Neutrophils # (A) 3.9 k/uL (1.3-7.7); Neutrophils % (A) 69 %; Platelet Count 193 k/uL (150-450); RBC 4.32 m/uL (4.30-5.90); RDW 17.2 % (11.5-15.5); WBC 5.7 k/uL (3.8-10.6)
[2023-01-16 11:10] LABS: ALT 20 U/L (4-49); AST 19 U/L (17-59); African American GFR (CKD) >90 (>60 ml/min/1.73 sqM); Albumin 3.2 g/dL (3.5-5.0); Alkaline Phosphatase 88 U/L (38-126); Anion Gap 6 mmol/L; Blood Urea Nitrogen 18 mg/dL (9-20); Calcium 8.4 mg/dL (8.4-10.2); Carbon Dioxide 24 mmol/L (22-30); Chloride 107 mmol/L (98-107); Glucose 107 mg/dL (74-99); Non-African American GFR(CKD) >90 (>60 ml/min/1.73 sqM); Sodium 137 mmol/L (137-145); Total Bilirubin 0.6 mg/dL (0.2-1.3); Total Protein 6.1 g/dL (6.3-8.2)
[2023-01-16 11:19] LABS: NT-Pro-B-Type Natriuretic Pept 12600 pg/mL
--- NOTE | 2023-01-16 11:32 | P.CRDCN ---
History of Present Illness Consult date: 01/16/23 Consult reason: congestive heart failure History of present illness: The patient is a 62-year-old male with history of hypertension, hyperlipidemia, and prior myocardial infarction, who was transferred from [facility] for a [place] shortness of breath. The patient was admitted to the hospital on 01/09/2023 for chest discomfort and was found to have a mild to moderate sized pleural effusion. He was discharged for outpatient cardiac workup. He presented to his local emergency room with increased shortness of breath and it was decided to transfer him back to [place]. DIAGNOSTICS: EKG shows sinus rhythm with left bundle-branch block Chest x-ray shows increasing obesity right lower lobe with increasing loculated pleural effusion and/or infiltrate Computed tomography scan of the chest shows loculated right basilar pleural effusion and pleural parenchymal density in the right lower lobe Lab data: WBC 5.7, hemoglobin 11.3, hematocrit 34.8, platelet 193, sodium 136, potassium 3.6, BUN 21, creatinine 0.69, AST 22, ALT 23. Labs reviewed from [facility] showing BNP at 35,000 Recent echocardiogram shows EF at 3035% with severe pulmonary hypertension and right-sided heart failure REVIEW OF SYSTEMS: No fever or chills. No cough or expectoration. No diaphoresis. Patient denies headache, dizziness, blurred vision, double vision. Patient denies any stomach discomfort. No nausea, vomiting. No hematochezia. No hematemesis. Denies any black stools or blood in his stools. Denies dysuria or hematuria. No muscle weakness or numbness. Positive for shortness of breath. Edema. She does PHYSICAL EXAMINATION: This is a 62-year-old male in no apparent distress at the time of my examination. HEENT: Head is atraumatic, normocephalic. Pupils are equal, round. Mucous membranes of the mouth are moist. Neck is supple. There is no jugular venous distention. No carotid bruit is heard. CHEST EXAMINATION: Lungs are diminished to auscultation. No lung sounds on the right. No chest wall tenderness is noted on palpation or with deep breathing. HEART EXAMINATION: Heart regular rate and rhythm. S1, S2 heard. No murmurs, gallops or rub. ABDOMEN: Soft, nontender. Bowel sounds are heard. No organomegaly noted. EXTREMITIES: 2+ peripheral pulses with no evidence of peripheral edema and no calf tenderness noted. NEUROLOGIC EXAMINATION: Patient is awake, alert and oriented x3. FINAL ASSESSMENT AND PLAN: Acute on chronic hypoxemic respiratory failure secondary to chronic right-sided pleural effusion Acute on chronic congestive heart failure Unspecified cardiomyopathy, EF 30-35% History of hypertension History of hyperlipidemia PLAN: Continue maximal medical treatment for cardiomyopathy including losartan, carvedilol, and isosorbide Add Aldactone to current regimen Aggressive pulmonary hygiene Further recommendations to be based on clinical course I am dictating on behalf of Dr Ran Maki's history/physical and asse ssment/plan. Past Medical History Past Medical History: Asthma, COPD, Hyperlipidemia, Hypertension, Pneumonia History of Any Multi-Drug Resistant Organisms: None Reported Past Surgical History: Orthopedic Surgery Past Anesthesia/Blood Transfusion Reactions: No Reported Reaction Past Psychological History: No Psychological Hx Reported Smoking Status: Current every day smoker Past Alcohol Use History: None Reported Past Drug Use History: None Reported - Past Family History Father Family Medical History: COPD Medications and Allergies Home Medications Medication Instructions Recorded Confirmed Type Albuterol Sulfate [Albuterol 2 puff INHALATION RT-Q4H PRN 10/30/22 01/14/23 History Sulfate Hfa] Benztropine Mesylate [Cogentin] 0.5 mg PO BID 10/30/22 01/14/23 History Pantoprazole Sodium [Protonix] 40 mg PO BID 10/30/22 01/14/23 History Sertraline [Zoloft] 100 mg PO BID 10/30/22 01/14/23 History Tamsulosin [Flomax] 0.4 mg PO DAILY 10/30/22 01/14/23 History tiZANidine [Zanaflex] 2 mg PO DAILY 10/30/22 01/14/23 History Budesonide-Formot 160-4.5 Mcg 2 puff INHALATION RT-BID each 11/18/22 01/14/23 Rx [Symbicort 160-4.5 Mcg Inhaler] Loperamide [Imodium] 2 mg PO QID PRN cap 11/18/22 01/14/23 Rx Apixaban [Eliquis] 5 mg PO BID 01/08/23 01/14/23 History Fluticasone Nasal [place] [Flonase 1 spr EA NOSTRIL DAILY 01/08/23 01/14/23 History Nasal [place]] Gabapentin 600 mg PO BID 01/08/23 01/14/23 History HYDROcodone/APAP 10-325MG [[place] 1 tab PO Q6H 01/08/23 01/14/23 History 10-325] QUEtiapine [SEROquel] 100 mg PO HS 01/08/23 01/14/23 History Aspirin 81 mg PO DAILY #30 tab 01/13/23 01/14/23 Rx Atorvastatin [Lipitor] 40 mg PO HS #30 tab 01/13/23 01/14/23 Rx Isosorbide Mononitrate ER [Imdur] 30 mg PO DAILY #30 tab 01/13/23 01/14/23 Rx Losartan [Cozaar] 100 mg PO DAILY #30 tab 01/13/23 01/14/23 Rx Nitroglycerin Sl Tabs [Nitrostat] 0.4 mg SUBLINGUAL Q5M PRN #30 tab 01/13/23 01/14/23 Rx carvediloL [Coreg] 6.25 mg PO BID-W/MEALS #60 tab 01/13/23 01/14/23 Rx Amoxic-Pot Clav 875-125Mg 1 tab PO Q12HR 01/14/23 01/14/23 History [Augmentin 875-125] Allergies Allergy/AdvReac Type Severity Reaction Status Date / Time No Known Allergies Allergy Verified 01/14/23 15:08 Physical Exam Vitals: Vital Signs Temp Pulse Resp BP Pulse Ox 01/16/23 07:50 98.0 F 62 18 149/82 97 01/16/23 04:00 97.3 F L 68 18 156/84 99 01/16/23 01:30 80 16 01/15/23 23:59 97.3 F L 80 16 132/55 95 01/15/23 20:00 97.6 F 59 L 20 148/76 97 01/15/23 15:16 97.4 F L 58 L 19 145/72 96 Intake and Output 01/15/23 01/16/23 01/16/23 22:59 06:59 14:59 Intake Total 360 490 Output Total 625 Balance -265 490 Intake: Oral 360 490 Output: Urine 625 Other: Voiding Method Urinal Urinal Urinal # Voids 3 Results 01/16/23 10:48 01/15/23 10:33 CBC 01/16/23 Range/Units 10:48 WBC 5.7 (3.8-10.6) k/uL RBC 4.32 (4.30-5.90) m/uL Hgb 11.3 L (13.0-17.5) gm/dL Hct 34.8 L (39.0-53.0) % Plt Count 193 (150-450) k/uL Current Medications Generic Name Dose Route Start Last Admin Trade Name Freq PRN Reason Stop Dose Admin Hydrocodone Bitart/Acetaminophen 1 each 01/14/23 21:57 01/16/23 05:05 Hydrocodone/Apap 10-325mg 1 Each Tab PO 1 each Q6H PRN Administration Pain Albuterol Sulfate 2.5 mg 01/14/23 21:57 Albuterol Nebulized 2.5 Mg/3 Ml INHALATION RT-Q4H PRN Shortness Of Breath Amoxicillin/Clavulanate Potassium 1 each 01/15/23 21:00 01/16/23 08:03 Amoxic-Pot Clav 875-125mg 1 Each Tab PO 1 each Q12HR MARTA Administration Protocol Aspirin 81 mg 01/15/23 09:00 01/16/23 07:53 Aspirin 81 Mg PO 81 mg DAILY MARTA Administration Atorvastatin Calcium 40 mg 01/15/23 21:00 01/15/23 20:08 Atorvastatin 40 Mg Tab PO 40 mg HS MARTA Administration Benztropine Mesylate 0.5 mg 01/15/23 09:00 01/16/23 07:53 Benztropine Mesylate 0.5 Mg Tab PO 0.5 mg BID MARTA Administration Budesonide/Formoterol Fumarate 2 puff 01/15/23 08:00 01/16/23 08:47 Symbicort 160-4.5 Mcg Inhaler INHALATION 2 puff RT-BID MARTA Administration Calcium Carbonate/Glycine 1,000 mg 01/15/23 21:00 01/15/23 21:05 Calcium Carbonate 500 Mg Chewable PO 1,000 mg QID PRN Administration Heartburn Carvedilol 6.25 mg 01/14/23 22:00 01/16/23 05:05 Carvedilol 6.25 Mg Tab PO 6.25 mg BID-W/MEALS MARTA Administration Fluticasone Propionate 1 spray 01/15/23 09:00 01/16/23 07:53 Fluticasone 50mcg/[place] Nasal 16gm EA NOSTRIL 1 spray DAILY MARTA Administration Gabapentin 600 mg 01/15/23 09:00 01/16/23 07:53 Gabapentin 300 Mg Cap PO 600 mg BID MARTA Administration Isosorbide Mononitrate 30 mg 01/15/23 09:00 01/16/23 07:53 Isosorbide Mononitrate Er 30 Mg Tab.Er.24h PO 30 mg DAILY MARTA Administration Loperamide HCl 2 mg 01/14/23 21:57 Loperamide 2 Mg Cap PO QID PRN Diarrhea Losartan Potassium 100 mg 01/14/23 22:00 01/16/23 07:53 Losartan 50 Mg Tab PO 100 mg DAILY MARTA Administration Miscellaneous Information 1 each 01/15/23 12:19 Rx Info: Iv Contrast Was Given 1 Each Misc MISCELLANE 01/17/23 12:20 DAILY PRN Per Protocol Nitroglycerin 0.4 mg 01/14/23 21:57 Nitroglycerin Sl Tabs 0.4 Mg Tab SUBLINGUAL Q5M PRN Chest Pain Pantoprazole Sodium 40 mg 01/15/23 07:30 01/16/23 05:05 Pantoprazole 40 Mg Tablet PO 40 mg AC-BID MARTA Administration Quetiapine Fumarate 100 mg 01/15/23 21:00 01/15/23 20:08 Quetiapine 100 Mg Tab PO 100 mg HS MARTA Administration Sertraline HCl 100 mg 01/15/23 09:00 01/16/23 07:54 Sertraline 100 Mg Tab PO 100 mg BID MARTA Administration Tamsulosin HCl 0.4 mg 01/15/23 09:00 01/16/23 07:53 Tamsulosin 0.4 Mg Cap.Er.24h PO 0.4 mg DAILY MARTA Administration Tizanidine HCl 2 mg 01/15/23 09:00 01/16/23 07:54 Tizanidine 4 Mg Tab PO 2 mg DAILY MARTA Administration Intake and Output 01/15/23 01/16/23 01/16/23 22:59 06:59 14:59 Intake Total 360 490 Output Total 625 Balance -265 490 Intake: Oral 360 490 Output: Urine 625 Other: Voiding Method Urinal Urinal Urinal # Voids 3 01/16/23 10:48 01/15/23 10:33
[2023-01-16 11:44] LABS: Potassium 3.8 mmol/L (3.5-5.1)
[2023-01-16] MEDS: SPIRONOLACTONE 25 MG TAB PO SCH (11:51)
--- NOTE | 2023-01-16 14:04 | P.PN ---
Subjective Progress Note Date: 01/16/23 patient is 59-year-old gentleman with past medical history significant for COPD, empyema ,Eloesser flap for chronic pleural drainage who was recently discharged from our hospital on oral Augmentin. Patient was seen by ID and pulmonology during that visit. Patient was discharged on 2 L of oxygen. Patient stated that when he went back home he started noticing that he was getting more short of breath. Denied any chest pain. There was no complain of any swelling of fee t. No complain of fever or chills. Denies any cough. Patient is complaining of generalized weakness and lethargy. Because of this worsening shortness of breath patient came back to the ER and was admitted to medicine service 01/16. Patient seen and examined. CT chest done showed bilobed loculated right basilar pleural effusion,parenchymal density right lower lobe may reflect atelectasis or pneumonia. Continues to be on 4 L of oxygen REVIEW OF SYSTEMS: CONSTITUTIONAL: No fever, no malaise,. CARDIOVASCULAR: No chest pain, no palpitations, no syncope. PULMONARY: No shortness of breath, no cough, GASTROINTESTINAL: No diarrhea, no nausea, no vomiting, no abdominal pain. NEUROLOGICAL: No headaches, no weakness, PHYSICAL EXAMINATION: GENERAL: The patient is alert and oriented x3, not in any acute distress. Well developed, well nourished. HEENT: Pupils are round and equally reacting to light. EOMI. No scleral icterus. No conjunctival pallor. Normocephalic, atraumatic. No pharyngeal erythema. No thyromegaly. CARDIOVASCULAR: S1 and S2 present. No murmurs, rubs, or gallops. PULMONARY: Chest is clear to auscultation, no wheezing or crackles. ABDOMEN: Soft, nontender, nondistended, normoactive bowel sounds. No palpable organomegaly. MUSCULOSKELETAL: No joint swelling or deformity. EXTREMITIES: No cyanosis, clubbing, or pedal edema. NEUROLOGICAL: Gross neurological examination did not reveal any focal deficits. SKIN: No rashes. Assessment and plan Acute on chronic respiratory failure Right-sided pleural effusion Acute on chronic systolic CHF COPD Hypertension BPH Monitor vital signs Monitor CBC Monitor CMP Continue telemetry monitoring CT chest done showed bilobed loculated right basilar pleural effusion,parenchymal density right lower lobe may reflect atelectasis or pneumonia Continue breathing treatments Continue Augmentin Continue maximal medical treatment for cardiomyopathy including losartan, carvedilol, and isosorbide Cardiology added Aldactone Follow-up on pulmonary recommendations Follow-up on ID recs Follow-up on cardiology recommendations Labs and medication were reviewed.. Continue same treatment. Continue with symptomatic treatment. Resume home medication. Monitor labs and vitals. DVT and GI prophylaxis. Further recommendations as per clinical course of the patient Dictation was produced using [employer] dictation software. please excuse any grammatical, word or spelling errors. Objective - Vital Signs Vital signs: Vital Signs Temp 98.0 F 01/16/23 07:50 Pulse 62 01/16/23 07:50 Resp 18 01/16/23 07:50 BP 149/82 01/16/23 07:50 Pulse Ox 97 01/16/23 07:50 FiO2 Intake & Output 01/15/23 01/16/23 01/16/23 18:59 06:59 18:59 Intake Total 878 490 Output Total 2425 Balance -1547 490 Intake: Oral 878 490 Output: Urine 2425 Other: Voiding Method Urinal Urinal Urinal # Voids 3 - Labs CBC & Chem 7: 01/16/23 10:48 01/16/23 10:48 Labs: Abnormal Lab Results - Last 24 Hours (Table) 01/15/23 01/15/23 Range/Units 10:33 10:33 Hgb 11.6 L (13.0-17.5) gm/dL Hct 36.0 L (39.0-53.0) % MCV 79.8 L (80.0-100.0) fL RDW 17.4 H (11.5-15.5) % Sodium 136 L (137-145) mmol/L BUN 21 H (9-20) mg/dL Glucose 119 H (74-99) mg/dL
[2023-01-16] MEDS ORDERED: DICYCLOMINE 10 MG CAP PO PRN (16:16)
[2023-01-16] MEDS: ATORVASTATIN 40 MG TAB PO SCH (19:33)
[2023-01-16] MEDS: QUEtiapine 100 MG TAB PO SCH (19:33)
[2023-01-17] MEDS: HYDROcodone/APAP 10-325MG 1 EACH TAB PO PRN ×3 (06:19→18:38)
[2023-01-17] MEDS: carvediloL 6.25 MG TAB PO SCH ×2 (06:20→16:29)
[2023-01-17] MEDS: PANTOPRAZOLE 40 MG TABLET PO SCH ×2 (06:20→16:29)
[2023-01-17] MEDS: SYMBICORT 160-4.5 MCG INHALER INHALATION SCH ×2 (08:15→20:58)
[2023-01-17] MEDS: AMOXIC-POT CLAV 875-125MG 1 EACH TAB PO SCH ×2 (08:38→20:42)
[2023-01-17] MEDS: ASPIRIN 81 MG PO SCH (08:38)
[2023-01-17] MEDS: SERTRALINE 100 MG TAB PO SCH ×2 (08:38→20:42)
[2023-01-17] MEDS: BENZTROPINE MESYLATE 0.5 MG TAB PO SCH ×2 (08:38→20:42)
[2023-01-17] MEDS: ISOSORBIDE MONONITRATE ER 30 MG TAB.ER.24H PO SCH (08:38)
[2023-01-17] MEDS: LOSARTAN 50 MG TAB PO SCH (08:39)
[2023-01-17] MEDS: GABAPENTIN 300 MG CAP PO SCH ×2 (08:39→20:42)
[2023-01-17] MEDS: SPIRONOLACTONE 25 MG TAB PO SCH (08:39)
[2023-01-17] MEDS: tiZANidine 4 MG TAB PO SCH (08:39)
[2023-01-17] MEDS: TAMSULOSIN 0.4 MG CAP.ER.24H PO SCH (08:39)
[2023-01-17] MEDS: FLUTICASONE 50MCG/SPRAY NASAL 16GM EA NOSTRIL SCH (08:40)
[2023-01-17] MEDS: LIDOCAINE 5% PATCH TOPICAL SCH (11:45)
--- NOTE | 2023-01-17 11:50 | P.PN ---
Subjective Progress Note Date: 01/17/23 The patient is a 62-year-old male who was transferred from [facility] for increased shortness of breath. The patient has a chronic right pleural effusion. Cardiology was consulted for congestive heart failure. She has a known ejection fraction of 30-35%. The patient states he did well overnight. No chest pain. He states his breathing is gradually improving. No dizziness or lightheadedness when up ambulating around his room. GENERAL: Well-appearing, well-nourished and in no acute distress. NECK: Supple without JVD or thyromegaly. LUNGS: Breath sounds are severely diminished to auscultation bilaterally. No airflow on the right. Respiration equal and unlabored. No wheezes, rales or rhonchi. HEART: Regular rate and rhythm without murmurs, rubs or gallops. S1 and S2 heard. EXTREMITIES: Normal range of motion, no edema. No clubbing or cyanosis. Peripheral pulses intact and strong. VITALS: Systolic pressures averaging in the 140s to 160s TELEMETRY: Sinus rhythm overnight IMPRESSION: Acute on chronic hypoxemic respiratory failure secondary to chronic right-sided pleural effusion Acute on chronic congestive heart failure Unspecified cardiomyopathy, EF 30-35% History of hypertension History of hyperlipidemia PLAN: Switch losartan to valsartan for better blood pressure control Continue aggressive pulmonary hygiene Further recommendations to be based on clinical course I am dictating on behalf of Dr Ran Maki's history/physical and assessment/plan. Objective - Vital Signs Vital signs: Vital Signs Temp 98.1 F 01/17/23 07:18 Pulse 62 01/17/23 07:18 Resp 20 01/17/23 07:18 BP 160/86 01/17/23 07:18 Pulse Ox 94 L 01/17/23 07:18 FiO2 Intake & Output 01/16/23 01/17/23 01/17/23 18:59 06:59 18:59 Intake Total 1430 440 Output Total 325 Balance 1430 115 Intake: IV 20 Invasive Line 1 10 Invasive Line 2 10 Oral 1430 420 Output: Urine 325 Post Void Residual 0 Other: Voiding Method Urinal Urinal Urinal # Voids 5 2 # Bowel Movements 1 - Labs CBC & Chem 7: 01/16/23 10:48 01/16/23 10:48
--- NOTE | 2023-01-17 12:16 | P.PN ---
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 He has been readmitted to our hospital 2 times in the last 2 weeks. He was discharged home on 01/13/2023 with home care. He was came back to our facility on 01/14/2023 as a transfer from [facility]. There was concerns regarding enlarging right-sided pleural effusion. He still has an opening that is draining the right lung with a dressing intact. His chest x-ray is similar to his last one here on 01/09/2023. Chronic changes in the right lung. White count 7.2. Hemoglobin 11.6. Platelets 204. Sodium 136. Potassium 3.6. Bicarb 24. BUN 21. Creatinine 0.69. Glucose 119. He is seen today in consultation on the regular medical floor. He is awake and alert in no acute distress. Somewhat of a poor historian. He is maintaining O2 saturations in the mid 90s on 4 L nasal cannula. He is afebrile. Hemodynamically stable. He's been initiated on antibiotics in the form of Augmentin. Continued on bronchodilators. The patient is seen today 01/16/2023 in follow-up on the regular medical floor. He is currently resting comfortably in bed. Awake and alert in no acute distress. He is maintaining O2 saturations up to 99% on 4 L nasal cannula. Afebrile. Hemodynamically stable. Computed tomography scan of the chest reveals bilobed loculated right basilar pleural effusion with no evidence to suggest empyema at this time. Small free-flowing pleural effusions noted bilaterally. Pleural parenchymal density in the right lower lobe may reflect atelectasis. He is currently on Augmentin. The patient is seen today 01/17/2023 in follow-up on the selective care unit. He is currently sitting up in a chair at the bedside. Awake and alert in no ac te-moak distress. He is having some issues with confusion. A public safety director is at the bedside. He remains on Symbicort, albuterol, Augmentin. On oral diuretics. Objective - Vital Signs Vital signs: Vital Signs Temp 97.4 F L 01/17/23 11:47 Pulse 60 01/17/23 11:47 Resp 20 01/17/23 11:47 BP 144/77 01/17/23 11:47 Pulse Ox 98 01/17/23 11:47 FiO2 Intake & Output 01/16/23 01/17/23 01/17/23 18:59 06:59 18:59 Intake Total 1430 440 Output Total 325 Balance 1430 115 Intake: IV 20 Invasive Line 1 10 Invasive Line 2 10 Oral 1430 420 Output: Urine 325 Post Void Residual 0 Other: Voiding Method Urinal Urinal Urinal # Voids 5 2 # Bowel Movements 1 - Exam GENERAL EXAM: Alert, pleasant 62-year-old male, on 4 L nasal cannula, comfortable in no apparent distress. HEAD: Normocephalic. EYES: Normal reaction of pupils, equal size. NOSE: Clear with pink turbinates. THROAT: No erythema or exudates. NECK: No masses, no JVD. CHEST: No chest wall deformity. Evidence of Eloesser flap with opening on the right chest wall LUNGS: Equal air entry with crackles in the right lung base. CVS: S1 and S2 normal with no audible murmur, regular rhythm. ABDOMEN: No hepatosplenomegaly, normal bowel sounds, no guarding or rigidity. SPINE: No scoliosis or deformity SKIN: No rashes CENTRAL NERVOUS SYSTEM: No focal deficits, tone is normal in all 4 extremities. EXTREMITIES: There is no peripheral edema. No clubbing, no cyanosis. Peripheral pulses are intact. - Labs CBC & Chem 7: 01/16/23 10:48 01/16/23 10:48 Assessment and Plan Assessment: Acute on chronic hypoxemic respiratory failure secondary to chronic right-sided pleural effusion secondary to empyema with previous thoracentesis, pigtail catheter placement and subsequent Eloesser flap placement and no evidence of malignancy History of 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 Computed tomography scan of the chest reveals bilobed loculated right basilar pleural effusion with no evidence to suggest empyema at this time. Small free-flowing pleural effusions noted bilaterally. Pleural parenchymal density in the right lower lobe may reflect atelectasis. Chronic hypoxemic respiratory failure oxygen in the outpatient setting Chronic obstructive pulmonary disease History of chronic tobacco dependence Ischemic cardiomyopathy with ejection fraction 30-35% History of myocardial infarction Hypertension Parkinson's disease Hyperlipidemia Plan: The patient was seen and evaluated Medications are reviewed Could be discharged from the pulmonary standpoint Continue to follow-up in our office as scheduled I have personally seen and examined the patient, performed the documentation and the assessment and plan as written. Number of minutes spent on the visit: 10.
--- NOTE | 2023-01-17 12:54 | P.PN ---
Subjective Progress Note Date: 01/17/23 patient is 59-year-old gentleman with past medical history significant for COPD, empyema ,Eloesser flap for chronic pleural drainage who was recently discharged from our hospital on oral Augmentin. Patient was seen by ID and pulmonology during that visit. Patient was discharged on 2 L of oxygen. Patient stated that when he went back home he started noticing that he was getting more short of breath. Denied any chest pain. There was no complain of any swelling of fee t. No complain of fever or chills. Denies any cough. Patient is complaining of generalized weakness and lethargy. Because of this worsening shortness of breath patient came back to the ER and was admitted to medicine service 01/16. Patient seen and examined. CT chest done showed bilobed loculated right basilar pleural effusion,parenchymal density right lower lobe may reflect atelectasis or pneumonia. Continues to be on 4 L of oxygen 01/17. Patient seen and examined. Currently on 2 L of oxygen. States he is feeling better compared to yesterday REVIEW OF SYSTEMS: CONSTITUTIONAL: No fever, no malaise,. CARDIOVASCULAR: No chest pain, no palpitations, no syncope. PULMONARY: No shortness of breath, no cough, GASTROINTESTINAL: No diarrhea, no nausea, no vomiting, no abdominal pain. NEUROLOGICAL: No headaches, no weakness, PHYSICAL EXAMINATION: GENERAL: The patient is alert and oriented x3, not in any acute distress. Well developed, well nourished. HEENT: Pupils are round and equally reacting to light. EOMI. No scleral icterus. No conjunctival pallor. Normocephalic, atraumatic. No pharyngeal erythema. No thyromegaly. CARDIOVASCULAR: S1 and S2 present. No murmurs, rubs, or gallops. PULMONARY: Diminished breath sounds at bases bilaterally ABDOMEN: Soft, nontender, nondistended, normoactive bowel sounds. No palpable organomegaly. MUSCULOSKELETAL: No joint swelling or deformity. EXTREMITIES: No cyanosis, clubbing, or pedal edema. NEUROLOGICAL: Gross neurological examination did not reveal any focal deficits. SKIN: No rashes. Assessment and plan Acute on chronic respiratory failure Right-sided pleural effusion Acute on chronic systolic CHF COPD Hypertension BPH Monitor vital signs Monitor CBC Monitor CMP Continue telemetry monitoring CT chest done showed bilobed loculated right basilar pleural effusion,parenchymal density right lower lobe may reflect atelectasis or pneumonia Continue breathing treatments Continue Augmentin Continue maximal medical treatment for cardiomyopathy including losartan, carvedilol, and isosorbide Cardiology added Aldactone Follow-up on pulmonary recommendations Follow-up on ID recs Follow-up on cardiology recommendations Labs and medication were reviewed.. Continue same treatment. Continue with symptomatic treatment. Resume home medication. Monitor labs and vitals. DVT and GI prophylaxis. Further recommendations as per clinical course of the patient Dictation was produced using [employer] dictation software. please excuse any grammatical, word or spelling errors. Objective - Vital Signs Vital signs: Vital Signs Temp 98.1 F 01/17/23 07:18 Pulse 62 01/17/23 07:18 Resp 20 01/17/23 07:18 BP 160/86 01/17/23 07:18 Pulse Ox 94 L 01/17/23 07:18 FiO2 Intake & Output 01/16/23 01/17/23 01/17/23 18:59 06:59 18:59 Intake Total 1430 440 Balance 1430 440 Intake: IV 20 Invasive Line 1 10 Invasive Line 2 10 Oral 1430 420 Other: Voiding Method Urinal Urinal Urinal # Voids 5 2 # Bowel Movements 1 - Labs CBC & Chem 7: 01/16/23 10:48 01/16/23 10:48 Labs: Abnormal Lab Results - Last 24 Hours (Table) 01/16/23 01/16/23 Range/Units 10:48 10:48 Hgb 11.3 L (13.0-17.5) gm/dL Hct 34.8 L (39.0-53.0) % RDW 17.2 H (11.5-15.5) % Creatinine 0.61 L (0.66-1.25) mg/dL Glucose 107 H (74-99) mg/dL Total Protein 6.1 L (6.3-8.2) g/dL Albumin 3.2 L (3.5-5.0) g/dL
--- NOTE | 2023-01-17 16:22 | P.PN ---
Subjective Progress Note Date: 01/16/23 Principal diagnosis: Pneumonia and question of empyema Patient is a 62-year-old male with a past medical history significant for significant for Parkinson disease hypertension hyperlipidemia COPD did have history of right-sided empyema secondry to alpha Streptococcus requiring right- sided thoracocentesis and subsequently did have a Elosser flap, presented to hospital with increasing shortness of breath chest x-ray with some effusion CT of the chest did shows bilobed loculated fluid no evidence of empyema per pulmonary note. On today's evaluation that is 01/16/2023, the patient remains to be afebrile the patient is breathing comfortably on 2 L nasal cannula oxygen patient denies having any chest pain he did have a cough with minimal sputum no nausea no vomiting no abdominal pain no diarrhea patient did have some confusion with a sitter at the bedside. Patient did have a white count of 5.7 creatinine 0.6 Procalcitonin is 0.05 Objective - Vital Signs Vital signs: Vital Signs Temp 97.7 F 01/16/23 15:32 Pulse 61 01/16/23 15:32 Resp 18 01/16/23 15:32 BP 143/75 01/16/23 15:32 Pulse Ox 98 01/16/23 15:32 FiO2 Intake & Output 01/15/23 01/16/23 01/16/23 18:59 06:59 18:59 Intake Total 878 830 Output Total 2425 Balance -1547 830 Intake: Oral 878 830 Output: Urine 2425 Other: Voiding Method Urinal Urinal Urinal # Voids 3 - Exam GENERAL DESCRIPTION: Middle-aged male lying in bed in no distress RESPIRATORY SYSTEM: Unlabored breathing , decreased breath sounds at bases HEART: S1 S2 regular rate and rhythm , ABDOMEN: Soft , no tenderness EXTREMITIES: No edema feet - Labs CBC & Chem 7: 01/16/23 10:48 01/16/23 10:48 Labs: Abnormal Lab Results - Last 24 Hours (Table) 01/16/23 01/16/23 Range/Units 10:48 10:48 Hgb 11.3 L (13.0-17.5) gm/dL Hct 34.8 L (39.0-53.0) % RDW 17.2 H (11.5-15.5) % Creatinine 0.61 L (0.66-1.25) mg/dL Glucose 107 H (74-99) mg/dL Total Protein 6.1 L (6.3-8.2) g/dL Albumin 3.2 L (3.5-5.0) g/dL Assessment and Plan (1) Pleural effusion, right Current Visit: No Status: Acute Code(s): J90 - PLEURAL EFFUSION, NOT ELSEWHE RE CLASSIFIED SNOMED Code(s): 78865042 Plan: 1patient was in the hospital with increasing shortness of breath in this patient who did have a history of right-sided empyema status post thoracocentesis culture positive for alphahemolytic Streptococcus did have thoracocentesis followed by a lobster clamp with recent admission to hospital with similar symptoms patient was ruled out for any pneumonia or empyema discharged on Augmentin presented to the hospital with worsening shortness of breath the patient remains to be afebrile white normal chest x-ray reported to have increasing fluid and a question of possible empyema. 2patient did have CT of the chest with evidence of bilobed loculated fluid per pulmonary note evidence of empyema patient did have a normal pro-calcitonin making pneumonia less likely 3for now continue with oral Augmentin and monitor clinical course closely Dictation was produced using [employer] dictation software. please excuse any grammatical, word or spelling errors. Time with Patient: Less than 30
--- NOTE | 2023-01-17 16:23 | P.PN ---
Subjective Progress Note Date: 01/17/23 Principal diagnosis: Pneumonia and question of empyema Patient is a 62-year-old male with a past medical history significant for significant for Parkinson disease hypertension hyperlipidemia COPD did have history of right-sided empyema secondry to alpha Streptococcus requiring right- sided thoracocentesis and subsequently did have a Elosser flap, presented to hospital with increasing shortness of breath chest x-ray with some effusion CT of the chest did shows bilobed loculated fluid no evidence of empyema per pulmonary note. On today's evaluation that is 01/17/2023, the patient continues to be afebrile the patient is breathing comfortably on 2 L nasal cannula oxygen patient denies having any chest pain, the patient did have a cough with minimal sputum, the patient denies nausea no vomiting no abdominal pain no diarrhea patient did have some confusion with a sitter at the bedside. Patient did have a white count of 5.7 creatinine 0.6 Procalcitonin is 0.05 as of yesterday no blood draw today Objective - Vital Signs Vital signs: Vital Signs Temp 97.6 F 01/17/23 15:34 Pulse 66 01/17/23 15:34 Resp 20 01/17/23 15:34 BP 152/80 01/17/23 15:34 Pulse Ox 96 01/17/23 15:34 FiO2 Intake & Output 01/16/23 01/17/23 01/17/23 18:59 06:59 18:59 Intake Total 1430 660 Output Total 1329 Balance 1430 -669 Intake: IV 40 Invasive Line 1 20 Invasive Line 2 20 Oral 1430 620 Output: Urine 1275 Post Void Residual 54 Other: Voiding Method Urinal Urinal Urinal # Voids 5 2 1 # Bowel Movements 1 1 - Exam GENERAL DESCRIPTION: Middle-aged male lying in bed in no distress RESPIRATORY SYSTEM: Unlabored breathing , decreased breath sounds at bases HEART: S1 S2 regular rate and rhythm , ABDOMEN: Soft , no tenderness EXTREMITIES: No edema feet - Labs CBC & Chem 7: 01/16/23 10:48 01/16/23 10:48 Assessment and Plan (1) Pleural effusion, right Current Visit: No Status: Acute Code(s): J90 - PLEURAL EFFUSION, NOT ELSEWHERE CLASSIFIED SNOMED Code(s): 32512202 Plan: 1patient was in the hospital with increasing shortness of breath in this patient who did have a history of right-sided empyema status post thoracocentesis culture positive for alphahemolytic Streptococcus did have thoracocentesis followed by a lobster clamp with recent admission to hospital with similar symptoms patient was ruled out for any pneumonia or empyema discharged on Augmentin presented to the hospital with worsening shortness of breath the patient remains to be afebrile white normal chest x-ray reported to have increasing fluid and a question of possible empyema. 2patient did have CT of the chest with evidence of bilobed loculated fluid per pulmonary note evidence of empyema patient did have a normal pro-calcitonin making pneumonia less likely 3we will continue the patient on a short course of oral Augmentin and monitor clinical course closely Dictation was produced using [employer] dictation software. please excuse any grammatical, word or spelling errors. Time with Patient: Less than 30
[2023-01-17] MEDS: QUEtiapine 100 MG TAB PO SCH (20:42)
[2023-01-17] MEDS: ATORVASTATIN 40 MG TAB PO SCH (20:42)
[2023-01-18] MEDS: HYDROcodone/APAP 10-325MG 1 EACH TAB PO PRN ×2 (06:14→13:09)
[2023-01-18] MEDS: PANTOPRAZOLE 40 MG TABLET PO SCH (06:40)
[2023-01-18] MEDS: carvediloL 6.25 MG TAB PO SCH (06:40)
[2023-01-18] MEDS: SYMBICORT 160-4.5 MCG INHALER INHALATION SCH (08:35)
[2023-01-18] MEDS: FLUTICASONE 50MCG/SPRAY NASAL 16GM EA NOSTRIL SCH (08:48)
[2023-01-18] MEDS: LIDOCAINE 5% PATCH TOPICAL SCH (08:48)
[2023-01-18] MEDS: AMOXIC-POT CLAV 875-125MG 1 EACH TAB PO SCH (08:49)
[2023-01-18] MEDS: GABAPENTIN 300 MG CAP PO SCH (08:49)
[2023-01-18] MEDS: TAMSULOSIN 0.4 MG CAP.ER.24H PO SCH (08:49)
[2023-01-18] MEDS: tiZANidine 4 MG TAB PO SCH (08:49)
[2023-01-18] MEDS: ISOSORBIDE MONONITRATE ER 30 MG TAB.ER.24H PO SCH (08:49)
[2023-01-18] MEDS: SPIRONOLACTONE 25 MG TAB PO SCH (08:50)
[2023-01-18] MEDS: BENZTROPINE MESYLATE 0.5 MG TAB PO SCH (08:50)
[2023-01-18] MEDS: ASPIRIN 81 MG PO SCH (08:50)
[2023-01-18] MEDS: SERTRALINE 100 MG TAB PO SCH (08:50)
[2023-01-18] MEDS ORDERED: VALSARTAN 160 MG TAB PO SCH (09:00)
[2023-01-18 09:33] VITALS: RESP 16; TEMP 98.2
[2023-01-18] MEDS ORDERED: carvediloL 6.25 MG TAB PO STA (09:57)
--- NOTE | 2023-01-18 11:49 | P.PN ---
Subjective Progress Note Date: 01/18/23 This is a 62-year-old male patient with history of Parkinson's disease, hypertension, hyperlipidemia, chronic obstructive pulmonary disease, former smoker, right-sided empyema secondary to alpha hemolytic strep and is status post right-sided thoracentesis with subsequent pigtail catheter placement and subsequent Eloesser flap. He has been readmitted to our hospital 2 times in the last 2 weeks. He was discharged home on 01/13/2023 with home care. He was came back to our facility on 01/14/2023 as a transfer from [facility]. There was concerns regarding enlarging right-sided pleural effusion. He still has an opening that is draining the right lung with a dressing intact. His chest x-ray is similar to his last one here on 01/09/2023. Chronic changes in the right lung. White count 7.2. Hemoglobin 11.6. Platelets 204. Sodium 136. Potassium 3.6. Bicarb 24. BUN 21. Creatinine 0.69. Glucose 119. He is seen today in consultation on the regular medical floor. He is awake and alert in no acute distress. Somewhat of a poor historian. He is maintaining O2 saturations in the mid 90s on 4 L nasal cannula. He is afebrile. Hemodynamically stable. He's been initiated on antibiotics in the form of Augmentin. Continued on bronchodilators. The patient is seen today 01/16/2023 in follow-up on the regular medical floor. He is currently resting comfortably in bed. Awake and alert in no acute distress. He is maintaining O2 saturations up to 99% on 4 L nasal cannula. Afebrile. Hemodynamically stable. Computed tomography scan of the chest reveals bilobed loculated right basilar pleural effusion with no evidence to suggest empyema at this time. Small free-flowing pleural effusions noted bilaterally. Pleural parenchymal density in the right lower lobe may reflect atelectasis. He is currently on Augmentin. The patient is seen today 01/17/2023 in follow-up on the selective care unit. He is currently sitting up in a chair at the bedside. Awake and alert in no ac [place] distress. He is having some issues with confusion. A health and safety specialist is at the bedside. He remains on Symbicort, albuterol, Augmentin. On oral diuretics. The patient is seen today 01/18/2023 in follow-up on the selective care unit. He is awake and alert in no acute distress. Resting quite comfortably in bed. Anxious to go home. He denies any worsening shortness of breath, cough or conge stion. No phlegm. He remains on Augmentin. Continue bronchodilators. Remains on diuretics. Objective - Vital Signs Vital signs: Vital Signs Temp 98.2 F 01/18/23 08:35 Pulse 66 01/18/23 08:35 Resp 16 01/18/23 08:35 BP 168/91 01/18/23 08:35 Pulse Ox 95 01/18/23 08:36 FiO2 Intake & Output 01/17/23 01/18/23 01/18/23 18:59 06:59 18:59 Intake Total 1140 600 Output Total 1329 325 Balance -189 275 Intake: IV 40 Invasive Line 1 20 Invasive Line 2 20 Oral 1100 600 Output: Urine 1275 325 Post Void Residual 54 Other: Voiding Method Urinal Urinal # Voids 1 2 # Bowel Movements 1 1 - Exam GENERAL EXAM: Alert, 62-year-old male, on 4 L nasal cannula, comfortable in no apparent distress. HEAD: Normocephalic. EYES: Normal reaction of pupils, equal size. NOSE: Clear with pink turbinates. THROAT: No erythema or exudates. NECK: No masses, no JVD. CHEST: No chest wall deformity. Evidence of Eloesser flap with opening on the right chest wall LUNGS: Equal air entry with crackles in the right lung base. CVS: S1 and S2 normal with no audible murmur, regular rhythm. ABDOMEN: No hepatosplenomegaly, normal bowel sounds, no guarding or rigidity. SPINE: No scoliosis or deformity SKIN: No rashes CENTRAL NERVOUS SYSTEM: No focal deficits, tone is normal in all 4 extremities. EXTREMITIES: There is no peripheral edema. No clubbing, no cyanosis. Peripheral pulses are intact. - Labs CBC & Chem 7: 01/16/23 10:48 01/16/23 10:48 Assessment and Plan Assessment: Acute on chronic hypoxemic respiratory failure secondary to chronic right-sided pleural effusion secondary to empyema with previous thoracentesis, pigtail catheter placement and subsequent Eloesser flap placement and no evidence of malignancy History of 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 Computed tomography scan of the chest reveals bilobed loculated right basilar pleural effusion with no evidence to suggest empyema at this time. Small free-flowing pleural effusions noted bilaterally. Pleural parenchymal density in the right lower lobe may reflect atelectasis. Chronic hypoxemic respiratory failure oxygen in the outpatient setting Chronic obstructive pulmonary disease History of chronic tobacco dependence Ischemic cardiomyopathy with ejection fraction 30-35% History of myocardial infarction Hypertension Parkinson's disease Hyperlipidemia Plan: The patient was seen and evaluated Medications are reviewed Could be discharged from the pulmonary standpoint Plan is for home with home care Follow-up in our office as scheduled I have personally seen and examined the patient, performed the documentation and the assessment and plan as written. Number of minutes spent on the visit: 10.
[2023-01-18 12:53] VITALS: BP 143/82; PULSE 60
--- NOTE | 2023-01-18 13:57 | P.DS ---
Providers Date of admission: 01/14/23 16:45 Expected date of discharge: 01/18/23 Attending physician: Wilber Encinas MD Consults: 01/14/23 16:45 Consult Physician Urgent Consulting Provider: Huang Elder Consult Reason/Comments: Dyspnea, pleural effusion Do you want consulting provider notified?: Yes 01/15/23 09:13 Consult Physician Urgent Consulting Provider: Leeroy Ryan Consult Reason/Comments: pneumonia Do you want consulting provider notified?: Yes 01/15/23 10:23 Consult Physician Urgent Consulting Provider: Lv Sullivan Consult Reason/Comments: CHF Do you want consulting provider notified?: Yes Primary care physician: Anushka Sabillon MD Hospital Course: Discharge diagnoses; Acute on chronic respiratory failure Right-sided pleural effusion Acute on chronic systolic CHF COPD Hypertension BPH Hospital course; patient is 59-year-old gentleman with past medical history significant for COPD, empyema ,Eloesser flap for chronic pleural drainage who was recently discharged from our hospital on oral Augmentin. Patient was seen by ID and pulmonology during that visit. Patient was discharged on 2 L of oxygen. Patient stated that when he went back home he started noticing that he was getting more short of breath. Denied any chest pain. There was no complain of any swelling of feet. No complain of fever or chills. Denies any cough. Patient is complaining of generalized weakness and lethargy. Because of this worsening shortness of breath patient came back to the ER and was admitted to medicine service 01/16. Patient seen and examined. CT chest done showed bilobed loculated right basilar pleural effusion,parenchymal density right lower lobe may reflect atelectasis or pneumonia. Continues to be on 4 L of oxygen 01/17. Patient seen and examined. Currently on 2 L of oxygen. States he is feeling better compared to yesterday 01/18. Patient seen and examined. ID recommended trying patient on Augmentin, patient already given prescription for that during last admission. Cardiology recommended switching losartan to diovan. Outpatient follow-up with cardiology and pulmonology PHYSICAL EXAMINATION: GENERAL: The patient is alert and oriented x3, not in any acute distress. Well developed, well nourished. HEENT: Pupils are round and equally reacting to light. EOMI. No scleral icterus. No conjunctival pallor. Normocephalic, atraumatic. No pharyngeal erythema. No thyromegaly. CARDIOVASCULAR: S1 and S2 present. No murmurs, rubs, or gallops. PULMONARY: Chest is clear to auscultation, no wheezing or crackles. ABDOMEN: Soft, nontender, nondistended, normoactive bowel sounds. No palpable organomegaly. MUSCULOSKELETAL: No joint swelling or deformity. EXTREMITIES: No cyanosis, clubbing, or pedal edema. NEUROLOGICAL: Gross neurological examination did not reveal any focal deficits. SKIN: No rashes. Dictation was produced using [employer] dictation software. please excuse any grammatical, word or spelling errors. Patient Condition at Discharge: Good Plan - Discharge Summary Discharge Rx Participant: Yes New Discharge Prescriptions: New Spironolactone [Aldactone] 25 mg PO DAILY #30 tab carvediloL [Coreg*] 12.5 mg PO BID-W/MEALS #30 tab Valsartan [Diovan] 320 mg PO DAILY #30 tab Continue Tamsulosin [Flomax] 0.4 mg PO DAILY Pantoprazole Sodium [Protonix] 40 mg PO BID tiZANidine [Zanaflex] 2 mg PO DAILY HYDROcodone/APAP 10-325MG [[place] 10-325] 1 tab PO Q6H QUEtiapine [SEROquel] 100 mg PO HS Aspirin 81 mg PO DAILY #30 tab Isosorbide Mononitrate ER [Imdur] 30 mg PO DAILY #30 tab Atorvastatin [Lipitor] 40 mg PO HS #30 tab Nitroglycerin Sl Tabs [Nitrostat] 0.4 mg SUBLINGUAL Q5M PRN #30 tab PRN Reason: Chest Pain Sertraline [Zoloft] 100 mg PO BID Benztropine Mesylate [Cogentin] 0.5 mg PO BID Albuterol Sulfate [Albuterol Sulfate Hfa] 2 puff INHALATION RT-Q4H PRN PRN Reason: Shortness Of Breath Loperamide [Imodium] 2 mg PO QID PRN cap PRN Reason: Diarrhea Budesonide-Formot 160-4.5 Mcg [Symbicort 160-4.5 Mcg Inhaler] 2 puff INHALATION RT-BID each Apixaban [Eliquis] 5 mg PO BID Fluticasone Nasal [place] [Flonase Nasal [place]] 1 spr EA NOSTRIL DAILY Gabapentin 600 mg PO BID Amoxic-Pot Clav 875-125Mg [Augmentin 875-125] 1 tab PO Q12HR Discontinued Losartan [Cozaar] 100 mg PO DAILY #30 tab carvediloL [Coreg] 6.25 mg PO BID-W/MEALS #60 tab Discharge Medication List Albuterol Sulfate [Albuterol Sulfate Hfa] 2 puff INHALATION RT-Q4H PRN 10/30/22 [History] Benztropine Mesylate [Cogentin] 0.5 mg PO BID 10/30/22 [History] Pantoprazole Sodium [Protonix] 40 mg PO BID 10/30/22 [History] Sertraline [Zoloft] 100 mg PO BID 10/30/22 [History] Tamsulosin [Flomax] 0.4 mg PO DAILY 10/30/22 [History] tiZANidine [Zanaflex] 2 mg PO DAILY 10/30/22 [History] Budesonide-Formot 160-4.5 Mcg [Symbicort 160-4.5 Mcg Inhaler] 2 puff INHALATION RT-BID each 11/18/22 [Rx] Loperamide [Imodium] 2 mg PO QID PRN cap 11/18/22 [Rx] Apixaban [Eliquis] 5 mg PO BID 01/08/23 [History] Fluticasone Nasal [place] [Flonase Nasal [place]] 1 spr EA NOSTRIL DAILY 01/08/23 [History] Gabapentin 600 mg PO BID 01/08/23 [History] HYDROcodone/APAP 10-325MG [[place] 10-325] 1 tab PO Q6H 01/08/23 [History] QUEtiapine [SEROquel] 100 mg PO HS 01/08/23 [History] Aspirin 81 mg PO DAILY #30 tab 01/13/23 [Rx] Atorvastatin [Lipitor] 40 mg PO HS #30 tab 01/13/23 [Rx] Isosorbide Mononitrate ER [Imdur] 30 mg PO DAILY #30 tab 01/13/23 [Rx] Nitroglycerin Sl Tabs [Nitrostat] 0.4 mg SUBLINGUAL Q5M PRN #30 tab 01/13/23 [Rx] Amoxic-Pot Clav 875-125Mg [Augmentin 875-125] 1 tab PO Q12HR 01/14/23 [History] Spironolactone [Aldactone] 25 mg PO DAILY #30 tab 01/18/23 [Rx] Valsartan [Diovan] 320 mg PO DAILY #30 tab 01/18/23 [Rx] carvediloL [Coreg*] 12.5 mg PO BID-W/MEALS #30 tab 01/18/23 [Rx] Follow up Appointment(s)/Referral(s): [facility] [NON-STAFF] - Anushka Sabillon MD [Primary Care Provider] - 1-2 days Leeroy Ryan MD [STAFF PHYSICIAN] - 1 Week Huang Elder MD [STAFF PHYSICIAN] - 1 Week Brandt Palencia MD [STAFF PHYSICIAN] - 1 Week Discharge Disposition: HOME WITH HOME HEALTH SERVICES
--- NOTE | 2023-01-18 13:58 | P.PN ---
Subjective Progress Note Date: 01/18/23 The patient is a 62-year-old male who was transferred from [facility] for increased shortness of breath. The patient has a chronic right pleural effusion. Cardiology was consulted for congestive heart failure. She has a known ejection fraction of 30-35%. The patient states he did well overnight. No chest pain. He states his breathing is gradually improving. No dizziness or lightheadedness when up ambulating around his room. VITALS: Systolic pressures averaging in the 140s to 160s TELEMETRY: Sinus rhythm overnight 01/18 Patient is seen today in follow-up. Blood pressure medications were adjusted yesterday to include changed to valsartan, continue on Aldactone and Imdur. Blood pressure this morning 143/82, heart rate 60. Patient denies having shortness of breath. He denies any chest pain. He does complain of right upper quadrant pain. GENERAL: Well-appearing, well-nourished and in no acute distress. NECK: Supple without JVD or thyromegaly. LUNGS: Breath sounds are severely diminished to auscultation bilaterally. No airflow on the right. Respiration equal and unlabored. No wheezes, rales or rhonchi. HEART: Regular rate and rhythm without murmurs, rubs or gallops. S1 and S2 heard. EXTREMITIES: Normal range of motion, no edema. No clubbing or cyanosis. Peripheral pulses intact and strong. IMPRESSION: Acute on chronic hypoxemic respiratory failure secondary to chronic right-sided pleural effusion Acute on chronic congestive heart failure Unspecified cardiomyopathy, EF 30-35% History of hypertension History of hyperlipidemia PLAN: Continue current cardiac medications Patient is cleared for discharge from cardiology Nurse practitioner note has been reviewed, I agree with the documented findings and plan of care. Patient was seen and examined. Objective - Vital Signs Vital signs: Vital Signs Temp 98.2 F 01/18/23 08:35 Pulse 66 01/18/23 08:35 Resp 16 01/18/23 08:35 BP 168/91 01/18/23 08:35 Pulse Ox 95 01/18/23 08:36 FiO2 Intake & Output 01/17/23 01/18/23 01/18/23 18:59 06:59 18:59 Intake Total 1140 600 Output Total 1329 325 Balance -189 275 Intake: IV 40 Invasive Line 1 20 Invasive Line 2 20 Oral 1100 600 Output: Urine 1275 325 Post Void Residual 54 Other: Voiding Method Urinal Urinal # Voids 1 2 # Bowel Movements 1 1 - Labs CBC & Chem 7: 01/16/23 10:48 01/16/23 10:48
[2023-01-18] MEDS ORDERED: carvediloL 12.5 MG TAB PO SCH (17:30)
== END 2023-01-18 15:28 | disposition home health service (06) | DRG 177 ==
LOC: EC 14:21 → 4SSUR 16:45 → OBSVTOIN 16:45 → 3SCARD 19:31
PROVIDERS: ADMIT Internal Medicine; ATTEND Internal Medicine
DX: J86.9 Pyothorax without fistula (principal); I50.23 Acute on chronic systolic (congestive) heart failure; J96.21 Acute and chronic respiratory failure with hypoxia; J44.0 Chronic obstructive pulmonary disease with (acute) lower respiratory infection; J18.9 Pneumonia, unspecified organism; I27.29 Other secondary pulmonary hypertension; G20 Parkinson's disease; I11.0 Hypertensive heart disease with heart failure; I25.5 Ischemic cardiomyopathy; I25.2 Old myocardial infarction; I50.82 Biventricular heart failure; E78.5 Hyperlipidemia, unspecified; F17.210 Nicotine dependence, cigarettes, uncomplicated; B95.4 Other streptococcus as the cause of diseases classified elsewhere; N40.0 Benign prostatic hyperplasia without lower urinary tract symptoms; I44.7 Left bundle-branch block, unspecified; Z79.01 Long term (current) use of anticoagulants; Z79.82 Long term (current) use of aspirin; Z79.51 Long term (current) use of inhaled steroids; Z79.899 Other long term (current) drug therapy; Z85.118 Personal history of other malignant neoplasm of bronchus and lung; Z87.01 Personal history of pneumonia (recurrent)
CPT/HCPCS: 71045; 71046; 71260; 80053; 83880; 84145; 85025; 93005; 94640; 94760; 96374; 96375; 99285